=== PATIENT | female | born 1935 | race Caucasian/White ===

== ENCOUNTER 2016-07-16 12:45 | Emergency (ER) | payer MEDICARE ==
[2016-07-16 13:00] VITALS: BP 151/124; PULSE 75; RESP 18; TEMP 98.5
--- NOTE | 2016-07-16 13:06 | ED ---
Fall HPI - General Stated Complaint: FALL AT HOME Time Seen by Provider: 07/16/16 12:48 Source: patient, EMS, RN notes reviewed Mode of arrival: EMS Limitations: no limitations - History of Present Illness Initial Comments: 80-year-old female presents emergency department via EMS chief complaint fall. Patient states that she wears leg braces any caught together causing her to fall backwards. Patient fell on carpeted floor. Patient complains of pain in her buttocks region and upper back. Patient states she has no low back pain. She states the pain is more in her buttocks, pelvic region. Patient states she has no hip pain. Denies any head injury, LOC. Patient states she primary called EMS because she cannot get up off the floor by herself. Patient states the pain is very mild. Denies any nausea, vomiting, syncopal episode, chest pain or shortness breath. - Related Data Home Medications Medication Instructions Recorded Confirmed Allopurinol [Allopurinol] 100 mg PO QAM 01/16/16 01/20/16 Aspirin EC [Ecotrin Low Dose] 81 mg PO HS 01/16/16 01/20/16 Atenolol [Tenormin] 50 mg PO HS 01/16/16 01/20/16 Calcium Carb-Vit D 500Mg-200Un 1 tab PO W/SUPPER 01/16/16 01/20/16 [Oscal 500+D] Furosemide [Lasix] 40 mg PO DAILY 01/16/16 01/20/16 Gabapentin [Gabapentin] 300 mg PO W/SUPPER 01/16/16 01/20/16 Gabapentin [Gabapentin] 600 mg PO BID 01/16/16 01/20/16 Letrozole [Femara] 2.5 mg PO DAILY 01/16/16 01/20/16 Losartan Potassium [Losartan 50 mg PO DAILY 01/16/16 01/20/16 Potassium] Meloxicam 15 mg PO HS 01/16/16 01/20/16 Montelukast [Singulair] 10 mg PO HS 01/16/16 01/20/16 Multivitamins, Thera [Multivitamin] 1 tab PO W/SUPPER 01/16/16 01/20/16 Pravastatin Sodium [Pravastatin 20 mg PO HS 01/16/16 01/20/16 Sodium] glipiZIDE [Glipizide] 5 mg PO BID 01/16/16 01/20/16 metFORMIN HCL [metFORMIN HCL] 500 mg PO BID 01/16/16 01/20/16 traZODone HCL [Desyrel] 100 mg PO HS 01/16/16 01/20/16 Previous Rx's Medication Instructions Recorded HYDROcodone/APAP 5-325MG [[place] 1 tab PO Q6HR PRN #20 tab 01/20/16 5-325] Allergies Allergy/AdvReac Type Severity Reaction Status Date / Time naproxen Allergy Itching Verified 07/16/16 13:00 Penicillins Allergy Unknown Verified 07/16/16 13:00 Review of Systems ROS Statement: Those systems with pertinent positive or pertinent negative responses have been documented in the HPI. ROS Other: All systems not noted in ROS Statement are negative. Past Medical History Past Medical History: Diabetes Mellitus, Hyperlipidemia, Hypertension Additional Past Medical History / Comment(s): GOUT History of Any Multi-Drug Resistant Organisms: None Reported Past Surgical History: Cholecystectomy, Hysterectomy Additional Past Surgical History / Comment(s): MASTECTOMY RIGHT BREAST Past Psychological History: No Psychological Hx Reported Smoking Status: Former smoker Past Alcohol Use History: None Reported Past Drug Use History: None Reported General Exam Limitations: no limitations General appearance: alert, in no apparent distress Head exam: Present: atraumatic, normocephalic, normal inspection Neck exam: Present: normal inspection, full ROM. Absent: tenderness, meningismus, lymphadenopathy Respiratory exam: Present: normal lung sounds bilaterally. Absent: respiratory distress, wheezes, rales, rhonchi, stridor Cardiovascular Exam: Present: regular rate, normal rhythm, normal heart sounds. Absent: systolic murmur, diastolic murmur, rubs, gallop, clicks GI/Abdominal exam: Present: soft, normal bowel sounds. Absent: distended, tenderness, guarding, rebound, rigid Extremities exam: Present: other (Lower extremity braces noted patient has no pain with log rolling of either leg neurovascular intact no hip tenderness) Back exam: Present: full ROM, tenderness (Tenderness of the thoracic region to left thoracic, rib region, no lumbar tenderness), paraspinal tenderness ( Thoracic). Absent: vertebral tenderness Neurological exam: Present: alert, oriented X3, CN II-XII intact, reflexes normal. Absent: motor sensory deficit Skin exam: Present: warm, dry, intact, normal color. Absent: rash Course Vital Signs 07/16/16 12:56 Temperature 98.5 F Pulse Rate 75 Respiratory 18 Rate Blood Pressure 151/124 O2 Sat by Pulse 99 Oximetry Medical Decision Making - Medical Decision Making 80-year-old female presented emergency from for fall. Patient primary complaint of thoracic pain, buttocks pain. There is a compression fracture noted of L1 the patient is minimally tender. Patient will be referred to orthopedics Dr. Grace for further workup. Patient is requesting no pain medication at this time. Disposition Clinical Impression: Fall, Compression fracture Disposition: HOME SELF-CARE Condition: Stable Instructions: Vertebral Compression Fracture (ED) Additional Instructions: Please return to the Emergency Department if symptoms worsen or any other concerns. Referrals: Darrius Kamara MD [Primary Care Provider] - 1-2 days Michelle Grace DO [Doctor of Osteopathic Medicine] - 1-2 days Time of Disposition: 13:36
--- NOTE | 2016-07-16 13:27 | XR ---
EXAMINATION TYPE: XR pelvis AP view DATE OF EXAM: 07/16/2016 1:22 PM CLINICAL HISTORY: Left-sided pelvic pain since fall injury today. TECHNIQUE: A single AP view of the pelvis is obtained. COMPARISON: Left hip x-ray November 20, 2014. FINDINGS: Osseous structures are demineralized which is noted to lower radiographic sensitivity. Ther e is no acute fracture/dislocation evident in the pelvis. The sacroiliac joints appear symmetric and unremarkable. There is moderate axial joint space loss in both hips. Vascular calcification and phl eboliths overlie the pelvis. IMPRESSION: There is no acute fracture or dislocation in the pelvis.
--- NOTE | 2016-07-16 13:28 | XR ---
EXAMINATION TYPE: XR chest 1V DATE OF EXAM: 07/16/2016 1:22 PM HISTORY: Pain. REFERENCE: Previous study dated 09/30/2015. FINDINGS: The heart is enlarged. The lungs are clear. Pleural spaces are clear.. IMPRESSION: CARDIOMEGALY.
--- NOTE | 2016-07-16 13:30 | XR ---
EXAMINATION TYPE: XR thoracic spine 2V DATE OF EXAM ORDERED: 07/16/2016 1:22 PM HISTORY: Pain. COMPARISON: None. FINDINGS: There is a gentle levoscoliosis. There is a 50% wedge compression fracture of L1. Vertebral body height and alignment otherwise normal . There is diffuse disc space loss and mild hypertrophic spondylosis. Paraspinal soft tissues are nor mal. The pedicles are intact. IMPRESSION: 1. 50% WEDGE COMPRESSION FRACTURE OF L1. 2. MILD, DIFFUSE DEGENERATIVE CHANGE.
== END 2016-07-16 13:49 | disposition home or self-care (01) ==
LOC: EC 12:45
DX: S32.010A Wedge compression fracture of first lumbar vertebra, initial encounter for closed fracture (principal); W18.30XA Fall on same level, unspecified, initial encounter; E11.9 Type 2 diabetes mellitus without complications; I10 Essential (primary) hypertension; M10.9 Gout, unspecified; Y92.009 Unspecified place in unspecified non-institutional (private) residence as the place of occurrence of the external cause; Z87.891 Personal history of nicotine dependence; Z88.0 Allergy status to penicillin; Z88.6 Allergy status to analgesic agent; Z79.84 Long term (current) use of oral hypoglycemic drugs; Z79.899 Other long term (current) drug therapy; Z79.82 Long term (current) use of aspirin; Z79.1 Long term (current) use of non-steroidal anti-inflammatories (NSAID)
CPT/HCPCS: 71010; 72070; 72170; 99284

== ENCOUNTER 2016-07-24 14:38 | Emergency (ER) | payer MEDICARE ==
[2016-07-24 15:20] VITALS: BP 139/76; PULSE 62; RESP 18; TEMP 97.9
[2016-07-24] MEDS ORDERED: MORPHINE SULFATE 4 MG/ML SYRINGE IV STA (15:59)
[2016-07-24] MEDS ORDERED: SODIUM CHLORIDE 0.9% 1,000 ML IV STA (15:59)
--- NOTE | 2016-07-24 16:16 | ED ---
General Adult HPI - General Chief complaint: Fall Stated complaint: BACK PAIN FROM FALL ON WEEK AGO WEDNESDAY Time Seen by Provider: 07/24/16 15:43 Source: patient, RN notes reviewed, old records reviewed Mode of arrival: ambulatory - History of Present Illness Initial comments: This is an 80-year-old female to the ER for evaluation. This patient presents for evaluation of pain. Not acting appropriately and falls. Patient has history of recent fall recent follow back contusion and pain. Patient also putting of left rib sided rib pain and right-sided hip pain, contusion going down right leg. Patient is able to ambulate at home, family notes decreased activity level of recent - Related Data Home Medications Medication Instructions Recorded Confirmed Allopurinol [Allopurinol] 100 mg PO QAM 01/16/16 07/24/16 Aspirin EC [Ecotrin Low Dose] 81 mg PO HS 01/16/16 07/24/16 Atenolol [Tenormin] 50 mg PO HS 01/16/16 07/24/16 Calcium Carb-Vit D 500Mg-200Un 1 tab PO W/SUPPER 01/16/16 07/24/16 [Oscal 500+D] Furosemide [Lasix] 40 mg PO DAILY 01/16/16 07/24/16 Gabapentin [Gabapentin] 300 mg PO W/SUPPER 01/16/16 07/24/16 Gabapentin [Gabapentin] 600 mg PO BID 01/16/16 07/24/16 Letrozole [Femara] 2.5 mg PO DAILY 01/16/16 07/24/16 Losartan Potassium [Losartan 50 mg PO DAILY 01/16/16 07/24/16 Potassium] Meloxicam 15 mg PO HS 01/16/16 07/24/16 Montelukast [Singulair] 10 mg PO 01/16/16 07/24/16 Multivitamins, Thera [Multivitamin] 1 tab PO W/SUPPER 01/16/16 07/24/16 Pravastatin Sodium [Pravastatin 20 mg PO 01/16/16 07/24/16 Sodium] glipiZIDE [Glipizide] 5 mg PO BID 01/16/16 07/24/16 metFORMIN HCL [metFORMIN HCL] 500 mg PO BID 01/16/16 07/24/16 traZODone HCL [Desyrel] 100 mg PO HS 01/16/16 07/24/16 Ibuprofen [Motrin] 800 mg PO Q6H PRN 07/24/16 07/24/16 Previous Rx's Medication Instructions Recorded Acetaminophen-Codeine 300-30mg 1 tab PO Q4H PRN #20 tablet 07/16/16 [Tylenol #3] Allergies Allergy/AdvReac Type Severity Reaction Status Date / Time naproxen Allergy Mild Itching Verified 07/24/16 16:43 Penicillins Allergy Rash/Hives Verified 07/24/16 16:43 Review of Systems ROS Statement: Those systems with pertinent positive or pertinent negative responses have been documented in the HPI. ROS Other: All systems not noted in ROS Statement are negative. Past Medical History Past Medical History: Diabetes Mellitus, Hyperlipidemia, Hypertension Additional Past Medical History / Comment(s): GOUT History of Any Multi-Drug Resistant Organisms: None Reported Past Surgical History: Cholecystectomy, Hysterectomy Additional Past Surgical History / Comment(s): MASTECTOMY RIGHT BREAST Past Psychological History: No Psychological Hx Reported Smoking Status: Former smoker Past Alcohol Use History: None Reported Past Drug Use History: None Reported General Exam General appearance: alert, in no apparent distress Head exam: Present: atraumatic, normocephalic, normal inspection Eye exam: Present: normal appearance, PERRL, EOMI. Absent: scleral icterus, conjunctival injection, periorbital swelling ENT exam: Present: normal exam, mucous membranes moist Neck exam: Present: normal inspection. Absent: tenderness, meningismus, lymphadenopathy Respiratory exam: Present: normal lung sounds bilaterally. Absent: respiratory distress, wheezes, rales, rhonchi, stridor Cardiovascular Exam: Present: regular rate, normal rhythm, normal heart sounds. Absent: systolic murmur, diastolic murmur, rubs, gallop, clicks GI/Abdominal exam: Present: soft, normal bowel sounds. Absent: distended, tenderness, guarding, rebound, rigid Extremities exam: Present: normal inspection, full ROM, normal capillary refill. Absent: tenderness, pedal edema, joint swelling, calf tenderness Back exam: Present: normal inspection Neurological exam: Present: alert, oriented X3, CN II-XII intact Psychiatric exam: Present: normal affect, normal mood Skin exam: Present: warm, dry, intact, normal color. Absent: rash Course Vital Signs 07/24/16 15:14 Temperature 97.9 F Pulse Rate 62 Respiratory 18 Rate Blood Pressure 139/76 O2 Sat by Pulse 97 Oximetry Medical Decision Making - Medical Decision Making 80 female here status post fall. No traumatic injury, patient's prior authorization is reviewed and negative, patient currently hasn't no acute distress, general aches and pains. Patient will be discharged home - Lab Data Result diagrams: 07/24/16 16:25 07/24/16 16:25 Lab Results 07/24/16 07/24/16 07/24/16 Range/Units 16:18 16:25 16:25 WBC 8.6 (3.8-10.6) k/uL RBC 3.65 L (3.80-5.40) m/uL Hgb 11.5 (11.4-16.0) gm/dL Hct 32.7 L (34.0-46.0) % MCV 89.6 (80.0-100.0) fL MCH 31.6 (25.0-35.0) pg MCHC 35.2 (31.0-37.0) g/dL RDW 15.5 (11.5-15.5) % Plt Count 200 (150-450) k/uL Neutrophils % 58 % Lymphocytes % 32 % Monocytes % 6 % Eosinophils % 0 % Basophils % 0 % Neutrophils # 5.0 (1.3-7.7) k/uL Lymphocytes # 2.7 (1.0-4.8) k/uL Monocytes # 0.5 (0-1.0) k/uL Eosinophils # 0.0 (0-0.7) k/uL Basophils # 0.0 (0-0.2) k/uL Hyperchromasia Slight Poikilocytosis Slight PT (9.0-12.0) sec INR (<1.1) APTT (22.0-30.0) sec Sodium (137-145) mmol/L Potassium (3.5-5.1) mmol/L Chloride (98-107) mmol/L Carbon Dioxide (22-30) mmol/L Anion Gap mmol/L BUN (7-17) mg/dL Creatinine (0.52-1.04) mg/dL Est GFR (MDRD) Af Amer (>60 ml/min/1.73 sqM) Est GFR (MDRD) Non-Af (>60 ml/min/1.73 sqM) Glucose (74-99) mg/dL Calcium (8.4-10.2) mg/dL Phosphorus (2.5-4.5) mg/dL Magnesium (1.6-2.3) mg/dL Total Bilirubin (0.2-1.3) mg/dL AST (14-36) U/L ALT (9-52) U/L Alkaline Phosphatase (38-126) U/L Total Creatine Kinase 31 (30-135) U/L CK-MB (CK-2) 0.7 (0.0-2.4) ng/mL CK-MB (CK-2) Rel Index 2.3 Troponin I <0.012 (0.000-0.034) ng/mL Total Protein (6.3-8.2) g/dL Albumin (3.5-5.0) g/dL Urine Color Yellow Urine Appearance Clear (Clear) Urine pH 6.0 (5.0-8.0) Ur Specific [place] 1.005 (1.001-1.035) Urine Protein Negative (Negative) Urine Glucose (UA) Negative (Negative) Urine Ketones Negative (Negative) Urine Blood Negative (Negative) Urine Nitrite Negative (Negative) Urine Bilirubin Negative (Negative) Urine Urobilinogen <2.0 (<2.0) mg/dL Ur Leukocyte Esterase Negative (Negative) 07/24/16 07/24/16 Range/Units 16:25 16:25 WBC (3.8-10.6) k/uL RBC (3.80-5.40) m/uL Hgb (11.4-16.0) gm/dL Hct (34.0-46.0) % MCV (80.0-100.0) fL MCH (25.0-35.0) pg MCHC (31.0-37.0) g/dL RDW (11.5-15.5) % Plt Count (150-450) k/uL Neutrophils % % Lymphocytes % % Monocytes % % Eosinophils % % Basophils % % Neutrophils # (1.3-7.7) k/uL Lymphocytes # (1.0-4.8) k/uL Monocytes # (0-1.0) k/uL Eosinophils # (0-0.7) k/uL Basophils # (0-0.2) k/uL Hyperchromasia Poikilocytosis PT 10.5 (9.0-12.0) sec INR 1.0 (<1.1) APTT 21.9 L (22.0-30.0) sec Sodium 133 L (137-145) mmol/L Potassium 4.0 (3.5-5.1) mmol/L Chloride 89 L (98-107) mmol/L Carbon Dioxide 32 H (22-30) mmol/L Anion Gap 12 mmol/L BUN 36 H (7-17) mg/dL Creatinine 1.40 H (0.52-1.04) mg/dL Est GFR (MDRD) Af Amer 44 (>60 ml/min/1.73 sqM) Est GFR (MDRD) Non-Af 36 (>60 ml/min/1.73 sqM) Glucose 84 (74-99) mg/dL Calcium 10.0 (8.4-10.2) mg/dL Phosphorus 3.2 (2.5-4.5) mg/dL Magnesium 1.5 L (1.6-2.3) mg/dL Total Bilirubin 2.9 H (0.2-1.3) mg/dL AST 37 H (14-36) U/L ALT 32 (9-52) U/L Alkaline Phosphatase 99 (38-126) U/L Total Creatine Kinase (30-135) U/L CK-MB (CK-2) (0.0-2.4) ng/mL CK-MB (CK-2) Rel Index Troponin I (0.000-0.034) ng/mL Total Protein 6.5 (6.3-8.2) g/dL Albumin 3.6 (3.5-5.0) g/dL Urine Color Urine Appearance (Clear) Urine pH (5.0-8.0) Ur Specific [place] (1.001-1.035) Urine Protein (Negative) Urine Glucose (UA) (Negative) Urine Ketones (Negative) Urine Blood (Negative) Urine Nitrite (Negative) Urine Bilirubin (Negative) Urine Urobilinogen (<2.0) mg/dL Ur Leukocyte Esterase (Negative) - Radiology Data Radiology results: report reviewed (CT brain negative for acute disease, chest x -ray negative for acute disease, [place] negative for acute disease, hip negative for acute disease), image reviewed Disposition Clinical Impression: Weakness Disposition: HOME SELF-CARE Condition: Good Instructions: Weakness (ED) Referrals: Darrius Kamara MD [Primary Care Provider] - 1-2 days
[2016-07-24 16:40] LABS: Appearance,Urine Clear (Clear); Bilirubin,Urine Negative (Negative); Glucose,Urine (UA) Negative (Negative); Ketones,Urine Negative (Negative); Leukocyte Esterase,Urine Negative (Negative); Nitrite,Urine Negative (Negative); Protein,Urine Negative (Negative); Specific Gravity,Urine 1.005 (1.001-1.035); UA Billing (MACRO vs. MICRO) CHEM; Urobilinogen,Urine <2.0 mg/dL (<2.0)
[2016-07-24 16:45] LABS: Basophils % (A) 0 %; CH 32.9; Eosinophils % (A) 0 %; HCT 32.7 % (34.0-46.0); HDW 3.56; HGB 11.5 gm/dL (11.4-16.0); Hyperchromasia Slight; Luc % (Auto) 4; Lymphocytes # (A) 2.7 k/uL (1.0-4.8); Lymphocytes % (A) 32 %; MCH 31.6 pg (25.0-35.0); MCHC 35.2 g/dL (31.0-37.0); MCV 89.6 fL (80.0-100.0); Mean Platelet Volume 8.1; Monocytes # (A) 0.5 k/uL (0-1.0); Monocytes % (A) 6 %; Neutrophils % (A) 58 %; Poikilocytosis Slight; RBC 3.65 m/uL (3.80-5.40); RDW 15.5 % (11.5-15.5); WBC 8.6 k/uL (3.8-10.6); WBC (Perox) 9.02
[2016-07-24 16:58] LABS: Magnesium 1.5 mg/dL (1.6-2.3); Phosphorous 3.2 mg/dL (2.5-4.5); Total Bilirubin 2.9 mg/dL (0.2-1.3); Total Protein 6.5 g/dL (6.3-8.2)
[2016-07-24 17:03] LABS: Partial Thromboplastin Time 21.9 sec (22.0-30.0); Prothrombin Time 10.5 sec (9.0-12.0)
[2016-07-24 17:05] LABS: Creatine Kinase 31 U/L (30-135)
[2016-07-24 17:17] LABS: Creatine Kinase MB 0.7 ng/mL (0.0-2.4); Troponin I <0.012 ng/mL (0.000-0.034)
[2016-07-24] MEDS ORDERED: MAGNESIUM OXIDE 400 MG TAB PO STA (19:09)
--- NOTE | 2016-07-24 19:16 | CT ---
EXAMINATION TYPE: CT brain wo con DATE OF EXAM: 07/24/2016 6:25 PM COMPARISON: NONE HISTORY: Lower back pain after fall injury x1 week ago. CT DLP: 1144 mGycm Automated exposure control for dose reduction was used. FINDINGS: There is no acute intracranial hemorrhage, mass effect, or midline shift identified. The v entricles and sulci are within normal limits in size. The right maxillary sinus is completely opacified, as are the right anterior and middle ethmoid sinus air cells. There is partial opacification of the right frontal sinus and the visualized left maxilla ry sinus. Mastoid sinus air cells and middle ear cavities are clear. IMPRESSION: 1. No acute intracranial hemorrhage, mass effect, or midline shift is seen. 2. Paranasal sinus inflammatory changes, changes can correlate with a clinical diagnosis of sinusitis .
--- NOTE | 2016-07-24 19:22 | CT ---
EXAMINATION TYPE: CT lumbar spine wo con DATE OF EXAM: 07/24/2016 6:25 PM COMPARISON: NONE HISTORY: Lower back pain after fall injury x1 week ago. CT DLP: 994 mGycm Automated exposure control for dose reduction was used. TECHNIQUE: Unenhanced CT of the lumbar spine was performed. Bone and soft tissue window settings are submitted as well as coronal and sagittal reconstructions. FINDINGS: There is prominent generalized osteopenia. At the thoracolumbar junction there is moderate anterior wedging, with age indeterminate. The appearance appears similar to the July 16, 2016 radiog raphs. If MRI without contrast is pursued, this can't distinguish acute compression versus chronic ra diographic finding. There are no other candidates for acute processes. Multilevel lumbar spondylosis changes are apprecia ras, with greater involvement of the facet joints than the intervertebral discs, but no nerve root im pingement. IMPRESSION: NO DEFINITE ACUTE PROCESS, DISCUSSED.
--- NOTE | 2016-07-24 19:26 | XR ---
EXAMINATION TYPE: XR ribs LT w pa chest xray - 5V DATE OF EXAM: 07/24/2016 6:49 PM COMPARISON: July 16, 2016 HISTORY: Pain after injury TECHNIQUE: 5 views FINDINGS: There is no pneumothorax and no pleural effusion. No displaced rib fractures. No incidental findings. Mild-moderately enlarged cardiac silhouette is noted. IMPRESSION: NO ACUTE PROCESS.
--- NOTE | 2016-07-24 19:28 | XR ---
EXAMINATION TYPE: XR Hip Complete RT DATE OF EXAM: 07/24/2016 6:49 PM COMPARISON: July 16, 2016 HISTORY: Pain after injury TECHNIQUE: AP and frog leg lateral views were obtained. FINDINGS: Negative for fracture or malalignment. Atherosclerotic calcifications are appreciated. IMPRESSION: No acute process.
== END 2016-07-24 20:06 | disposition home or self-care (01) ==
LOC: EC 14:38
DX: R53.1 Weakness (principal); M25.551 Pain in right hip; R07.81 Pleurodynia; M54.9 Dorsalgia, unspecified; E11.9 Type 2 diabetes mellitus without complications; I10 Essential (primary) hypertension; M10.9 Gout, unspecified; Z53.20 Procedure and treatment not carried out because of patient's decision for unspecified reasons; Z87.891 Personal history of nicotine dependence; Z90.11 Acquired absence of right breast and nipple; Z79.899 Other long term (current) drug therapy; Z88.0 Allergy status to penicillin; Z88.6 Allergy status to analgesic agent; W18.30XA Fall on same level, unspecified, initial encounter
CPT/HCPCS: 36415; 70450; 72131; 73502; 80053; 81003; 82550; 82553; 83735; 84100; 84484; 85025; 85610; 85730; 87086; 99284

== ENCOUNTER → 2016-08-25 | Outpatient (CLI) | payer MEDICARE ==
[2016-08-25 13:13] LABS: Basophils % (A) 0 %; CH 31.4; CHCM 34.7; Calcium 9.3 mg/dL (8.4-10.2); Eosinophils % (A) 0 %; HCT 39.1 % (34.0-46.0); HGB 13.3 gm/dL (11.4-16.0); Luc # (Auto) 0.25; Luc % (Auto) 3; Lymphocytes # (A) 2.7 k/uL (1.0-4.8); Lymphocytes % (A) 34 %; MCH 30.9 pg (25.0-35.0); Mean Platelet Volume 6.4; Monocytes # (A) 0.4 k/uL (0-1.0); Monocytes % (A) 5 %; Neutrophils # (A) 4.6 k/uL (1.3-7.7); Neutrophils % (A) 57 %; Poikilocytosis Slight; Potassium 4.3 mmol/L (3.5-5.1); RDW 14.1 % (11.5-15.5); WBC (Perox) 8.28
== END ==
LOC: LABPAT 12:31
PROVIDERS: ATTEND Internal Medicine Interventional Cardiology
DX: Z01.812 Encounter for preprocedural laboratory examination (principal); E78.00 Pure hypercholesterolemia, unspecified; I10 Essential (primary) hypertension; I25.10 Atherosclerotic heart disease of native coronary artery without angina pectoris; I34.0 Nonrheumatic mitral (valve) insufficiency
CPT/HCPCS: 80048; 85025

== ENCOUNTER 2016-08-28 06:31 | Day surgery (SDC) | payer MEDICARE ==
[2016-08-27 09:42] VITALS: BMI 30.9
[~2016-08-28 06:31] MED LIST: BENZOCAINE SPRAY 100 APPLIC/CAN TOPICAL PRN
[2016-08-28] MEDS ORDERED: SODIUM CHLORIDE 0.9% 500 ML IV ONE ×2 (06:43→07:26)
[2016-08-28] MEDS ORDERED: fentaNYL (PF) 50 MCG/ML 2 ML AMP ONE (07:02)
[2016-08-28] MEDS ORDERED: MIDAZOLAM 2 MG/2 ML VIAL ONE ×2 (07:02→07:58)
[2016-08-28 07:07] LABS: Glucose,Whole Blood 83 mg/dL (75-99)
[2016-08-28 07:13] VITALS: RESP 16; TEMP 98.2
[2016-08-28] MEDS ORDERED: BENZOCAINE SPRAY 100 APPLIC/CAN MUCOUS MEM ONE (07:26)
[2016-08-28] MEDS ORDERED: MIDAZOLAM 2 MG/2 ML VIAL IV ONE (07:26)
[2016-08-28] MEDS ORDERED: fentaNYL (PF) 50 MCG/ML 2 ML AMP IV ONE (07:26)
[2016-08-28] MEDS ORDERED: SODIUM CHLORIDE 0.9% 1,000 ML IV SCH (08:00)
--- NOTE | 2016-08-28 08:02 | P.PCN ---
Date of Procedure: 08/28/16 Preoperative Diagnosis: Nonrheumatic mitral regurgitation Postoperative Diagnosis: 3+ mitral regurgitation Procedure(s) Performed: Transesophageal echocardiogram Description of Procedure: INDICATION : This 80-year-old female has been experiencing increasing shortness of breath and fatigue. Transthoracic echo [place] showed increasing mitral regurgitation. A NATASHA examination is requested for further evaluation of mitral regurg. CONSENT: Informed consent was obtained from patient PROCEDURE: Patient was brought to the lab in a fasting state. She was prepped and draped in the usual fashion. The throat was sprayed with Cetacaine. He lubricated Omni probe was introduced into the oropharynx and was advanced into the esophagus. Multiple views were obtained both from stomach and esophagus. Patient tolerated the procedure well. No immediate complications FINDINGS: The aortic valve is tricuspid with mild thickening. No evidence of any stenosis or regurgitation. The mitral valve showed calcification of the annulus and also basal portion of the leaflets. This seemed to be mild mol co- optation of the mitral leaflets. The posterior mitral leaflet appears to be stiff. There is central mitral regurgitation which appears to be about 3+ with Pisa value of 0.6 to 0.8. No reversal of flow in the left pulmonary vein. The atrial appendage appears to be free of any clot. The interatrial septum appeared to be intact without any spontaneous shunt. Injection of the contrast saline bubble injections did not reveal any crossover of bubbles across interatrial septum. Left ventricle function appeared to be preserved IMPRESSION: #1. 3+ mitral regurgitation which is central. #2. Calcified mitral annulus with calcification of the basal portion of the leaflets. The tips of the leaflets appear to be friable #3. No PFO #4. No clot in the left atrial appendage. #5. Left ankle function appear to be preserved. #6. Mild to moderate plaque in the aorta PLAN: Continue maximal medical therapy. May need to do cardiac catheterization to rule out underlying ischemic heart disease.
[2016-08-28 08:38] VITALS: BP 172/72; PULSE 68
== END 2016-08-28 09:22 | disposition home or self-care (01) ==
LOC: CATHCVL 06:31
PROVIDERS: ATTEND Internal Medicine Cardiovascular Disease
DX: I34.0 Nonrheumatic mitral (valve) insufficiency (principal); I25.10 Atherosclerotic heart disease of native coronary artery without angina pectoris; I10 Essential (primary) hypertension; Z87.891 Personal history of nicotine dependence; E78.00 Pure hypercholesterolemia, unspecified; I27.2 Other secondary pulmonary hypertension; E11.9 Type 2 diabetes mellitus without complications; Z79.84 Long term (current) use of oral hypoglycemic drugs; Z82.49 Family history of ischemic heart disease and other diseases of the circulatory system; Z79.82 Long term (current) use of aspirin; Z79.899 Other long term (current) drug therapy; Z79.811 Long term (current) use of aromatase inhibitors; Z88.0 Allergy status to penicillin
CPT/HCPCS: 93312; 93320; 93325; J2250; J3010

== ENCOUNTER → 2016-09-08 | Outpatient (CLI) | payer MEDICARE ==
[2016-09-08 10:46] LABS: CH 31.1; CHCM 34.6; HCT 40.1 % (34.0-46.0); HDW 3.26; HGB 13.3 gm/dL (11.4-16.0); MCH 29.9 pg (25.0-35.0); MCHC 33.2 g/dL (31.0-37.0); MCV 90.1 fL (80.0-100.0); Mean Platelet Volume 6.7; RBC 4.45 m/uL (3.80-5.40); RDW 14.1 % (11.5-15.5); WBC 6.1 k/uL (3.8-10.6)
[2016-09-08 11:04] LABS: Calcium 9.5 mg/dL (8.4-10.2); Potassium 3.8 mmol/L (3.5-5.1); Total Bilirubin 1.9 mg/dL (0.2-1.3); Total Protein 6.3 g/dL (6.3-8.2)
[2016-09-08 12:06] LABS: Hemoglobin A1C 4.1 % (4.2-6.1)
== END | disposition home or self-care (01) ==
LOC: LABWHC1 09:42
PROVIDERS: ATTEND Internal Medicine Interventional Cardiology
DX: I25.10 Atherosclerotic heart disease of native coronary artery without angina pectoris (principal); I50.9 Heart failure, unspecified; E11.9 Type 2 diabetes mellitus without complications; E78.2 Mixed hyperlipidemia
CPT/HCPCS: 36415; 80053; 80061; 82043; 83036; 84439; 84443; 85027

== ENCOUNTER 2016-09-09 15:00 | Emergency (ER) | payer MEDICARE ==
[2016-09-09] MEDS ORDERED: ACETAMINOPHEN TAB 325 MG TAB PO STA (16:50)
--- NOTE | 2016-09-09 16:52 | ED ---
General Adult HPI - General Chief complaint: Fall Stated complaint: Fall Time Seen by Provider: 09/09/16 16:22 Source: patient, family, RN notes reviewed Mode of arrival: wheelchair Limitations: no limitations - History of Present Illness Initial comments: 80-year-old female presenting after mechanical fall at home. Patient states that she has chronic LE neuropathy and tripped falling forward hitting her face on a glass sliding door. She did not break the glass. She states she did not fall all the way to the ground. She did sustain injury to her face. She denies any significant nose bleed but did notice some mild blood while she blew her nose. States she has a little swelling at the bridge of her nose. She also states that she has some pain towards the back of her head. She denies any visual changes. She denies loss of consciousness. She denies blood thinner use. She did sustain some skin tears to her left forearm and fingers. She denies any other complaints at this time. - Related Data Home Medications Medication Instructions Recorded Confirmed Allopurinol 100 mg PO QAM 01/16/16 09/09/16 Aspirin EC [Ecotrin Low Dose] 81 mg PO HS 01/16/16 09/09/16 Atenolol [Tenormin] 50 mg PO HS 01/16/16 09/09/16 Calcium Carb-Vit D 500Mg-200Un 1 tab PO DAILY@1200 01/16/16 09/09/16 [Oscal 500+D] Furosemide [Lasix] 40 mg PO DAILY 01/16/16 09/09/16 Gabapentin 300 mg PO DAILY@1200 01/16/16 09/09/16 Gabapentin 600 mg PO BID 01/16/16 09/09/16 Letrozole [Femara] 2.5 mg PO DAILY 01/16/16 09/09/16 Losartan Potassium 50 mg PO DAILY 01/16/16 09/09/16 Meloxicam 15 mg PO HS 01/16/16 09/09/16 Montelukast [Singulair] 10 mg PO HS 01/16/16 09/09/16 Multivitamins, Thera [Multivitamin 1 tab PO W/SUPPER 01/16/16 09/09/16 (formulary)] Pravastatin Sodium 20 mg PO HS 01/16/16 09/09/16 glipiZIDE [Glipizide] 5 mg PO BID 01/16/16 09/09/16 metFORMIN HCL 500 mg PO BID 01/16/16 09/09/16 traZODone HCL [Desyrel] 100 mg PO HS 01/16/16 09/09/16 Allergies Allergy/AdvReac Type Severity Reaction Status Date / Time naproxen Allergy Mild Itching Verified 09/09/16 16:39 Penicillins Allergy Rash/Hives Verified 09/09/16 16:39 Review of Systems ROS Statement: Those systems with pertinent positive or pertinent negative responses have been documented in the HPI. ROS Other: All systems not noted in ROS Statement are negative. Past Medical History Past Medical History: Cancer, Diabetes Mellitus, Hyperlipidemia, Hypertension, Mitral Valve Prolapse (MVP), Osteoarthritis (OA) Additional Past Medical History / Comment(s): GOUT. SHORT OF BREATH W/ ACTIVITY. SINUS PROB. HX RT BREAST CA 2006; DO NOT USE RT ARM. NEUROPATHY LEGS, FEET. USES WALKER, UNSTEADY ON FEET. History of Any Multi-Drug Resistant Organisms: None Reported Past Surgical History: Breast Surgery, Cholecystectomy, Hysterectomy Additional Past Surgical History / Comment(s): MASTECTOMY RT BREAST W/ AXILLA LYMPH NODE EXC. Past Anesthesia/Blood Transfusion Reactions: Motion Sickness Additional Past Anesthesia/Blood Transfusion Reaction / Comment(s): HX IN PAST. Past Psychological History: No Psychological Hx Reported Smoking Status: Former smoker Past Alcohol Use History: None Reported Additional Past Alcohol Use History / Comment(s): SMOKED 10 YEARS, 1/2 PPD EST, QUIT 1967 Past Drug Use History: None Reported - Past Family History Mother Family Medical History: Cancer Brother(s) Family Medical History: Cancer General Exam - General Exam Comments Initial Comments: General: Awake and Alert. No acute distress. Does not appear acutely ill. Obese. Eyes: LOTTIE, EOM intact without evidence of entrapment. No nystagmus. No scleral icterus. HENT: Normocephalic. Bruising at the bridge of the nose, mild deformity palpated on the left side. There is mild tenderness to the posterior scalp. Mucous membranes moist. Trachea midline. No hemotympanum. No epistaxis. Neck: The neck is supple, there is no tenderness or JVD. Cardiovascular: Regular rate and rhythm. No murmur, rub, or gallop is appreciated. Distal pulses intact. Respiratory: Lungs are clear to auscultation bilaterally. No wheezes, rales, rhonchi. No respiratory distress. Gastrointestinal: Soft, Nontender. No rebound or guarding. Non-distended. No masses or organomegaly noted. No CVA tenderness. Musculoskeletal: No posterior spinal tenderness. Normal ROM. No gross deformity. No strength deficits. Neurological: A&Ox3. CN II-XII grossly intact, There are no obvious motor or sensory deficits. Coordination appears grossly intact. Speech is normal. Skin: Skin is warm and dry and no rashes. Small skin tear noted to the volar forearm approximately 3cm x .25cm. There are several small abrasions to the top of the fingers of the left hand. Psychiatric: Cooperative, appropriate mood & affect, normal judgment. Limitations: no limitations Course Vital Signs 09/09/16 09/09/16 15:08 17:40 Temperature 98.1 F 98.7 F Pulse Rate 69 70 Respiratory 20 16 Rate Blood Pressure 173/84 186/88 O2 Sat by Pulse 97 98 Oximetry Medical Decision Making - Medical Decision Making 80-year-old female presenting after mechanical fall. No loss consciousness. No blood thinner use. Patient does have bruising to the bridge of the nose with mild palpated deformity. CT of head and orbits was ordered. Patient also with mild skin tear to left forearm and abrasions to left fingers. These do not require repair at this time. Discussed local wound care for these injuries. Tetanus will be updated today. CT head with no acute bleed CT orbits with evidence of nasal bone fracture with mild displacement. Evidence of sinusitis - discussed with patient states this is chronic. Patient reevaluated remained stable. She was able to ambulate without issue. Updated on imaging. Discussed follow-up with ENT for nasal bone fracture. Discussed no nose blowing. Discussed ice and NSAIDs as needed. Discussed concerning signs symptoms for immediate return to the ER. Patient and daugher are agreeable with plan and discharge home. - Radiology Data Radiology results: report reviewed, image reviewed Disposition Clinical Impression: Fall, Nasal fracture, Skin tear Disposition: HOME SELF-CARE Condition: Stable Instructions: Nasal Fracture (ED), Fall Prevention for Older Adults (ED), Skin Tear (ED) Referrals: Darrius Kamara MD [Primary Care Provider] - 1-2 days Tejas Elias MD [STAFF PHYSICIAN] - 1-2 days Time of Disposition: 17:13
--- NOTE | 2016-09-09 17:07 | CT ---
EXAMINATION TYPE: CT brain wo con DATE OF EXAM: 09/09/2016 4:58 PM COMPARISON: NONE INDICATION: Fall today. Trip and fall. Injury to bridge of nose. DLP: 1355.50 mGycm, Automated exposure control for dose reduction was used. CONTRAST: None CT of the brain is performed utilizing 3 mm thick sections through the posterior fossa and 3 mm thick sections through the remaining calvarium. Study is performed within 24 hours of arrival to the hosp [facility]. No abnormal hyperdensity is present to suggest an acute intracranial hemorrhage. No mass lesion is evident. No acute infarcts are evident. Periventricular white matter hypodensity is present, likely on the bas is of chronic white matter ischemic changes. Ventricles and sulci are prominent for the patient age. Patent cavum septum lucid and cavum vergae a re present, normal variants. IMPRESSIONS: 1. Atrophy within the brain. No acute posttraumatic changes within the brain.
--- NOTE | 2016-09-09 17:11 | CT ---
EXAMINATION TYPE: CT orbits wo con DATE OF EXAM: 09/09/2016 4:58 PM COMPARISON: NONE HISTORY: Fall today. Trip and fall. Injury to bridge of nose. CT DLP: 1355.50 mGycm Automated exposure control for dose reduction was used. FINDINGS: There is an air-fluid level within the left maxillary sinus. There is complete opacification of the r ight maxillary sinus. There is a fracture of the nasal bones with internal deviation of the left portion of the nasal bones . There is a fracture of the anterior septum towards the right. The septum is also fractured right ED V. Zygomatic arches are intact. Temporomandibular joints appear intact without fracture. Degenerative ch anges likely present. Mastoid air cells are clear. Frontal sinuses are clear. Ethmoid air cells. Post surgical with some fluid present. Fluid is within the right sphenoid sinus. Obvious trapdoor blowout fractures of the orbits is not evident. IMPRESSION: FRACTURE OF THE NASAL BONES. THERE IS SOME DEPRESSION OF THE RIGHT NASAL BRIDGE FRACTURE. 2. OPACIFICATION OF THE BILATERAL MAXILLARY SINUSES MIXED LIMITATION ON THE EVALUATION FOR ADDITIONAL FRACTURES. 3. SEPTAL FRACTURE WITH DISPLACEMENT TO THE RIGHT.
[2016-09-09] MEDS ORDERED: DIPH,PERTUS(ACELL)TETVAC-LF 0.5 ML VIAL IM ONE (17:12)
[2016-09-09 17:45] VITALS: BP 186/88; PULSE 70; RESP 16; TEMP 98.7
== END 2016-09-09 17:46 | disposition home or self-care (01) ==
LOC: EC 15:00
DX: S02.2XXA Fracture of nasal bones, initial encounter for closed fracture (principal); S51.812A Laceration without foreign body of left forearm, initial encounter; S60.419A Abrasion of unspecified finger, initial encounter; E78.5 Hyperlipidemia, unspecified; I10 Essential (primary) hypertension; M19.90 Unspecified osteoarthritis, unspecified site; E11.40 Type 2 diabetes mellitus with diabetic neuropathy, unspecified; M10.9 Gout, unspecified; Z23 Encounter for immunization; Z85.3 Personal history of malignant neoplasm of breast; Z87.891 Personal history of nicotine dependence; Z79.82 Long term (current) use of aspirin; Z79.1 Long term (current) use of non-steroidal anti-inflammatories (NSAID); Z79.84 Long term (current) use of oral hypoglycemic drugs; Z79.899 Other long term (current) drug therapy; Z88.0 Allergy status to penicillin; Z88.6 Allergy status to analgesic agent; W01.198A Fall on same level from slipping, tripping and stumbling with subsequent striking against other object, initial encounter; Y92.009 Unspecified place in unspecified non-institutional (private) residence as the place of occurrence of the external cause
CPT/HCPCS: 70450; 70480; 90471; 90715; 99284

== ENCOUNTER → 2016-09-30 | Outpatient (CLI) | payer MEDICARE ==
--- NOTE | 2016-09-30 11:47 | MM ---
Reason for exam: history of breast cancer, mastectomy. Last mammogram was performed 1 year ago. History: Patient is postmenopausal and has history of breast cancer at age 70. Mastectomy of the right breast, September 10, 2006. Malignant US right core biopsy of the right breast, September 02, 2006. Stereotactic core biopsy, May 11, 2003. Benign excisional biopsy of the right breast. Chemotherapy. Took estrogen for 1 year. Taking antineoplastic for 9 years beginning at age 70. Physical Findings: Nurse did not find any significant physical abnormalities on exam. MG 3D Diag Mammo W/Cad LT CC and MLO view(s) were taken of the left breast. Prior study comparison: September 30, 2015, left breast MG 3d diag mammo w/cad LT. September 26, 2014, left breast MG diagnostic mammo LT w CAD. The breast tissue is heterogeneously dense. This may lower the sensitivity of mammography. Benign calcifications. There is no discrete abnormality. No significant new findings when compared with previous films. These results were verbally communicated with the patient and result sheet given to the patient on 09/30/16. ASSESSMENT: Benign, BI-RAD 2 RECOMMENDATION: Follow-up diagnostic mammogram of the left breast in 1 year.
== END | disposition home or self-care (01) ==
LOC: RADMAMWWP 10:57
PROVIDERS: ATTEND Internal Medicine Hematology & Oncology
DX: Z08 Encounter for follow-up examination after completed treatment for malignant neoplasm (principal); Z85.3 Personal history of malignant neoplasm of breast
CPT/HCPCS: G0206; G0279

== ENCOUNTER 2016-10-01 08:31 | Day surgery (SDC) | payer MEDICARE ==
[2016-09-28 15:23] VITALS: BMI 31.3
[~2016-10-01 08:31] MED LIST changes: +ACETAMINOPHEN TAB 500 MG TAB PO ONE; -BENZOCAINE SPRAY 100 APPLIC/CAN TOPICAL PRN; +DEXAMETHASONE SOD PHOSPHATE 10 MG/ML 1 ML VIAL IV ONE; +ONDANSETRON 4 MG/2 ML VIAL IVP ONE; +Pre Op ABX Message 1 EACH MISC MISCELLANE ONE
[2016-10-01] MEDS ORDERED: OXYMETAZOLINE 0.05% NASL SPRAY 15 ML ONE (08:42)
[2016-10-01] MEDS: LACTATED RINGERS 1,000 ML IV SCH ×2 (09:14→12:40)
[2016-10-01] MEDS: OXYMETAZOLINE 0.05% NASL SPRAY 15 ML NASAL ONE ×3 (09:27→09:41)
[2016-10-01 09:29] LABS: Glucose,Whole Blood 93 mg/dL (75-99)
[2016-10-01] MEDS ORDERED: OXYMETAZOLINE 0.05% NASL SPRAY 15 ML NASAL STA (09:30)
[2016-10-01] MEDS ORDERED: DEXAMETHASONE SOD PHOS (MDV) 100 MG/10 ML VIAL ONE (10:03)
[2016-10-01] MEDS ORDERED: MIDAZOLAM 2 MG/2 ML VIAL ONE (10:03)
[2016-10-01] MEDS ORDERED: LIDOCAINE 1% INJ 10MG/ML (20 ML MDV) ONE (10:03)
[2016-10-01] MEDS ORDERED: SUCCINYLCHOLINE CHLORIDE 100 MG/5 ML SYR IV ONE (10:03)
[2016-10-01] MEDS ORDERED: fentaNYL (PF) 50 MCG/ML 2 ML AMP ONE (10:03)
[2016-10-01] MEDS ORDERED: ePHEDrine 50 MG/ML 1 ML AMP ONE (10:03)
[2016-10-01] MEDS ORDERED: PROPOFOL 10 MG/ML 20 ML VIAL IV ONE (10:03)
[2016-10-01] MEDS ORDERED: BUPIVACAIN-EPI 0.5%-1:200,000 30 ML VIAL SQ ONE (10:34)
[2016-10-01] MEDS ORDERED: LIDOCAINE 1%-EPI 1:100,000 20 ML VIAL SQ ONE (10:34)
[2016-10-01] MEDS ORDERED: FLUORESCEIN STRIPS 1 MG STRIP MISCELLANE ONE (10:35)
[2016-10-01] MEDS ORDERED: EPINEPHrine 1 MG/ML (MDV) 30 ML VIAL TOPICAL ONE (10:35)
[2016-10-01 11:36] VITALS: TEMP 98
[2016-10-01 11:53] LABS: Glucose,Whole Blood 151 mg/dL (75-99)
--- NOTE | 2016-10-01 11:55 | P.OP ---
Date of Procedure: 10/01/16 Preoperative Diagnosis: Nasal bone fracture, closed Deviated nasal septum Chronic pansinusitis with sinonasal mycetoma Postoperative Diagnosis: Same Procedure(s) Performed: Septoplasty Closed reduction of a nasal bone fracture with stabilization Bilateral functional endoscopic sinus surgery with removal of mycetoma's bilaterally Implants: Anesthesia: GETA Surgeon: Anmol Graff Estimated Blood Loss (ml): 10 Pathology: other (sinonasal) Condition: stable Disposition: PACU Indications for Procedure: This patient fell and hit her face against the door. She had epistaxis nasal obstruction anosmia. She broke her nose and had a comminuted nasal bone fracture with a deviated nasal septum she also was found have chronic sinusitis with a mycetoma bilaterally. After long discussions elected to proceed forward with both functional endoscopic sinus surgery, mycetoma removal and correction of her deviated septum and nasal fracture. She's had constant sinus problems with drainage congestion anosmia etc. for many months. She has been on antibiotics with no improvement. She been on cortisone nasal sprays with no improvement. Operative Findings: Patient has bilateral mycetomas with thick and viscous contact [place] type material removed from both maxillary sinuses with extension of the infection to the ethmoid sphenoid and frontal sinuses. Patient had a severe left septal deviation was corrected patient also had a comminuted nasal bone fracture deviated to the right. Description of Procedure: This patient was taken to the operative room and placed in the supine position. A general inhalation anesthetic was administered to the patient by mask and subsequently elevated with a cuffed endotracheal tube by the department of anesthesia with a functioning IV line in place. The patient was monitored throughout the entire case by the department of anesthesia. The septum lateral nasal wall middle inferior turbinates were injected with lidocaine 1% with epinephrine 1 100,000. Approximately 10 minutes were allowed wait for full vasoconstrictive effects to take place. At this time a caudal incision was made over the caudal portion of the left septum which was severely deviated to the left with near 100% occlusion. A mucoperichondrial flap was developed to the extent of visualization on the left with use of several crosshatching incisions we on the contralateral side. The same type of mucoperichondrial development. With use of several crosshatching incisions and removal of redundant strips of septal cartilage the septum was straightened and placed back in the midline. We suture fixated the septum to the vomerian groove closed the incision with a 4 rapid Vicryl in a quilting stitch was used to reapproximate the septal flaps. After the septum was straightened we then continued our R surgery with endoscopes utilizing 0 and 30 Mitchell bulmaro endoscopes and extended into the maxillary sinuses. We open the maxillary sinuses and we removed a copious amount of fungal debris and mycetoma bilaterally. After the x-ray sinuses were opened and cleaned out and all the diseased tissue and mycetoma removed from the bilateral maxillary sinuses we continued our dissection into the ethmoid air cells removing all ethmoid air cell septations and diseased tissue. We did this with a microdebrider and up- biting boss. We continued our dissection into the sphenoid sinuses and we removed diseased tissue and purulence while opening the bilateral sphenoid sinuses with endoscopic visualization. We then went up to the nasal frontal duct and opened up the frontal sinuses bilaterally. We entered the frontal sinuses explore the frontal sinuses and we remove diseased tissue from the frontal sinuses. After we remove diseased tissue from the frontal sinuses and purulence and did a frontal sinus exploration bilaterally with use of 70 scopes we then removed the instrumentation from the nose. We then straightening nasal bones are with a [employer] nasal elevator. We nose that the nose was severely deviated to the right we straighten the nose bilaterally and placed back in the midline. At the end of the case the nose was stabilized utilizing a thermal splint and Mastisol. We then inserted bilateral Robbins splints. After the dural splints were inserted and was sutured fixated in the usual fashion. To summarize all sinuses were open all sinuses were explored and we remove diseased tissue from all sinuses and large mycetoma is from the bilateral maxillary sinuses. We straighten the septum and we straighten the the nose and did a formal septoplasty with suture fixation of the septum to the vomerian groove area we utilized stabilization the nose with a thermal splint and we stabilize the septum with Robbins splints. We will see the patient back in the office on October 05 at 145 for splint removal. We will remove the cast on Wednesday. The patient is to contact me in the interim if any problems should arise.
[2016-10-01] MEDS: HYDROmorphone 1 MG/ML 1 ML SYRINGE IVP PRN ×4 (11:58→12:40)
[2016-10-01 13:34] VITALS: PULSE 67; RESP 18
[2016-10-01 13:44] LABS: Glucose,Whole Blood 191 mg/dL (75-99)
[2016-10-01 13:46] VITALS: BP 143/65
[2016-10-01] MEDS ORDERED: HYDROcodone/APAP 5-325MG 1 EACH TAB PO ONE (13:54)
== END 2016-10-01 14:31 | disposition home or self-care (01) ==
LOC: OR 08:31
PROVIDERS: ATTEND Otolaryngology
DX: S02.2XXA Fracture of nasal bones, initial encounter for closed fracture (principal); J34.2 Deviated nasal septum; E11.9 Type 2 diabetes mellitus without complications; I10 Essential (primary) hypertension; M10.9 Gout, unspecified; E66.9 Obesity, unspecified; I34.1 Nonrheumatic mitral (valve) prolapse; B47.9 Mycetoma, unspecified; J01.40 Acute pansinusitis, unspecified; J32.4 Chronic pansinusitis; I34.0 Nonrheumatic mitral (valve) insufficiency; Z68.31 Body mass index [BMI] 31.0-31.9, adult; Z85.3 Personal history of malignant neoplasm of breast; W22.09XA Striking against other stationary object, initial encounter; Z88.0 Allergy status to penicillin; Z88.8 Allergy status to other drugs, medicaments and biological substances; Z79.84 Long term (current) use of oral hypoglycemic drugs; Z79.899 Other long term (current) drug therapy; Z79.2 Long term (current) use of antibiotics; Z79.1 Long term (current) use of non-steroidal anti-inflammatories (NSAID); Z79.891 Long term (current) use of opiate analgesic; Z79.51 Long term (current) use of inhaled steroids
CPT/HCPCS: 30520; 31267; 31276; 31288; 88305; 88312; 88300; 87070; 87205; 87075; J0171; J2250; J1100 ×2; J2405; J2001; J3010; J1170; J0330; J2704

== ENCOUNTER → 2016-10-26 | Outpatient (CLI) | payer MEDICARE ==
[2016-10-26 15:12] LABS: CH 30.6; CHCM 35.5; HCT 35.8 % (34.0-46.0); HDW 3.34; HGB 12.2 gm/dL (11.4-16.0); MCH 29.7 pg (25.0-35.0); MCHC 34.2 g/dL (31.0-37.0); MCV 86.8 fL (80.0-100.0); Mean Platelet Volume 6.7; RBC 4.12 m/uL (3.80-5.40); RDW 15.4 % (11.5-15.5); WBC 5.8 k/uL (3.8-10.6)
[2016-10-26 15:21] LABS: Potassium 4.9 mmol/L (3.5-5.1)
== END | disposition home or self-care (01) ==
LOC: LABPAT 14:20
PROVIDERS: ATTEND Internal Medicine Interventional Cardiology
DX: Z01.812 Encounter for preprocedural laboratory examination (principal); I25.10 Atherosclerotic heart disease of native coronary artery without angina pectoris
CPT/HCPCS: 80051; 82565; 84520; 85027

== ENCOUNTER 2016-10-30 14:16 | Inpatient (IN) | payer MEDICARE ==
--- NOTE | 2016-10-30 15:02 | ED ---
General Adult HPI - General Chief complaint: Neuro Symptoms/Deficit Stated complaint: Facial Numbness Time Seen by Provider: 10/30/16 14:20 Source: patient, RN notes reviewed Mode of arrival: wheelchair Limitations: no limitations - History of Present Illness Initial comments: This is an 80-year-old female presents emergency Department complaining of having some tingling in her mouth on the roof of her mouth tongue and then up both sides of her jaw. Patient states that tingling then went down into her chest. Patient states this lasted for about an hour. She also is very lightheaded and sweaty. Patient states she was also very lightheaded last evening and sweaty but did not have any tingling sensation. Patient states she is scheduled for a cardiac cath this Wednesday. Patient denies any palpitations. Patient denies being short of breath or any difficulty breathing. Patient denies any abdominal pain patient denies any nausea vomiting diarrhea. Patient denies any recent fever chills or cough. Patient denies any back pain. Patient denies any injury or trauma. - Related Data Home Medications Medication Instructions Recorded Confirmed Allopurinol 100 mg PO [facility] 01/16/16 10/30/16 Aspirin EC [Ecotrin Low Dose] 81 mg PO DAILY 01/16/16 10/30/16 Atenolol [Tenormin] 50 mg PO HS 01/16/16 10/30/16 Calcium Carb-Vit D 500Mg-200Un 1 tab PO DAILY 01/16/16 10/30/16 [Oscal 500+D] Furosemide [Lasix] 40 mg PO DAILY 01/16/16 10/30/16 Gabapentin 300 mg PO DAILY@1200 01/16/16 10/30/16 Gabapentin 600 mg PO BID 01/16/16 10/30/16 Letrozole [Femara] 2.5 mg PO DAILY 01/16/16 10/30/16 Losartan Potassium 50 mg PO DAILY 01/16/16 10/30/16 Meloxicam 15 mg PO DAILY 01/16/16 10/30/16 Montelukast [Singulair] 10 mg PO HS 01/16/16 10/30/16 Multivitamins, Thera [Multivitamin 1 tab PO DAILY 01/16/16 10/30/16 (formulary)] Pravastatin Sodium 20 mg PO DAILY 01/16/16 10/30/16 glipiZIDE [Glipizide] 5 mg PO BID 01/16/16 10/30/16 metFORMIN HCL 500 mg PO BID 01/16/16 10/30/16 traZODone HCL [Desyrel] 100 mg PO HS 01/16/16 10/30/16 Fluticasone Nasal [place] [Flonase 1 spray EA NOSTRIL DAILY 10/29/16 10/30/16 Nasal [place]] Sulfamethox-Tmp 800-160Mg [Bactrim 1 tab PO Q12HR 10/29/16 10/30/16 DS 800-160 mg] Allergies Allergy/AdvReac Type Severity Reaction Status Date / Time naproxen Allergy Mild Itching Verified 10/30/16 15:09 Penicillins Allergy Rash/Hives Verified 10/30/16 15:09 Review of Systems ROS Statement: Those systems with pertinent positive or pertinent negative responses have been documented in the HPI. ROS Other: All systems not noted in ROS Statement are negative. Past Medical History Past Medical History: Cancer, Diabetes Mellitus, Hyperlipidemia, Hypertension, Mitral Valve Prolapse (MVP), Osteoarthritis (OA) Additional Past Medical History / Comment(s): GOUT, HX RT BREAST CA , NEUROPATHY LEGS and FEET. USES WALKER or cance, UNSTEADY ON FEET. leaky heart valve, umbilical hernia, on rx post op from sinus surgery. History of Any Multi-Drug Resistant Organisms: None Reported Past Surgical History: Breast Surgery, Cholecystectomy, Hysterectomy Additional Past Surgical History / Comment(s): MASTECTOMY RT BREAST W/ AXILLA LYMPH NODE, don cataracts, sinus surgery 10/01/16 Past Anesthesia/Blood Transfusion Reactions: Motion Sickness Additional Past Anesthesia/Blood Transfusion Reaction / Comment(s): . Past Psychological History: Anxiety Smoking Status: Former smoker - Past Family History Mother Family Medical History: Cancer Brother(s) Family Medical History: Cancer General Exam - General Exam Comments Initial Comments: GENERAL: Patient is well-developed and well-nourished. Patient is nontoxic and well- hydrated and is in no acute distress. ENT: Neck is soft and supple. No significant lymphadenopathy is noted. Oropharynx is clear. Moist mucous membranes. Neck has full range of motion without eliciting any pain. EYES: The sclera were anicteric and conjunctiva were pink and moist. Extraocular movements were intact and pupils were equal round and reactive to light. Eyelids were unremarkable. PULMONARY: Unlabored respirations. Good breath sounds bilaterally. No audible rales rhonchi or wheezing was noted. CARDIOVASCULAR: patient is a regular rate and rhythm. ABDOMEN: Soft and nontender with normal bowel sounds. No palpable organomegaly was noted. There is no palpable pulsatile mass. SKIN: Skin is clear with no lesions or rashes and otherwise unremarkable. NEUROLOGIC: Patient is alert and oriented x3. Cranial nerves II through XII are grossly intact. Motor and sensory are also intact. Normal speech, volume and content. Symmetrical smile. MUSCULOSKELETAL: Normal extremities with adequate strength and full range of motion. No lower extremity swelling or edema. No calf tenderness. LYMPHATICS: No significant lymphadenopathy is noted PSYCHIATRIC: Normal psychiatric evaluation. Limitations: no limitations Course Vital Signs 10/30/16 10/30/16 14:19 16:14 Temperature 97.7 F 97.4 F L Pulse Rate 80 64 Respiratory 20 20 Rate Blood Pressure 138/62 118/86 O2 Sat by Pulse 94 L 95 Oximetry Medical Decision Making - Medical Decision Making EKG shows atrial fibrillation at 74 bpm QRS is 70 QT interval is 408 QTC is 452 per patient's EKG shows no ST segment elevation or depression or T wave abnormalities are noted. Patient states she's had no history of atrial fibrillation - Lab Data Result diagrams: 10/30/16 15:00 10/30/16 15:00 Lab Results 10/30/16 10/30/16 10/30/16 Range/Units 15:00 15:00 15:00 WBC 5.3 (3.8-10.6) k/uL RBC 4.24 (3.80-5.40) m/uL Hgb 13.3 (11.4-16.0) gm/dL Hct 36.9 (34.0-46.0) % MCV 86.9 (80.0-100.0) fL MCH 31.3 (25.0-35.0) pg MCHC 36.0 (31.0-37.0) g/dL RDW 15.4 (11.5-15.5) % Plt Count 172 (150-450) k/uL Neutrophils % 54 % Lymphocytes % 35 % Monocytes % 6 % Eosinophils % 0 % Basophils % 0 % Neutrophils # 2.9 (1.3-7.7) k/uL Lymphocytes # 1.8 (1.0-4.8) k/uL Monocytes # 0.3 (0-1.0) k/uL Eosinophils # 0.0 (0-0.7) k/uL Basophils # 0.0 (0-0.2) k/uL PT (9.0-12.0) sec INR (<1.1) APTT (22.0-30.0) sec Sodium 128 L (137-145) mmol/L Potassium 4.6 (3.5-5.1) mmol/L Chloride 91 L (98-107) mmol/L Carbon Dioxide 26 (22-30) mmol/L Anion Gap 11 mmol/L BUN 23 H (7-17) mg/dL Creatinine 1.50 H (0.52-1.04) mg/dL Est GFR (MDRD) Af Amer 40 (>60 ml/min/1.73 sqM) Est GFR (MDRD) Non-Af 33 (>60 ml/min/1.73 sqM) Glucose 63 L (74-99) mg/dL Calcium 9.7 (8.4-10.2) mg/dL Magnesium 1.8 (1.6-2.3) mg/dL Total Bilirubin 1.2 (0.2-1.3) mg/dL AST 38 H (14-36) U/L ALT 36 (9-52) U/L Alkaline Phosphatase 87 (38-126) U/L Total Creatine Kinase 33 (30-135) U/L CK-MB (CK-2) 1.9 (0.0-2.4) ng/mL CK-MB (CK-2) Rel Index 5.8 Troponin I <0.012 (0.000-0.034) ng/mL Total Protein 6.2 L (6.3-8.2) g/dL Albumin 3.8 (3.5-5.0) g/dL 10/30/16 Range/Units 15:00 WBC (3.8-10.6) k/uL RBC (3.80-5.40) m/uL Hgb (11.4-16.0) gm/dL Hct (34.0-46.0) % MCV (80.0-100.0) fL MCH (25.0-35.0) pg MCHC (31.0-37.0) g/dL RDW (11.5-15.5) % Plt Count (150-450) k/uL Neutrophils % % Lymphocytes % % Monocytes % % Eosinophils % % Basophils % % Neutrophils # (1.3-7.7) k/uL Lymphocytes # (1.0-4.8) k/uL Monocytes # (0-1.0) k/uL Eosinophils # (0-0.7) k/uL Basophils # (0-0.2) k/uL PT 10.8 (9.0-12.0) sec INR 1.1 (<1.1) APTT 23.6 (22.0-30.0) sec Sodium (137-145) mmol/L Potassium (3.5-5.1) mmol/L Chloride (98-107) mmol/L Carbon Dioxide (22-30) mmol/L Anion Gap mmol/L BUN (7-17) mg/dL Creatinine (0.52-1.04) mg/dL Est GFR (MDRD) Af Amer (>60 ml/min/1.73 sqM) Est GFR (MDRD) Non-Af (>60 ml/min/1.73 sqM) Glucose (74-99) mg/dL Calcium (8.4-10.2) mg/dL Magnesium (1.6-2.3) mg/dL Total Bilirubin (0.2-1.3) mg/dL AST (14-36) U/L ALT (9-52) U/L Alkaline Phosphatase (38-126) U/L Total Creatine Kinase (30-135) U/L CK-MB (CK-2) (0.0-2.4) ng/mL CK-MB (CK-2) Rel Index Troponin I (0.000-0.034) ng/mL Total Protein (6.3-8.2) g/dL Albumin (3.5-5.0) g/dL Disposition Clinical Impression: New onset a-fib Disposition: ADMITTED IP TO THIS HOSP Referrals: Darrius Kamara MD [Primary Care Provider] - 1-2 days Time of Disposition: 16:58
[2016-10-30 15:10] LABS: Basophils % (A) 0 %; CH 30.4; CHCM 35.2; Eosinophils % (A) 0 %; HCT 36.9 % (34.0-46.0); HDW 3.25; HGB 13.3 gm/dL (11.4-16.0); Luc # (Auto) 0.23; Luc % (Auto) 4; Lymphocytes # (A) 1.8 k/uL (1.0-4.8); Lymphocytes % (A) 35 %; MCH 31.3 pg (25.0-35.0); MCV 86.9 fL (80.0-100.0); Monocytes # (A) 0.3 k/uL (0-1.0); Monocytes % (A) 6 %; Neutrophils # (A) 2.9 k/uL (1.3-7.7); Neutrophils % (A) 54 %; RBC 4.24 m/uL (3.80-5.40); RDW 15.4 % (11.5-15.5); WBC 5.3 k/uL (3.8-10.6)
[2016-10-30 15:20] LABS: Calcium 9.7 mg/dL (8.4-10.2); Magnesium 1.8 mg/dL (1.6-2.3); Potassium 4.6 mmol/L (3.5-5.1); Total Bilirubin 1.2 mg/dL (0.2-1.3); Total Protein 6.2 g/dL (6.3-8.2)
[2016-10-30 15:21] LABS: INR 1.1 (<1.1); Partial Thromboplastin Time 23.6 sec (22.0-30.0); Prothrombin Time 10.8 sec (9.0-12.0)
[2016-10-30 15:23] LABS: Creatine Kinase 33 U/L (30-135)
--- NOTE | 2016-10-30 15:31 | XR ---
EXAMINATION TYPE: XR chest 2V DATE OF EXAM: 10/30/2016 COMPARISON: 07/24/2016 TECHNIQUE: PA and lateral views submitted. HISTORY: Chest pain FINDINGS: Heart is enlarged and there is prominence the pulmonary arteries. Arthropathy of the shoulders and in terstitial pattern seen with no pneumothorax or pleural effusion. Hypertrophic and degenerative zaragoza e of the spine. Anterior wedge deformity thoracolumbar junction appears chronic. IMPRESSION: 1. Cardiomegaly with diffuse interstitial pattern. Correlate for chronic interstitial lung disease or venous congestion.
[2016-10-30 15:36] LABS: Creatine Kinase MB 1.9 ng/mL (0.0-2.4); Troponin I <0.012 ng/mL (0.000-0.034)
[2016-10-30] MEDS ORDERED: HEPARIN SODIUM,PORCINE 5,000 UNIT/ML 1 ML VIAL IV ONE (16:58)
[2016-10-30] MEDS ORDERED: HEPARIN SODIUM,PORCINE/D5W PMX 25,000 UNIT in DEXTROSE/WATER 1 500ML.BAG IV SCH (17:00)
[2016-10-30] MEDS ORDERED: NITROGLYCERIN SL TABS 0.4 MG TAB SUBLINGUAL PRN (17:08)
--- NOTE | 2016-10-30 19:38 | P.HPIM ---
History of Present Illness H&P Date: 10/30/16 Chief Complaint: Numbness oropharyngeal, J AW, chest discomfort This is a dictation of admission history and physical by Dr. Richard Lizarraga FACP in the temporary absence of Dr. Kamara date of service 10/30/2016. Chief complaint: Oropharyngeal numbness and jaw lateral pain and numbness, went to the chest with the bizarre feeling. History of present illness 80 years old white female pleasant. She presented to the emergency room with the pain and discomfort and numbness in the jaw bilaterally started in the oropharynx after she ate Danii bar continued to be present until she came to the emergency room at [facility] and seen by Dr. Ley. Subsequently Dr. Ley requested admission with the underlying probability of unstable angina, associated with she has a problem that she will have cardiac cath was prearranged by Dr. MICHAELLE Shi on Wednesday these event happened prior to Wednesday. In the temporary absence of Dr. Kamara I did see the patient evaluated and dictation of the history and physical. Patient stated that she has been dizzy the day before the event and she has also feeling of chest pain. No radiation to either right or left arm no pressure or heavy feeling in the pericardial area. Past medical history: Hypertension with hypertensive heart disease #2 underlying coronary artery disease with a planning for cardiac cath on next Wednesday #3 right breast mastectomy for cancer 10 years ago and she is on femera by Dr. De León #4 laparoscopic cholecystectomy #5 umbilical hernia with history of operation in the past however was not successful. 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 #8 history of ex-smoker less than a pack per day for 10 years. ALLERGY naproxen and penicillin. Family history 3 para 32 sons and 1 daughter. , 4 brothers 2 of them alive and 2 of them diseased 1 di-of throat cancer and a heart attack and another one of drowning. Review of system: #1 neuropsychiatry was negative #2 cardiovascular history of previous heart to disease was planned to have cardiac cath on Wednesday next Wednesday. #3 metabolic disease, diabetes mellitus complicated with neuropathy. #4 pulmonary and symmetrical chest was kyphoscoliosis #5 genitourinary negative #6 musculoskeletal using walker. With neuropathy and difficulty of walking 7 GI no bleeding no hematemesis no melena no hematochezia. The review of the left of the review of system was negative. Laboratory reviewed which indicating that her white count is normal 5.3 with hemoglobin 13.3 and the platelet count 172. PT and INR was normal prior to the heparinization in the ER. Her sodium 128 chloride 91 and BUN 23 and creatinine 1.5 with the glucose 63 and AST 38 with total protein 6.2 abnormal lab which indicating hyponatremia secondary to diuretics Lasix we has been stopped the Lasix at this time, mild dehydration consistent with that elevated BUN and creatinine and estimated glomerular filtration rate is 40, consideration of chronic kidney disease stage III. Versus prerenal Troponin inhalation 1 less than 0.012 patient is monitored with the serial troponin and cardiology consultation. Physical exam: Patient is conscious alert oriented 3 able to give history. Her HEENT was negative with natural teeth and able to swallow no numbness or tingling at the time seeing the patient no jaw pain no chest pain and no arm pain Neck was supple no JVD no thyromegaly no lymphadenopathy trachea midline. The chest was clear to auscultation percussion with the underlying mild increased anteroposterior diameter with kyphoscoliosis and l lumbar deformity with probable old compression fracture. Heart: PMI in the fifth intercostal space outside midclavicular line irregular irregularity was at [place] fibrillation however is controlled ventricular response is unknown if these active fibrillation is new or old at this time according to Dr. Ley its new however we don't that noted Aton tell Dr. Kamara see her tomorrow. Oral Dr. MICHAELLE Shi see her tomorrow and obtain previous EKG echocardiogram was ordered through the emergency room. Abdomen was soft positive bowel sound with umbilical hernia and history of laparoscopic cholecystectomy no tenderness on the 4 quadrants of the flank. The Extremities she had neuropathy from diabetes and positive pulses with good perfusion however her feet is cold could be abdomen spasm and she had the stocking. Patient on heparin at this time for the chest pain and angina unstable. Neurologically: No history of stroke she had history of dizziness and no history of cranial nerve deficit. She had neuropathy of the lower extremities. Assessment: Unstable angina with the chest pain, #2 atrial fibrillation with controlled ventricular response unknown is old or new patient could not tell #3 history of hypertension with hypertensive heart disease #4 hyperlipidemia #5 diabetes mellitus2 with the hypoglycemia probably secondary to the oral hypoglycemic agent and we will held start only on insulin to scale. #6 hyponatremia with sodium 128 and the chloride was also decreased to 91 associated with diuretic Lasix. Hypoglycemia on admission with a blood sugar 63 #7 chronic kidney disease stage III versus prerenal and dehydration with the creatinine 1.5 and the BUN 23. Vital sign blood pressure 122/59 mean 80 temperature 90.7 saturation 98 respiratory rate 18/m regular and heart rate was in the 59-63 with a [place] fibrillation. Plan: #1 continue with the heparin protocol #2 consultation with the cardiology for new onset atrial fibrillation with the possible coronary artery syndrome with the plan for cardiac cath on Wednesday by Dr. MICHAELLE Shi. #3 patient had started on normal saline gradually 20 mL slowly for recovering from hyponatremia probable dehydration and running kidney disease stage III. Number for monitoring troponin and EKG with the chest pain so far no chest pain since admission. Dr. Darrius Kamara will be seeing the patient tomorrow for follow-up and continue care. Medication review reordered. Past Medical History Past Medical History: Cancer, Diabetes Mellitus, Hyperlipidemia, Hypertension, Mitral Valve Prolapse (MVP), Osteoarthritis (OA) Additional Past Medical History / Comment(s): GOUT, HX RT BREAST CA , NEUROPATHY LEGS and FEET. USES WALKER or cance, UNSTEADY ON FEET. leaky heart valve, umbilical hernia, on rx post op from sinus surgery. History of Any Multi-Drug Resistant Organisms: None Reported Past Surgical History: Breast Surgery, Cholecystectomy, Hysterectomy Additional Past Surgical History / Comment(s): MASTECTOMY RT BREAST W/ AXILLA LYMPH NODE, don cataracts, sinus surgery 10/01/16 Past Anesthesia/Blood Transfusion Reactions: Motion Sickness Additional Past Anesthesia/Blood Transfusion Reaction / Comment(s): . Past Psychological History: Anxiety Smoking Status: Former smoker - Past Family History Mother Family Medical History: Cancer Brother(s) Family Medical History: Cancer Medications and Allergies Home Medications Medication Instructions Recorded Confirmed Type Allopurinol 100 mg PO QAM 01/16/16 10/30/16 History Aspirin EC [Ecotrin Low Dose] 81 mg PO DAILY 01/16/16 10/30/16 History Atenolol [Tenormin] 50 mg PO HS 01/16/16 10/30/16 History Calcium Carb-Vit D 500Mg-200Un 1 tab PO DAILY 01/16/16 10/30/16 History [Oscal 500+D] Furosemide [Lasix] 40 mg PO DAILY 01/16/16 10/30/16 History Gabapentin 300 mg PO DAILY@1200 01/16/16 10/30/16 History Gabapentin 600 mg PO BID 01/16/16 10/30/16 History Letrozole [Femara] 2.5 mg PO DAILY 01/16/16 10/30/16 History Losartan Potassium 50 mg PO DAILY 01/16/16 10/30/16 History Meloxicam 15 mg PO DAILY 01/16/16 10/30/16 History Montelukast [Singulair] 10 mg PO HS 01/16/16 10/30/16 History Multivitamins, Thera [Multivitamin 1 tab PO DAILY 01/16/16 10/30/16 History (formulary)] Pravastatin Sodium 20 mg PO DAILY 01/16/16 10/30/16 History glipiZIDE [Glipizide] 5 mg PO BID 01/16/16 10/30/16 History metFORMIN HCL 500 mg PO BID 01/16/16 10/30/16 History traZODone HCL [Desyrel] 100 mg PO HS 01/16/16 10/30/16 History Fluticasone Nasal [place] [Flonase 1 spray EA NOSTRIL DAILY 10/29/16 10/30/16 History Nasal [place]] Sulfamethox-Tmp 800-160Mg [Bactrim 1 tab PO Q12HR 10/29/16 10/30/16 History DS 800-160 mg] Allergies Allergy/AdvReac Type Severity Reaction Status Date / Time naproxen Allergy Mild Itching Verified 10/30/16 15:09 Penicillins Allergy Rash/Hives Verified 10/30/16 15:09 Physical Exam Vitals: Vital Signs Temp Pulse Resp BP Pulse Ox 10/30/16 17:18 97.0 F L 59 L 19 122/59 98 10/30/16 16:14 97.4 F L 64 20 118/86 95 10/30/16 14:19 97.7 F 80 20 138/62 94 L Intake and Output 10/30/16 10/30/16 10/30/16 06:59 14:59 22:59 Other: Weight 86.183 kg Patient Weight 10/31/16 06:59 Weight 86.183 kg Results CBC & Chem 7: 07/07/17 15:00 10/30/16 15:00 Labs: Abnormal Lab Results - Last 24 Hours (Table) 10/30/16 Range/Units 15:00 Sodium 128 L (137-145) mmol/L Chloride 91 L (98-107) mmol/L BUN 23 H (7-17) mg/dL Creatinine 1.50 H (0.52-1.04) mg/dL Glucose 63 L (74-99) mg/dL AST 38 H (14-36) U/L Total Protein 6.2 L (6.3-8.2) g/dL
[2016-10-30 20:43] LABS: Glucose,Whole Blood 88 mg/dL (75-99)
[2016-10-30] MEDS ORDERED: glipiZIDE 5 MG TAB PO SCH (21:00)
[2016-10-30] MEDS ORDERED: traZODone HCL 100 MG TAB PO SCH (21:00)
[2016-10-30] MEDS ORDERED: PRAVASTATIN SODIUM 20 MG TAB PO SCH (21:00)
[2016-10-30] MEDS ORDERED: ATENOLOL 50 MG TAB PO SCH (21:00)
[2016-10-30] MEDS ORDERED: MONTELUKAST 10 MG TAB PO SCH (21:00)
[2016-10-30] MEDS: INSULIN LISPRO (humaLOG) 300 UNIT/3 ML VIAL SQ SCH (21:19)
[2016-10-30 21:34] LABS: Creatine Kinase 27 U/L (30-135)
[2016-10-30 21:41] VITALS: RESP 18; BMI 28.5
[2016-10-30 21:46] LABS: Creatine Kinase MB 1.6 ng/mL (0.0-2.4); Troponin I <0.012 ng/mL (0.000-0.034)
[2016-10-30] MEDS: GABAPENTIN 300 MG CAP PO SCH (23:30)
[2016-10-31 03:15] LABS: Basophils % (A) 0 %; CH 30.7; CHCM 35.1; Eosinophils % (A) 0 %; HCT 32.9 % (34.0-46.0); HDW 3.14; HGB 11.8 gm/dL (11.4-16.0); Luc # (Auto) 0.18; Luc % (Auto) 4; Lymphocytes # (A) 2.2 k/uL (1.0-4.8); Lymphocytes % (A) 45 %; MCH 31.6 pg (25.0-35.0); MCHC 35.8 g/dL (31.0-37.0); MCV 88.1 fL (80.0-100.0); Mean Platelet Volume 6.4; Monocytes # (A) 0.4 k/uL (0-1.0); Monocytes % (A) 7 %; Neutrophils # (A) 2.1 k/uL (1.3-7.7); Neutrophils % (A) 43 %; RBC 3.74 m/uL (3.80-5.40); RDW 15.7 % (11.5-15.5); WBC 4.9 k/uL (3.8-10.6)
[2016-10-31 03:38] LABS: Creatine Kinase 25 U/L (30-135)
[2016-10-31 03:51] LABS: Creatine Kinase MB 1.4 ng/mL (0.0-2.4); Troponin I <0.012 ng/mL (0.000-0.034)
[2016-10-31 04:14] LABS: Calcium 9.2 mg/dL (8.4-10.2); Magnesium 1.8 mg/dL (1.6-2.3); Phosphorous 4.2 mg/dL (2.5-4.5); Potassium 4.6 mmol/L (3.5-5.1)
[2016-10-31 06:05] LABS: Glucose,Whole Blood 106 mg/dL (75-99)
[2016-10-31] MEDS: INSULIN LISPRO (humaLOG) 300 UNIT/3 ML VIAL SQ SCH ×2 (06:55→12:14)
[2016-10-31] MEDS ORDERED: FLUTICASONE 50MCG/SPRAY NASAL 16GM EA NOSTRIL SCH (09:00)
[2016-10-31] MEDS ORDERED: ALLOPURINOL 100 MG TAB PO SCH (09:00)
[2016-10-31] MEDS ORDERED: FUROSEMIDE 40 MG TAB PO SCH (09:00)
[2016-10-31] MEDS ORDERED: ASPIRIN 81 MG CHEW PO SCH (09:00)
[2016-10-31] MEDS ORDERED: ASPIRIN 325 MG TAB PO SCH (09:00)
[2016-10-31] MEDS ORDERED: CALCIUM CARB-VIT D 500MG-200UN 1 EACH TAB PO SCH (09:00)
[2016-10-31] MEDS ORDERED: LETROZOLE 2.5 MG TAB PO SCH (09:00)
[2016-10-31] MEDS ORDERED: LOSARTAN 50 MG TAB PO SCH (09:00)
--- NOTE | 2016-10-31 09:02 | P.CRDCN ---
History of Present Illness Consult date: 10/31/16 Requesting physician: Darrius Kamara Consult reason: atrial fibrillation Chief complaint: Tingling in the mouth History of present illness: This is a pleasant 80-year-old female with known history of hypertension, diabetes, hyperlipidemia, mitral regurgitation, who follows with Dr. Maci Sih in the office. She states that she was eating a chocolate bar yesterday, began to experience some tingling and numbness in her mouth radiating to her jaw and neck area. She denies any chest discomfort, no palpitations, no lightheadedness or dizziness. She does state that she is short of breath, slightly more than her usual. She came to the emergency room for further evaluation. Patient underwent a NATASHA in August of this year which revealed 3+ mitral regurgitation. Calcified mitral annulus with calcification of the basal portion of the leaflets. The tips of the leaflets appear to be friable. No PFO. No clot. KG on presentation here showed atrial fibrillation with a controlled ventricular response. According to the patient, she has never been told in the past to have atrial fibrillation. Chest x-ray shows cardiomegaly with diffuse interstitial pattern. Blood Pressure 138/60 with a heart rate in the 60s. Temperature 90.7, she is 98% on room air. Blood cell count normal, platelet count 132, hemoglobin 11.8. Sodium 128, BUN 23, creatinine 1.5. Opponents negative 3. Magnesium 1.8. Time of my examination this morning, patient has no complaints, denies dizziness or lightheadedness. No shortness of breath, no palpitations or chest discomfort. She states that she is scheduled to undergo cardiac catheterization on Wednesday of this upcoming week with Dr. Maci Shi in preparation for repair of the mitral valve. Past Medical History Past Medical History: Cancer, Diabetes Mellitus, Hyperlipidemia, Hypertension, Mitral Valve Prolapse (MVP), Osteoarthritis (OA) Additional Past Medical History / Comment(s): GOUT, HX RT BREAST CA , NEUROPATHY LEGS and FEET. USES WALKER or cance, UNSTEADY ON FEET. leaky heart valve, umbilical hernia, on rx post op from sinus surgery. History of Any Multi-Drug Resistant Organisms: None Reported Past Surgical History: Breast Surgery, Cholecystectomy, Hysterectomy Additional Past Surgical History / Comment(s): MASTECTOMY RT BREAST W/ AXILLA LYMPH NODE, don cataracts, sinus surgery 10/01/16 Past Anesthesia/Blood Transfusion Reactions: Motion Sickness Additional Past Anesthesia/Blood Transfusion Reaction / Comment(s): . Past Psychological History: Anxiety Smoking Status: Former smoker Past Alcohol Use History: None Reported Past Drug Use History: None Reported - Past Family History Mother Family Medical History: Cancer Brother(s) Family Medical History: Cancer Medications and Allergies Home Medications Medication Instructions Recorded Confirmed Type Allopurinol 100 mg PO QAM 01/16/16 10/30/16 History Aspirin EC [Ecotrin Low Dose] 81 mg PO DAILY 01/16/16 10/30/16 History Atenolol [Tenormin] 50 mg PO HS 01/16/16 10/30/16 History Calcium Carb-Vit D 500Mg-200Un 1 tab PO DAILY 01/16/16 10/30/16 History [Oscal 500+D] Furosemide [Lasix] 40 mg PO DAILY 01/16/16 10/30/16 History Gabapentin 300 mg PO DAILY@1200 01/16/16 10/30/16 History Gabapentin 600 mg PO BID 01/16/16 10/30/16 History Letrozole [Femara] 2.5 mg PO DAILY 01/16/16 10/30/16 History Losartan Potassium 50 mg PO DAILY 01/16/16 10/30/16 History Meloxicam 15 mg PO DAILY 01/16/16 10/30/16 History Montelukast [Singulair] 10 mg PO HS 01/16/16 10/30/16 History Multivitamins, Thera [Multivitamin 1 tab PO DAILY 01/16/16 10/30/16 History (formulary)] Pravastatin Sodium 20 mg PO DAILY 01/16/16 10/30/16 History glipiZIDE [Glipizide] 5 mg PO BID 01/16/16 10/30/16 History metFORMIN HCL 500 mg PO BID 01/16/16 10/30/16 History traZODone HCL [Desyrel] 100 mg PO HS 01/16/16 10/30/16 History Fluticasone Nasal [place] [Flonase 1 spray EA NOSTRIL DAILY 10/29/16 10/30/16 History Nasal [place]] Sulfamethox-Tmp 800-160Mg [Bactrim 1 tab PO Q12HR 07/06/17 07/07/17 History DS 800-160 mg] Allergies Allergy/AdvReac Type Severity Reaction Status Date / Time naproxen Allergy Mild Itching Verified 10/30/16 15:09 Penicillins Allergy Rash/Hives Verified 10/30/16 15:09 Physical Exam Vitals: Vital Signs Temp Pulse Pulse Resp BP BP Pulse Ox 10/31/16 04:00 97.4 F L 79 18 109/54 97 10/31/16 00:00 97.2 F L 65 18 115/72 98 10/30/16 20:24 96.7 F L 76 18 158/61 100 10/30/16 19:30 76 18 10/30/16 17:18 97.0 F L 59 L 19 122/59 98 10/30/16 16:14 97.4 F L 64 20 118/86 95 10/30/16 14:19 97.7 F 80 20 138/62 94 L Intake and Output 10/30/16 10/31/16 10/31/16 22:59 06:59 14:59 Intake Total 202 Balance 202 Intake: Intake, IV Titration 202 Amount Heparin Sodium,Porcine/ 202 D5w Pmx 25,000 unit In Dextrose/Water 1 500ml. bag @ 11.604 UNITS/KG/HR 20 mls/hr IV .Q24H [facility] Rx #:[id number] Other: Voiding Method Bedside Commode Bedside Commode # Voids 0 3 Weight 75.5 kg PHYSICAL EXAMINATION: HEENT: Head is atraumatic, normocephalic. Pupils equal, round. Neck is supple. There is no elevated jugular venous pressure. HEART EXAMINATION: S1 and S2 irregularly irregular a holosystolic murmur is heard. CHEST EXAMINATION: Lungs are clear with mild diminished air entry to the bases . No chest wall tenderness is noted on palpation or with deep breathing. ABDOMEN: Soft, nontender. Bowel sounds are heard. No organomegaly noted. EXTREMITIES: 2+ peripheral pulses with 1plus evidence of peripheral edema and no calf tenderness noted. NEUROLOGIC patient is awake, alert and oriented -3. . Results 10/31/16 02:58 10/31/16 02:58 Cardiac Enzymes 10/30/16 10/30/16 10/30/16 Range/Units 15:00 15:00 20:45 AST 38 H (14-36) U/L CK-MB (CK-2) 1.9 1.6 (0.0-2.4) ng/mL Troponin I <0.012 <0.012 (0.000-0.034) ng/mL 10/31/16 Range/Units 02:58 AST (14-36) U/L CK-MB (CK-2) 1.4 (0.0-2.4) ng/mL Troponin I <0.012 (0.000-0.034) ng/mL Coagulation 10/30/16 10/30/16 10/31/16 Range/Units 15:00 23:47 02:58 PT 10.8 (9.0-12.0) sec APTT 23.6 45.9 H 41.9 H (22.0-30.0) sec Lipids 10/31/16 Range/Units 02:58 Triglycerides 73 (<150) mg/dL Cholesterol 78 (<200) mg/dL HDL Cholesterol 47 (40-60) mg/dL CBC 10/30/16 10/31/16 Range/Units 15:00 02:58 WBC 5.3 4.9 (3.8-10.6) k/uL RBC 4.24 3.74 L (3.80-5.40) m/uL Hgb 13.3 11.8 (11.4-16.0) gm/dL Hct 36.9 32.9 L (34.0-46.0) % Plt Count 172 132 L (150-450) k/uL Comprehensive Metabolic Panel 10/30/16 10/31/16 Range/Units 15:00 02:58 Sodium 128 L 128 L (137-145) mmol/L Potassium 4.6 4.6 (3.5-5.1) mmol/L Chloride 91 L 91 L (98-107) mmol/L Carbon Dioxide 26 28 (22-30) mmol/L BUN 23 H 22 H (7-17) mg/dL Creatinine 1.50 H 1.50 H (0.52-1.04) mg/dL Glucose 63 L 95 (74-99) mg/dL Calcium 9.7 9.2 (8.4-10.2) mg/dL AST 38 H (14-36) U/L ALT 36 (9-52) U/L Alkaline Phosphatase 87 (38-126) U/L Total Protein 6.2 L (6.3-8.2) g/dL Albumin 3.8 (3.5-5.0) g/dL Current Medications Generic Name Dose Route Start Last Admin Trade Name Shereen PRN Reason Stop Dose Admin Allopurinol 100 mg 10/31/16 09:00 Zyloprim PO QAM [facility] Aspirin 81 mg 10/31/16 09:00 Aspirin PO DAILY [facility] Atenolol 50 mg 10/30/16 21:00 10/30/16 21:18 Tenormin PO 50 mg HS [facility] Administration Calcium Carbonate 1 each 10/31/16 09:00 Oscal 500+D PO DAILY [facility] Fluticasone Propionate 1 spray 10/31/16 09:00 Flonase Nasal [place] EA NOSTRIL DAILY [facility] Gabapentin 300 mg 10/31/16 12:00 Neurontin PO DAILY@1200 [facility] Gabapentin 600 mg 10/30/16 22:45 10/30/16 23:30 Neurontin PO 600 mg BID [facility] Administration Heparin Sodium/Dextrose 25,000 500 mls @ 20 mls/hr 10/30/16 17:00 10/31/16 03 :40 unit/ IV Solution IV 13.6 units/kg/hr .Q24H [facility] 23.44 mls/hr Protocol Titration 11.604 UNITS/KG/HR Insulin Human Lispro 2 - 10 unit 10/30/16 21:00 10/31/16 06:55 Humalog SQ Not Given ACHS [facility] Protocol Letrozole 2.5 mg 10/31/16 09:00 Femara PO DAILY [facility] Losartan Potassium 50 mg 10/31/16 09:00 Cozaar PO DAILY [facility] Montelukast Sodium 10 mg 10/30/16 21:00 10/30/16 21:18 Singulair PO 10 mg HS [facility] Administration Multivitamins 1 each 10/31/16 12:00 Theragran PO DAILY@1200 [facility] Nitroglycerin 0.4 mg 10/30/16 17:08 Nitrostat SUBLINGUAL Q5M PRN Chest Pain Pravastatin Sodium 20 mg 10/30/16 21:00 10/30/16 21:18 Pravachol PO 20 mg HS [facility] Administration Trazodone HCl 100 mg 10/30/16 21:00 10/30/16 21:18 Desyrel PO 100 mg HS [facility] Administration Intake and Output 10/30/16 10/31/16 10/31/16 22:59 06:59 14:59 Intake Total 202 Balance 202 Intake: Intake, IV Titration 202 Amount Heparin Sodium,Porcine/ 202 D5w Pmx 25,000 unit In Dextrose/Water 1 500ml. bag @ 11.604 UNITS/KG/HR 20 mls/hr IV .Q24H [facility] Rx #:[id number] Other: Voiding Method Bedside Commode Bedside Commode # Voids 0 3 Weight 75.5 kg 10/31/16 02:58 10/31/16 02:58 EKG Interpretations (text) KG shows atrial fibrillation with a controlled ventricular response. Assessment and Plan Plan: Assessment and plan #1 atrial fibrillation with a controlled ventricular response, appears to be of new onset. #2 hypertension #3 diabetes #4 hyperlipidemia #5 mitral regurgitation #6 acute on chronic kidney disease #7 mild hyponatremia Plan Patient is scheduled to undergo cardiac catheterization on Wednesday of next week , she did have a heart catheterization performed in 2011 which at that time revealed a 35-40% mid LAD lesion. Obtain an echocardiogram with Doppler study. Check free T4 and TSH. A NATASHA was performed in August of this year which revealed 3+ mitral regurgitation. She is currently on IV heparin, though require anticoagulation for stroke prevention. We will look into one of the newer anticoagulants, but continue IV heparin at this time. Further recommendations to follow. DNP note has been reviewed, I agree with a documented findings and plan of care. Patient was seen and examined.
[2016-10-31] MEDS: GABAPENTIN 300 MG CAP PO SCH (09:55)
--- NOTE | 2016-10-31 10:10 | P.PN ---
Progress Note - Text This is an addendum to the dictated cardiology consultation area the patient has a history of moderate to severe mitral regurgitation, history of mild CAD who presented with tingling in her tongue and jaw and was noted to be in atrial fibrillation. She is unaware of the arrhythmia and when she had a NATASHA in August of this year she was in sinus mechanism. She is scheduled to undergo cardiac catheterization next Wednesday for evaluation prior to mitral valve intervention. She denies any chest pain, she has mild to moderate chronic dyspnea, no dizziness or syncope. The patient would require anticoagulation but since she is scheduled to undergo cardiac catheterization on Wednesday, I believe she should be able to be discharged home today, proceed with a cardiac catheterization as scheduled and then initiate anticoagulation. I have discussed with her dose findings and recommendations. Thank you for this consult we will follow with you.
[2016-10-31] MEDS ORDERED: GABAPENTIN 300 MG CAP PO SCH (12:00)
[2016-10-31] MEDS ORDERED: MULTIVITAMINS, THERA 1 EACH TAB PO SCH (12:00)
[2016-10-31 12:04] LABS: Glucose,Whole Blood 149 mg/dL (75-99)
[2016-10-31 12:28] VITALS: BP 126/66; PULSE 84; TEMP 97.8
--- NOTE | 2016-10-31 14:07 | ECHOF ---
Referral Reason:afib MEASUREMENTS -------- HEIGHT: 162.6 cm WEIGHT: 75.3 kg BP: 109/54 RVIDd: 3.5 cm (< 3.3) IVSd: 1.0 cm (0.6 - 1.1) LVIDd: 4.8 cm (3.9 - 5.3) LVPWd: 1.1 cm (0.6 - 1.1) IVSs: 1.5 cm LVIDs: 3.4 cm LVPWs: 1.8 cm LA Diam: 4.4 cm (2.7 - 3.8) LAESV Index (A-L): 41.18 ml/m Ao Diam: 3.3 cm (2.0 - 3.7) AV Cusp: 1.8 cm (1.5 - 2.6) MV EXCURSION: 17.701 mm (> 18.000) MV EF SLOPE: 128 mm/s (70 - 150) EPSS: 1.0 cm RAP: 15.00 mmHg RVSP: 73.10 mmHg FINDINGS -------- Atrial fibrillation. This was a technically good study. The left ventricular size is normal. There is borderline concentric left ventricular hypertrophy. Overall left ventricular systolic function is mildly impaired with, an EF between 45 - 50 %. The right ventricle is mildly enlarged. LA is severely dilated >40 ml/m2 The right atrium is normal in size. Aortic valve is trileaflet and is mildly thickened. Mild mitral annular calcification present. Severe mitral regurgitation is present. Severe tricuspid regurgitation present. There is severe pulmonary hypertension. The right ventricular systolic pressure, as measured by Doppler, is 73.10mmHg. Moderate pulmonic regurgitation. The aortic root size is normal. The inferior vena cava is dilated with no significant inspiratory collapse which is consistent estimated right atrial pressure of >15 mmHg. There is no pericardial effusion. CONCLUSIONS -------- 1. Atrial fibrillation. 2. There is severe pulmonary hypertension. 3. The right ventricular systolic pressure, as measured by Doppler, is 73.10mmHg. 4. Moderate pulmonic regurgitation. 5. The aortic root size is normal. 6. The inferior vena cava is dilated with no significant inspiratory collapse which is consistent estimated right atrial pressure of >15 mmHg. 7. There is no pericardial effusion. 8. This was a technically good study. 9. There is borderline concentric left ventricular hypertrophy. 10. Overall left ventricular systolic function is mildly impaired with, an EF between 45 - 50 %. 11. The right ventricle is mildly enlarged. 12. LA is severely dilated >40 ml/m2 13. Aortic valve is trileaflet and is mildly thickened. 14. Mild mitral annular calcification present. 15. Severe mitral regurgitation is present. STOCKKEEPER: Annalise Romero RDCS
== END 2016-10-31 16:30 | disposition home or self-care (01) | DRG 309 ==
LOC: EC 14:16 → 6SEL 17:09
PROVIDERS: ADMIT Internal Medicine; ATTEND Internal Medicine
DX: I48.91 Unspecified atrial fibrillation (principal); E87.1 Hypo-osmolality and hyponatremia; N17.9 Acute kidney failure, unspecified; I25.110 Atherosclerotic heart disease of native coronary artery with unstable angina pectoris; E11.22 Type 2 diabetes mellitus with diabetic chronic kidney disease; I13.10 Hypertensive heart and chronic kidney disease without heart failure, with stage 1 through stage 4 chronic kidney disease, or unspecified chronic kidney disease; E11.42 Type 2 diabetes mellitus with diabetic polyneuropathy; E11.649 Type 2 diabetes mellitus with hypoglycemia without coma; E86.0 Dehydration; N18.3 Chronic kidney disease, stage 3 (moderate); E78.5 Hyperlipidemia, unspecified; M10.9 Gout, unspecified; F41.9 Anxiety disorder, unspecified; I34.1 Nonrheumatic mitral (valve) prolapse; K42.9 Umbilical hernia without obstruction or gangrene; M19.90 Unspecified osteoarthritis, unspecified site; Z79.899 Other long term (current) drug therapy; Z79.82 Long term (current) use of aspirin; Z88.6 Allergy status to analgesic agent; Z88.0 Allergy status to penicillin; Z87.891 Personal history of nicotine dependence; Z85.3 Personal history of malignant neoplasm of breast; Z82.49 Family history of ischemic heart disease and other diseases of the circulatory system
CPT/HCPCS: 36415; 71020; 80048; 80053; 80061; 82550; 82553; 83735; 83970; 84100; 84439; 84443; 84484; 85025; 85610; 85730; 93005; 93306; 96365; 96376; 99285

== ENCOUNTER 2016-11-03 07:36 | Day surgery (SDC) | payer MEDICARE ==
[2016-10-29 15:15] VITALS: BMI 32.1
[~2016-11-03 07:36] MED LIST changes: -ACETAMINOPHEN TAB 500 MG TAB PO ONE; +ALPRAZolam 0.25 MG TAB PO PRN; +ALPRAZolam 0.5 MG TAB PO PRN; +ATORVASTATIN 80 MG TAB PO STA; -DEXAMETHASONE SOD PHOSPHATE 10 MG/ML 1 ML VIAL IV ONE; +NITROGLYCERIN SL TABS 0.4 MG TAB SUBLINGUAL PRN; -ONDANSETRON 4 MG/2 ML VIAL IVP ONE; -Pre Op ABX Message 1 EACH MISC MISCELLANE ONE; +SODIUM CHLORIDE 0.9% 1,000 ML in EMPTY BAG 1 BAG IV ONE
[2016-11-03] MEDS ORDERED: SODIUM CHLORIDE 0.9% 1,000 ML IV ONE (08:10)
[2016-11-03 08:22] LABS: Glucose,Whole Blood 106 mg/dL (75-99)
[2016-11-03] MEDS ORDERED: LIDOCAINE 2% INJ 20 MG/ML (20 ML MDV) ONE (11:39)
[2016-11-03] MEDS ORDERED: MIDAZOLAM 2 MG/2 ML VIAL ONE (11:40)
[2016-11-03] MEDS ORDERED: diphenhydrAMINE 50 MG/ML 1 ML VIAL ONE (11:40)
[2016-11-03] MEDS ORDERED: MIDAZOLAM 2 MG/2 ML VIAL IVP ONE (12:40)
[2016-11-03] MEDS ORDERED: diphenhydrAMINE 50 MG/ML 1 ML VIAL IVP ONE (12:40)
[2016-11-03] MEDS ORDERED: LIDOCAINE 2% INJ 20 MG/ML SQ ONE (12:45)
[2016-11-03 13:08] LABS: Site RA
[2016-11-03 13:16] LABS: Site PA
[2016-11-03 13:17] LABS: Site FA
[2016-11-03] MEDS ORDERED: IODIXANOL 320 MG/ML 100 ML INTRAARTER ONE (13:32)
[2016-11-03] MEDS ORDERED: RX INFO: IV CONTRAST WAS GIVEN 1 EACH MISC MISCELLANE PRN (13:43)
[2016-11-03] MEDS: SODIUM CHLORIDE 0.9% 1,000 ML IV SCH (15:52)
[2016-11-03] MEDS: SULFAMETHOX-TMP 800-160MG 1 EACH TAB PO SCH ×2 (15:54→21:53)
[2016-11-03 17:05] LABS: Glucose,Whole Blood 136 mg/dL (75-99)
[2016-11-03 19:37] VITALS: RESP 18
[2016-11-03 20:33] LABS: Glucose,Whole Blood 170 mg/dL (75-99)
[2016-11-03] MEDS ORDERED: PRAVASTATIN SODIUM 20 MG TAB PO SCH (21:00)
[2016-11-03] MEDS ORDERED: ATENOLOL 50 MG TAB PO SCH (21:00)
[2016-11-03] MEDS ORDERED: traZODone HCL 100 MG TAB PO SCH (21:00)
[2016-11-03] MEDS ORDERED: MONTELUKAST 10 MG TAB PO SCH (21:00)
[2016-11-03] MEDS: GABAPENTIN 300 MG CAP PO SCH (21:53)
[2016-11-04 04:42] VITALS: TEMP 97.9
[2016-11-04] MEDS: SODIUM CHLORIDE 0.9% 1,000 ML IV SCH (04:58)
[2016-11-04 07:02] LABS: Glucose,Whole Blood 125 mg/dL (75-99)
[2016-11-04 07:44] LABS: Calcium 9.2 mg/dL (8.4-10.2); Potassium 4.9 mmol/L (3.5-5.1)
[2016-11-04 07:51] VITALS: BP 147/82; PULSE 74
[2016-11-04] MEDS: GABAPENTIN 300 MG CAP PO SCH (08:13)
[2016-11-04] MEDS ORDERED: CALCIUM CARB-VIT D 500MG-200UN 1 EACH TAB PO SCH (09:00)
[2016-11-04] MEDS ORDERED: FUROSEMIDE 40 MG TAB PO SCH (09:00)
[2016-11-04] MEDS ORDERED: LETROZOLE 2.5 MG TAB PO SCH (09:00)
[2016-11-04] MEDS ORDERED: FLUTICASONE 50MCG/SPRAY NASAL 16GM EA NOSTRIL SCH (09:00)
[2016-11-04] MEDS ORDERED: LOSARTAN 50 MG TAB PO SCH (09:00)
[2016-11-04] MEDS ORDERED: ALLOPURINOL 100 MG TAB PO SCH (09:00)
[2016-11-04] MEDS ORDERED: ASPIRIN 81 MG CHEW PO SCH (09:00)
[2016-11-04] MEDS ORDERED: GABAPENTIN 300 MG CAP PO SCH (12:00)
[2016-11-04] MEDS ORDERED: MULTIVITAMINS, THERA 1 EACH TAB PO SCH (12:00)
--- NOTE | 2016-11-04 12:36 | PCN ---
DATE OF SERVICE: 11/03/2016 PROCEDURE: Right and left heart catheterization and coronary angiography. PERFORMED BY: Dr. Kirit Shi. CLINICAL INFORMATION: Mrs. Erika Pollock is an 80 year old lady with a history of Type 2 diabetes, hypertension. 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 She has a nonrheumatic central mitral regurgitation and recently developed atrial fibrillation which was actually discovered on presentation to the hospital today. She had a transesophageal echo which revealed moderate to severe mitral regurgitation. She was advised right and left heart catheterization prior to any intervention of the mitral regurgitation and consideration was given for possible mitral valve click. Risks, benefits, options, rationale were discussed and the patient was brought in for the procedure electively. PROCEDURE NOTE: Under local anesthesia and strict aseptic precautions, a 6 Iraqi introducer was placed in the right femoral artery and an 8 Iraqi introducer in the right femoral vein. Right heart catheterization was performed and then I performed a thermal dilution cardiac output. I then performed coronary angiography using a standard right Kaity catheter and a 3.5 curved left Kaity catheter. Pigtail catheter was used to check pressures but LV gram was not performed. The sheath was taken out and manual compression applied to secure hemostasis. This patient had a creatinine of 1.58 and therefore, a very limited amount of contrast of less than 50 mL was used. CARDIAC CATHETERIZATION FINDINGS: The right atrial pressure was 7 mmHg. Right ventricular pressure was 60/20. Pulmonary arterial pressure was 60/20 with a mean of 35. Pulmonary capillary wedge pressure was 17 mmHg with a V wave of 36 mmHg. The left ventricular end diastolic pressure was 17 mmHg. Thermal dilution cardiac output was 4.6 L and Vaibhav cardiac output was 3.7 L. The pulmonary arterial saturation was 66% and femoral artery saturation was 96%. There was no oxygen step off noted. CORONARY ANGIOGRAPHY FINDINGS: RIGHT CORONARY ARTERY: Technically a dominant vessel has about 20-30% lesion throughout distally, bifurcates into PDA and PLV both of which supply a fair amount of myocardium. Large dominant relatively disease free vessel. LEFT MAIN CORONARY ARTERY: Short patent disease free vessel that bifurcates into LAD and circumflex. There is mild calcification noted. LEFT ANTERIOR DESCENDING CORONARY ARTERY: Good caliber vessel extends along the anterior wall. In the mid portion, there is about 40% smooth narrowing noted , then the caliber improves, the vessel curves over the apex to supply the inferoapical portion and gives off several septal and diagonal branches that are free of significant disease. LAD Therefore does not have any critical disease. There is a moderate 40% mid lesion noted. LEFT POSTERIOR CIRCUMFLEX CORONARY ARTERY: Nondominant vessel gives off a small first obtuse marginal and a good sized second obtuse marginal and then there is a groove branch. all of these have minor irregularities. No significant disease is noted. LEFT VENTRICULOGRAM: This was not performed. FINAL IMPRESSION: This patient has a right dominant system, mild to moderate noncritical coronary artery disease is noted in all three vessels. Filling pressures are elevated. The patient has moderate to severe pulmonary hypertension. The cardiac output is also decreased. She does not have any significant obstructive coronary artery disease. RECOMMENDATIONS: I am recommending continued medical therapy with consideration of mitral valve ( ) which I will discuss as an outpatient. I discussed my thoughts in detail with the patient and also talked to the family. Given the fact that she has renal dysfunction, diabetes, she will be hydrated for the next several hours and I will keep her overnight and send her home tomorrow morning. She will be an outpatient but we will keep her overnight for hydration. Moderate conscious sedation was provided for a total duration of 50 minutes. Combination of Versed and Benadryl was used. MTDD
--- NOTE | 2016-11-04 12:39 | MISC ---
Dear Dr. Kamara: Thank you for the opportunity to participate in the care of Mrs. Erika Pollock. I am pleased to report to you that she does not have any significant obstructive CAD. I will consider a mitral valve clip procedure to be performed after I reevaluate her in the office. I expect that she will be discharged tomorrow if she remains stable. She will be hydrated through the night and I will check a kidney functions tomorrow. Thank you for your referral and please call for questions, With kindest regards, Sincerely yours, MTDScott
--- NOTE | 2016-11-04 16:52 | PN ---
DISCHARGE SUMMARY: Mrs. Pollock underwent right and left heart cath yesterday. I kept her overnight because of her renal status. Her creatinine is actually better. She is doing well. Her right groin is clean and dry with a good pulse. Vital signs are stable. S1, S2 heard normally. Lungs are clear. Abdomen and lower extremity exam are unchanged. She will be discharged today. Discharge instruction regarding activity, diet and medications were given. She has developed new onset atrial fibrillation. I am starting her on Xarelto 20 mg daily. I provided her with some samples. I will see her in the office on Wednesday. At the time of discharge, the patient is ambulating without symptoms. She is doing well. A reviewed with her atrial fibrillation issue. Rate control is very good. We will initiate her on Xarelto and she will be discharged today. She will require mitral valve clip which I will discuss about in the office upon her visit. HEVER
== END 2016-11-04 10:35 | disposition home or self-care (01) ==
LOC: CATHCVL 07:36 → 3OBS 13:36 → CATHCVL 11-04 10:35
PROVIDERS: ATTEND Internal Medicine Interventional Cardiology
DX: I25.10 Atherosclerotic heart disease of native coronary artery without angina pectoris (principal); I25.84 Coronary atherosclerosis due to calcified coronary lesion; I12.9 Hypertensive chronic kidney disease with stage 1 through stage 4 chronic kidney disease, or unspecified chronic kidney disease; N18.9 Chronic kidney disease, unspecified; Z87.891 Personal history of nicotine dependence; E11.21 Type 2 diabetes mellitus with diabetic nephropathy; I27.2 Other secondary pulmonary hypertension; Z79.84 Long term (current) use of oral hypoglycemic drugs; E78.00 Pure hypercholesterolemia, unspecified; I34.0 Nonrheumatic mitral (valve) insufficiency; I48.91 Unspecified atrial fibrillation; Z79.01 Long term (current) use of anticoagulants; Z79.82 Long term (current) use of aspirin; Z79.899 Other long term (current) drug therapy; Z79.2 Long term (current) use of antibiotics; Z79.1 Long term (current) use of non-steroidal anti-inflammatories (NSAID); Z88.0 Allergy status to penicillin
CPT/HCPCS: 93460; 80048; 85018; 82810; C1894 ×2; C1769 ×2; J2001; J2250; J1200; Q9967

== ENCOUNTER → 2017-10-04 | Outpatient (CLI) | payer MEDICARE ==
--- NOTE | 2017-10-04 12:12 | MM ---
Reason for exam: additional evaluation requested from prior study. Last mammogram was performed 1 year ago. History: Patient is postmenopausal and has history of breast cancer at age 70. Mastectomy of the right breast, September 10, 2006. Malignant US right core biopsy of the right breast, September 02, 2006. Stereotactic core biopsy, May 11, 2003. Benign excisional biopsy of the right breast. Chemotherapy. Took estrogen for 1 year. Taking antineoplastic for 9 years beginning at age 70. Physical Findings: Nurse did not find any significant physical abnormalities on exam. MG 3D Diag Mammo W/Cad LT CC and MLO view(s) were taken of the left breast. Prior study comparison: September 30, 2016, left breast MG 3d diag mammo w/cad LT. September 30, 2015, left breast MG 3d diag mammo w/cad LT. There are scattered fibroglandular densities. Finding: There are typically benign vascular, diffuse/scattered calcifications in the left breast. No significant changes in finding since September 30, 2016 and September 30, 2015. These results were verbally communicated with the patient and result sheet given to the patient on 10/04/17. ASSESSMENT: Benign, BI-RAD 2 RECOMMENDATION: Follow-up diagnostic mammogram of the left breast in 1 year.
== END | disposition home or self-care (01) ==
LOC: RADMAMWWP 10:48
PROVIDERS: ATTEND Internal Medicine Hematology & Oncology
DX: Z08 Encounter for follow-up examination after completed treatment for malignant neoplasm (principal); Z85.3 Personal history of malignant neoplasm of breast
CPT/HCPCS: 77065; G0279; 77061

== ENCOUNTER → 2018-01-05 | Outpatient (CLI) | payer MEDICARE ==
--- NOTE | 2018-01-06 13:41 | BD ---
EXAMINATION TYPE: Axial Bone Density DATE OF EXAM: 01/05/2018 COMPARISON: DEXA bone scan July 10, 2015 CLINICAL HISTORY: Postmenopausal female with osteopenia per order. Height: 5 FT 4 IN Weight: 183 FRAX RISK QUESTIONS: History of Fracture in Adulthood: YES Secondary Osteoporosis: 3. Menopause before 45: YES RISK FACTORS HISTORY OF: Family History of Osteoporosis: YES Postmenopausal woman: TOTAL HYST AGE 42 Take estrogen and/or progesterone medications: TOOK HRT FOR MORE THAN 20 YEARS NO LONGER Lost more than 2 inches in height since high school: YES Frequent falls: YES Poor Health: FAIR MEDICATIONS: Additional Medications: ALLOPURINOL,FEMARA, FUROSEMIDE, GLIPIZIDE, LOSARTAN, MONTELUKAST, NEURONTIN, MULTI, OSCAL, PRAVASTATIN,TNORMIN, TRAZODONE, XARELTO,BABY ASPIRIN, FLUTICASONE, SPIROLACTONE Additional History: EXAM MEASUREMENTS: Bone mineral densitometry was performed using the [employer] System. Bone mineral density as measured about the Lumbar spine is: ----- L1-L4(G/cm2): 1.035 T Score Values are as follows: ----- L2: -1.9 ----- L3: -0.6 ----- L4: -1.5 ----- L1-L4: -1.2 Bone mineral density has: DECREASED -1.7 % since study of: 2015 Bone mineral density about the R hip (g/cm2): 0.775 Bone mineral density about the L hip (g/cm2): 0.765 T Score values are as follows: -----R Neck: -1.9 -----L Neck: -2.0 -----R Total: -1.7 -----L Total: -1.6 Bone mineral density has: DECREASED -15.1 % since study of: 2015( THEY ONLY DID RT HIP LAST TIME ) IMPRESSION: Osteopenia (T Score between -2.5 and -1) process. Bone density is decreased or diminished from prior. There remains slightly increased risk of fracture and the patient may be considered for treatment. Re-Screen 2-5 years. NOTE: T-SCORE=SD OF THE YOUNG ADULT MEAN.
== END | disposition home or self-care (01) ==
LOC: RADBDWWP 15:00
PROVIDERS: ATTEND Internal Medicine Hematology & Oncology
DX: M85.89 Other specified disorders of bone density and structure, multiple sites (principal); C50.411 Malignant neoplasm of upper-outer quadrant of right female breast; Z79.890 Hormone replacement therapy
CPT/HCPCS: 77080

== ENCOUNTER 2018-04-02 09:57 | Emergency (ER) | payer MEDICARE ==
[2018-04-02 10:21] VITALS: RESP 18; TEMP 97.7
--- NOTE | 2018-04-02 12:29 | ED ---
Fall HPI - General Chief Complaint: Fall Stated Complaint: Fell/rib injury Time Seen by Provider: 04/02/18 10:16 Source: patient Mode of arrival: wheelchair - History of Present Illness Initial Comments: This is an 8-year-old female ER status post fall. Mechanical standing days ago she noticed that she had some right-sided rib pain at this time as well as pain she did have an injury to her left foot where she had some initial bleeding, she 's been taking care of that with antibiotic cream, patient has increased pain with a deep breath and her right side ribs, no abdominal pain. 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 Witnessed: no Place Fall Occurred: home Loss of Consciousness: none Prolonged Down Time?: no Symptoms Prior to Fall: none Location: chest Location - Extremities: Left: Leg Severity: moderate Severity scale (1-10): 4 Quality: crushing Context: tripped/slipped Associated Symptoms: chest paint - Related Data Home Medications Medication Instructions Recorded Confirmed Allopurinol 100 mg PO QAM 01/16/16 11/03/16 Atenolol [Tenormin] 50 mg PO HS 01/16/16 11/03/16 Calcium Carb-Vit D 500Mg-200Un 1 tab PO DAILY 01/16/16 11/03/16 [Oscal 500+D] Furosemide [Lasix] 40 mg PO DAILY 01/16/16 11/03/16 Gabapentin 300 mg PO DAILY@1200 01/16/16 11/03/16 Gabapentin 600 mg PO BID 01/16/16 11/03/16 Letrozole [Femara] 2.5 mg PO DAILY 01/16/16 11/03/16 Losartan Potassium 50 mg PO DAILY 01/16/16 11/03/16 Meloxicam 15 mg PO DAILY 01/16/16 11/03/16 Montelukast [Singulair] 10 mg PO HS 01/16/16 11/03/16 Multivitamins, Thera [Multivitamin 1 tab PO DAILY 01/16/16 11/03/16 (formulary)] Pravastatin Sodium 20 mg PO DAILY 01/16/16 11/03/16 glipiZIDE [Glipizide] 5 mg PO BID 01/16/16 11/03/16 metFORMIN HCL 500 mg PO BID 01/16/16 11/03/16 traZODone HCL [Desyrel] 100 mg PO HS 01/16/16 11/03/16 Fluticasone Nasal [place] [Flonase 1 spray EA NOSTRIL DAILY 10/29/16 11/03/16 Nasal [place]] Sulfamethox-Tmp 800-160Mg [Bactrim 1 tab PO Q12HR 10/29/16 11/03/16 DS 800-160 mg] Rivaroxaban [Xarelto] 20 mg PO DAILY 11/04/16 11/04/16 Allergies Allergy/AdvReac Type Severity Reaction Status Date / Time naproxen Allergy Mild Itching Verified 04/02/18 10:16 Penicillins Allergy Rash/Hives Verified 04/02/18 10:16 Review of Systems ROS Statement: Those systems with pertinent positive or pertinent negative responses have been documented in the HPI. ROS Other: All systems not noted in ROS Statement are negative. Past Medical History Past Medical History: Cancer, Diabetes Mellitus, Hyperlipidemia, Hypertension, Mitral Valve Prolapse (MVP), Osteoarthritis (OA) Additional Past Medical History / Comment(s): GOUT, HX RT BREAST CA , NEUROPATHY LEGS and FEET. USES WALKER or cance, UNSTEADY ON FEET. leaky heart valve, umbilical hernia, on rx post op from sinus surgery. History of Any Multi-Drug Resistant Organisms: None Reported Past Surgical History: Breast Surgery, Cholecystectomy, Hysterectomy Additional Past Surgical History / Comment(s): MASTECTOMY RT BREAST W/ AXILLA LYMPH NODE, don cataracts, sinus surgery 10/01/16 Past Anesthesia/Blood Transfusion Reactions: Motion Sickness Additional Past Anesthesia/Blood Transfusion Reaction / Comment(s): . Past Psychological History: Anxiety Smoking Status: Former smoker Past Alcohol Use History: None Reported Past Drug Use History: None Reported - Past Family History Mother Family Medical History: Cancer Brother(s) Family Medical History: Cancer General Exam Limitations: no limitations General appearance: alert, in no apparent distress Head exam: Present: atraumatic, normocephalic, normal inspection Eye exam: Present: normal appearance, PERRL, EOMI. Absent: scleral icterus, conjunctival injection, periorbital swelling ENT exam: Present: normal exam, mucous membranes moist Neck exam: Present: normal inspection. Absent: tenderness, meningismus, lymphadenopathy Respiratory exam: Present: normal lung sounds bilaterally. Absent: respiratory distress, wheezes, rales, rhonchi, stridor Cardiovascular Exam: Present: regular rate, normal rhythm, normal heart sounds, other (Right Sided Chest Pain). Absent: systolic murmur, diastolic murmur, rubs , gallop, clicks GI/Abdominal exam: Present: soft, normal bowel sounds. Absent: distended, tenderness, guarding, rebound, rigid Extremities exam: Present: normal inspection, full ROM, normal capillary refill. Absent: tenderness, pedal edema, joint swelling, calf tenderness Back exam: Present: normal inspection Neurological exam: Present: alert, oriented X3, CN II-XII intact Psychiatric exam: Present: normal affect, normal mood Skin exam: Present: warm, dry, intact, normal color. Absent: rash Course Vital Signs 04/02/18 10:16 Temperature 97.7 F Pulse Rate 75 Respiratory 18 Rate Blood Pressure 152/80 O2 Sat by Pulse 100 Oximetry - Reevaluation(s) Reevaluation #1: 04/02/18 12:29 Medical record is reviewed Reevaluation #2: 04/02/18 12:29 Patient is in no distress Medical Decision Making - Medical Decision Making 80 female the ER 3 days status post fall with right rib contusion skin tear left foot that is healing appropriately. Patient can be discharged - Radiology Data Radiology results: report reviewed (Chest x-ray with rib studies negative for traumatic injury, x-ray left foot negative for traumatic disease), image reviewed Disposition Clinical Impression: Fall, Contusion of rib on right side, Tear of skin of plantar aspect of left foot Disposition: HOME SELF-CARE Condition: Good Instructions: Fall Prevention for Older Adults (ED), Rib Contusion (ED), Skin Tear (ED) Is patient prescribed a controlled substance at d/c from ED?: No Referrals: Darrius Kamara MD [Primary Care Provider] - 1-2 days
--- NOTE | 2018-04-02 12:56 | XR ---
EXAMINATION TYPE: XR foot complete LT , 3 VIEWS DATE OF EXAM ORDERED: 04/02/2018 HISTORY: Pain. COMPARISON: None. FINDINGS: The bones are osteopenic. There is been previous left-sided bunionectomy. There is a hammertoe deformity of the second through fifth digit. There is a plantar calcaneal spur. There are vascular calcifications present. No definit e fracture or dislocation is seen. IMPRESSION: 1. NO ACUTE OSSEOUS LESION. 3. DEGENERATIVE CHANGE. 4. POSTSURGICAL CHANGE.
--- NOTE | 2018-04-02 13:20 | XR ---
EXAMINATION TYPE: XR ribs RT w pa chest x-ray , 5 VIEWS DATE OF EXAM ORDERED: 04/02/2018 HISTORY: Pain. COMPARISON: Previous chest x-ray dated 10/30/2016. FINDINGS: A metallic density projects over the left heart. The etiology of this is uncertain. The heart is mildly enlarged. The lungs are clear. Pleural spaces are clear. No pneumothorax is evide nt. No displaced rib fracture is seen. IMPRESSION: 1. MILD CARDIOMEGALY. 2. I DO NOT SEE EVIDENCE OF A DISPLACED RIB FRACTURE AT THIS TIME.
[2018-04-02 14:18] VITALS: BP 138/66; PULSE 72
== END 2018-04-02 14:15 | disposition home or self-care (01) ==
LOC: EC 09:57
DX: S20.211A Contusion of right front wall of thorax, initial encounter (principal); S91.312A Laceration without foreign body, left foot, initial encounter; E11.40 Type 2 diabetes mellitus with diabetic neuropathy, unspecified; E78.5 Hyperlipidemia, unspecified; I10 Essential (primary) hypertension; M19.90 Unspecified osteoarthritis, unspecified site; Z79.01 Long term (current) use of anticoagulants; Z79.1 Long term (current) use of non-steroidal anti-inflammatories (NSAID); Z79.84 Long term (current) use of oral hypoglycemic drugs; Z79.899 Other long term (current) drug therapy; Z88.0 Allergy status to penicillin; Z88.6 Allergy status to analgesic agent; Z87.891 Personal history of nicotine dependence; Z85.3 Personal history of malignant neoplasm of breast; W01.0XXA Fall on same level from slipping, tripping and stumbling without subsequent striking against object, initial encounter; Y92.009 Unspecified place in unspecified non-institutional (private) residence as the place of occurrence of the external cause
CPT/HCPCS: 99283

== ENCOUNTER 2018-07-27 23:44 | Emergency (ER) | payer MEDICARE ==
--- NOTE | 2018-07-27 23:48 | ED ---
General Adult HPI - General Stated complaint: Weakness Time Seen by Provider: 07/27/18 23:47 - History of Present Illness Initial comments: Erika is a pleasant 82-year-old female who presents to the emergency department stay via EMS for evaluation after a fall at home. Patient reports that she's been having somewhat of a cough and some generalized malaise for couple of days. She also notes some of her family members have similar symptoms. She states that this evening she walked into her bathroom and then turned off the light, she states that she couldn't see where she was walking and tripped and fell however she felt too weak to get up so she used her life alert to call for assistance. EMS arrived on scene and considering that she was elderly and feeling weak advised her to come to the ER for evaluation. Upon evaluation patient has no acute complaints. She denies any pain or discomfort she has been ambulatory since the fall. She did not hit her head she did not lose consciousness. She does report minimally productive cough for 3 days duration, no subjective fevers, chills, nausea or vomiting though she does report decreased activity level and generalized malaise. - Related Data Home Medications Medication Instructions Recorded Confirmed Allopurinol 100 mg PO QA 01/16/16 11/03/16 Atenolol [Tenormin] 50 mg PO HS 01/16/16 11/03/16 Calcium Carb-Vit D 500Mg-200Un 1 tab PO DAILY 01/16/16 11/03/16 [Oscal 500+D] Furosemide [Lasix] 40 mg PO DAILY 01/16/16 11/03/16 Gabapentin 300 mg PO DAILY@1200 01/16/16 11/03/16 Gabapentin 600 mg PO BID 01/16/16 11/03/16 Letrozole [Femara] 2.5 mg PO DAILY 01/16/16 11/03/16 Losartan Potassium 50 mg PO DAILY 01/16/16 11/03/16 Meloxicam 15 mg PO DAILY 01/16/16 11/03/16 Montelukast [Singulair] 10 mg PO HS 01/16/16 11/03/16 Multivitamins, Thera [Multivitamin 1 tab PO DAILY 01/16/16 11/03/16 (formulary)] Pravastatin Sodium 20 mg PO DAILY 01/16/16 11/03/16 glipiZIDE [Glipizide] 5 mg PO BID 01/16/16 11/03/16 metFORMIN HCL 500 mg PO BID 01/16/16 11/03/16 traZODone HCL [Desyrel] 100 mg PO HS 01/16/16 11/03/16 Fluticasone Nasal [place] [Flonase 1 spray EA NOSTRIL DAILY 10/29/16 11/03/16 Nasal [place]] Sulfamethox-Tmp 800-160Mg [Bactrim 1 tab PO Q12HR 10/29/16 11/03/16 DS 800-160 mg] Rivaroxaban [Xarelto] 20 mg PO DAILY 11/04/16 11/04/16 Allergies Allergy/AdvReac Type Severity Reaction Status Date / Time naproxen Allergy Mild Itching Verified 04/02/18 10:16 Penicillins Allergy Rash/Hives Verified 04/02/18 10:16 Review of Systems ROS Statement: Those systems with pertinent positive or pertinent negative responses have been documented in the HPI. ROS Other: All systems not noted in ROS Statement are negative. Past Medical History Past Medical History: Cancer, Diabetes Mellitus, Hyperlipidemia, Hypertension, Mitral Valve Prolapse (MVP), Osteoarthritis (OA) Additional Past Medical History / Comment(s): GOUT, HX RT BREAST CA , NEUROPATHY LEGS and FEET. USES WALKER or cance, UNSTEADY ON FEET. leaky heart valve, umbilical hernia, on rx post op from sinus surgery. History of Any Multi-Drug Resistant Organisms: None Reported Past Surgical History: Breast Surgery, Cholecystectomy, Hysterectomy Additional Past Surgical History / Comment(s): MASTECTOMY RT BREAST W/ AXILLA LYMPH NODE, don cataracts, sinus surgery 10/01/16 Past Anesthesia/Blood Transfusion Reactions: Motion Sickness Additional Past Anesthesia/Blood Transfusion Reaction / Comment(s): . Past Psychological History: Anxiety Smoking Status: Former smoker Past Alcohol Use History: None Reported Past Drug Use History: None Reported - Past Family History Mother Family Medical History: Cancer Brother(s) Family Medical History: Cancer General Exam - General Exam Comments Initial Comments: GENERAL: Patient is well-developed and well-nourished. Patient is nontoxic and well-hydrated and is in no distress. HENT: Normocephalic, Atraumatic. TM normal bilaterally, no hemotympanum, no agarwal signs, no racoon eyes Neck is soft and supple. No significant lymphadenopathy is noted. Oropharynx is clear. Neck has full range of motion without eliciting any pain. EYES: The sclera were anicteric and conjunctiva were pink and moist. Extraocular movements were intact and pupils were equal round and reactive to light. Eyelids were unremarkable. PULMONARY: Unlabored respirations. Good breath sounds bilaterally. No audible rales rhonchi or wheezing was noted. CARDIOVASCULAR: There is a regular rate and rhythm without any murmurs gallops or rubs. ABDOMEN: Soft and nontender with normal bowel sounds. SKIN: Purple discoloration of the bilateral feet consistent with history of significant neuropathy and peripheral vascular disease. DP and PT pulses were strong and equal bilaterally. NEUROLOGIC: Patient is alert and oriented x3. Cranial nerves II through XII are grossly intact. Motor and sensory are also intact. Normal speech, volume and content. Symmetrical smile. MUSCULOSKELETAL: Normal extremities with adequate strength and full range of motion. No lower extremity swelling or edema. No calf tenderness. LYMPHATICS: No significant lymphadenopathy is noted PSYCHIATRIC: Normal psychiatric evaluation. Limitations: no limitations Course Vital Signs 07/27/18 07/28/18 23:48 02:58 Temperature 98.2 F 101.4 F H Pulse Rate 108 H 78 Respiratory 16 19 Rate Blood Pressure 110/79 112/78 O2 Sat by Pulse 94 L 97 Oximetry EKG Findings - EKG Comments: EKG Findings:: EKG was obtained upon arrival at 2359. Rate is 100 rhythm is atrial fibrillation, narrow complex tachycardia, QRS 72 QTc [address] elevations or depressions or signs of ischemia or infarction Medical Decision Making - Medical Decision Making She was seen and evaluated history was obtained from patient and family at bedside 2-year-old female with a mechanical trip and fall at home was unable to get herself up called EMS for lift assist in the encouraged she can move hospital for evaluation Upon evaluation patient is hemodynamically stable with no acute complaints though she does report a minimally to non-productive cough over the past 4 days Chest x-ray was ordered which revealed no signs of pneumonia Patient was reevaluated chest x-ray results were discussed patient expressed relief she had not developed pneumonia and was eager for discharge home neck sign upon discharge vitals it was noted that the patient had developed a fever, patient's family member at bedside also with a similar cough and subjective fever and a very high suspicion for both suffering from influenza. I did offer further testing including lab testing, influenza swab and possible admission to the hospital given the patient's advanced age however this time she is comfortable with plan for discharge home and supportive care. Tylenol was given prior to discharge. - Lab Data Lab Results 07/28/18 Range/Units 00:09 POC Glucose (mg/dL) 107 H (75-99) mg/dL POC Glu Busser ID Jay Garcia Disposition Clinical Impression: Fall Disposition: HOME SELF-CARE Condition: Stable Instructions (If sedation given, give patient instructions): Fall Prevention for Older Adults (ED) Is patient prescribed a controlled substance at d/c from ED?: No Referrals: Darrius Kamara MD [Primary Care Provider] - 1-2 days
[2018-07-28 00:29] LABS: Glucose,Whole Blood 107 mg/dL (75-99)
--- NOTE | 2018-07-28 01:05 | XR ---
EXAM: XR Chest, 2 Views CLINICAL HISTORY: Reason: cough TECHNIQUE: Frontal and lateral views of the chest. COMPARISON: Chest x-ray 10/30/2016 FINDINGS: Lungs: . Lungs are clear of focal infiltrates or consolidations. Pleural space: No evidence of pneumothorax or pleural effusion. Heart: Moderate cardiomegaly, unchanged. Central prominence of pulmonary vasculature. Mediastinum: Mediastinal prominence not significantly changed since 10/30/2016. Thoracic aorta is tortuous and elongated. Bones/joints: Hypertrophic degenerative changes involving thoracic spine. Moderate to severe lower thoracic vertebral compression fracture which is chronic although demonstrates interval progression of compression deformity since 10/30/2016. Degenerative changes about the left glenohumeral joint. IMPRESSION: Cardiomegaly and central pulmonary vascular congestion. No focal pulmonary infiltrates or consolidations. Stable mediastinal prominence. Bony findings as described in body of report.
[2018-07-28] MEDS ORDERED: ACETAMINOPHEN TAB 325 MG TAB PO STA (02:29)
[2018-07-28 02:59] VITALS: BP 112/78; PULSE 78; RESP 19; TEMP 101.4
== END 2018-07-28 02:36 | disposition home or self-care (01) ==
LOC: EC 23:44
DX: Z04.3 Encounter for examination and observation following other accident (principal); R53.83 Other fatigue; R05 Cough; E11.40 Type 2 diabetes mellitus with diabetic neuropathy, unspecified; E78.5 Hyperlipidemia, unspecified; I10 Essential (primary) hypertension; M19.90 Unspecified osteoarthritis, unspecified site; M10.9 Gout, unspecified; Z85.3 Personal history of malignant neoplasm of breast; F41.9 Anxiety disorder, unspecified; Z87.891 Personal history of nicotine dependence; Z79.84 Long term (current) use of oral hypoglycemic drugs; Z79.1 Long term (current) use of non-steroidal anti-inflammatories (NSAID); Z79.01 Long term (current) use of anticoagulants; Z79.899 Other long term (current) drug therapy; Z88.0 Allergy status to penicillin; Z88.6 Allergy status to analgesic agent; W01.0XXA Fall on same level from slipping, tripping and stumbling without subsequent striking against object, initial encounter; Y93.01 Activity, walking, marching and hiking; Y92.009 Unspecified place in unspecified non-institutional (private) residence as the place of occurrence of the external cause
CPT/HCPCS: 36415; 71046; 99285

== ENCOUNTER 2018-08-08 15:01 | Emergency (ER) | payer MEDICARE ==
[2018-08-08 15:05] VITALS: RESP 18
[2018-08-08] MEDS ORDERED: IPRATROPIUM-ALBUTEROL 3 ML NEB INHALATION STA (15:27)
--- NOTE | 2018-08-08 15:47 | ED ---
General Adult HPI - General Chief complaint: Nausea/Vomiting/Diarrhea Stated complaint: Cough, Diarrhea Time Seen by Provider: 08/08/18 15:01 Source: patient, RN notes reviewed Mode of arrival: wheelchair Limitations: no limitations - History of Present Illness Initial comments: This is a 82-year-old female who presents emergency Department complaining that she has had diarrhea for about 2 weeks she doesn't have it every day but most days. Patient states she's becoming weaker and weaker and at this time she thought she should come to the emergency department. Patient states she's also had a bit of a cough but not causing any sputum production. Patient denies any chest pain or palpitations per patient denies any abdominal pain. Patient denies any nausea or vomiting. Patient denies lightheadedness or dizziness. Patient denies any headache patient denies numbness or weakness. Patient denies any dysuria hematuria urinary frequency. - Related Data Home Medications Medication Instructions Recorded Confirmed Allopurinol 100 mg PO QA 01/16/16 08/08/18 Atenolol [Tenormin] 50 mg PO 01/16/16 08/08/18 Calcium Carb-Vit D 500Mg-200Un 1 tab PO DAILY 01/16/16 08/08/18 [Oscal 500+D] Furosemide [Lasix] 40 mg PO DAILY 01/16/16 08/08/18 Gabapentin 300 mg PO DAILY@1200 01/16/16 08/08/18 Gabapentin 600 mg PO BID 01/16/16 08/08/18 Letrozole [Femara] 2.5 mg PO DAILY 01/16/16 08/08/18 Montelukast [Singulair] 10 mg PO 01/16/16 08/08/18 Multivitamins, Thera [Multivitamin 1 tab PO DAILY 01/16/16 08/08/18 (formulary)] Pravastatin Sodium 20 mg PO DAILY 01/16/16 08/08/18 glipiZIDE [Glipizide] 5 mg PO BID 01/16/16 08/08/18 metFORMIN HCL 500 mg PO BID 01/16/16 08/08/18 traZODone HCL [Desyrel] 100 mg PO HS 01/16/16 08/08/18 Rivaroxaban [Xarelto] 20 mg PO DAILY 07/12/17 04/15/19 Aspirin [Renick Aspirin EC] 81 mg PO DAILY 08/08/18 08/08/18 Diphenoxylate HCl/Atropine 1 tab PO Q8H PRN 08/08/18 08/08/18 [Lomotil 2.5-0.025 mg Tablet] Allergies Allergy/AdvReac Type Severity Reaction Status Date / Time naproxen Allergy Mild Itching Verified 08/08/18 16:39 Penicillins Allergy Rash/Hives Verified 08/08/18 16:39 Review of Systems ROS Statement: Those systems with pertinent positive or pertinent negative responses have been documented in the HPI. ROS Other: All systems not noted in ROS Statement are negative. Past Medical History Past Medical History: Cancer, Diabetes Mellitus, Hyperlipidemia, Hypertension, Mitral Valve Prolapse (MVP), Osteoarthritis (OA) Additional Past Medical History / Comment(s): GOUT, HX RT BREAST CA , NEUROPATHY LEGS and FEET. USES WALKER or cance, UNSTEADY ON FEET. leaky heart valve, umbilical hernia, on rx post op from sinus surgery. History of Any Multi-Drug Resistant Organisms: None Reported Past Surgical History: Breast Surgery, Cholecystectomy, Hysterectomy Additional Past Surgical History / Comment(s): MASTECTOMY RT BREAST W/ AXILLA LYMPH NODE, don cataracts, sinus surgery 10/01/16 Past Anesthesia/Blood Transfusion Reactions: Motion Sickness Additional Past Anesthesia/Blood Transfusion Reaction / Comment(s): . Past Psychological History: Anxiety Smoking Status: Former smoker Past Alcohol Use History: None Reported Past Drug Use History: None Reported - Past Family History Mother Family Medical History: Cancer Brother(s) Family Medical History: Cancer General Exam - General Exam Comments Initial Comments: GENERAL: Patient is well-developed and well-nourished. Patient is nontoxic and well- hydrated and is in mild distress. ENT: Neck is soft and supple. No significant lymphadenopathy is noted. Oropharynx is clear. Moist mucous membranes. Neck has full range of motion without eliciting any pain. EYES: The sclera were anicteric and conjunctiva were pink and moist. Extraocular movements were intact and pupils were equal round and reactive to light. Eyelids were unremarkable. PULMONARY: Patient is a very wheezing and some crackles bilateral bases CARDIOVASCULAR: There is a regular rate and rhythm without any murmurs gallops or rubs. ABDOMEN: Soft and nontender with normal bowel sounds. No palpable organomegaly was noted. There is no palpable pulsatile mass. SKIN: Skin is clear with no lesions or rashes and otherwise unremarkable. NEUROLOGIC: Patient is alert and oriented x3. Cranial nerves II through XII are grossly intact. Motor and sensory are also intact. Normal speech, volume and content. Symmetrical smile. MUSCULOSKELETAL: Normal extremities with adequate strength and full range of motion. LYMPHATICS: No significant lymphadenopathy is noted PSYCHIATRIC: Normal psychiatric evaluation. Limitations: no limitations Course Vital Signs 08/08/18 08/08/18 08/08/18 15:03 16:21 16:31 Temperature 97.7 F Pulse Rate 73 82 78 Respiratory 18 Rate Blood Pressure 121/73 O2 Sat by Pulse 96 Oximetry Medical Decision Making - Medical Decision Making EKG shows atrial fibrillation with rapid ventricular response at 107 beats a minute QRS is 70 QT interval 346 QTC is 461. Patient's EKG shows no ST segment elevation or depression. Chest x-ray shows no acute abnormality. We'll begin to reevaluate the patient she has had no diarrhea while in the emergency department she was feeling considerably better. Patient states her follow-up with her primary medical care doctor. - Lab Data Result diagrams: 08/08/18 16:18 08/08/18 16:18 Lab Results 08/08/18 08/08/18 08/08/18 Range/Units 16:18 16:18 16:18 WBC 7.5 (3.8-10.6) k/uL RBC 4.75 (3.80-5.40) m/uL Hgb 14.6 (11.4-16.0) gm/dL Hct 41.6 (34.0-46.0) % MCV 87.5 (80.0-100.0) fL MCH 30.7 (25.0-35.0) pg MCHC 35.0 (31.0-37.0) g/dL RDW 14.5 (11.5-15.5) % Plt Count 262 (150-450) k/uL Neutrophils % 65 % Lymphocytes % 26 % Monocytes % 6 % Eosinophils % 0 % Basophils % 0 % Neutrophils # 4.9 (1.3-7.7) k/uL Lymphocytes # 1.9 (1.0-4.8) k/uL Monocytes # 0.5 (0-1.0) k/uL Eosinophils # 0.0 (0-0.7) k/uL Basophils # 0.0 (0-0.2) k/uL PT (9.0-12.0) sec INR (<1.2) APTT (22.0-30.0) sec Sodium 137 (137-145) mmol/L Potassium 3.5 (3.5-5.1) mmol/L Chloride 94 L (98-107) mmol/L Carbon Dioxide 31 H (22-30) mmol/L Anion Gap 12 mmol/L BUN 21 H (7-17) mg/dL Creatinine 1.20 H (0.52-1.04) mg/dL Est GFR (CKD-EPI)AfAm 49 (>60 ml/min/1.73 sqM) Est GFR (CKD-EPI)NonAf 42 (>60 ml/min/1.73 sqM) Glucose 122 H (74-99) mg/dL Plasma Lactic Acid Ben 3.4 H* (0.7-2.0) mmol/L Calcium 10.1 (8.4-10.2) mg/dL Total Bilirubin 3.2 H (0.2-1.3) mg/dL AST 30 (14-36) U/L ALT 26 (9-52) U/L Alkaline Phosphatase 70 (38-126) U/L Troponin I (0.000-0.034) ng/mL NT-Pro-B Natriuret Pep pg/mL Total Protein 6.7 (6.3-8.2) g/dL Albumin 3.9 (3.5-5.0) g/dL Urine Color Urine Appearance (Clear) Urine pH (5.0-8.0) Ur Specific [place] (1.001-1.035) Urine Protein (Negative) Urine Glucose (UA) (Negative) Urine Ketones (Negative) Urine Blood (Negative) Urine Nitrite (Negative) Urine Bilirubin (Negative) Urine Urobilinogen (<2.0) mg/dL Ur Leukocyte Esterase (Negative) 08/08/18 08/08/18 08/08/18 Range/Units 16:18 16:18 16:18 WBC (3.8-10.6) k/uL RBC (3.80-5.40) m/uL Hgb (11.4-16.0) gm/dL Hct (34.0-46.0) % MCV (80.0-100.0) fL MCH (25.0-35.0) pg MCHC (31.0-37.0) g/dL RDW (11.5-15.5) % Plt Count (150-450) k/uL Neutrophils % % Lymphocytes % % Monocytes % % Eosinophils % % Basophils % % Neutrophils # (1.3-7.7) k/uL Lymphocytes # (1.0-4.8) k/uL Monocytes # (0-1.0) k/uL Eosinophils # (0-0.7) k/uL Basophils # (0-0.2) k/uL PT 13.3 H (9.0-12.0) sec INR 1.3 H (<1.2) APTT 28.3 (22.0-30.0) sec Sodium (137-145) mmol/L Potassium (3.5-5.1) mmol/L Chloride (98-107) mmol/L Carbon Dioxide (22-30) mmol/L Anion Gap mmol/L BUN (7-17) mg/dL Creatinine (0.52-1.04) mg/dL Est GFR (CKD-EPI)AfAm (>60 ml/min/1.73 sqM) Est GFR (CKD-EPI)NonAf (>60 ml/min/1.73 sqM) Glucose (74-99) mg/dL Plasma Lactic Acid Ben (0.7-2.0) mmol/L Calcium (8.4-10.2) mg/dL Total Bilirubin (0.2-1.3) mg/dL AST (14-36) U/L ALT (9-52) U/L Alkaline Phosphatase (38-126) U/L Troponin I <0.012 (0.000-0.034) ng/mL NT-Pro-B Natriuret Pep 2500 pg/mL Total Protein (6.3-8.2) g/dL Albumin (3.5-5.0) g/dL Urine Color Urine Appearance (Clear) Urine pH (5.0-8.0) Ur Specific [place] (1.001-1.035) Urine Protein (Negative) Urine Glucose (UA) (Negative) Urine Ketones (Negative) Urine Blood (Negative) Urine Nitrite (Negative) Urine Bilirubin (Negative) Urine Urobilinogen (<2.0) mg/dL Ur Leukocyte Esterase (Negative) 08/08/18 Range/Units 17:46 WBC (3.8-10.6) k/uL RBC (3.80-5.40) m/uL Hgb (11.4-16.0) gm/dL Hct (34.0-46.0) % MCV (80.0-100.0) fL MCH (25.0-35.0) pg MCHC (31.0-37.0) g/dL RDW (11.5-15.5) % Plt Count (150-450) k/uL Neutrophils % % Lymphocytes % % Monocytes % % Eosinophils % % Basophils % % Neutrophils # (1.3-7.7) k/uL Lymphocytes # (1.0-4.8) k/uL Monocytes # (0-1.0) k/uL Eosinophils # (0-0.7) k/uL Basophils # (0-0.2) k/uL PT (9.0-12.0) sec INR (<1.2) APTT (22.0-30.0) sec Sodium (137-145) mmol/L Potassium (3.5-5.1) mmol/L Chloride (98-107) mmol/L Carbon Dioxide (22-30) mmol/L Anion Gap mmol/L BUN (7-17) mg/dL Creatinine (0.52-1.04) mg/dL Est GFR (CKD-EPI)AfAm (>60 ml/min/1.73 sqM) Est GFR (CKD-EPI)NonAf (>60 ml/min/1.73 sqM) Glucose (74-99) mg/dL Plasma Lactic Acid Ben (0.7-2.0) mmol/L Calcium (8.4-10.2) mg/dL Total Bilirubin (0.2-1.3) mg/dL AST (14-36) U/L ALT (9-52) U/L Alkaline Phosphatase (38-126) U/L Troponin I (0.000-0.034) ng/mL NT-Pro-B Natriuret Pep pg/mL Total Protein (6.3-8.2) g/dL Albumin (3.5-5.0) g/dL Urine Color Light Yellow Urine Appearance Clear (Clear) Urine pH 7.0 (5.0-8.0) Ur Specific [place] 1.005 (1.001-1.035) Urine Protein Negative (Negative) Urine Glucose (UA) Negative (Negative) Urine Ketones Negative (Negative) Urine Blood Negative (Negative) Urine Nitrite Negative (Negative) Urine Bilirubin Negative (Negative) Urine Urobilinogen <2.0 (<2.0) mg/dL Ur Leukocyte Esterase Negative (Negative) Disposition Clinical Impression: Dehydration, Diarrhea Disposition: HOME SELF-CARE Instructions (If sedation given, give patient instructions): Acute Diarrhea (ED) Additional Instructions: Continue taking Lomotil as previously directed. Is patient prescribed a controlled substance at d/c from ED?: No Referrals: Darrius Kamara MD [Primary Care Provider] - 1-2 days Time of Disposition: 18:37
[2018-08-08 16:36] LABS: Basophils % (A) 0 %; Eosinophils % (A) 0 %; HCT 41.6 % (34.0-46.0); HGB 14.6 gm/dL (11.4-16.0); Lymphocytes # (A) 1.9 k/uL (1.0-4.8); Lymphocytes % (A) 26 %; MCH 30.7 pg (25.0-35.0); MCV 87.5 fL (80.0-100.0); Mean Platelet Volume 6.6; Monocytes # (A) 0.5 k/uL (0-1.0); Monocytes % (A) 6 %; Neutrophils # (A) 4.9 k/uL (1.3-7.7); Neutrophils % (A) 65 %; Platelet Count 262 k/uL (150-450); RBC 4.75 m/uL (3.80-5.40); RDW 14.5 % (11.5-15.5); WBC 7.5 k/uL (3.8-10.6)
[2018-08-08 16:44] LABS: Albumin 3.9 g/dL (3.5-5.0); Calcium 10.1 mg/dL (8.4-10.2); Potassium 3.5 mmol/L (3.5-5.1); Total Bilirubin 3.2 mg/dL (0.2-1.3); Total Protein 6.7 g/dL (6.3-8.2)
[2018-08-08 16:48] LABS: INR 1.3 (<1.2); Partial Thromboplastin Time 28.3 sec (22.0-30.0); Prothrombin Time 13.3 sec (9.0-12.0)
--- NOTE | 2018-08-08 17:56 | XR ---
EXAMINATION TYPE: XR chest 2V DATE OF EXAM: 08/08/2018 COMPARISON: Chest x-ray July 28, 2018 HISTORY: Weakness and cough for 2 weeks. TECHNIQUE: Frontal and lateral views of the chest are obtained. FINDINGS: Overlying EKG leads are seen. There is chronic parenchymal change without suspicious focal air space opacity, pleural effusion, or pneumothorax seen. The cardiac silhouette size is enlarged w ith atherosclerotic and ectatic thoracic aorta redemonstrated. The osseous structures remain demine ralized. Moderate compression fracture T12 level is redemonstrated. Surgical pericardiac clips are re demonstrated. Degenerative changes bilateral shoulders the glenohumeral joint are again seen. IMPRESSION: Chronic parenchymal changes and cardiomegaly without acute pulmonary process.
[2018-08-08 18:08] LABS: Appearance,Urine Clear (Clear); Bilirubin,Urine Negative (Negative); Blood,Urine Negative (Negative); Color,Urine Light Yellow; Glucose,Urine (UA) Negative (Negative); Ketones,Urine Negative (Negative); Leukocyte Esterase,Urine Negative (Negative); Nitrite,Urine Negative (Negative); Protein,Urine Negative (Negative); Specific Gravity,Urine 1.005 (1.001-1.035); Urobilinogen,Urine <2.0 mg/dL (<2.0)
[2018-08-08 18:52] VITALS: BP 129/85; PULSE 89; TEMP 97.5
== END 2018-08-08 18:59 | disposition home or self-care (01) ==
LOC: EC 15:01
DX: E86.0 Dehydration (principal); R19.7 Diarrhea, unspecified; R05 Cough; I48.91 Unspecified atrial fibrillation; E11.40 Type 2 diabetes mellitus with diabetic neuropathy, unspecified; I10 Essential (primary) hypertension; E78.5 Hyperlipidemia, unspecified; F41.9 Anxiety disorder, unspecified; Z79.01 Long term (current) use of anticoagulants; Z79.82 Long term (current) use of aspirin; Z79.899 Other long term (current) drug therapy; Z79.84 Long term (current) use of oral hypoglycemic drugs; Z88.0 Allergy status to penicillin; Z88.6 Allergy status to analgesic agent; Z85.3 Personal history of malignant neoplasm of breast; Z90.11 Acquired absence of right breast and nipple; Z87.891 Personal history of nicotine dependence
CPT/HCPCS: 36415; 71046; 80053; 81003; 83605; 83880; 84484; 85025; 85610; 85730; 93005; 94640; 99284

== ENCOUNTER → 2018-10-28 | Outpatient (CLI) | payer MEDICARE ==
--- NOTE | 2018-10-31 06:54 | MM ---
Reason for exam: additional evaluation requested from prior study. Last mammogram was performed 1 year and 1 month ago. History: Patient is postmenopausal and has history of breast cancer at age 70. Mastectomy of the right breast, September 10, 2006. Malignant US right core biopsy of the right breast, September 02, 2006. Stereotactic core biopsy, May 11, 2003. Benign excisional biopsy of the right breast. Chemotherapy. Took estrogen for 1 year. Taking antineoplastic for 9 years beginning at age 70. Physical Findings: Nurse did not find any significant physical abnormalities on exam. MG 3D Diag Mammo W/Cad LT CC and MLO view(s) were taken of the left breast. Prior study comparison: October 04, 2017, left breast MG 3d diag mammo w/cad LT. September 30, 2016, left breast MG 3d diag mammo w/cad LT. There are scattered fibroglandular densities. Limitations due to positioning in the wheelchair. Stable benign vascular, dystrophic and secretory calcifications. No significant new findings when compared with previous films. These results were verbally communicated with the patient and result sheet given to the patient on 10/28/18. ASSESSMENT: Benign, BI-RAD 2 RECOMMENDATION: Routine screening mammogram of the left breast in 1 year.
== END | disposition home or self-care (01) ==
LOC: RADMAMWWP 13:56
PROVIDERS: ATTEND Internal Medicine Hematology & Oncology
DX: Z08 Encounter for follow-up examination after completed treatment for malignant neoplasm (principal); Z85.3 Personal history of malignant neoplasm of breast
CPT/HCPCS: 77065; G0279; 77061

== ENCOUNTER → 2019-03-02 | Outpatient (CLI) | payer MEDICARE ==
--- NOTE | 2019-03-08 11:18 | P.ARTDOP ---
Arterial Doppler LOWER EXTREMITY ARTERIAL DOPPLER: DATE OF SERVICE: 03/02/2019 Reason for study: Leg numbness. Doppler waveforms: Multiphasic bilaterally throughout. Pulse volume recording: []. Pressure gradients: None. Ankle-brachial indices: Cannot be occluded. Toe pressures: [] on the right, [] on the left Impression: Waveforms are normal but ankles cannot be occluded suggesting calcific wall disease. Does not appear to be hemodynamically significant..
== END | disposition home or self-care (01) ==
LOC: RADUSWWP 13:42
PROVIDERS: ATTEND Nurse Practitioner Women's Health
DX: I73.9 Peripheral vascular disease, unspecified (principal)
CPT/HCPCS: 93922

== ENCOUNTER → 2019-10-30 | Outpatient (CLI) | payer MEDICARE ==
--- NOTE | 2019-11-01 13:30 | MM ---
Reason for exam: screening (asymptomatic). Last mammogram was performed 1 year ago. History: Patient is postmenopausal and has history of breast cancer at age 70. Mastectomy of the right breast, September 10, 2006. Malignant US right core biopsy of the right breast, September 02, 2006. Stereotactic core biopsy, May 11, 2003. Benign excisional biopsy of the right breast. Chemotherapy. Took estrogen for 1 year. Taking antineoplastic for 9 years beginning at age 70. Physical Findings: A clinical breast exam by your physician is recommended on an annual basis and results should be correlated with mammographic findings. MG 3D Scr Caleb Unilateral W/Cad CC and MLO view(s) were taken of the left breast. Prior study comparison: October 28, 2018, left breast MG 3d diag mammo w/cad LT. October 04, 2017, left breast MG 3d diag mammo w/cad LT. There are scattered fibroglandular densities. Benign vascular and secretory calcifications. No significant changes when compared with prior studies. ASSESSMENT: Benign, BI-RAD 2 RECOMMENDATION: Routine screening mammogram of the left breast in 1 year.
== END | disposition home or self-care (01) ==
LOC: RADMAMWWP 12:55
PROVIDERS: ATTEND Internal Medicine Hematology & Oncology
DX: Z12.31 Encounter for screening mammogram for malignant neoplasm of breast (principal)
CPT/HCPCS: 77067

== ENCOUNTER 2019-11-30 19:26 | Emergency (ER) | payer MEDICARE ==
[2019-11-30] MEDS ORDERED: HYDROcodone/APAP 5-325MG 1 EACH TAB PO STA (19:35)
--- NOTE | 2019-11-30 19:44 | ED ---
General Adult HPI - General Stated complaint: Fall, left wrist injury Time Seen by Provider: 11/30/19 19:28 Source: RN notes reviewed, old records reviewed - History of Present Illness Initial comments: 83-year-old female patient past history significant for anticoagulation with xaralto presents to ED chief complaint of mechanical fall. Patient reports that she was in her kitchen and she turned around too quickly she stumbled she fell forward had a FOOSH with her left outstretched arm. He also reports that she hit her head on the tile floor. Denies a loss of consciousness. Patient chief complaint is left wrist pain. Denies any headache changes in vision or any other areas of pain. Systemic: Pt denies fatigue, fever/chills, rash. Pt denies weakness, night sweats, weight loss. Neuro: Pt denies headache, visual disturbances, syncope or pre-syncope. HEENT: Pt denies ocular discharge or irritation, otalgia, rhinorrhea, pharyngitis or notable lymphadenopathy. Cardiopulmonary: Pt denies chest pain, SOB, heart palpitations, dyspnea on exertion. Abdominal/GI: Pt denies abdominal pain, n/v/d. : Pt denies dysuria, burning w/ urination, frequency/urgency. Denies new onset urinary or bowel incontinence. Neuro: Pt denies new onset weakness, paresthesias. - Related Data Home Medications Medication Instructions Recorded Confirmed Allopurinol 100 mg PO QAM 01/16/16 11/30/19 Atenolol [Tenormin] 50 mg PO HS 01/16/16 11/30/19 Furosemide [Lasix] 40 mg PO DAILY 01/16/16 11/30/19 Gabapentin 300 mg PO DAILY@1200 01/16/16 11/30/19 Gabapentin 600 mg PO BID 01/16/16 11/30/19 Letrozole [Femara] 2.5 mg PO DAILY 01/16/16 11/30/19 Montelukast [Singulair] 10 mg PO HS 01/16/16 11/30/19 Multivitamins, Thera [Multivitamin 1 tab PO DAILY 01/16/16 11/30/19 (formulary)] Pravastatin Sodium 20 mg PO HS 01/16/16 11/30/19 glipiZIDE [Glipizide] 5 mg PO BID 01/16/16 11/30/19 traZODone HCL [Desyrel] 100 mg PO HS PRN 01/16/16 11/30/19 Rivaroxaban [Xarelto] 20 mg PO W/SUPPER 11/04/16 11/30/19 Aspirin [[place]wn Aspirin EC] 81 mg PO DAILY 08/08/18 11/30/19 Cyanocobalamin (Vitamin B-12) 1,000 mcg PO DAILY 11/30/19 11/30/19 [Vitamin B-12] Losartan Potassium 50 mg PO DAILY 11/30/19 11/30/19 Os-Sharif Ultra 600mg-500un 1 tab PO DAILY 11/30/19 11/30/19 Spironolactone [Aldactone] 25 mg PO DAILY 11/30/19 11/30/19 Allergies Allergy/AdvReac Type Severity Reaction Status Date / Time naproxen Allergy Mild Itching Verified 11/30/19 21:05 Penicillins Allergy Rash/Hives Verified 11/30/19 21:05 Review of Systems ROS Statement: Those systems with pertinent positive or pertinent negative responses have been documented in the HPI. ROS Other: All systems not noted in ROS Statement are negative. Past Medical History Past Medical History: Cancer, Diabetes Mellitus, Hyperlipidemia, Hypertension, Mitral Valve Prolapse (MVP), Osteoarthritis (OA) Additional Past Medical History / Comment(s): GOUT, HX RT BREAST CA , NEUROPATHY LEGS and FEET. USES WALKER or cance, UNSTEADY ON FEET. leaky heart valve, umbilical hernia, on rx post op from sinus surgery. History of Any Multi-Drug Resistant Organisms: None Reported Past Surgical History: Breast Surgery, Cholecystectomy, Hysterectomy Additional Past Surgical History / Comment(s): MASTECTOMY RT BREAST W/ AXILLA LYMPH NODE, don cataracts, sinus surgery 10/01/16 Past Anesthesia/Blood Transfusion Reactions: Motion Sickness Additional Past Anesthesia/Blood Transfusion Reaction / Comment(s): . Past Psychological History: Anxiety Past Alcohol Use History: None Reported Past Drug Use History: None Reported - Past Family History Mother Family Medical History: Cancer Brother(s) Family Medical History: Cancer General Exam - General Exam Comments Initial Comments: Constitutional: NAD, AOX3, Pt has pleasant affect. HEENT: NC/AT, trachea midline, neck supple, no lymphadenopathy. Posterior pharynx non erythematous, without exudates. External ears appear normal, without discharge. Mucous membranes moist. Eyes PERRLA, EOM intact. There is no scleral icterus. No pallor noted. Cardiopulmonary: RRR, no murmurs, rubs or gallops, no JVD noted. Lungs CTAB in anterior and posterior ryan. No peripheral edema. Abdominal exam: Abdomen soft and non-distended. Abdomen non-tender to palpation in all 4 quadrants. Bowel sounds active in LLQ. No hepatosplenomegaly. No ecchymosis Neuro: CN II-XII intact. No nuchal rigidity. No raccon eyes, no agarwal sign, no hemotympanum. No cervical spinal tenderness. MSK: mild tenderness to distal radius. Mild amount of soft tissue swelling there. Radial pulses +2. Full active range of motion of fingers. Sensation intact. With exception of left wrist Full active ROM in upper and lower extremities, 5/5 stregnth. and no areas of tenderness. Course Vital Signs 11/30/19 11/30/19 19:35 20:38 Temperature 98.2 F Pulse Rate 74 76 Respiratory 18 18 Rate Blood Pressure 156/89 111/85 O2 Sat by Pulse 96 96 Oximetry Procedures - Orthopedic Splinting/Casting Injury #1 Side: left Upper Extremity Immobilizer: volar splint Medical Decision Making - Medical Decision Making 83-year-old female patient past history significant for anticoagulation with xaralto presents to ED chief complaint of mechanical fall. Patient reports that she was in her kitchen and she turned around too quickly she stumbled she fell forward had a FOOSH with her left outstretched arm. He also reports that she hit her head on the tile floor. Denies a loss of consciousness. Patient chief complaint is left wrist pain. Denies any headache changes in vision or any other areas of pain. Patient vital signs are stable, afebrile. Physical exam displayed tenderness to distal radial left-sided. No other areas of tenderness. Neurologic exam is intact. Full active range of motion in upper and lower extremities. CT brain C-spine did not display any acute process. Plain film of left wrist displayed intra-articularly aggravated distal radius comminuted fracture.Ulnar fracture of styloid. Patient was placed in a volar s plint. Neurovascularly intact before and after splint placement. Patient will be discharged with orthopedic and pcp follow-up and will return to ER if condition worsens in any way. Case discussed with Dr. Shanks. Disposition Clinical Impression: Fall, Wrist fracture Disposition: HOME SELF-CARE Condition: Stable Instructions (If sedation given, give patient instructions): Fall Prevention (ED), Wrist Fracture in Adults (ED) Additional Instructions: Follow up with orthopedic consult tomorrow. Follow up with PCP in 1-2 days. Continue to wear wrist splint. Return to ER if condition worsens in any way. Is patient prescribed a controlled substance at d/c from ED?: No Referrals: Vini White MD [Primary Care Provider] - 1-2 days Augustin Mittal DO [Medical Doctor] - 1-2 days
[2019-11-30 20:05] VITALS: RESP 18
--- NOTE | 2019-11-30 20:16 | XR ---
PROCEDURE: XR wrist complete LT - 4V DATE AND TIME: 11/30/2019 7:46 PM CLINICAL INDICATION: wrist pain after fall TECHNIQUE: 4 views COMPARISON: None FINDINGS: There is marked left wrist soft tissue swelling. There is a comminuted intra-articular distal radius fracture with apex-volar angulation. There is also a nondisplaced ulnar styloid fracture. Marked osteoporosis and multifocal osteoarthritis baseline changes are noted, along with marked ather osclerotic vascular calcifications. IMPRESSION: 1. Intra-articular angulated distal radius comminuted fracture. 2. Nondisplaced ulnar styloid fracture.
[2019-11-30] MEDS ORDERED: LIDOCAINE 1% INJ 10MG/ML (20 ML MDV) SQ STA (20:28)
--- NOTE | 2019-11-30 20:41 | CT ---
EXAMINATION TYPE: CT brain heron tamayo con DATE OF EXAM: 11/30/2019 COMPARISON: 09/09/2016 HISTORY: Fall Injury, Pain CT DLP: 1361.9 mGycm Automated exposure control for dose reduction was used. TECHNIQUE: CT scan of the head and cervical spine are performed without contrast. FINDINGS: There is no acute intracranial hemorrhage, mass effect, or midline shift identified. No d efinite new attenuation defect. The ventricles and sulci are within normal limits in size. The globe s are intact and the visualized sinuses are clear. Cervical spine is visualized in its entirety from C1 through upper thoracic levels and demonstrates s atisfactory alignment without evidence of acute fracture or dislocation. Prevertebral soft tissue ap pears within normal limits. Marked multilevel spondylosis changes are noted, particularly at the C5-6 level. The C1-C2 articulation is unremarkable. IMPRESSION: 1. There is no acute fracture or dislocation evident in the cervical spine. 2. No acute intracranial hemorrhage, mass effect, or midline shift is seen.
[2019-11-30] MEDS ORDERED: ACET/COD 300 MG/30 MG STARTER PACK 6 TAB BTL PO STA (22:26)
[2019-11-30 22:46] VITALS: BP 137/66; PULSE 71; TEMP 98
== END 2019-11-30 22:46 | disposition home or self-care (01) ==
LOC: EC 19:26
DX: S52.572A Other intraarticular fracture of lower end of left radius, initial encounter for closed fracture (principal); S52.615A Nondisplaced fracture of left ulna styloid process, initial encounter for closed fracture; E11.42 Type 2 diabetes mellitus with diabetic polyneuropathy; E78.5 Hyperlipidemia, unspecified; I10 Essential (primary) hypertension; I34.1 Nonrheumatic mitral (valve) prolapse; M19.90 Unspecified osteoarthritis, unspecified site; M10.9 Gout, unspecified; Z79.84 Long term (current) use of oral hypoglycemic drugs; Z79.82 Long term (current) use of aspirin; Z79.899 Other long term (current) drug therapy; Z79.01 Long term (current) use of anticoagulants; Z99.89 Dependence on other enabling machines and devices; Z88.6 Allergy status to analgesic agent; Z88.0 Allergy status to penicillin; Z85.3 Personal history of malignant neoplasm of breast; Z90.11 Acquired absence of right breast and nipple; W01.198A Fall on same level from slipping, tripping and stumbling with subsequent striking against other object, initial encounter; Y93.01 Activity, walking, marching and hiking; Y92.009 Unspecified place in unspecified non-institutional (private) residence as the place of occurrence of the external cause
CPT/HCPCS: 73110; 72125; 70450; 99284; 29125; J2001

== ENCOUNTER 2020-05-16 12:59 | Emergency (ER) | payer MEDICARE ==
[2020-05-16 13:12] VITALS: TEMP 98.7
[2020-05-16] MEDS ORDERED: DIAZEPAM 5 MG/ML 2 ML INJ IVP STA (13:18)
[2020-05-16] MEDS ORDERED: MECLIZINE 25 MG TAB PO STA (13:18)
--- NOTE | 2020-05-16 13:22 | ED ---
General Adult HPI - General Chief complaint: Dizziness Stated complaint: Dizziness Time Seen by Provider: 05/16/20 13:00 Source: patient, EMS, RN notes reviewed, old records reviewed Mode of arrival: EMS Limitations: no limitations - History of Present Illness Initial comments: This is an 84-year-old female who presents emergency Department complaining of dizziness. Patient states it started yesterday when she was shopping anytime she moved she felt as though she was given a fall over to the right. Patient states movement also made her feel like the room was moving. Patient states if she lies still in bed she is perfectly fine. Patient denies any headache patient denies numbness weakness. Patient denies chest pain or palpitations per patient denies shortness of breath or difficulty breathing. Patient denies any fever chills or cough. Patient abdominal pain patient denies any vomiting or diarrhea. Patient states she's had episodes long ago in the past where she has some dizziness with movement but they will usually short-lived this is still ongoing since yesterday. - Related Data Home Medications Medication Instructions Recorded Confirmed Allopurinol 100 mg PO QAM 01/16/16 11/30/19 Atenolol [Tenormin] 50 mg PO HS 01/16/16 11/30/19 Furosemide [Lasix] 40 mg PO DAILY 01/16/16 11/30/19 Gabapentin 300 mg PO DAILY@1200 01/16/16 11/30/19 Gabapentin 600 mg PO BID 01/16/16 11/30/19 Letrozole [Femara] 2.5 mg PO DAILY 01/16/16 11/30/19 Montelukast [Singulair] 10 mg PO HS 01/16/16 11/30/19 Multivitamins, Thera [Multivitamin 1 tab PO DAILY 01/16/16 11/30/19 (formulary)] Pravastatin Sodium 20 mg PO HS 01/16/16 11/30/19 glipiZIDE [Glipizide] 5 mg PO BID 01/16/16 11/30/19 traZODone HCL [Desyrel] 100 mg PO HS PRN 01/16/16 11/30/19 Rivaroxaban [Xarelto] 20 mg PO W/SUPPER 11/04/16 11/30/19 Aspirin [[place] Aspirin EC] 81 mg PO DAILY 08/08/18 11/30/19 Cyanocobalamin (Vitamin B-12) 1,000 mcg PO DAILY 11/30/19 11/30/19 [Vitamin B-12] Losartan Potassium 50 mg PO DAILY 11/30/19 11/30/19 Os-Sharif Ultra 600mg-500un 1 tab PO DAILY 11/30/19 11/30/19 Spironolactone [Aldactone] 25 mg PO DAILY 11/30/19 11/30/19 Previous Rx's Medication Instructions Recorded Meclizine [Antivert] 25 mg PO TID #20 tab 05/16/20 Allergies Allergy/AdvReac Type Severity Reaction Status Date / Time naproxen Allergy Mild Itching Verified 11/30/19 21:05 Penicillins Allergy Rash/Hives Verified 11/30/19 21:05 Review of Systems ROS Statement: Those systems with pertinent positive or pertinent negative responses have been documented in the HPI. ROS Other: All systems not noted in ROS Statement are negative. Past Medical History Past Medical History: Cancer, Diabetes Mellitus, Hyperlipidemia, Hypertension, Mitral Valve Prolapse (MVP), Osteoarthritis (OA) Additional Past Medical History / Comment(s): GOUT, HX RT BREAST CA , NEUROPATHY LEGS and FEET. USES WALKER or cance, UNSTEADY ON FEET. leaky heart valve, umbilical hernia, on rx post op from sinus surgery. History of Any Multi-Drug Resistant Organisms: None Reported Past Surgical History: Breast Surgery, Cholecystectomy, Hysterectomy Additional Past Surgical History / Comment(s): MASTECTOMY RT BREAST W/ AXILLA LYMPH NODE, don cataracts, sinus surgery 10/01/16 Past Anesthesia/Blood Transfusion Reactions: Motion Sickness Additional Past Anesthesia/Blood Transfusion Reaction / Comment(s): . Past Psychological History: Anxiety Smoking Status: Never smoker Past Alcohol Use History: None Reported Past Drug Use History: None Reported - Past Family History Mother Family Medical History: Cancer Brother(s) Family Medical History: Cancer General Exam - General Exam Comments Initial Comments: GENERAL: Patient is well-developed and well-nourished. Patient is nontoxic and well- hydrated and is in mild distress. When I got the patient up and had her look left to right this exacerbated her dizziness. ENT: Neck is soft and supple. No significant lymphadenopathy is noted. Oropharynx is clear. Moist mucous membranes. Neck has full range of motion without eliciting any pain. EYES: The sclera were anicteric and conjunctiva were pink and moist. Extraocular movements were intact and pupils were equal round and reactive to light. Eyelids were unremarkable. PULMONARY: Unlabored respirations. Good breath sounds bilaterally. No audible rales rhonchi or wheezing was noted. CARDIOVASCULAR: There is a regular rate and rhythm without any murmurs gallops or rubs. ABDOMEN: Soft and nontender with normal bowel sounds. SKIN: Skin is clear with no lesions or rashes and otherwise unremarkable. NEUROLOGIC: Patient is alert and oriented x3. Cranial nerves II through XII are grossly intact. Motor and sensory are also intact. Normal speech, volume and content. Symmetrical smile. Cerebellar testing finger to nose was normal. MUSCULOSKELETAL: Normal extremities with adequate strength and full range of motion. No lower extremity swelling or edema. No calf tenderness. LYMPHATICS: No significant lymphadenopathy is noted PSYCHIATRIC: Normal psychiatric evaluation. Limitations: no limitations Course Vital Signs 05/16/20 05/16/20 13:06 15:28 Temperature 98.7 F Pulse Rate 77 87 Respiratory 16 20 Rate Blood Pressure 152/92 152/90 O2 Sat by Pulse 99 97 Oximetry Medical Decision Making - Medical Decision Making EKG shows atrial fibrillation 70 bpm QRS is 68 QT interval 48 QTC is 440. Patient's EKG shows no ST segment elevation or depression. Patient has history of atrial fibrillation. Chest x-ray shows no acute abnormality. CT of the brain shows no acute abnormality. Patient was able to ambulate and still had a little dizziness but much improved. He did receive Antivert and a little Valium in the emergency department. - Lab Data Result diagrams: 05/16/20 13:23 05/16/20 13:23 Lab Results 05/16/20 05/16/20 05/16/20 Range/Units 13:23 13:23 13:23 WBC 5.7 (3.8-10.6) k/uL RBC 4.56 (3.80-5.40) m/uL Hgb 14.5 (11.4-16.0) gm/dL Hct 42.5 (34.0-46.0) % MCV 93.2 (80.0-100.0) fL MCH 31.9 (25.0-35.0) pg MCHC 34.2 (31.0-37.0) g/dL RDW 14.9 (11.5-15.5) % Plt Count 125 L (150-450) k/uL MPV 7.3 Neutrophils % 53 % Lymphocytes % 36 % Monocytes % 6 % Eosinophils % 0 % Basophils % 0 % Neutrophils # 3.0 (1.3-7.7) k/uL Lymphocytes # 2.1 (1.0-4.8) k/uL Monocytes # 0.4 (0-1.0) k/uL Eosinophils # 0.0 (0-0.7) k/uL Basophils # 0.0 (0-0.2) k/uL Manual Slide Review Performed PT (9.0-12.0) sec INR (<1.2) APTT (22.0-30.0) sec Sodium 135 L (137-145) mmol/L Potassium 4.3 (3.5-5.1) mmol/L Chloride 95 L (98-107) mmol/L Carbon Dioxide 34 H (22-30) mmol/L Anion Gap 6 mmol/L BUN 29 H (7-17) mg/dL Creatinine 1.23 H (0.52-1.04) mg/dL Est GFR (CKD-EPI)AfAm 47 (>60 ml/min/1.73 sqM) Est GFR (CKD-EPI)NonAf 41 (>60 ml/min/1.73 sqM) Glucose 120 H (74-99) mg/dL Calcium 10.3 H (8.4-10.2) mg/dL Magnesium 1.7 (1.6-2.3) mg/dL Total Bilirubin 3.3 H (0.2-1.3) mg/dL AST 43 H (14-36) U/L ALT 20 (4-34) U/L Alkaline Phosphatase 74 (38-126) U/L Troponin I <0.012 (0.000-0.034) ng/mL Total Protein 6.8 (6.3-8.2) g/dL Albumin 4.1 (3.5-5.0) g/dL 05/16/20 Range/Units 13:29 WBC (3.8-10.6) k/uL RBC (3.80-5.40) m/uL Hgb (11.4-16.0) gm/dL Hct (34.0-46.0) % MCV (80.0-100.0) fL MCH (25.0-35.0) pg MCHC (31.0-37.0) g/dL RDW (11.5-15.5) % Plt Count (150-450) k/uL MPV Neutrophils % % Lymphocytes % % Monocytes % % Eosinophils % % Basophils % % Neutrophils # (1.3-7.7) k/uL Lymphocytes # (1.0-4.8) k/uL Monocytes # (0-1.0) k/uL Eosinophils # (0-0.7) k/uL Basophils # (0-0.2) k/uL Manual Slide Review PT 10.9 (9.0-12.0) sec INR 1.0 (<1.2) APTT 19.4 L (22.0-30.0) sec Sodium (137-145) mmol/L Potassium (3.5-5.1) mmol/L Chloride (98-107) mmol/L Carbon Dioxide (22-30) mmol/L Anion Gap mmol/L BUN (7-17) mg/dL Creatinine (0.52-1.04) mg/dL Est GFR (CKD-EPI)AfAm (>60 ml/min/1.73 sqM) Est GFR (CKD-EPI)NonAf (>60 ml/min/1.73 sqM) Glucose (74-99) mg/dL Calcium (8.4-10.2) mg/dL Magnesium (1.6-2.3) mg/dL Total Bilirubin (0.2-1.3) mg/dL AST (14-36) U/L ALT (4-34) U/L Alkaline Phosphatase (38-126) U/L Troponin I (0.000-0.034) ng/mL Total Protein (6.3-8.2) g/dL Albumin (3.5-5.0) g/dL Disposition Clinical Impression: Vertigo Disposition: HOME SELF-CARE Condition: Good Instructions (If sedation given, give patient instructions): Vertigo (ED) Prescriptions: Meclizine [Antivert] 25 mg PO TID #20 tab Is patient prescribed a controlled substance at d/c from ED?: No Referrals: Vini White MD [Primary Care Provider] - 1-2 days Time of Disposition: 15:33
--- NOTE | 2020-05-16 13:52 | XR ---
EXAMINATION TYPE: XR chest 2V DATE OF EXAM: 05/16/2020 COMPARISON: 08/08/2018 TECHNIQUE: PA and lateral views submitted. HISTORY: S/P FINDINGS: Heart is enlarged and there is a coarsened interstitium. There is enlargement of both lore. Hypertrop hic and degenerative change of the spine. Stable appearing compression fracture involving the thoraco lumbar junction. Degenerative change is seen. Metallic density overlying the heart border is stable d ating back to multiple exams could be postsurgical should be correlated clinically. IMPRESSION: 1. Correlate for mild venous congestion superimposed on a background of COPD. There is bilateral lore r enlargement with stable dating back to multiple prior exams. Skull be related to pulmonary arterial hypertension. Adenopathy not excluded correlate with CT of the chest as clinically warranted.
[2020-05-16 13:53] LABS: Albumin 4.1 g/dL (3.5-5.0); Calcium 10.3 mg/dL (8.4-10.2); Total Bilirubin 3.3 mg/dL (0.2-1.3); Total Protein 6.8 g/dL (6.3-8.2)
[2020-05-16 13:57] LABS: Magnesium 1.7 mg/dL (1.6-2.3); Potassium 4.3 mmol/L (3.5-5.1)
[2020-05-16 14:01] LABS: Prothrombin Time 10.9 sec (9.0-12.0)
[2020-05-16 14:09] LABS: Partial Thromboplastin Time 19.4 sec (22.0-30.0)
[2020-05-16 14:30] LABS: Basophils % (A) 0 %; Eosinophils % (A) 0 %; HCT 42.5 % (34.0-46.0); HGB 14.5 gm/dL (11.4-16.0); Lymphocytes # (A) 2.1 k/uL (1.0-4.8); Lymphocytes % (A) 36 %; MCH 31.9 pg (25.0-35.0); MCHC 34.2 g/dL (31.0-37.0); MCV 93.2 fL (80.0-100.0); Mean Platelet Volume 7.3; Monocytes # (A) 0.4 k/uL (0-1.0); Monocytes % (A) 6 %; Neutrophils % (A) 53 %; Platelet Count 125 k/uL (150-450); RBC 4.56 m/uL (3.80-5.40); RDW 14.9 % (11.5-15.5); WBC 5.7 k/uL (3.8-10.6)
--- NOTE | 2020-05-16 15:10 | CT ---
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 TECHNIQUE: Examination was done in axial plane without intravenous contrast. Coronal and sagittal r econstructions performed. CT DLP: 1103.4 mGycm Automated exposure control for dose reduction was used. FINDINGS: There is no evidence of acute intracranial hemorrhage, acute ischemic changes, mass, mass-effect, or extra-axial fluid collection. There is no effacement of cerebral sulci or basal subarachnoid cister ns. There is no hydrocephalus. There is no midline shift. Friend-white matter distinction is preserv ed. Normal variation persistent CSP. Mild generalized cerebral cortical and central cerebral atrophy. Atherosclerotic calcifications withi n the carotid siphons and proximal V4 segment right vertebral artery. Previous bilateral medial maxillary antrectomies. There is chronic thickening of the mendes of the max illary sinus, particularly on the left. Trace air-fluid level in the left maxillary sinus. Leftward n fritz septal deviation. Mastoid air cells are well pneumatized. Orbits and globes are intact. IMPRESSION: Mild cortical and central cerebral atrophy. No acute intracranial abnormality seen. Previous sinonasal surgery. Trace air-fluid level left maxillary sinus; correlate to exclude any symp toms of acute sinusitis.
[2020-05-16 15:33] VITALS: BP 152/90; PULSE 87; RESP 20
== END 2020-05-16 16:06 | disposition home or self-care (01) ==
LOC: EC 12:59
DX: I48.91 Unspecified atrial fibrillation (principal); R42 Dizziness and giddiness; E78.5 Hyperlipidemia, unspecified; E11.42 Type 2 diabetes mellitus with diabetic polyneuropathy; I10 Essential (primary) hypertension; M19.90 Unspecified osteoarthritis, unspecified site; M10.9 Gout, unspecified; F41.9 Anxiety disorder, unspecified; Z79.82 Long term (current) use of aspirin; Z79.84 Long term (current) use of oral hypoglycemic drugs; Z79.01 Long term (current) use of anticoagulants; Z88.0 Allergy status to penicillin; Z88.6 Allergy status to analgesic agent; Z85.3 Personal history of malignant neoplasm of breast; Z99.89 Dependence on other enabling machines and devices; Z79.899 Other long term (current) drug therapy
CPT/HCPCS: 36415; 93005; 80053; 83735; 84484; 85025; 85610; 85730; 71046; 70450; 99285; 96374; J3360

== ENCOUNTER → 2020-12-31 | Outpatient (CLI) | payer MEDICARE ==
--- NOTE | 2020-12-31 15:54 | BD ---
EXAMINATION TYPE: Axial Bone Density DATE OF EXAM: 12/31/2020 COMPARISON: NONE CLINICAL HISTORY: Height: 64 Weight: 173.6 FRAX RISK QUESTIONS: Alcohol (3 or more units per day): no Family History (Parent hip fracture): no Glucocorticoids (More than 3mos): no (Ex: prednisone, prednisolone, methylprednisolone, dexamethasone, and hydrocortisone). History of Fracture in Adulthood: yes Secondary Osteoporosis: 1. Type 1 Diabetes: no 2. Hyperthyroidism: no 3. Menopause before 45: yes 4. Malnutrition: no 5. Chronic liver disease: no Rheumatoid Arthritis: no Current Tobacco Use: no RISK FACTORS HISTORY OF: History of Wrist Fracture: left wrist When: 2020 Surgery to Spine/Hip(right/left)/Wrist (right/left): no Family History of Osteoporosis: no Diet low in dairy products/other sources of calcium: yes Postmenopausal woman: hysterectomy age 42 Lost more than 2 inches in height since high school: no Frequent falls: yes MEDICATIONS: pravastatin, furosemide, losartan, montelukast, Neurontin, vitamins, femara Additional History: EXAM MEASUREMENTS: Bone mineral densitometry was performed using the Trada System. Bone mineral density as measured about the Lumbar spine is: ----- L1-L4(G/cm2): 0.988 T Score Values are as follows: ----- L2: -1.5 ----- L3: -0.2 ----- L4: -3.2 ----- L1-L4: -1.6 Bone mineral density has: decreased -5.9 % since study of: 01.05.2018 Bone mineral density about the R hip (g/cm2): 0.666 Bone mineral density about the L hip (g/cm2): 0.676 T Score values are as follows: -----R Neck: -2.7 -----L Neck: -2.6 -----R Total: -2.0 -----L Total: -2.0 Bone mineral density has: decreased -5.4 % since study of: 01.05.2018 IMPRESSION: Osteoporosis (T Score less than -2.5). There is increased fracture risk and therapy is usually indicated based on age. Re-Screen 1-2 years. NOTE: T-SCORE=SD OF THE YOUNG ADULT MEAN.
--- NOTE | 2021-01-02 12:07 | MM ---
Reason for exam: screening (asymptomatic). Last mammogram was performed 1 year and 2 months ago. History: Patient is postmenopausal and has history of breast cancer at age 70. Mastectomy of the right breast, September 10, 2006. Malignant US right core biopsy of the right breast, September 02, 2006. Stereotactic core biopsy, May 11, 2003. Benign excisional biopsy of the right breast. Chemotherapy. Took estrogen for 1 year. Taking antineoplastic for 9 years beginning at age 70. Physical Findings: A clinical breast exam by your physician is recommended on an annual basis and results should be correlated with mammographic findings. MG 3D Screening Mammo W/Cad Bilateral CC and MLO view(s) were taken. Prior study comparison: October 30, 2019, bilateral MG 3d scr julien unilateral w/cad. October 28, 2018, left breast MG 3d diag mammo w/cad LT. Finding: There are diffuse/scattered course calcifications in the left breast. No significant changes in finding since October 30, 2019 and October 28, 2018. ASSESSMENT: Benign, BI-RAD 2 RECOMMENDATION: Routine screening mammogram of both breasts in 1 year.
== END | disposition home or self-care (01) ==
LOC: RADMAMWWP 13:49
PROVIDERS: ATTEND Internal Medicine Hematology & Oncology
DX: Z12.31 Encounter for screening mammogram for malignant neoplasm of breast (principal); M81.0 Age-related osteoporosis without current pathological fracture; M89.9 Disorder of bone, unspecified; Z79.890 Hormone replacement therapy
CPT/HCPCS: 77063; 77067; 77080

== ENCOUNTER 2021-10-31 17:41 | Emergency (ER) | payer MEDICARE ==
[2021-10-31 18:46] VITALS: BP 147/73; PULSE 74; RESP 16; TEMP 98.4
[2021-10-31] MEDS ORDERED: CEPHALEXIN 500MG STARTER PACK 4 CAP BTL PO STA (19:59)
--- NOTE | 2021-10-31 19:59 | ED ---
General Adult HPI - General Chief complaint: Extremity Injury, Lower Stated complaint: Foot issues Time Seen by Provider: 10/31/21 19:42 Source: patient, RN notes reviewed, old records reviewed Mode of arrival: ambulatory Limitations: no limitations - History of Present Illness Initial comments: 85-year-old female presenting with erythema and swelling to the right great toe after she had her toenails clipped by her scientific illustrator. No fever, no drainage, no pain complaints, patient has significant peripheral neuropathy. - Related Data Home Medications Medication Instructions Recorded Confirmed Furosemide [Lasix] 40 mg PO DAILY 01/16/16 05/16/20 Gabapentin 300 mg PO DAILY@1200 01/16/16 05/16/20 Gabapentin 600 mg PO BID 01/16/16 05/16/20 Letrozole [Femara] 2.5 mg PO DAILY 01/16/16 05/16/20 Montelukast [Singulair] 10 mg PO HS 01/16/16 05/16/20 Multivitamins, Thera [Multivitamin 1 tab PO DAILY 01/16/16 05/16/20 (formulary)] Pravastatin Sodium 20 mg PO HS 01/16/16 05/16/20 allopurinoL [Allopurinol] 100 mg PO QAM 01/16/16 05/16/20 atenoloL [Tenormin] 50 mg PO DAILY 01/16/16 05/16/20 glipiZIDE [Glipizide] 5 mg PO DAILY 01/16/16 05/16/20 traZODone HCL [Desyrel] 100 mg PO HS PRN 01/16/16 05/16/20 Rivaroxaban [Xarelto] 20 mg PO W/SUPPER 11/04/16 05/16/20 Aspirin [[place] Aspirin EC] 81 mg PO DAILY 08/08/18 05/16/20 Cyanocobalamin (Vitamin B-12) 1,000 mcg PO DAILY 11/30/19 05/16/20 [Vitamin B-12] Os-Sharif Ultra 600mg-500un 1 tab PO DAILY 11/30/19 05/16/20 Spironolactone [Aldactone] 25 mg PO DAILY 11/30/19 05/16/20 Nystatin 100,000 Unit/gm Powd 1 applic TOPICAL BID PRN 05/16/20 05/16/20 [Mycostatin Powder] Previous Rx's Medication Instructions Recorded Cephalexin [Keflex] 500 mg PO QID 7 Days #28 cap 10/31/21 Sulfamethox-Tmp 800-160Mg [Bactrim 1 tab PO Q12HR 7 Days #14 tab 10/31/21 DS 800-160 mg] Allergies Allergy/AdvReac Type Severity Reaction Status Date / Time naproxen Allergy Mild Itching Verified 10/31/21 18:42 Penicillins Allergy Rash/Hives Verified 10/31/21 18:42 Review of Systems ROS Statement: Those systems with pertinent positive or pertinent negative responses have been documented in the HPI. ROS Other: All systems not noted in ROS Statement are negative. Past Medical History Past Medical History: Cancer, Diabetes Mellitus, Hyperlipidemia, Hypertension, Mitral Valve Prolapse (MVP), Osteoarthritis (OA) Additional Past Medical History / Comment(s): GOUT, HX RT BREAST CA , NEUROPATHY LEGS and FEET. USES WALKER or cance, UNSTEADY ON FEET. leaky heart valve, umbilical hernia, on rx post op from sinus surgery. History of Any Multi-Drug Resistant Organisms: None Reported Past Surgical History: Breast Surgery, Cholecystectomy, Hysterectomy Additional Past Surgical History / Comment(s): MASTECTOMY RT BREAST W/ AXILLA LYMPH NODE, don cataracts, sinus surgery 10/01/16 Past Anesthesia/Blood Transfusion Reactions: Motion Sickness Additional Past Anesthesia/Blood Transfusion Reaction / Comment(s): . Past Psychological History: Anxiety Smoking Status: Never smoker Past Alcohol Use History: None Reported Past Drug Use History: None Reported - Past Family History Mother Family Medical History: Cancer Brother(s) Family Medical History: Cancer General Exam Limitations: no limitations General appearance: alert, in no apparent distress Head exam: Present: atraumatic, normocephalic Eye exam: Present: normal appearance, PERRL Respiratory exam: Present: normal lung sounds bilaterally. Absent: respiratory distress Cardiovascular Exam: Present: regular rate, normal rhythm GI/Abdominal exam: Absent: distended Extremities exam: Present: other (Swelling and erythema of the lateral nailbed right great toe suggestive of paronychia) Course Vital Signs 10/31/21 18:42 Temperature 98.4 F Pulse Rate 74 Respiratory 16 Rate Blood Pressure 147/73 O2 Sat by Pulse 92 L Oximetry Procedures - Incision & Drainage Consent Obtained: verbal consent Indication: Paronychia Site: foot I&D Cleaning Method: Alcohol Wipe Sterile Field Used?: No Scalpel Used: #11 Needle Aspiration Performed?: No Irrigation Performed?: No I&D Drainage Obtained: Pus, Blood Culture Obtained?: No Patient Tolerated Procedure: well Medical Decision Making - Medical Decision Making 85-year-old female with paronychia of the right great toe. Patient started on antibiotics in the emergency department. Incision and drainage was performed, there is a very small amount of purulent drainage obtained. She should have this monitored by her scientific illustrator. Disposition Clinical Impression: Paronychia Disposition: HOME SELF-CARE Condition: Fair Instructions (If sedation given, give patient instructions): Paronychia (ED) Additional Instructions: Please follow up with your scientific illustrator. Prescriptions: Sulfamethox-Tmp 800-160Mg [Bactrim DS 800-160 mg] 1 tab PO Q12HR 7 Days #14 tab Cephalexin [Keflex] 500 mg PO QID 7 Days #28 cap Is patient prescribed a controlled substance at d/c from ED?: No Referrals: Vini White MD [Primary Care Provider] - 1-2 days Time of Disposition: 19:54
== END 2021-10-31 20:17 | disposition home or self-care (01) ==
LOC: EC 17:41
DX: L03.031 Cellulitis of right toe (principal); E11.9 Type 2 diabetes mellitus without complications; E78.5 Hyperlipidemia, unspecified; I10 Essential (primary) hypertension; M19.90 Unspecified osteoarthritis, unspecified site; Z88.6 Allergy status to analgesic agent; Z88.0 Allergy status to penicillin; Z79.899 Other long term (current) drug therapy; Z79.84 Long term (current) use of oral hypoglycemic drugs
CPT/HCPCS: 10060; 99282

== ENCOUNTER → 2022-01-13 | Outpatient (CLI) | payer MEDICARE ==
--- NOTE | 2022-01-14 08:26 | MM ---
Reason for Exam: Screening (asymptomatic). Last screening mammogram was performed 12 month(s) ago. Patient History: Menarche at age 13. First Full-Term at age 27. Left ovary removed at age 42. Right ovary removed at age 42. Hysterectomy at age 42. Postmenopausal. Breast cancer, right, age 70. Patient used Estrogen for 1 year. Benign Excisional Biopsy on the right side. 09/02/2006, Malignant Core Biopsy on the right side. 05/11/2003, Stereotactic Core Biopsy. Chemotherapy. Prior Study Comparison: 09/30/2016 Left Diagnostic Mammogram, [facility]. 10/04/2017 Left Diagnostic Mammogram, [facility]. 10/28/2018 Left Diagnostic Mammogram, [facility]. 10/30/2019 Bilateral Screening Mammogram, [facility]. 12/31/2020 Bilateral Screening Mammogram, [facility]. Tissue Density: Left: The breast tissue is heterogeneously dense. This may lower the sensitivity of mammography. Findings: Analyzed By CAD. There is no suspicious group of microcalcifications or new suspicious mass in either breast. Overall Assessment: Benign, BI-RAD 2 Management: Screening Mammogram of the left breast in 1 year. A clinical breast exam by your physician is recommended on an annual basis and results should be correlated with mammographic findings. Electronically signed and approved by: Merritt Kemp M.D. Radiologis
== END | disposition home or self-care (01) ==
LOC: RADMAMWWP 11:25
PROVIDERS: ATTEND Internal Medicine Hematology & Oncology
DX: Z12.31 Encounter for screening mammogram for malignant neoplasm of breast (principal)
CPT/HCPCS: 77067

== ENCOUNTER 2023-10-08 15:37 | Emergency (ER) | payer MEDICARE ==
--- NOTE | 2023-10-08 16:00 | ED ---
General Adult HPI - General Stated complaint: fall on blood thinners/goose egg on back of head Time Seen by Provider: 10/08/23 15:40 Source: patient, EMS, RN notes reviewed Mode of arrival: EMS Limitations: no limitations - History of Present Illness Initial comments: Patient is an 87-year-old female present to the emergency department for fall. Patient states she was getting close out and lost her balance. Patient fell back and did strike the back of her head. Patient only has mild discomfort. Patient is on blood thinners, she believes she is on Xarelto. Patient has mild discomfort left buttocks region as well. No other area of injury or concern. No loss of consciousness. No syncope. No chest pain or dyspnea. No abdominal pain. - Related Data Home Medications Medication Instructions Recorded Confirmed Furosemide [Lasix] 40 mg PO DAILY 01/16/16 05/16/20 Gabapentin 300 mg PO DAILY@1200 01/16/16 05/16/20 Gabapentin 600 mg PO BID 01/16/16 05/16/20 Letrozole [Femara] 2.5 mg PO DAILY 01/16/16 05/16/20 Montelukast [Singulair] 10 mg PO HS 01/16/16 05/16/20 Multivitamins, Thera [Multivitamin 1 tab PO DAILY 01/16/16 05/16/20 (formulary)] Pravastatin Sodium 20 mg PO HS 01/16/16 05/16/20 allopurinoL [Allopurinol] 100 mg PO QAM 01/16/16 05/16/20 atenoloL [Tenormin] 50 mg PO DAILY 01/16/16 05/16/20 glipiZIDE [Glipizide] 5 mg PO DAILY 01/16/16 05/16/20 traZODone HCL [Desyrel] 100 mg PO HS PRN 01/16/16 05/16/20 Rivaroxaban [Xarelto] 20 mg PO W/SUPPER 11/04/16 05/16/20 Aspirin [Waller Aspirin EC] 81 mg PO DAILY 08/08/18 05/16/20 Cyanocobalamin (Vitamin B-12) 1,000 mcg PO DAILY 11/30/19 05/16/20 [Vitamin B-12] Os-Sharif Ultra 600mg-500un 1 tab PO DAILY 11/30/19 05/16/20 Spironolactone [Aldactone] 25 mg PO DAILY 11/30/19 05/16/20 Nystatin 100,000 Unit/gm Powd 1 applic TOPICAL BID PRN 05/16/20 05/16/20 [Mycostatin Powder] Previous Rx's Medication Instructions Recorded Cephalexin [Keflex] 500 mg PO QID 7 Days #28 cap 10/31/21 Sulfamethox-Tmp 800-160Mg [Bactrim 1 tab PO Q12HR 7 Days #14 tab 10/31/21 DS 800-160 mg] Allergies Allergy/AdvReac Type Severity Reaction Status Date / Time naproxen Allergy Mild Itching Verified 10/31/21 18:42 Penicillins Allergy Rash/Hives Verified 10/31/21 18:42 Review of Systems ROS Statement: Those systems with pertinent positive or pertinent negative responses have been documented in the HPI. ROS Other: All systems not noted in ROS Statement are negative. Constitutional: Denies: fever Eyes: Denies: eye pain ENT: Denies: ear pain Respiratory: Denies: dyspnea Cardiovascular: Denies: chest pain Gastrointestinal: Denies: abdominal pain Past Medical History Past Medical History: Cancer, Diabetes Mellitus, Hyperlipidemia, Hypertension, Mitral Valve Prolapse (MVP), Osteoarthritis (OA) Additional Past Medical History / Comment(s): GOUT, HX RT BREAST CA , NEUROPATHY LEGS and FEET. USES WALKER or cance, UNSTEADY ON FEET. leaky heart valve, umbilical hernia, on rx post op from sinus surgery. History of Any Multi-Drug Resistant Organisms: None Reported Past Surgical History: Breast Surgery, Cholecystectomy, Hysterectomy Additional Past Surgical History / Comment(s): MASTECTOMY RT BREAST W/ AXILLA LYMPH NODE, don cataracts, sinus surgery 10/01/16 Past Anesthesia/Blood Transfusion Reactions: Motion Sickness Additional Past Anesthesia/Blood Transfusion Reaction / Comment(s): . Past Psychological History: Anxiety Smoking Status: Never smoker Past Alcohol Use History: None Reported Past Drug Use History: None Reported - Past Family History Mother Family Medical History: Cancer Brother(s) Family Medical History: Cancer General Exam Limitations: no limitations General appearance: alert, in no apparent distress Head exam: Present: other (Soft tissue swelling left posterior parietal) Eye exam: Present: normal appearance, PERRL, EOMI Neck exam: Present: normal inspection. Absent: tenderness Respiratory exam: Present: normal lung sounds bilaterally Cardiovascular Exam: Present: regular rate, normal rhythm GI/Abdominal exam: Present: soft. Absent: tenderness Extremities exam: Present: normal inspection Back exam: Present: other (Mild tenderness left posterior superior iliac spine) Neurological exam: Present: alert, oriented X3, CN II-XII intact. Absent: motor sensory deficit Psychiatric exam: Present: normal affect, normal mood Skin exam: Present: normal color Course Vital Signs 10/08/23 16:11 Temperature 98.7 F Pulse Rate 87 Respiratory 16 Rate Blood Pressure 122/68 O2 Sat by Pulse 98 Oximetry Medical Decision Making - Medical Decision Making MDM back was pt. sent in by a medical professional or institution (, PA, METAL SPRAYER, urgent care, hospital, or group home...) When possible be specific @ -No Did you speak to anyone other than the patient for history (EMS, parent, family, police, friend...)? What history was obtained from this source @ -No Did you review nursing and triage notes (agree or disagree)? Why? @ -I reviewed and agree with nursing and triage notes Were old charts reviewed (outside hosp., previous admission, EMS record, old EKG, old radiological studies, urgent care reports/EKG's, group home records)? Report findings @ -No old charts were reviewed Differential Diagnosis (chest pain, altered mental status, abdominal pain women, abdominal pain men, vaginal bleeding, weakness, fever, dyspnea, syncope, headache, dizziness, GI bleed, back pain, seizure, CVA, palpatations, mental health, musculoskeletal)? @ -5 differential Musculoskeletal Muscular strain, contusion, ligament sprain, fracture, arthritis, septic arthritis, bursitis, cellulitis, muscle spasm, nerve compression, DVT, arterial occlusion, herpes zoster, electrolyte abnormality, tumor.... This is not meant to be in all inclusive list EKG interpreted by me (3pts min.). @ -As above X-rays interpreted by me (1pt min.). @ -Pelvis x-ray does not reveal acute abnormality, radiologist report pending CT interpreted by me (1pt min.). @ -CT brain and cervical spine without acute traumatic U/S interpreted by me (1pt. min.). @ -None done What testing was considered but not performed or refused? (CT, X-rays, U/S, labs)? Why? @ -None What meds were considered but not given or refused? Why? @ -None Did you discuss the management of the patient with other professionals (professionals i.e. , PA, METAL SPRAYER, lab, RT, psych nurse, social welfare clerk, docking pilot, teacher, civil preparedness officer, case hardener)? Give summary @ -No Was smoking cessation discussed for >3mins.? @ -No Was critical care preformed (if so, how long)? @ -No Were there social determinants of health that impacted care today? How? (Homelessness, low income, unemployed, alcoholism, drug addiction, transportation, low edu. Level, literacy, decrease access to med. care, fpc, rehab)? @ -No Was there de-escalation of care discussed even if they declined (Discuss DNR or withdrawal of care, Hospice)? DNR status @ -No What co-morbidities impacted this encounter? (DM, HTN, Smoking, COPD, CAD, Cancer, CVA, ARF, Chemo, Hep., AIDS, mental health diagnosis, sleep apnea, morbid obesity)? @ -None Was patient admitted / discharged? Hospital course, mention meds given and route, prescriptions, significant lab abnormalities, going to OR and other pertinent info. @ -Patient reevaluated. Patient and family updated. Patient refusing to wait for radiologist interpretation and wants to leave. Patient is neurologically intact. Patient is ambulatory. Patient advised to hold her Xarelto for 2 days. Undiagnosed new problem with uncertain prognosis? @ -No Drug Therapy requiring intensive monitoring for toxicity (Heparin, Nitro, Insulin, Cardizem)? @ -No Were any procedures done? @ -No Diagnosis/symptom? @ -Fall, head injury Acute, or Chronic, or Acute on Chronic? @ -Acute, acute Uncomplicated (without systemic symptoms) or Complicated (systemic symptoms)? @ -Complicated with being on blood thinner Side effects of treatment? @ -No Exacerbation, Progression, or Severe Exacerbation? @ -No Poses a threat to life or bodily function? How? (Chest pain, [place], [place], pneumonia, PE, COPD, DKA, ARF, appy, cholecystitis, CVA, Diverticulitis, Homicidal, Suicidal, threat to staff... and all critical care pts) @ -Potential for neurological injury Disposition Clinical Impression: Fall, Head injury Disposition: HOME SELF-CARE Condition: Stable Instructions (If sedation given, give patient instructions): Fall Prevention for Older Adults (ED), Head Injury (ED) Additional Instructions: [id number] Tylenol if needed. Please do not take your Xarelto for the next 2 days. Return for confusion, weakness, vomiting, worsening symptoms or any other concerns. Is patient prescribed a controlled substance at d/c from ED?: No Referrals: Seng Henao Jr, [Primary Care Provider] - 1-2 days Time of Disposition: 20:11
--- NOTE | 2023-10-08 17:59 | CT ---
EXAMINATION TYPE: CT brain cspine wo con CT DLP: 1429.1 mGycm, Automated exposure control for dose reduction was used. DATE OF EXAM: 10/08/2023 4:14 PM COMPARISON: None. CLINICAL INDICATION:Female, 87 years old with history of fall; fell hitting back of head TECHNIQUE: Brain: Multiple axial CT images of the brain were obtained without IV contrast. Cspine: Axial CT images from the skull base to the inferior aspect of T2 we obtained without intraven ous contrast. Coronal and sagittal reformatted images were also reviewed. FINDINGS: Brain: Extra-axial spaces: No abnormal extra-axial fluid collections. Ventricular system: Appear dilated in proportion to the degree of cerebral atrophy. Cavum septum [place] ucidum is noted. Cerebral parenchyma: No increased attenuation to suggest acute intraparenchymal hemorrhage. The gra y-white matter interface appears maintained. Moderate to severe generalized brain atrophy. Scattere d hypoattenuating areas are seen within the cerebral white matter, nonspecific but most often seen wi th chronic microvascular ischemic changes; mild/moderate in degree. Cerebellum: No acute abnormality. Mass effect: No evidence of mass effect or midline shift. Intracranial vasculature: Atherosclerotic calcifications of the larger arteries near the skull base. Soft tissues: Unremarkable Visualized orbits: Orbital contents appear grossly intact. There has likely been previous lens surg [place]. Calvarium/osseous structures: No evidence of calvarial fracture. Paranasal sinuses and mastoid air cells: Clear. MRI is more sensitive for detecting acute processes such as infarct, and may be considered if clinica lly warranted. Cervical spine: Fracture: None seen. Osseous structures, spinal canal/neural foramina: Craniocervical junction is intact. Degenerative emerita nges of the anterior C1-2 articulation with mild retrodental soft tissue with stippled calcifications : this can be related to CPPD. There is otherwise overall moderate degenerative disk disease and face t arthropathy. Moderate canal stenosis suggested at C5-6, C6-7, C7-T1. Various degrees of mild/modera te neuroforaminal stenosis bilaterally. Vertebral alignment: No traumatic malalignment. Preserved normal cervical lordosis. Mild degenerative anterolisthesis C5 on C6. Neck soft tissues: No acute findings. Heavy calcifications of the carotid arteries in the bifurcation regions primarily, and at the skull base. Tortuous vessels. Other: Lung apices show mild chronic senescent changes with no acute infiltrate or pneumothorax. IMPRESSION: CT head: 1. No acute intracranial CT abnormality. 2. Atrophy. CT cervical spine: 1. No evidence of acute cervical spine fracture or traumatic malalignment. 2. Moderate cervical spondylosis.
[2023-10-08] MEDS: ACET/COD 300 MG/30 MG STARTER PACK 6 TAB BTL PO STA (20:34)
[2023-10-08 20:47] VITALS: BP 120/65; PULSE 79; RESP 18; TEMP 98.6
== END 2023-10-08 20:46 | disposition home or self-care (01) ==
LOC: EC 15:37
DX: S09.90XA Unspecified injury of head, initial encounter (principal); Z88.0 Allergy status to penicillin; Z88.8 Allergy status to other drugs, medicaments and biological substances; Z90.49 Acquired absence of other specified parts of digestive tract; W18.39XA Other fall on same level, initial encounter
CPT/HCPCS: 70450; 72125; 72170; 99284

== ENCOUNTER 2023-10-13 13:33 | Observation (INO) | payer MEDICARE ==
[2023-10-13 16:13] LABS: Basophils % (A) 0 %; Eosinophils % (A) 0 %; HCT 40.2 % (34.0-46.0); HGB 13.8 gm/dL (11.4-16.0); Lymphocytes # (A) 1.5 k/uL (1.0-4.8); Lymphocytes % (A) 26 %; MCH 31.1 pg (25.0-35.0); MCHC 34.4 g/dL (31.0-37.0); MCV 90.3 fL (80.0-100.0); Mean Platelet Volume 7.8; Monocytes # (A) 0.4 k/uL (0-1.0); Monocytes % (A) 7 %; Neutrophils # (A) 3.8 k/uL (1.3-7.7); Neutrophils % (A) 64 %; Platelet Count 119 k/uL (150-450); Poikilocytosis Slight; RBC 4.45 m/uL (3.80-5.40); RDW 14.4 % (11.5-15.5); WBC 5.9 k/uL (3.8-10.6)
[2023-10-13 16:22] LABS: INR 1.2 (<1.2); Partial Thromboplastin Time 26.3 sec (22.0-30.0); Prothrombin Time 12.6 sec (10.0-12.5)
--- NOTE | 2023-10-13 16:23 | US ---
EXAMINATION TYPE: US venous doppler duplex LE LT DATE OF EXAM: 10/13/2023 4:15 PM COMPARISON: NONE CLINICAL INDICATION: Female, 87 years old with history of leg swelling; Left leg swelling SIDE PERFORMED: Left TECHNIQUE: The lower extremity deep venous system is examined utilizing real time linear array sonog toan with graded compression, doppler sonography and color-flow sonography. VESSELS IMAGED: Common Femoral Vein Deep Femoral Vein Greater Saphenous Vein * Femoral Vein Popliteal Vein Small Saphenous Vein * Proximal Calf Veins (* superficial vessels) Left Leg: Negative for DVT IMPRESSION: 1. Left lower extremity ultrasound negative for deep venous thrombosis.
[2023-10-13 16:38] LABS: ALT 11 U/L (4-34); AST 25 U/L (14-36); African American GFR (CKD) 40 (>60 ml/min/1.73 sqM); Albumin 3.6 g/dL (3.5-5.0); Alkaline Phosphatase 86 U/L (38-126); Anion Gap 5 mmol/L; Blood Urea Nitrogen 23 mg/dL (7-17); Calcium 9.4 mg/dL (8.4-10.2); Carbon Dioxide 32 mmol/L (22-30); Chloride 99 mmol/L (98-107); Glucose 115 mg/dL (74-99); Magnesium 1.5 mg/dL (1.6-2.3); Non-African American GFR(CKD) 35 (>60 ml/min/1.73 sqM); Sodium 136 mmol/L (137-145); Total Bilirubin 4.4 mg/dL (0.2-1.3); Total Protein 5.9 g/dL (6.3-8.2)
--- NOTE | 2023-10-13 16:40 | ED ---
Weakness HPI - General Chief complaint: Weakness Stated complaint: fall, dehydration issues Time Seen by Provider: 10/13/23 14:34 Source: patient, EMS Mode of arrival: EMS Limitations: no limitations - History of Present Illness Initial comments: 87-year-old female with past medical history of diabetes, hypertension, hyperlipidemia who presents emergency department with weakness. Patient had a fall a few days ago where she hit her head. She is on anticoagulation therefore was brought to the hospital and had CT imaging performed. CT was negative. Patient was discharged home today. She has had continued weakness which worsened this morning. Patient states she was in the kitchen when she felt like she was in a fall. She had weakness in her lower extremities. She states that she leaned herself up against the cabinets and slid down. She denies hitting her head today. She denies any pain from the fall. Son is at bedside and is concerned for dehydration. States that she had forgotten to turn on the AC in her house and therefore it was 80 degrees. She has not been eating or drinking much. They are concerned about the patient's living situation and thinks that maybe she needs some surveillance - Related Data Home Medications Medication Instructions Recorded Confirmed Furosemide [Lasix] 40 mg PO DAILY 01/16/16 10/13/23 Gabapentin 300 mg PO DAILY@1500 01/16/16 10/13/23 Gabapentin 600 mg PO BID 01/16/16 10/13/23 Letrozole [Femara] 2.5 mg PO DAILY 01/16/16 10/13/23 Montelukast [Singulair] 10 mg PO HS 01/16/16 10/13/23 Pravastatin Sodium 20 mg PO HS 01/16/16 10/13/23 allopurinoL [Allopurinol] 100 mg PO DAILY 01/16/16 10/13/23 atenoloL [Tenormin] 50 mg PO HS 01/16/16 10/13/23 traZODone HCL [Desyrel] 100 mg PO HS 01/16/16 10/13/23 Rivaroxaban [Xarelto] 20 mg PO DAILY 11/04/16 10/13/23 Spironolactone [Aldactone] 25 mg PO DAILY 11/30/19 10/13/23 Risedronate Sodium [Risedronate 35 mg PO SA 10/13/23 10/13/[address]] Allergies Allergy/AdvReac Type Severity Reaction Status Date / Time naproxen Allergy Mild Itching Verified 10/13/23 14:24 Penicillins Allergy Rash/Hives Verified 10/13/23 14:24 Review of Systems ROS Statement: Those systems with pertinent positive or pertinent negative responses have been documented in the HPI. ROS Other: All systems not noted in ROS Statement are negative. Past Medical History Past Medical History: Cancer, Diabetes Mellitus, Hyperlipidemia, Hypertension, Mitral Valve Prolapse (MVP), Osteoarthritis (OA) Additional Past Medical History / Comment(s): GOUT, HX RT BREAST CA , NEUROPATHY LEGS and FEET. USES WALKER or cance, UNSTEADY ON FEET. leaky heart valve, umbilical hernia, on rx post op from sinus surgery. History of Any Multi-Drug Resistant Organisms: None Reported Past Surgical History: Breast Surgery, Cholecystectomy, Hysterectomy Additional Past Surgical History / Comment(s): MASTECTOMY RT BREAST W/ AXILLA LYMPH NODE, don cataracts, sinus surgery 10/01/16 Past Anesthesia/Blood Transfusion Reactions: Motion Sickness Additional Past Anesthesia/Blood Transfusion Reaction / Comment(s): . Past Psychological History: Anxiety Smoking Status: Never smoker Past Alcohol Use History: None Reported Past Drug Use History: None Reported - Past Family History Mother Family Medical History: Cancer Brother(s) Family Medical History: Cancer General Exam Limitations: no limitations Course Vital Signs 10/13/23 10/13/23 10/13/23 13:37 15:00 16:00 Temperature 98.1 F Pulse Rate 68 60 66 Respiratory 18 18 18 Rate Blood Pressure 164/94 146/74 153/77 O2 Sat by Pulse 98 98 97 Oximetry 10/13/23 10/13/23 10/13/23 17:00 18:23 20:00 Temperature Pulse Rate 100 70 59 L Respiratory 20 18 18 Rate Blood Pressure 148/98 150/58 125/95 O2 Sat by Pulse 96 96 Oximetry Medical Decision Making - Medical Decision Making Was pt. sent in by a medical professional or institution (, PA, LEAD DATABASE DEVELOPER, urgent care, hospital, or penitentiary...) When possible be specific @ -[No] Did you speak to anyone other than the patient for history (EMS, parent, family, police, friend...)? What history was obtained from this source @ -[No] Did you review nursing and triage notes (agree or disagree)? Why? @ -[I reviewed and agree with nursing and triage notes] Were old charts reviewed (outside hosp., previous admission, EMS record, old EKG, old radiological studies, urgent care reports/EKG's, penitentiary records)? Report findings @ -[No old charts were reviewed] Differential Diagnosis (chest pain, altered mental status, abdominal pain women, abdominal pain men, vaginal bleeding, weakness, fever, dyspnea, syncope, headache, dizziness, GI bleed, back pain, seizure, CVA, palpatations, mental health, musculoskeletal)? @ -[not applicable] EKG interpreted by me (3pts min.). @ -yes and demonstrates A-fib with a slow ventricular response rate of 48. QRS 77. QTc of 410. No acute ST segment elevations or depressions X-rays interpreted by me (1pt min.). @ -[None done] CT interpreted by me (1pt min.). @ -[None done] U/S interpreted by me (1pt. min.). @ -[None done] What testing was considered but not performed or refused? (CT, X-rays, U/S, labs)? Why? @ -[None] What meds were considered but not given or refused? Why? @ -[None] Did you discuss the management of the patient with other professionals (professionals i.e. , PA, LEAD DATABASE DEVELOPER, lab, RT, psych nurse, clinical social work aide, newsstand vendor, teacher, [employer]ad[employer] plans staff officer, case folder)? Give summary @ -[No] Was smoking cessation discussed for >3mins.? @ -[No] Was critical care preformed (if so, how long)? @ -[No] Were there social determinants of health that impacted care today? How? ( Homelessness, low income, unemployed, alcoholism, drug addiction, transportation, low edu. Level, literacy, decrease access to med. care, [facility], rehab)? @ -[No] Was there de-escalation of care discussed even if they declined (Discuss DNR or withdrawal of care, Hospice)? DNR status @ -[No] What co-morbidities impacted this encounter? (DM, HTN, Smoking, COPD, CAD, Cancer, CVA, ARF, Chemo, Hep., AIDS, mental health diagnosis, sleep apnea, morbid obesity)? @ -[None] Was patient admitted / discharged? Hospital course, mention meds given and route, prescriptions, significant lab abnormalities, going to OR and other pertinent info. @ -[hospital course] Undiagnosed new problem with uncertain prognosis? @ -[No] Drug Therapy requiring intensive monitoring for toxicity (Heparin, Nitro, Insulin, Cardizem)? @ -[No] Were any procedures done? @ -[No] Diagnosis/symptom? @ -[default] Acute, or Chronic, or Acute on Chronic? @ -[default] Uncomplicated (without systemic symptoms) or Complicated (systemic symptoms)? @ -[default] Side effects of treatment? @ -[No] Exacerbation, Progression, or Severe Exacerbation? @ -[No] Poses a threat to life or bodily function? How? (Chest pain, [place], [place], pneumonia, PE, COPD, DKA, ARF, appy, cholecystitis, CVA, Diverticulitis, Homicidal, Suicidal, threat to staff... and all critical care pts) @ -[No] - Lab Data Result diagrams: 10/13/23 15:41 10/13/23 15:41 Lab Results 10/13/23 10/13/23 10/13/23 Range/Units 15:41 15:41 15:41 WBC 5.9 (3.8-10.6) k/uL RBC 4.45 (3.80-5.40) m/uL Hgb 13.8 (11.4-16.0) gm/dL Hct 40.2 (34.0-46.0) % MCV 90.3 (80.0-100.0) fL MCH 31.1 (25.0-35.0) pg MCHC 34.4 (31.0-37.0) g/dL RDW 14.4 (11.5-15.5) % Plt Count 119 L (150-450) k/uL MPV 7.8 Neutrophils % 64 % Lymphocytes % 26 % Monocytes % 7 % Eosinophils % 0 % Basophils % 0 % Neutrophils # 3.8 (1.3-7.7) k/uL Lymphocytes # 1.5 (1.0-4.8) k/uL Monocytes # 0.4 (0-1.0) k/uL Eosinophils # 0.0 (0-0.7) k/uL Basophils # 0.0 (0-0.2) k/uL Poikilocytosis Slight PT 12.6 H (10.0-12.5) sec INR 1.2 H (<1.2) APTT 26.3 (22.0-30.0) sec Sodium 136 L (137-145) mmol/L Potassium 4.0 (3.5-5.1) mmol/L Chloride 99 (98-107) mmol/L Carbon Dioxide 32 H (22-30) mmol/L Anion Gap 5 mmol/L BUN 23 H (7-17) mg/dL Creatinine 1.36 H (0.52-1.04) mg/dL Est GFR (CKD-EPI)AfAm 40 (>60 ml/min/1.73 sqM) Est GFR (CKD-EPI)NonAf 35 (>60 ml/min/1.73 sqM) Glucose 115 H (74-99) mg/dL Plasma Lactic Acid Ben (0.7-2.0) mmol/L Calcium 9.4 (8.4-10.2) mg/dL Magnesium 1.5 L (1.6-2.3) mg/dL Total Bilirubin 4.4 H (0.2-1.3) mg/dL AST 25 (14-36) U/L ALT 11 (4-34) U/L Alkaline Phosphatase 86 (38-126) U/L Troponin I (0.000-0.034) ng/mL Total Protein 5.9 L (6.3-8.2) g/dL Albumin 3.6 (3.5-5.0) g/dL Urine Color Urine Appearance (Clear) Urine pH (5.0-8.0) Ur Specific [place] (1.001-1.035) Urine Protein (Negative) Urine Glucose (UA) (Negative) Urine Ketones (Negative) Urine Blood (Negative) Urine Nitrite (Negative) Urine Bilirubin (Negative) Urine Urobilinogen (<2.0) mg/dL Ur Leukocyte Esterase (Negative) Urine RBC (0-5) /hpf Urine WBC (0-5) /hpf Ur Squamous Epith Cells (0-4) /hpf Ur Transition Epith Cell (0-1) /hpf Urine Bacteria (None) /hpf 10/13/23 10/13/23 10/13/23 Range/Units 15:41 15:41 15:41 WBC (3.8-10.6) k/uL RBC (3.80-5.40) m/uL Hgb (11.4-16.0) gm/dL Hct (34.0-46.0) % MCV (80.0-100.0) fL MCH (25.0-35.0) pg MCHC (31.0-37.0) g/dL RDW (11.5-15.5) % Plt Count (150-450) k/uL MPV Neutrophils % % Lymphocytes % % Monocytes % % Eosinophils % % Basophils % % Neutrophils # (1.3-7.7) k/uL Lymphocytes # (1.0-4.8) k/uL Monocytes # (0-1.0) k/uL Eosinophils # (0-0.7) k/uL Basophils # (0-0.2) k/uL Poikilocytosis PT (10.0-12.5) sec INR (<1.2) APTT (22.0-30.0) sec Sodium (137-145) mmol/L Potassium (3.5-5.1) mmol/L Chloride (98-107) mmol/L Carbon Dioxide (22-30) mmol/L Anion Gap mmol/L BUN (7-17) mg/dL Creatinine (0.52-1.04) mg/dL Est GFR (CKD-EPI)AfAm (>60 ml/min/1.73 sqM) Est GFR (CKD-EPI)NonAf (>60 ml/min/1.73 sqM) Glucose (74-99) mg/dL Plasma Lactic Acid Ben 1.6 (0.7-2.0) mmol/L Calcium (8.4-10.2) mg/dL Magnesium (1.6-2.3) mg/dL Total Bilirubin (0.2-1.3) mg/dL AST (14-36) U/L ALT (4-34) U/L Alkaline Phosphatase (38-126) U/L Troponin I 0.013 (0.000-0.034) ng/mL Total Protein (6.3-8.2) g/dL Albumin (3.5-5.0) g/dL Urine Color Light Yellow Urine Appearance Clear (Clear) Urine pH 6.5 (5.0-8.0) Ur Specific [place] 1.009 (1.001-1.035) Urine Protein Negative (Negative) Urine Glucose (UA) Negative (Negative) Urine Ketones Negative (Negative) Urine Blood Negative (Negative) Urine Nitrite Negative (Negative) Urine Bilirubin Negative (Negative) Urine Urobilinogen <2.0 (<2.0) mg/dL Ur Leukocyte Esterase Small H (Negative) Urine RBC 1 (0-5) /hpf Urine WBC 2 (0-5) /hpf Ur Squamous Epith Cells <1 (0-4) /hpf Ur Transition Epith Cell <1 (0-1) /hpf Urine Bacteria Rare H (None) /hpf Disposition Clinical Impression: Fall, Atrial fibrillation with slow ventricular response, Left leg swelling, Knee pain, bilateral, Hypomagnesemia Disposition: ADMITTED IP TO THIS [facility] Condition: Stable Is patient prescribed a controlled substance at d/c from ED?: No Time of Disposition: 20:48 Decision to Admit Reason: Admit from EC Decision Date: 10/13/23 Decision Time: 20:48
--- NOTE | 2023-10-13 17:25 | XR ---
EXAMINATION TYPE: XR knee complete bilateral DATE OF EXAM: 10/13/2023 4:46 PM CLINICAL INDICATION:Female, 87 years old with history of weakness, knee pain; [facility] COMPARISON: None. TECHNIQUE: XR knee complete bilateral; examined in Frontal, lateral and oblique projections. FINDINGS: No evidence of any acute osseous pathology, soft tissue swelling, or joint effusion is no ras. Tricompartmental osteophyte formation involving the femoral condyles, tibial plateau and patella . Severe joint space narrowing. IMPRESSION: Severe degeneration changes of the knees no obvious fracture. There remains concern consider CT.
[2023-10-13 19:59] LABS: Appearance,Urine Clear (Clear); Bacteria,Urine Rare /hpf; Bilirubin,Urine Negative (Negative); Blood,Urine Negative (Negative); Color,Urine Light Yellow; Glucose,Urine (UA) Negative (Negative); Ketones,Urine Negative (Negative); Leukocyte Esterase,Urine Small (Negative); Nitrite,Urine Negative (Negative); PH, Urine 6.5 (5.0-8.0); Protein,Urine Negative (Negative); RBC,Urine 1 /hpf (0-5); Specific Gravity,Urine 1.009 (1.001-1.035); Squamous Epithelial Cell,Urine <1 /hpf (0-4); Transitional Epi Cells,Urine <1 /hpf (0-1); Urobilinogen,Urine <2.0 mg/dL (<2.0); WBC,Urine 2 /hpf (0-5)
[2023-10-13] MEDS ORDERED: NALOXONE 0.4 MG/ML 1 ML VIAL IV PRN (20:48)
[2023-10-13] MEDS: SODIUM CHLORIDE 0.9% 1,000 ML IV SCH (21:23)
[2023-10-13] MEDS: MAGNESIUM SULFATE-D5W PMX 1 GM in DEXTROSE/WATER 1 100ML.BAG IVPB SCH (21:23)
--- NOTE | 2023-10-13 22:06 | CT ---
EXAMINATION TYPE: CT brain cspine wo con CT DLP: 1355.3 mGycm, Automated exposure control for dose reduction was used. DATE OF EXAM: 10/13/2023 9:42 PM COMPARISON: None. CLINICAL INDICATION:Female, 87 years old with history of fall, on thinners; Fall on thinners. TECHNIQUE: Brain: Multiple axial CT images of the brain were obtained without IV contrast. Cspine: Axial CT images from the skull base to the inferior aspect of T2 we obtained without intraven ous contrast. Coronal and sagittal reformatted images were also reviewed. . FINDINGS: Brain: Extra-axial spaces: No abnormal extra-axial fluid collections. Ventricular system: Dilatation in proportion to cerebral atrophy. Cavum septum pellucidum. Cerebral parenchyma: Cerebral atrophy. No acute intraparenchymal hemorrhage or mass effect. The bella -white junction is well differentiated. Cerebellum: Unremarkable. Mass effect: No evidence of midline shift. Intracranial vasculature: Atherosclerotic calcifications of the intracranial vessels. Soft tissues: Normal. Calvarium/osseous structures: No depressed skull fracture. Paranasal sinuses and mastoid air cells: Clear. Visualized orbits: Bilateral aphakia Cervical spine: Fracture: None. Osseous structures: Multilevel degenerative disc disease changes with endplate spurring and disc oste ophyte complex's. Vertebral alignment: Grade 1 anterolisthesis of C5 on C6. Spinal canal/Neural Foramina: Disc osteophyte complexes at C5-C6 and C6-C7 with at least mild spinal canal stenosis. Facet joint uncovertebral joint arthropathy scattered throughout the cervical spine w ith varying degrees of neural foraminal stenosis. Neck soft tissues: Prevertebral soft tissues are within normal limits. Other: The airway is patent. The lung apices are clear. Moderate severe atherosclerosis of the arteri al vasculature. Including the carotid bifurcations. IMPRESSION: 1. No acute intracranial process. 2. Nonspecific white matter changes, likely secondary to chronic small vessel ischemic disease. 3. No evidence of cervical spine fracture. 4. Moderate to severe multilevel degenerative disc disease.\ 5. Grade 1 anterolisthesis of C5 and C6.
[2023-10-13] MEDS: PRAVASTATIN SODIUM 20 MG TAB PO SCH (22:55)
[2023-10-13] MEDS: MONTELUKAST 10 MG TAB PO SCH (22:56)
[2023-10-13] MEDS: traZODone HCL 100 MG TAB PO SCH (22:57)
[2023-10-13] MEDS: atenoloL 50 MG TAB PO SCH (22:58)
[2023-10-13] MEDS: GABAPENTIN 300 MG CAP PO SCH (23:22)
[2023-10-14] MEDS: ACETAMINOPHEN TAB 325 MG TAB PO PRN (03:56)
[2023-10-14 09:34] LABS: Basophils # (A) 0.01 X 10*3/uL (0.00-0.10); Basophils % (A) 0.2 %; Eosinophils # (A) 0 X 10*3/uL (0.04-0.35); Eosinophils % (A) 0 %; HCT 34.4 % (37.2-46.3); Immature Platelet Fraction 2.7 % (1.1-6.1); Lymphocytes # (A) 1.67 X 10*3/uL (0.90-5.00); Lymphocytes % (A) 28.4 %; MCH 31.2 pg (27.0-32.0); MCHC 34.9 g/dL (32.0-37.0); MCV 89.4 FL (80.0-97.0); Mean Platelet Volume 10.4 FL (9.5-12.2); Monocytes # (A) 0.62 X 10*3/uL (0.20-1.00); Monocytes % (A) 10.6 %; NRBC Per 100 WBC 0 X 10*3/uL (0.00-0.01); Neutrophils # (A) 3.54 X 10*3/uL (1.80-7.70); Neutrophils % (A) 60.3 %; Platelet Count 110 X 10*3/uL (140-440); RBC 3.85 X 10*6/uL (4.10-5.20); RDW 13.7 % (11.5-14.5); WBC 5.87 X 10*3/uL (4.50-10.00)
[2023-10-14 09:35] LABS: RBC Morphology Normal (Normal)
[2023-10-14 09:57] LABS: BUN/Creat Ratio 13.57 Ratio (12.00-20.00); Calcium 8.9 mg/dL (8.7-10.3); Carbon Dioxide 25.5 mmol/L (21.6-31.8); Chloride 103 mmol/L (96-109); Glucose 125 mg/dL (70-110); Potassium 3.7 mmol/L (3.5-5.5); Sodium 142 mmol/L (135-145)
--- NOTE | 2023-10-14 10:16 | P.CRDCN ---
History of Present Illness History of present illness: HISTORY OF PRESENT ILLNESS: This is a 87-year-old female with a past medical history significant for persistent atrial fibrillation, mitral insufficiency status post clip, hypertension, hyperlipidemia, and diabetes. Patient follows in the office with Dr. Shi. We have been asked to see the patient in consultation for atrial fibrillation. Patient examined at the bedside. Patient states yesterday she was standing in her kitchen when her legs began to twitch and feel wobbly. She sta snehal that she had mild dizziness. The patient states that she knew she was going to fall so she ended up lowering herself to the ground and broke her fall. She denies losing consciousness. She denies any chest pain or pressure. Denies any shortness of breath. Vital signs this morning are stable. Patient remains in atrial fibrillation with a heart rate in the 60s. DIAGNOSTICS: - EKG reveals atrial fibrillation with slow ventricular rate. Heart rate 48. No signs of acute ischemia.. - Laboratory data: WBC 5.9. Hemoglobin 13.8. Platelet count 119. Sodium 136. Potassium 4.0. BUN 23. Creatinine 1.36. Troponin 0.013. - Current home cardiac medications include atenolol 50 mg at night, spironolactone 25 mg daily, pravastatin 20 mg at night, Xarelto 20 mg daily, Lasix 40 mg daily. - Most recent echocardiogram obtained in December 2022 revealed ejection fraction 55%, mitral valve clip calcified with moderate MR and moderate TR - Patient underwent mitral valve clipping at [facility] in February 2017 - Cardiac catheterization history: October 2016 revealing right dominant system, mild noncritical disease in all 3 vessels, moderate to severe pulmonary hypertension REVIEW OF SYSTEMS: At the time of my exam: CONSTITUTIONAL: Denies fever or chills. HEENT: Denies blurred vision, vision changes, or eye pain. Denies hemoptysis CARDIOVASCULAR: Denies chest pain. Denies orthopnea. Denies PND. Denies palpitations RESPIRATORY: Denies shortness of breath. GASTROINTESTINAL: Denies abdominal pain. Denies nausea or vomiting. HEMATOLOGIC: Denies bleeding disorders. GENITOURINARY: Denies any blood in urine. SKIN: Denies pruitis. Denies rash. PHYSICAL EXAM: VITAL SIGNS: Reviewed. GENERAL: Well-developed in no acute distress. HEENT: Head is normocephalic. Pupils are equal, round. Sclerae anicteric. Mucous membranes of the mouth are moist. Neck supple. No JVD or thyromegaly LUNGS: Respirations even and unlabored. Lungs essentially clear to auscultation bilaterally. HEART: Irregular rate and rhythm. S1 and S2 heard. ABDOMEN: Soft. Nondistended. Nontender. EXTREMITIES: Normal range of motion. No clubbing or cyanosis. Peripheral pulses intact. No lower extremity edema NEUROLOGIC: Awake and alert. Oriented x 3. ASSESSMENT: Status post mechanical fall Hypomagnesemia Chronic kidney disease Persistent atrial fibrillation with slow ventricular rate History of mitral insufficiency status post clipping at [facility], 2017 Hypertension Hyperlipidemia Diabetes PLAN: Decrease atenolol to 25 mg at night Continue additional cardiac medications No need to obtain echocardiogram at this time Patient may be discharged home today from a cardiac standpoint We will sign off. Please reconsult if needed. Nurse practitioner note has been reviewed by physician. Signing provider agrees with the documented findings, assessment, and plan of care documented by FO[employer] SERV[employer] KITCHEN SUPERVISOR as a scribe. Past Medical History Past Medical History: Cancer, Diabetes Mellitus, Hyperlipidemia, Hypertension, Mitral Valve Prolapse (MVP), Osteoarthritis (OA) Additional Past Medical History / Comment(s): GOUT, HX RT BREAST CA , NEUR OPATHY LEGS and FEET. USES WALKER or cance, UNSTEADY ON FEET. leaky heart valve, umbilical hernia, on rx post op from sinus surgery. History of Any Multi-Drug Resistant Organisms: None Reported Past Surgical History: Breast Surgery, Cholecystectomy, Hysterectomy Additional Past Surgical History / Comment(s): MASTECTOMY RT BREAST W/ AXILLA LYMPH NODE, don cataracts, sinus surgery 10/01/16 Past Anesthesia/Blood Transfusion Reactions: Motion Sickness Additional Past Anesthesia/Blood Transfusion Reaction / Comment(s): . Past Psychological History: Anxiety Smoking Status: Never smoker Past Alcohol Use History: None Reported Past Drug Use History: None Reported - Past Family History Mother Family Medical History: Cancer Brother(s) Family Medical History: Cancer Medications and Allergies Home Medications Medication Instructions Recorded Confirmed Type Furosemide [Lasix] 40 mg PO DAILY 01/16/16 10/13/23 History Gabapentin 300 mg PO DAILY@1500 01/16/16 10/13/23 History Gabapentin 600 mg PO BID 01/16/16 10/13/23 History Letrozole [Femara] 2.5 mg PO DAILY 01/16/16 10/13/23 History Montelukast [Singulair] 10 mg PO HS 01/16/16 10/13/23 History Pravastatin Sodium 20 mg PO HS 01/16/16 10/13/23 History allopurinoL [Allopurinol] 100 mg PO DAILY 01/16/16 10/13/23 History atenoloL [Tenormin] 50 mg PO HS 01/16/16 10/13/23 History traZODone HCL [Desyrel] 100 mg PO HS 01/16/16 10/13/23 History Rivaroxaban [Xarelto] 20 mg PO DAILY 11/04/16 10/13/23 History Spironolactone [Aldactone] 25 mg PO DAILY 11/30/19 10/13/23 History Risedronate Sodium [Risedronate 35 mg PO SA 10/13/23 10/13/[address]] Allergies Allergy/AdvReac Type Severity Reaction Status Date / Time naproxen Allergy Mild Itching Verified 10/13/23 14:24 Penicillins Allergy Rash/Hives Verified 10/13/23 14:24 Physical Exam Vitals: Vital Signs Temp Pulse Resp BP Pulse Ox 10/14/23 03:55 60 18 122/88 95 10/14/23 01:36 61 20 127/66 94 L 10/13/23 23:01 67 18 156/89 96 10/13/23 21:00 66 18 141/75 97 10/13/23 20:00 59 L 18 125/95 96 10/13/23 18:23 70 18 150/58 10/13/23 17:00 100 20 148/98 96 10/13/23 16:00 66 18 153/77 97 10/13/23 15:00 60 18 146/74 98 10/13/23 13:37 98.1 F 68 18 164/94 98 Results 10/14/23 05:24 10/14/23 05:24 Cardiac Enzymes 10/13/23 10/13/23 Range/Units 15:41 15:41 AST 25 (14-36) U/L Troponin I 0.013 (0.000-0.034) ng/mL Coagulation 10/13/23 Range/Units 15:41 PT 12.6 H (10.0-12.5) sec APTT 26.3 (22.0-30.0) sec CBC 10/13/23 Range/Units 15:41 WBC 5.9 (3.8-10.6) k/uL RBC 4.45 (3.80-5.40) m/uL Hgb 13.8 (11.4-16.0) gm/dL Hct 40.2 (34.0-46.0) % Plt Count 119 L (150-450) k/uL Comprehensive Metabolic Panel 10/13/23 Range/Units 15:41 Sodium 136 L (137-145) mmol/L Potassium 4.0 (3.5-5.1) mmol/L Chloride 99 (98-107) mmol/L Carbon Dioxide 32 H (22-30) mmol/L BUN 23 H (7-17) mg/dL Creatinine 1.36 H (0.52-1.04) mg/dL Glucose 115 H (74-99) mg/dL Calcium 9.4 (8.4-10.2) mg/dL AST 25 (14-36) U/L ALT 11 (4-34) U/L Alkaline Phosphatase 86 (38-126) U/L Total Protein 5.9 L (6.3-8.2) g/dL Albumin 3.6 (3.5-5.0) g/dL Current Medications Generic Name Dose Route Start Last Admin Trade Name Freq PRN Reason Stop Dose Admin Acetaminophen 650 mg 10/14/23 02:40 10/14/23 03:56 Acetaminophen Tab 325 Mg Tab PO 650 mg Q6HR PRN Administration Fever and/ or Pain Allopurinol 100 mg 10/14/23 09:00 Allopurinol 100 Mg Tab PO DAILY ALEJANDRO Atenolol 50 mg 10/13/23 21:45 10/13/23 22:58 Atenolol 50 Mg Tab PO 50 mg HS ALEJANDRO Administration Gabapentin 300 mg 10/14/23 15:00 Gabapentin 300 Mg Cap PO DAILY@1500 ALEJANDRO Gabapentin 600 mg 10/13/23 21:45 10/13/23 23:22 Gabapentin 300 Mg Cap PO Not Given BID ALEJANDRO Sodium Chloride 1,000 mls @ 75 mls/hr 10/13/23 21:00 10/13/23 21:23 Saline 0.9% IV 75 mls/hr .[id number] ALEJANDRO Administration Letrozole 2.5 mg 10/14/23 09:00 Letrozole 2.5 Mg Tab PO DAILY ALEJANDRO Montelukast Sodium 10 mg 10/13/23 22:00 10/13/23 22:56 Montelukast 10 Mg Tab PO 10 mg HS ALEJANDRO Administration Naloxone HCl 0.2 mg 10/13/23 20:48 Naloxone 0.4 Mg/Ml 1 Ml Vial IV Q2M PRN Opioid Reversal Pravastatin Sodium 20 mg 10/13/23 21:45 10/13/23 22:55 Pravastatin Sodium 20 Mg Tab PO 20 mg HS ALEJANDRO Administration Rivaroxaban 20 mg 10/14/23 09:00 Rivaroxaban 20 Mg Tab PO DAILY ALEJANDRO Protocol Trazodone HCl 100 mg 10/13/23 21:45 10/13/23 22:57 Trazodone Hcl 100 Mg Tab PO 100 mg HS ALEJANDRO Administration 10/13/23 15:41 10/13/23 15:41
[2023-10-14] MEDS: allopurinoL 100 MG TAB PO SCH (10:32)
[2023-10-14] MEDS: RIVAROXABAN 20 MG TAB PO SCH (10:32)
[2023-10-14] MEDS: LETROZOLE 2.5 MG TAB PO SCH (10:59)
[2023-10-14] MEDS ORDERED: DEXTROSE 50% SYRINGE 50 ML IVP PRN ×2 (12:43)
--- NOTE | 2023-10-14 13:05 | P.HPIM ---
History of Present Illness H&P Date: 10/14/23 Chief Complaint: Recent fall, progressive lower extremity weakness This is an 87-year-old female, lives alone, past medical history significant for diabetes mellitus II, bilateral lower extremity neuropathy , gait dysfunction - uses walker, atrial fibrillation-anticoagulated on Xarelto, hypertension, hyperlipidemia, mitral insufficiency status post clip, moderate to severe pulm pulmonary hypertension, chronic kidney disease stage III ,osteoarthritis, gout, history of right breast cancer with mastectomy, anxiety, prior nicotine dependence and multiple other medical issues presented to the ER status post recent fall on 10/08/2023, hitting her head with complaints of worsening bilateral lower extremity weakness. On ER visit of 10/08/2023, CT of head and C- spine reported no acute intracranial CT abnormality, no evidence of acute cervical spine fracture or traumatic malalignment, moderate cervical spondylosis. Pelvis x-ray reported no evidence of pelvic fracture. Reports she was in the kitchen ,standing at the sink, developed mild dizziness, increased lower extremity weakness, bilateral knee pain and leaned against the cabinets,slid herself down to avoid falling. Denies syncope. Denies head trauma. Denies chest pain, palpitations or shortness of breath. Denies fever, chills or sweats. CT brain/C-spine reported no acute intracranial process, no evidence of cervical spine fracture, moderate to severe multilevel degenerative disc disease, grade 1 anteriolisthesis of C5 and C6. Hypertensive on admission with blood pressure 164/94, EKG reported atrial fibrillation with slow ventricular response, heart rate 48. Troponin negative x 1. left leg edema; x-rays of bilateral knees reported severe degeneration changes with no obvious fracture, left leg venous Doppler reported negative for DVT. Reports decreased appetite, on admission bicarb 32, BUN 23, creatinine 1.36. IV fluid hydration initiated in the ER with renal function improving, bicarb 25.5, BUN 19, creatinine 1.4. Patient's baseline creatinine ranging from 1.2-1.4. Magnesium supplemented in the ER for a level of 1.5. Glucose 115 on admission currently 125. T. bili 4.4, trending reports T. bili of 3-3.3 since 2019. UA negative. Mild delirium, reports there is a wedding occurring across the [place], in the ER, otherwise alert and oriented x 3. Review of Systems ROS Statement: Those systems with pertinent positive or pertinent negative responses have been documented in the HPI. ROS Other: All systems not noted in ROS Statement are negative. Past Medical History Past Medical History: Cancer, Diabetes Mellitus, Hyperlipidemia, Hypertension, Mitral Valve Prolapse (MVP), Osteoarthritis (OA) Additional Past Medical History / Comment(s): GOUT, HX RT BREAST CA , NEUROPATHY LEGS and FEET. USES WALKER or cance, UNSTEADY ON FEET. leaky heart valve, umbilical hernia, on rx post op from sinus surgery. History of Any Multi-Drug Resistant Organisms: None Reported Past Surgical History: Breast Surgery, Cholecystectomy, Hysterectomy Additional Past Surgical History / Comment(s): MASTECTOMY RT BREAST W/ AXILLA LYMPH NODE, don cataracts, sinus surgery 10/01/16 Past Anesthesia/Blood Transfusion Reactions: Motion Sickness Additional Past Anesthesia/Blood Transfusion Reaction / Comment(s): . Past Psychological History: Anxiety Smoking Status: Never smoker Past Alcohol Use History: None Reported Past Drug Use History: None Reported - Past Family History Mother Family Medical History: Cancer Brother(s) Family Medical History: Cancer Medications and Allergies Home Medications Medication Instructions Recorded Confirmed Type Furosemide [Lasix] 40 mg PO DAILY 01/16/16 10/13/23 History Gabapentin 300 mg PO DAILY@1500 01/16/16 10/13/23 History Gabapentin 600 mg PO BID 01/16/16 10/13/23 History Letrozole [Femara] 2.5 mg PO DAILY 01/16/16 10/13/23 History Montelukast [Singulair] 10 mg PO HS 01/16/16 10/13/23 History Pravastatin Sodium 20 mg PO HS 01/16/16 10/13/23 History allopurinoL [Allopurinol] 100 mg PO DAILY 01/16/16 10/13/23 History traZODone HCL [Desyrel] 100 mg PO HS 01/16/16 10/13/23 History Rivaroxaban [Xarelto] 20 mg PO DAILY 11/04/16 10/13/23 History Spironolactone [Aldactone] 25 mg PO DAILY 11/30/19 10/13/23 History Risedronate Sodium [Risedronate 35 mg PO SA 10/13/23 10/13/[address]] atenoloL [Tenormin] 25 mg PO HS #90 tab 10/14/23 Rx Allergies Allergy/AdvReac Type Severity Reaction Status Date / Time naproxen Allergy Mild Itching Verified 10/13/23 14:24 Penicillins Allergy Rash/Hives Verified 10/13/23 14:24 Physical Exam Vitals: Vital Signs Temp Pulse Resp BP Pulse Ox 10/14/23 03:55 60 18 122/88 95 10/14/23 01:36 61 20 127/66 94 L 10/13/23 23:01 67 18 156/89 96 10/13/23 21:00 66 18 141/75 97 10/13/23 20:00 59 L 18 125/95 96 10/13/23 18:23 70 18 150/58 10/13/23 17:00 100 20 148/98 96 10/13/23 16:00 66 18 153/77 97 10/13/23 15:00 60 18 146/74 98 10/13/23 13:37 98.1 F 68 18 164/94 98 PHYSICAL EXAM: VITAL SIGNS: [As above] GENERAL: Alert and oriented x 2-3, minimal confusion, pleasant, cooperative, sitting up on stretcher, no acute distress HEENT: Normocephalic, atraumatic, conjunctivae normal. eyes normal. Sclera anicteric .MMM. NECK: Supple, no JVD. No thyroid enlargement. No LNs CARDIOVASCULAR: S1, S2. Irregular. RESPIRATION: Breath sounds diminished in the bases. No rhonchi or crackles. No bronchial breathing. ABDOMEN: Soft, nontender . No guarding. no masses palpable. No ascites, No hepatosplenomegaly.positive bowel sounds LEGS: Left lower extremity edema, left knee pain. NERVOUS SYSTEM: Cranial N 2-12 grossly normal. No focal deficits. Skin: no lesions, no rash Results CBC & Chem 7: 10/14/23 05:24 10/14/23 05:24 Labs: Abnormal Lab Results - Last 24 Hours (Table) 10/13/23 10/13/23 10/13/23 Range/Units 15:41 15:41 15:41 RBC (4.10-5.20) X 10*6/uL Hct (37.2-46.3) % Plt Count 119 L (150-450) k/uL Eosinophils # (0.04-0.35) X 10*3/uL PT 12.6 H (10.0-12.5) sec INR 1.2 H (<1.2) Sodium 136 L (137-145) mmol/L Carbon Dioxide 32 H (22-30) mmol/L BUN 23 H (7-17) mg/dL Creatinine 1.36 H (0.52-1.04) mg/dL Glucose 115 H (74-99) mg/dL Magnesium 1.5 L (1.6-2.3) mg/dL Total Bilirubin 4.4 H (0.2-1.3) mg/dL Total Protein 5.9 L (6.3-8.2) g/dL Ur Leukocyte Esterase (Negative) Urine Bacteria (None) /hpf 10/13/23 10/14/23 Range/Units 15:41 05:24 RBC 3.85 L (4.10-5.20) X 10*6/uL Hct 34.4 L (37.2-46.3) % Plt Count 110 L (150-450) k/uL Eosinophils # 0 L (0.04-0.35) X 10*3/uL PT (10.0-12.5) sec INR (<1.2) Sodium (137-145) mmol/L Carbon Dioxide (22-30) mmol/L BUN (7-17) mg/dL Creatinine (0.52-1.04) mg/dL Glucose (74-99) mg/dL Magnesium (1.6-2.3) mg/dL Total Bilirubin (0.2-1.3) mg/dL Total Protein (6.3-8.2) g/dL Ur Leukocyte Esterase Small H (Negative) Urine Bacteria Rare H (None) /hpf Assessment and Plan Assessment: Recurrent falls, recent fall last week. Chronic persistent atrial fibrillation with slow ventricular response, anticoagulated on Xarelto Hypomagnesemia DDD ,bilateral knee pain, left leg edema, DVT ruled out, orthopedics consulted Acute metabolic encephalopathy, suspect delirium related to the ER environment and sleep deprivation Elevated T. bili,trending reports T. bili of 3-3.3 since 2019. ultrasound of the liver and gallbladder ordered Diabetes mellitus II, hemoglobin A1c pending Diabetic neuropathy bilateral lower extremities Chronic kidney disease stage III, baseline creatinine 1.2-1.4. Osteoarthritis Gait dysfunction, uses a walker History of mitral insufficiency, status post clipping 2017 Moderate to severe pulmonary hypertension Hypertension Hyperlipidemia History of right breast cancer status postmastectomy Prior nicotine dependence Plan: Continue on current medication regimen ,monitoring and symptomatic treatment. Evaluated by cardiology with recommendations noted. Orthopedics consulted regarding significant leg edema, pain. Ultrasound of the liver and gallbladder ordered. Close monitoring of magnesium, renal function, with repeat labs ordered for a.m. NovoLog sliding scale ordered, close monitoring of blood sugars. PPI in place for GI prophylaxis. Continues on Xarelto for DVT prophylaxis. PT/OT consulted. case management consulted for potential subacute rehab at discharge. The impression and plan of care has been dictated as directed. : I performed a history and examination of this patient, discussed the same with the dictator. I agree with the dictator's note ,documented as a scribe. Any additional findings or plans will be noted.
[2023-10-14] MEDS: PANTOPRAZOLE 40 MG/10 ML VIAL IVP SCH (14:44)
[2023-10-14] MEDS: GABAPENTIN 300 MG CAP PO SCH (16:36)
[2023-10-14 17:15] LABS: Glucose,Whole Blood 122 mg/dL (70-110)
[2023-10-14] MEDS: INSULIN ASPART (NovoLOG) 100 UNIT/ML VIAL SQ SCH (17:17)
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
[2023-10-14] MEDS: atenoloL 25 MG TAB PO SCH (20:19)
[2023-10-14 20:55] LABS: Glucose,Whole Blood 145 mg/dL (70-110)
[2023-10-15] MEDS ORDERED: ONDANSETRON 4 MG TAB PO PRN (03:22)
[2023-10-15 05:27] LABS: Glucose,Whole Blood 117 mg/dL (70-110)
[2023-10-15] MEDS: PANTOPRAZOLE 40 MG TABLET PO SCH (05:49)
--- NOTE | 2023-10-15 09:52 | US ---
EXAMINATION TYPE: US abdomen limited DATE OF EXAM: 10/15/2023 COMPARISON: NONE CLINICAL INDICATION: Female, 87 years old with history of incr T- Bili, S/P fall; Abnormal labs TECHNIQUE: Multiple sonographic images of the right upper quadrant are obtained. FINDINGS: EXAM MEASUREMENTS: Liver Length: 16.3 cm CBD: 0.7 cm Right Kidney: 9.8 x 5.0 x 4.5 cm Pancreas: Cystic lesion near head= 2.1 x 1.8 x 2.1 cm Liver: wnl Gallbladder: Not visualized- pt unsure if GB was surgically removed or not Evidence for sonographic Benitez's sign: No CBD: wnl Right Kidney: Cortical thinning, lower pole gassed out IMPRESSION: Gallbladder is not definitively visualized. The bladder fossa is dilated cystic structure is unclear if these are gallbladder versus dilated ducts. Consider MRCP.
[2023-10-15 10:43] LABS: Magnesium 1.3 mg/dL (1.5-2.4)
[2023-10-15 10:47] LABS: Blood Urea Nitrogen 13.1 mg/dL (9.0-27.0); Calcium 6.8 mg/dL (8.7-10.3); Carbon Dioxide 20.9 mmol/L (21.6-31.8); Chloride 111 mmol/L (96-109); Glucose 103 mg/dL (70-110); Potassium 3.1 mmol/L (3.5-5.5); Sodium 141 mmol/L (135-145)
[2023-10-15 11:17] LABS: Basophils # (A) 0 X 10*3/uL (0.00-0.10); Basophils % (A) 0 %; Eosinophils # (A) 0 X 10*3/uL (0.04-0.35); Eosinophils % (A) 0 %; HCT 31.3 % (37.2-46.3); HGB 10.8 g/dL (12.0-15.0); Immature Platelet Fraction 3.5 % (1.1-6.1); Lymphocytes # (A) 1.24 X 10*3/uL (0.90-5.00); Lymphocytes % (A) 20.4 %; MCH 31.8 pg (27.0-32.0); MCHC 34.5 g/dL (32.0-37.0); MCV 92.1 FL (80.0-97.0); Mean Platelet Volume 10.2 FL (9.5-12.2); Monocytes % (A) 8.2 %; NRBC Per 100 WBC 0 X 10*3/uL (0.00-0.01); Neutrophils # (A) 4.31 X 10*3/uL (1.80-7.70); Neutrophils % (A) 71.1 %; Platelet Count 93 X 10*3/uL (140-440); RDW 13.8 % (11.5-14.5); WBC 6.07 X 10*3/uL (4.50-10.00)
--- NOTE | 2023-10-15 11:50 | P.PN ---
Subjective Progress Note Date: 10/15/23 Principal diagnosis: Bilateral tricompartmental knee osteoarthritis; degenerative disc disease; anterolisthesis of C5 on C6; spondylosis of the cervical spine; history of falls Patient was seen at bedside this morning sitting up in chair with legs elevated eating breakfast. Patient says she did work a little bit with the scope therapy this morning getting up out of bed in the chair. Patient says therapy is coming back later today as well. Patient says she still has some generalized knee pain, however overall she is progressing. Patient denies any other issues at this time. Patient denies any neck pain. Patient denies any loss of bowel/bladder control. Objective - Vital Signs Vital signs: Vital Signs Temp 98.1 F 10/15/23 07:00 Pulse 63 10/15/23 07:00 Resp 16 10/15/23 07:00 BP 146/71 10/15/23 07:00 Pulse Ox 95 10/15/23 07:00 FiO2 Intake & Output 10/14/23 10/15/23 10/15/23 18:59 06:59 18:59 Weight 65.771 kg Other: # Voids 1 2 - Exam Inspection: Multiple areas of ecchymosis throughout the bilateral upper ext remities. Right knee appears to be enlarged with osteophytes present along the patella. Patella seems to be riding high the femur. Negative for any open fracture, significant wounds. Left lower extremity does appear to be somewhat edematous on exam distally from the left knee Sensation: Diminished sensation throughout the bilateral ankles/feet. Patient does have a history of neuropathy. Sensation equal, symmetric, bilateral intact throughout the rest of the upper and lower extremities. Palpation: Some generalized tenderness to palpation over the bilateral knees in the medial and lateral compartments as well as during the compression of the patella. Nontender to palpation throughout rest of exam. Range of motion: Limited range of motion in bilateral hips and knees in flexion's extension secondary to weakness and stiffness in the joints. Limited range of motion of the bilateral ankles. Full range of motion throughout bilateral wrist and elbows in flexion/extension. Patient is able to forward elevate bilateral shoulders to about 130 degrees bilaterally. Motor: 4-/5 starch crab strength bilaterally. 4-/5 in all major motor groups in bilateral upper extremities. 4-/5 in all major motor groups of bilateral lower extremities. Neurovascular: Radial pulses intact, 2+ bilaterally. Cap refill under 3 seconds in digits of upper extremities. Special test: Negative Homans bilaterally. Negative clonus bilaterally. Negative Franklin bilaterally. - Labs CBC & Chem 7: 10/15/23 05:49 10/15/23 05:49 Labs: Abnormal Lab Results - Last 24 Hours (Table) 10/14/23 10/14/23 10/15/23 Range/Units 17:14 20:54 05:23 POC Glucose (mg/dL) 122 H 145 H 117 H (70-110) mg/dL Magnesium (1.5-2.4) mg/dL 10/15/23 Range/Units 05:49 POC Glucose (mg/dL) (70-110) mg/dL Magnesium 1.3 L (1.5-2.4) mg/dL Assessment and Plan Assessment: 1. Bilateral tricompartmental knee osteoarthritis; degenerative disc disease; anterolisthesis of C5 on C6; spondylosis of the cervical spine; history of falls 2. Multiple medical comorbidities Plan: 1. Bilateral tricompartmental knee osteoarthritis; degenerative disc disease; anterolisthesis of C5 on C6; spondylosis of the cervical spine; history of falls - CT scan of the cervical spine is negative for any fractures. Positive for degenerative disc disease. Positive for some mild stenosis. Positive for spondylolisthesis of C5 and C6. CT scan of the bilateral knee is positive for tricompartmental osteoarthritis. I did review the findings of the exam and imaging with my attending, Dr. Manzo. At this time we are not recommending any emergent/urgent orthopedic surgical intervention. We are recommending conservative treatment with the use of pain medication and physical therapy/Occupational Therapy. Patient may weight-bear as tolerated with walker and assistance. Encourage incentive spirometer use. Patient is stable from an orthopedic standpoint for discharge. Patient may follow-up in the outpatient setting with Dr. Manzo for further evaluation as needed. At this time we'll defer rest of management to the primary care team. At this time ortho pedics is signing off. Please do not hesitate to contact us for any further questions. 2. Appreciate medical management 3. Pain management -Tylenol; gabapentin 4. DVT prophylaxis -Xarelto 5. GI prophylaxis -Protonix 6. PT/OT -weightbearing as tolerated with walker and assistance 7. Encourage incentive spirometer use 8. Appreciate consult Time with Patient: Less than 30
[2023-10-15 13:13] LABS: Glucose,Whole Blood 144 mg/dL (70-110)
[2023-10-15 13:37] VITALS: BMI 24.9
[2023-10-15] MEDS ORDERED: Magnesium Replacement Protocol 1 EACH MISC MISCELLANE PRN (14:15)
[2023-10-15] MEDS ORDERED: Potassium Replacement Protocol 1 EACH MISC MISCELLANE PRN (14:15)
--- NOTE | 2023-10-15 14:21 | P.PN ---
Subjective October 15, 2023: Patient is reevaluated today. CT 7-year-old white female was admitted for gait dysfunction, falls, and electrolyte abnormalities. She has significant history of A-fib with anticoagulation Xarelto hypertension hyperlipidemia and multiple other medical problems. This morning she is feeling better. Vital signs are stable heart rate in the 60s blood pressure normal she is remains on room air. Laboratory studies today showed a hemoglobin of 10.8. No shift, potassium was 3.1, magnesium was 1.3. Other electrolytes are essentially normal. Her sugars seemed well-controlled. She has been seen by orthopedics for her left knee pain which shows tricompartment syndrome. They are following. Cardiology is also seen her and adjust her medications. They have cleared her for discharge at this point. Physical therapy has seen her and recommended subacute rehab due to her debility and generalized weakness. She has signs of a bilateral foot drop. Objective - Vital Signs Vital signs: Vital Signs Temp 98.1 F 10/15/23 07:00 Pulse 63 10/15/23 07:00 Resp 16 10/15/23 07:00 BP 146/71 10/15/23 07:00 Pulse Ox 95 10/15/23 07:00 FiO2 Intake & Output 10/14/23 10/15/23 10/15/23 18:59 06:59 18:59 Weight 65.771 kg 65.771 kg Other: # Voids 1 2 2 - Exam General: elderly female in no acute distress in bed Neck: The neck is supple, there is no thyromegaly, lymphadenopathy, tenderness or JVD. Cardiovascular: S1S2 is normal, There is a regular rate and rhythm. No, rub or gallop is appreciated., Trace over 6 systolic ejection murmur at the right sternal border Respiratory: Lungs are clear to auscultation bilaterally, respirations are non-labored, breath sounds are equal. Gastrointestinal: Soft, non-distended, non-tender abdomen without masses or organomegaly noted. There is no rebound or guarding present. Bowel sounds are unremarkable. Musculoskeletal: Normal ROM, no tenderness, There is no pedal edema. There is no calf tenderness or swelling. No cords were appreciated. Gait was not tested at this time. Neurological: CN II-XII intact, there are no obvious motor or sensory deficits. Coordination appears grossly intact. Speech is normal. Skin: Skin is warm and dry and no rashes or lesions are noted. - Labs CBC & Chem 7: 10/15/23 05:49 10/15/23 05:49 Labs: Abnormal Lab Results - Last 24 Hours (Table) 10/14/23 10/14/23 10/15/23 Range/Units 17:14 20:54 05:23 RBC (4.10-5.20) X 10*6/uL Hgb (12.0-15.0) g/dL Hct (37.2-46.3) % Plt Count (140-440) X 10*3/uL Eosinophils # (0.04-0.35) X 10*3/uL Potassium (3.5-5.5) mmol/L Chloride (96-109) mmol/L Carbon Dioxide (21.6-31.8) mmol/L Est GFR (CKD-EPI) (>=60) POC Glucose (mg/dL) 122 H 145 H 117 H (70-110) mg/dL Calcium (8.7-10.3) mg/dL Magnesium (1.5-2.4) mg/dL 10/15/23 10/15/23 10/15/23 Range/Units 05:49 05:49 13:10 RBC 3.40 L (4.10-5.20) X 10*6/uL Hgb 10.8 L (12.0-15.0) g/dL Hct 31.3 L (37.2-46.3) % Plt Count 93 L (140-440) X 10*3/uL Eosinophils # 0 L (0.04-0.35) X 10*3/uL Potassium 3.1 L (3.5-5.5) mmol/L Chloride 111 H (96-109) mmol/L Carbon Dioxide 20.9 L (21.6-31.8) mmol/L Est GFR (CKD-EPI) 55 L (>=60) POC Glucose (mg/dL) 144 H (70-110) mg/dL Calcium 6.8 L (8.7-10.3) mg/dL Magnesium 1.3 L (1.5-2.4) mg/dL Assessment and Plan Plan: ecurrent falls, recent fall last week. Chronic persistent atrial fibrillation with slow ventricular response, anticoagulated on Xarelto Hypokalemia Hypomagnesemia DDD ,bilateral knee pain, left leg edema, DVT ruled out, orthopedics consulted Acute metabolic encephalopathy, resolved Elevated T. bili, ultrasound could not see the gallbladder directly, did see dilated ducts as well. Will repeat T. bili consider MRCP, however patient is asymptomatic Diabetes mellitus II, hemoglobin A1c 4.9 Diabetic neuropathy bilateral lower extremities Chronic kidney disease stage III, baseline creatinine 1.2-1.4. Osteoarthritis Gait dysfunction, uses a walker History of mitral insufficiency, status post clipping 2016 Moderate to severe pulmonary hypertension Hypertension Hyperlipidemia History of right breast cancer status postmastectomy Prior nicotine dependence Will repeat labs in a.m., continue physical therapy, I discussed with her ECF placement for rehabilitation versus home with home care etc. She will consider this and we will replace her electrolytes and recheck those in 24 hours. Should be reevaluated the next 24 hours
[2023-10-15] MEDS: POTASSIUM CHLORIDE ER 20 MEQ TAB.ER PO SCH (14:39)
[2023-10-15] MEDS: MAGNESIUM SULFATE-D5W PMX 1 GM in DEXTROSE/WATER 1 100ML.BAG IVPB SCH (14:40)
[2023-10-15 17:39] LABS: Glucose,Whole Blood 154 mg/dL (70-110)
[2023-10-15 21:21] LABS: Glucose,Whole Blood 150 mg/dL (70-110)
[2023-10-16 06:18] LABS: Glucose,Whole Blood 123 mg/dL (70-110)
[2023-10-16 07:38] LABS: Basophils % (A) 0 %; Eosinophils % (A) 0 %; HCT 34.5 % (34.0-46.0); HGB 11.7 gm/dL (11.4-16.0); Lymphocytes # (A) 1.4 k/uL (1.0-4.8); Lymphocytes % (A) 26 %; MCH 31.1 pg (25.0-35.0); MCHC 33.9 g/dL (31.0-37.0); MCV 91.7 fL (80.0-100.0); Mean Platelet Volume 8.1; Monocytes # (A) 0.5 k/uL (0-1.0); Monocytes % (A) 9 %; Neutrophils # (A) 3.3 k/uL (1.3-7.7); Neutrophils % (A) 62 %; Platelet Count 103 k/uL (150-450); Poikilocytosis Slight; RBC 3.76 m/uL (3.80-5.40); RDW 14.6 % (11.5-15.5); WBC 5.4 k/uL (3.8-10.6)
[2023-10-16 08:08] LABS: ALT 10 U/L (4-34); AST 30 U/L (14-36); African American GFR (CKD) 53 (>60 ml/min/1.73 sqM); Albumin 2.9 g/dL (3.5-5.0); Albumin/Globulin Ratio 1.3; Alkaline Phosphatase 91 U/L (38-126); Anion Gap 3 mmol/L; Blood Urea Nitrogen 12 mg/dL (7-17); Calcium 8.4 mg/dL (8.4-10.2); Carbon Dioxide 24 mmol/L (22-30); Chloride 105 mmol/L (98-107); Globulin 2.2 g/dL; Glucose 112 mg/dL (74-99); Magnesium 2.3 mg/dL (1.6-2.3); Non-African American GFR(CKD) 46 (>60 ml/min/1.73 sqM); Potassium 4.5 mmol/L (3.5-5.1); Sodium 132 mmol/L (137-145); Total Bilirubin 3.9 mg/dL (0.2-1.3); Total Protein 5.1 g/dL (6.3-8.2)
--- NOTE | 2023-10-16 10:14 | P.PN ---
Subjective October 15, 2023: Patient is reevaluated today. 87-year-old white female was admitted for gait dysfunction, falls, and electrolyte abnormalities. She has significant history of A-fib with anticoagulation Xarelto hypertension hyperlipidemia and multiple other medical problems. This morning she is feeling better. Vital signs are stable heart rate in the 60s blood pressure normal she is remains on room air. Laboratory studies today showed a hemoglobin of 10.8. No shift, potassium was 3.1, magnesium was 1.3. Other electrolytes are essentially normal. Her sugars seemed well-controlled. She has been seen by orthopedics for her left knee pain which shows tricompartment syndrome. They are following. Cardiology is also seen her and adjust her medications. They have cleared her for discharge at this point. Physical therapy has seen her and recommended subacute rehab due to her debility and generalized weakness. She has signs of a bilateral foot drop. October 16, 2023: Patient remained stable on the floor. She denies any significant complaints. Vital signs remained stable with a slightly elevated blood pressure. Laboratory studies this morning show a normal white count normal hemoglobin, slight hyponatremia at 132, slightly elevated creatinine at 1.09 and a GFR that is now 46. Total bilirubin is now down to 3.9 from 4.4. Protein remains low at 5.1. Ortho, physical therapy following. Objective - Vital Signs Vital signs: Vital Signs Temp 97.6 F 10/16/23 07:00 Pulse 72 10/16/23 07:00 Resp 16 10/16/23 07:00 BP 156/77 10/16/23 07:00 Pulse Ox 95 10/16/23 07:00 FiO2 Intake & Output 10/15/23 10/16/23 10/16/23 18:59 06:59 18:59 Intake Total 60 Balance 60 Weight 65.771 kg Intake: Oral 60 Other: Voiding Method Toilet # Voids 2 1 - Exam General: elderly female in no acute distress in bed Neck: The neck is supple, there is no thyromegaly, lymphadenopathy, tenderness or JVD. Cardiovascular: S1S2 is normal, There is a regular rate and rhythm. No, rub or gallop is appreciated., Trace over 6 systolic ejection murmur at the right sternal border Respiratory: Lungs are clear to auscultation bilaterally, respirations are non-labored, breath sounds are equal. Gastrointestinal: Soft, non-distended, non-tender abdomen without masses or organomegaly noted. There is no rebound or guarding present. Bowel sounds are unremarkable. Musculoskeletal: Normal ROM, no tenderness, There is no pedal edema. There is no calf tenderness or swelling. No cords were appreciated. Gait was not tested at this time. Neurological: CN II-XII intact, there are no obvious motor or sensory deficits. Coordination appears grossly intact. Speech is normal. Skin: Skin is warm and dry and no rashes or lesions are noted. - Labs CBC & Chem 7: 10/16/23 06:46 10/16/23 06:46 Labs: Abnormal Lab Results - Last 24 Hours (Table) 10/15/23 10/15/23 10/15/23 Range/Units 05:49 05:49 13:10 RBC 3.40 L (4.10-5.20) X 10*6/uL Hgb 10.8 L (12.0-15.0) g/dL Hct 31.3 L (37.2-46.3) % Plt Count 93 L (140-440) X 10*3/uL Eosinophils # 0 L (0.04-0.35) X 10*3/uL Sodium (137-145) mmol/L Potassium 3.1 L (3.5-5.5) mmol/L Chloride 111 H (96-109) mmol/L Carbon Dioxide 20.9 L (21.6-31.8) mmol/L Creatinine (0.52-1.04) mg/dL Est GFR (CKD-EPI) 55 L (>=60) Glucose (74-99) mg/dL POC Glucose (mg/dL) 144 H (70-110) mg/dL Calcium 6.8 L (8.7-10.3) mg/dL Magnesium 1.3 L (1.5-2.4) mg/dL Total Bilirubin (0.2-1.3) mg/dL Total Protein (6.3-8.2) g/dL Albumin (3.5-5.0) g/dL 10/15/23 10/15/23 10/16/23 Range/Units 17:31 21:19 06:17 RBC (4.10-5.20) X 10*6/uL Hgb (12.0-15.0) g/dL Hct (37.2-46.3) % Plt Count (140-440) X 10*3/uL Eosinophils # (0.04-0.35) X 10*3/uL Sodium (137-145) mmol/L Potassium (3.5-5.5) mmol/L Chloride (96-109) mmol/L Carbon Dioxide (21.6-31.8) mmol/L Creatinine (0.52-1.04) mg/dL Est GFR (CKD-EPI) (>=60) Glucose (74-99) mg/dL POC Glucose (mg/dL) 154 H 150 H 123 H (70-110) mg/dL Calcium (8.7-10.3) mg/dL Magnesium (1.5-2.4) mg/dL Total Bilirubin (0.2-1.3) mg/dL Total Protein (6.3-8.2) g/dL Albumin (3.5-5.0) g/dL 10/16/23 10/16/23 Range/Units 06:46 06:46 RBC 3.76 L (4.10-5.20) X 10*6/uL Hgb (12.0-15.0) g/dL Hct (37.2-46.3) % Plt Count 103 L (140-440) X 10*3/uL Eosinophils # (0.04-0.35) X 10*3/uL Sodium 132 L (137-145) mmol/L Potassium (3.5-5.5) mmol/L Chloride (96-109) mmol/L Carbon Dioxide (21.6-31.8) mmol/L Creatinine 1.09 H (0.52-1.04) mg/dL Est GFR (CKD-EPI) (>=60) Glucose 112 H (74-99) mg/dL POC Glucose (mg/dL) (70-110) mg/dL Calcium (8.7-10.3) mg/dL Magnesium (1.5-2.4) mg/dL Total Bilirubin 3.9 H (0.2-1.3) mg/dL Total Protein 5.1 L (6.3-8.2) g/dL Albumin 2.9 L (3.5-5.0) g/dL Assessment and Plan Plan: recurrent falls, recent fall last week. Chronic persistent atrial fibrillation with slow ventricular response, anticoagulated on Xarelto Hypokalemia Hypomagnesemia DDD ,bilateral knee pain, left leg edema, DVT ruled out, orthopedics consulted Acute metabolic encephalopathy, resolved Elevated T. bili, ultrasound could not see the gallbladder directly, did see dilated ducts as well. Will repeat T. bili consider MRCP, however patient is asymptomatic Diabetes mellitus II, hemoglobin A1c 4.9 Diabetic neuropathy bilateral lower extremities Chronic kidney disease stage III, baseline creatinine 1.2-1.4. Osteoarthritis Gait dysfunction, uses a walker History of mitral insufficiency, status post clipping 2016 Moderate to severe pulmonary hypertension Hypertension Hyperlipidemia History of right breast cancer status postmastectomy Prior nicotine dependence Will repeat labs in a.m., continue physical therapy ECF is the plan at I discussed with her.. Will be reevaluated the next 24 hours
[2023-10-16 12:29] LABS: Glucose,Whole Blood 174 mg/dL (70-110)
[2023-10-16 17:23] LABS: Glucose,Whole Blood 125 mg/dL (70-110)
[2023-10-16 20:35] LABS: Glucose,Whole Blood 162 mg/dL (70-110)
[2023-10-17 06:10] LABS: Glucose,Whole Blood 117 mg/dL (70-110)
--- NOTE | 2023-10-17 09:55 | P.PN ---
Subjective October 15, 2023: Patient is reevaluated today. 87-year-old white female was admitted for gait dysfunction, falls, and electrolyte abnormalities. She has significant history of A-fib with anticoagulation Xarelto hypertension hyperlipidemia and multiple other medical problems. This morning she is feeling better. Vital signs are stable heart rate in the 60s blood pressure normal she is remains on room air. Laboratory studies today showed a hemoglobin of 10.8. No shift, potassium was 3.1, magnesium was 1.3. Other electrolytes are essentially normal. Her sugars seemed well-controlled. She has been seen by orthopedics for her left knee pain which shows tricompartment syndrome. They are following. Cardiology is also seen her and adjust her medications. They have cleared her for discharge at this point. Physical therapy has seen her and recommended subacute rehab due to her debility and generalized weakness. She has signs of a bilateral foot drop. October 16, 2023: Patient remained stable on the floor. She denies any significant complaints. Vital signs remained stable with a slightly elevated blood pressure. Laboratory studies this morning show a normal white count normal hemoglobin, slight hyponatremia at 132, slightly elevated creatinine at 1.09 and a GFR that is now 46. Total bilirubin is now down to 3.9 from 4.4. Protein remains low at 5.1. Ortho, physical therapy following. October 17, 2023: Patient remained stable on the 6 floor. She has no complaints, she remains afebrile, vital signs are essentially normal except for slightly elevated blood pressure. She will probably go for ECF tomorrow once approved by insurance Objective - Vital Signs Vital signs: Vital Signs Temp 98.1 F 10/17/23 07:00 Pulse 70 10/17/23 07:00 Resp 16 10/17/23 07:00 BP 149/80 10/17/23 07:00 Pulse Ox 95 10/17/23 07:00 FiO2 Intake & Output 10/16/23 10/17/23 10/17/23 18:59 06:59 18:59 Intake Total 0 143 Balance 0 143 Intake: Oral 0 143 Other: Voiding Method Toilet # Voids 3 1 - Exam General: elderly female in no acute distress in bed Neck: The neck is supple, there is no thyromegaly, lymphadenopathy, tenderness or JVD. Cardiovascular: S1S2 is normal, There is a regular rate and rhythm. No, rub or gallop is appreciated., Trace over 6 systolic ejection murmur at the right sternal border Respiratory: Lungs are clear to auscultation bilaterally, respirations are non-labored, breath sounds are equal. Gastrointestinal: Soft, non-distended, non-tender abdomen without masses or organomegaly noted. There is no rebound or guarding present. Bowel sounds are unremarkable. Musculoskeletal: Normal ROM, no tenderness, There is no pedal edema. There is no calf tenderness or swelling. No cords were appreciated. Gait was not tested at this time. Neurological: CN II-XII intact, there are no obvious motor or sensory deficits. Coordination appears grossly intact. Speech is normal. Skin: Skin is warm and dry and no rashes or lesions are noted. - Labs CBC & Chem 7: 10/16/23 06:46 10/17/23 04:43 Labs: Abnormal Lab Results - Last 24 Hours (Table) 10/16/23 10/16/23 10/16/23 Range/Units 12:27 17:21 20:33 POC Glucose (mg/dL) 174 H 125 H 162 H (70-110) mg/dL 10/17/23 Range/Units 06:08 POC Glucose (mg/dL) 117 H (70-110) mg/dL Assessment and Plan Plan: recurrent falls, recent fall last week. Chronic persistent atrial fibrillation with slow ventricular response, anticoagulated on Xarelto Hypokalemia Hypomagnesemia DDD ,bilateral knee pain, left leg edema, DVT ruled out, orthopedics consulted Acute metabolic encephalopathy, resolved Elevated T. bili, ultrasound could not see the gallbladder directly, did see dilated ducts as well. Will repeat T. bili consider MRCP, however patient is asymptomatic Diabetes mellitus II, hemoglobin A1c 4.9 Diabetic neuropathy bilateral lower extremities Chronic kidney disease stage III, baseline creatinine 1.2-1.4. Osteoarthritis Gait dysfunction, uses a walker History of mitral insufficiency, status post clipping 2017 Moderate to severe pulmonary hypertension Hypertension Hyperlipidemia History of right breast cancer status postmastectomy Prior nicotine dependence Will repeat labs in a.m., continue physical therapy ECF is the plan at I d iscussed with her.. Will be reevaluated the next 24 hours
[2023-10-17 10:01] LABS: ALT 9 U/L (8-44); AST 24 U/L (13-35); Albumin 3.4 g/dL (3.8-4.9); Albumin/Globulin Ratio 2.27 Ratio (1.60-3.17); Alkaline Phosphatase 77 U/L (41-126); Blood Urea Nitrogen 10.3 mg/dL (9.0-27.0); Calcium 8.8 mg/dL (8.7-10.3); Chloride 105 mmol/L (96-109); Globulin 1.5 g/dL (1.6-3.3); Glucose 115 mg/dL (70-110); Potassium 4.3 mmol/L (3.5-5.5); Sodium 136 mmol/L (135-145); Total Bilirubin 3.1 mg/dL (0.3-1.2); Total Protein 4.9 g/dL (6.2-8.2)
[2023-10-17 12:06] LABS: Glucose,Whole Blood 157 mg/dL (70-110)
[2023-10-17 17:37] LABS: Glucose,Whole Blood 122 mg/dL (70-110)
[2023-10-17 20:12] LABS: Glucose,Whole Blood 131 mg/dL (70-110)
[2023-10-18 05:17] LABS: Glucose,Whole Blood 125 mg/dL (70-110)
[2023-10-18 11:02] LABS: BUN/Creat Ratio 9.36 Ratio (12.00-20.00); Blood Urea Nitrogen 10.3 mg/dL (9.0-27.0); Carbon Dioxide 23.7 mmol/L (21.6-31.8); Chloride 105 mmol/L (96-109); Glucose 145 mg/dL (70-110); Potassium 4.3 mmol/L (3.5-5.5); Sodium 138 mmol/L (135-145)
--- NOTE | 2023-10-18 11:10 | P.DS ---
Providers Date of admission: 10/13/23 20:48 Expected date of discharge: 10/18/23 Attending physician: Vini White Consults: 10/14/23 09:57 Consult Physician Routine Consulting Provider: Maynor Manzo Consult Reason/Comments: Left knee DDD Do you want consulting provider notified?: Yes Primary care physician: [facility] Course: Final Diagnoses: recurrent falls, recent fall last week, bilateral foot drop. Chronic persistent atrial fibrillation with slow ventricular response, anticoagulated on Xarelto Hypokalemia resolved Hypomagnesemia, supplemented, 2.3 on 10/15 DDD ,bilateral knee pain, left leg edema, DVT ruled out, tricompartment syndrome, evaluated by orthopedic surgery, recommending conservative management; patient may bear weight as tolerated with walker and assistance Acute metabolic encephalopathy, resolved Elevated T. bili, ultrasound could not see the gallbladder directly, did see dilated ducts as well, asymptomatic. Recent T. bili 3.1 Diabetes mellitus II, hemoglobin A1c 4.3 Diabetic neuropathy bilateral lower extremities Chronic kidney disease stage III, baseline creatinine 1.2-1.4. Osteoarthritis Gait dysfunction, uses a walker History of mitral insufficiency, status post clipping 2017 Moderate to severe pulmonary hypertension Hypertension Hyperlipidemia History of right breast cancer status postmastectomy Prior nicotine dependence Hospital course: 10/14/2023 this is an 87-year-old female, lives alone, past medical history significant for diabetes mellitus II, bilateral lower extremity neuropathy , gait dysfunction - uses walker, atrial fibrillation-anticoagulated on Xarelto, hypertension, hyperlipidemia, mitral insufficiency status post clip, moderate to severe pulm pulmonary hypertension, chronic kidney disease stage III ,osteoarthritis, gout, history of right breast cancer with mastectomy, anxiety, prior nicotine dependence and multiple other medical issues presented to the ER status post recent fall on 10/08/2023, hitting her head with complaints of worsening bilateral lower extremity weakness. On ER visit of 10/08/2023, CT of head and C- spine reported no acute intracranial CT abnormality, no evidence of acute cervical spine fracture or traumatic malalignment, moderate cervical spondylosis. Pelvis x-ray reported no evidence of pelvic fracture. Reports she was in the kitchen ,standing at the sink, developed mild dizziness, increased lower extremity weakness, bilateral knee pain and leaned against the cabinets,slid herself down to avoid falling. Denies syncope. Denies head trauma. Denies chest pain, palpitations or shortness of breath. Denies fever, chills or sweats. CT brain/C-spine reported no acute intracranial process, no evidence of cervical spine fracture, moderate to severe multilevel degenerative disc disease, grade 1 anteriolisthesis of C5 and C6. Hypertensive on admission with blood pressure 164/94, EKG reported atrial fibrillation with slow ventricular response, heart rate 48. Troponin negative x 1. left leg edema; x-rays of bilateral knees reported severe degeneration changes with no obvious fracture, left leg venous Doppler reported negative for DVT. Reports decreased appetite, on admission bicarb 32, BUN 23, creatinine 1.36. IV fluid hydration initiated in the ER with renal function improving, bicarb 25.5, BUN 19, creatinine 1.4. Patient's baseline creatinine ranging from 1.2-1.4. Magnesium supplemented in the ER for a level of 1.5. Glucose 115 on admission currently 125. T. bili 4.4, trending reports T. bili of 3-3.3 since 2019. UA negative. Mild delirium, reports there is a wedding occurring across the garcia, in the ER, otherwise alert and oriented x 3. October 15, 2023: Patient is reevaluated today. 87-year-old white female was admitted for gait dysfunction, falls, and electrolyte abnormalities. She has significant history of A-fib with anticoagulation Xarelto hypertension hyperlipidemia and multiple other medical problems. This morning she is feeling better. Vital signs are stable heart rate in the 60s blood pressure normal she is remains on room air. Laboratory studies today showed a hemoglobin of 10.8. No shift, potassium was 3.1, magnesium was 1.3. Other electrolytes are essentially normal. Her sugars seemed well-controlled. She has been seen by orthopedics for her left knee pain which shows tricompartment syndrome. They are following. Cardiology is also seen her and adjust her medications. They have cleared her for discharge at this point. Physical therapy has seen her and recommended subacute rehab due to her debility and generalized weakness. She has signs of a bilateral foot drop. October 16, 2023: Patient remained stable on the floor. She denies any significant complaints. Vital signs remained stable with a slightly elevated blood pressure. Laboratory studies this morning show a normal white count normal hemoglobin, slight hyponatremia at 132, slightly elevated creatinine at 1.09 and a GFR that is now 46. Total bilirubin is now down to 3.9 from 4.4. Protein remains low at 5.1. Ortho, physical therapy following. October 17, 2023: Patient remained stable on the 6 floor. She has no complaints, she remains afebrile, vital signs are essentially normal except for slightly elevated blood pressure. She will probably go for ECF tomorrow once approved by insurance Significant clinical improvement. Denies chest pain, palpitations or shortness of breath. Patient will be discharged to subacute rehab today pending labs, in a stable condition with guarded prognosis. The impression and plan of care has been dictated as directed. : I performed a history and examination of this patient, discussed the same with the dictator. I agree with the dictator's note ,documented as a scribe. Any additional findings or plans will be noted. Patient Condition at Discharge: Stable Plan - Discharge Summary Discharge Rx Participant: Yes New Discharge Prescriptions: New atenoloL [Tenormin] 25 mg PO HS #90 tab Gabapentin [Neurontin] 300 mg PO DAILY@1500 3 Days #3 cap Gabapentin [Neurontin] 600 mg PO BID 3 Days #6 cap Pantoprazole [Protonix] 40 mg PO AC-BRKFST tab Acetaminophen Tab [Tylenol] 650 mg PO Q6HR PRN tab PRN Reason: Fever And/ Or Pain INSULIN LISPRO (HumaLOG) [humaLOG] 0 unit SQ AC-BID #10 ml Continue Montelukast [Singulair] 10 mg PO HS Furosemide [Lasix] 40 mg PO DAILY allopurinoL [Allopurinol] 100 mg PO DAILY Pravastatin Sodium 20 mg PO HS Letrozole [Femara] 2.5 mg PO DAILY traZODone HCL [Desyrel] 100 mg PO HS Rivaroxaban [Xarelto] 20 mg PO DAILY Risedronate Sodium [Risedronate Sodium Dr] 35 mg PO SA Discontinued Gabapentin 300 mg PO DAILY@1500 Gabapentin 600 mg PO BID atenoloL [Tenormin] 50 mg PO HS Spironolactone [Aldactone] 25 mg PO DAILY Discharge Medication List Furosemide [Lasix] 40 mg PO DAILY 01/16/16 [History] Letrozole [Femara] 2.5 mg PO DAILY 01/16/16 [History] Montelukast [Singulair] 10 mg PO HS 01/16/16 [History] Pravastatin Sodium 20 mg PO HS 01/16/16 [History] allopurinoL [Allopurinol] 100 mg PO DAILY 01/16/16 [History] traZODone HCL [Desyrel] 100 mg PO HS 01/16/16 [History] Rivaroxaban [Xarelto] 20 mg PO DAILY 11/04/16 [History] Risedronate Sodium [Risedronate Sodium Dr] 35 mg PO SA 10/13/23 [History] atenoloL [Tenormin] 25 mg PO HS #90 tab 10/14/23 [Rx] Acetaminophen Tab [Tylenol] 650 mg PO Q6HR PRN tab 10/18/23 [Rx] Gabapentin [Neurontin] 300 mg PO DAILY@1500 3 Days #3 cap 10/18/23 [Rx] Gabapentin [Neurontin] 600 mg PO BID 3 Days #6 cap 10/18/23 [Rx] INSULIN LISPRO (HumaLOG) [humaLOG] 0 unit SQ AC-BID #10 ml 10/18/23 [Rx] Pantoprazole [Protonix] 40 mg PO AC-BRKFST tab 10/18/23 [Rx] Follow up Appointment(s)/Referral(s): Betty Shi MD [STAFF PHYSICIAN] - 1 Week Vini White MD [STAFF PHYSICIAN] - 1-2 Days Maynor Manzo DO [Doctor of Osteopathic Medicine] - As Needed Activity/Diet/Wound Care/Special Instructions: CH[place]: CBC, BMP in 3 days Discharge Disposition: TRANSFER TO SNF/ECF
[2023-10-18 12:08] LABS: Glucose,Whole Blood 139 mg/dL (70-110)
[2023-10-18 17:05] LABS: Glucose,Whole Blood 134 mg/dL (70-110)
[2023-10-18 20:30] LABS: Glucose,Whole Blood 147 mg/dL (70-110)
[2023-10-19 02:09] VITALS: RESP 16
[2023-10-19] MEDS: NYSTATIN 100,000 UNIT/GM POWD 15 GM TOPICAL SCH (03:30)
[2023-10-19 05:32] LABS: Glucose,Whole Blood 117 mg/dL (70-110)
[2023-10-19 07:18] VITALS: BP 151/80; TEMP 98.1
[2023-10-19 12:08] LABS: Glucose,Whole Blood 170 mg/dL (70-110)
[2023-10-19 14:35] VITALS: PULSE 67
== END 2023-10-19 15:27 ==
LOC: EC 13:33 → 6NMEDSUR 20:48
PROVIDERS: ADMIT Family Medicine; ATTEND Family Medicine
DX: M21.371 Foot drop, right foot (principal); M21.372 Foot drop, left foot; R29.6 Repeated falls; G93.41 Metabolic encephalopathy; E11.40 Type 2 diabetes mellitus with diabetic neuropathy, unspecified; I48.19 Other persistent atrial fibrillation; E78.5 Hyperlipidemia, unspecified; E83.42 Hypomagnesemia; E87.6 Hypokalemia; F41.9 Anxiety disorder, unspecified; E11.22 Type 2 diabetes mellitus with diabetic chronic kidney disease; I12.9 Hypertensive chronic kidney disease with stage 1 through stage 4 chronic kidney disease, or unspecified chronic kidney disease; N18.30 Chronic kidney disease, stage 3 unspecified; M17.0 Bilateral primary osteoarthritis of knee; M47.812 Spondylosis without myelopathy or radiculopathy, cervical region; M43.12 Spondylolisthesis, cervical region; I27.20 Pulmonary hypertension, unspecified; R26.9 Unspecified abnormalities of gait and mobility; R60.0 Localized edema; Z85.3 Personal history of malignant neoplasm of breast; Z87.891 Personal history of nicotine dependence; Z79.01 Long term (current) use of anticoagulants; Z79.811 Long term (current) use of aromatase inhibitors; Z79.899 Other long term (current) drug therapy; Z88.6 Allergy status to analgesic agent; Z88.0 Allergy status to penicillin
CPT/HCPCS: 96361 ×4; 96366 ×2; 96375; 96365; 99285; 36415; 93005; 97530; 97162; 97166; 80053 ×3; 80048 ×3; 84443 ×2; 83605; 83735 ×3; 84484; 85025 ×4; 85610; 85730; 81001; 83036; 73562; 76705; 93971; 72125; 70450; G0378 ×7; J3475 ×2; C9113

== ENCOUNTER 2024-09-15 22:09 | Emergency (ER) | payer MEDICARE ==
--- NOTE | 2024-09-15 22:37 | CT ---
EXAMINATION TYPE: CT brain cspine wo con DATE OF EXAM: 09/15/2024 COMPARISON: Prior trauma CT October 13, 2023 CLINICAL INDICATION: Female, 88 years old with history of head injury on anticoag, CODE COAG. FALL FR OM STANDING, NO LOS, PT TAKES XARLATO, neck pain TECHNIQUE: CT scan of the head and cervical spine are performed without contrast. CT DLP: 1396.7 mGycm. Automated Exposure Control for Dose Reduction was Utilized. FINDINGS: There is no acute intracranial hemorrhage or midline shift identified. Moderate to severe periventricular and sulcal prominence is redemonstrated. 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 Friend-white matter differentiation fairly well preserved. The calvarium is intact. Bilateral aphakia redemonstrated. Pa tchy opacification right sphenoid sinuses is more prominent versus prior. Cervical spine is visualized in its entirety from C1 through upper thoracic levels and redemonstrates levoconvex scoliosis without evidence of acute fracture or dislocation. There is grade 1 anterolisth esis at C3 on C4 and C5 on C6. Prevertebral soft tissue appears within normal limits. The C1-C2 rob culation is unremarkable. Vertebral body heights are maintained. Severe disc space narrowing and spu rring C5-C6 through C7-T1 levels is redemonstrated. Upper lungs do not show pneumothorax. IMPRESSION: 1. There is no acute fracture or dislocation evident in the cervical spine. 2. No acute intracranial hemorrhage or midline shift is seen. [facility], , 09/15/2024 10:34 PM
--- NOTE | 2024-09-15 22:53 | XR ---
EXAMINATION TYPE: XR forearm LT DATE OF EXAM: 09/15/2024 CLINICAL INDICATION: Female, 88 years old with history of fall, pain TECHNIQUE: Two views of the left forearm are obtained. COMPARISON: None. FINDINGS: Osseous structures are demineralized. Suspect old healed fracture distal radial metaphysis. There is old avulsion fracture from the ulnar styloid. No acute displaced fracture in the radius or ulna. Peripheral IV level of the cubital fossa is noted. IMPRESSION: There is no acute fracture or dislocation seen in the left radius or ulna. [facility], , 09/15/2024 10:50 PM
--- NOTE | 2024-09-15 23:24 | ED ---
Fall HPI - General Chief Complaint: Fall Stated Complaint: Fall Time Seen by Provider: 09/15/24 22:20 Source: patient, EMS Mode of arrival: EMS - History of Present Illness Initial Comments: 88-year-old female presents emergency department after a fall. Patient fell from a standing position. Did hit her head. No loss of consciousness. Fell onto her left arm which was splinted by EMS. Has an abrasion over the top. EMS placed the patient in a c-collar and placed an IV. She was not administered any medications by EMS. Patient does take Xarelto. States it was mechanical fall as she was trying to put something into the fridge. Denies any neck or back pain. No chest pain or shortness of breath. No other alleviating, precipitating or modifying factors - Related Data Home Medications Medication Instructions Recorded Confirmed Furosemide [Lasix] 40 mg PO DAILY 01/16/16 10/13/23 Letrozole [Femara] 2.5 mg PO DAILY 01/16/16 10/13/23 Montelukast [Singulair] 10 mg PO HS 01/16/16 10/13/23 Pravastatin Sodium 20 mg PO HS 01/16/16 10/13/23 allopurinoL [Allopurinol] 100 mg PO DAILY 01/16/16 10/13/23 traZODone HCL [Desyrel] 100 mg PO HS 01/16/16 10/13/23 Rivaroxaban [Xarelto] 20 mg PO DAILY 11/04/16 10/13/23 Risedronate Sodium [Risedronate 35 mg PO SA 10/13/23 10/13/[address]] Previous Rx's Medication Instructions Recorded atenoloL [Tenormin] 25 mg PO HS #90 tab 10/14/23 Acetaminophen Tab [Tylenol] 650 mg PO Q6HR PRN tab 10/18/23 Gabapentin [Neurontin] 300 mg PO DAILY@1500 3 Days #3 cap 10/18/23 Gabapentin [Neurontin] 600 mg PO BID 3 Days #6 cap 10/18/23 INSULIN LISPRO (HumaLOG) [humaLOG] 0 unit SQ AC-BID #10 ml 10/18/23 Pantoprazole [Protonix] 40 mg PO AC-BRKFST tab 10/18/23 Allergies Allergy/AdvReac Type Severity Reaction Status Date / Time naproxen Allergy Mild Itching Verified 09/15/24 22:29 Penicillins Allergy Rash/Hives Verified 09/15/24 22:29 Review of Systems ROS Statement: Those systems with pertinent positive or pertinent negative responses have been documented in the HPI. ROS Other: All systems not noted in ROS Statement are negative. Past Medical History Past Medical History: Cancer, Diabetes Mellitus, Hyperlipidemia, Hypertension, Mitral Valve Prolapse (MVP), Osteoarthritis (OA) Additional Past Medical History / Comment(s): GOUT, HX RT BREAST CA , NEUROPATHY LEGS and FEET. USES WALKER or cance, UNSTEADY ON FEET. leaky heart valve, umbilical hernia, on rx post op from sinus surgery. History of Any Multi-Drug Resistant Organisms: MRSA Date of last positivie culture/infection: 05/04/24 MDRO Source:: rt foot Past Surgical History: Breast Surgery, Cholecystectomy, Hysterectomy Additional Past Surgical History / Comment(s): MASTECTOMY RT BREAST W/ AXILLA LYMPH NODE, don cataracts, sinus surgery 10/01/16 Past Anesthesia/Blood Transfusion Reactions: Motion Sickness Additional Past Anesthesia/Blood Transfusion Reaction / Comment(s): . Past Psychological History: Anxiety Smoking Status: Never smoker Past Alcohol Use History: None Reported Past Drug Use History: None Reported - Past Family History Mother Family Medical History: Cancer Brother(s) Family Medical History: Cancer General Exam General appearance: alert, in no apparent distress Head exam: Present: atraumatic, normocephalic, normal inspection Eye exam: Present: normal appearance, PERRL, EOMI. Absent: scleral icterus, conjunctival injection, periorbital swelling ENT exam: Present: normal exam, mucous membranes moist Neck exam: Present: normal inspection. Absent: tenderness, meningismus, lymphadenopathy Respiratory exam: Present: normal lung sounds bilaterally. Absent: respiratory distress, wheezes, rales, rhonchi, stridor Cardiovascular Exam: Present: regular rate, normal rhythm, normal heart sounds. Absent: systolic murmur, diastolic murmur, rubs, gallop, clicks GI/Abdominal exam: Present: soft, normal bowel sounds. Absent: distended, tenderness, guarding, rebound, rigid Extremities exam: Present: full ROM, tenderness (And swelling to the left distal wrist), normal capillary refill. Absent: pedal edema, joint swelling, calf tenderness Back exam: Present: normal inspection Neurological exam: Present: alert, oriented X3, CN II-XII intact Psychiatric exam: Present: normal affect, normal mood Skin exam: Present: warm, dry, intact, normal color. Absent: rash Course Vital Signs 09/15/24 09/15/24 09/15/24 22:16 23:03 23:52 Temperature 98 F 98.7 F Pulse Rate 72 74 71 Respiratory 16 18 16 Rate Blood Pressure 144/91 156/59 148/76 O2 Sat by Pulse 97 97 98 Oximetry Procedures - Orthopedic Splinting/Casting Injury #1 Side: left Upper Extremity Injury Location: wrist Upper Extremity Immobilizer: sugar tong splint, Karthikeyan wrap, synthetic pre-padded splint Medical Decision Making - Medical Decision Making Was pt. sent in by a medical professional or institution ([facility] [place], PUBLIC HEALTH ENGINEER, urgent care, hospital, or longterm...) When possible be specific @ -No Did you speak to anyone other than the patient for history (EMS, parent, family, police, friend...)? What history was obtained from this source @ -Spoke with EMS for history Did you review nursing and triage notes (agree or disagree)? Why? @ -I reviewed and agree with nursing and triage notes Were old charts reviewed (outside hosp., previous admission, EMS record, old EKG, old radiological studies, urgent care reports/EKG's, longterm records)? Report findings @ -No old charts were reviewed Differential Diagnosis (chest pain, altered mental status, abdominal pain women, abdominal pain men, vaginal bleeding, weakness, fever, dyspnea, syncope, headache, dizziness, GI bleed, back pain, seizure, CVA, palpatations, mental health, musculoskeletal)? @ -Differential Musculoskeletal Muscular strain, contusion, ligament sprain, fracture, arthritis, septic arthritis, bursitis, cellulitis, muscle spasm, nerve compression, DVT, arterial occlusion, herpes zoster, electrolyte abnormality, tumor.... This is not meant to be in all inclusive list EKG interpreted by me (3pts min.). @ -Not done X-rays interpreted by me (1pt min.). @ -Yes which demonstrates old fracture of the wrist CT interpreted by me (1pt min.). @ -Yes which demonstrates no acute intracranial process U/S interpreted by me (1pt. min.). @ -None done What testing was considered but not performed or refused? (CT, X-rays, U/S, labs)? Why? @ -None What meds were considered but not given or refused? Why? @ -None Did you discuss the management of the patient with other professionals (professionals i.e. , PA, PUBLIC HEALTH ENGINEER, lab, RT, psych nurse, director social, pull over, teacher, medical officer psychiatry, pillowcase turner)? Give summary @ -No Was smoking cessation discussed for >3mins.? @ -No Was critical care preformed (if so, how long)? @ -No Were there social determinants of health that impacted care today? How? (Homelessness, low income, unemployed, alcoholism, drug addiction, transportation, low edu. Level, literacy, decrease access to med. care, alf, rehab)? @ -No Was there de-escalation of care discussed even if they declined (Discuss DNR or withdrawal of care, Hospice)? DNR status @ -No What co-morbidities impacted this encounter? (DM, HTN, Smoking, COPD, CAD, Cancer, CVA, ARF, Chemo, Hep., AIDS, mental health diagnosis, sleep apnea, morbid obesity)? @ -None Was patient admitted / discharged? Hospital course, mention meds given and route, prescriptions, significant lab abnormalities, going to OR and other pertinent info. @ -Upon arrival patient seen and evaluated in room 3. Thorough history and physical exam was performed. Patient is sent for CT which demonstrates no acute intracranial process. X-ray was performed of the left wrist which demonstrates an old fracture. She does have fairly significant tenderness and swelling and therefore I did place her in a sugar-tong splint. She will follow-up with the orthopedic office for further evaluation of her wrist pain. Return for any new or worsening symptoms. Patient agreeable and discharged in stable condition Undiagnosed new problem with uncertain prognosis? @ -No Drug Therapy requiring intensive monitoring for toxicity (Heparin, Nitro, Insulin, Cardizem)? @ -No Were any procedures done? @ -No Diagnosis/symptom? @ -Acute fall, acute left wrist pain, blunt head trauma, Xarelto coagulopathy Acute, or Chronic, or Acute on Chronic? @ -Acute Uncomplicated (without systemic symptoms) or Complicated (systemic symptoms)? @ -Complicated Side effects of treatment? @ -No Exacerbation, Progression, or Severe Exacerbation? @ -No Poses a threat to life or bodily function? How? (Chest pain, [place], [place], pneumonia, PE, COPD, DKA, ARF, appy, cholecystitis, CVA, Diverticulitis, Homicidal, Suicidal, threat to staff... and all critical care pts) @ -No Disposition Clinical Impression: Fall, Left wrist pain, Blunt head trauma Disposition: HOME SELF-CARE Condition: Stable Instructions (If sedation given, give patient instructions): Head Injury (ED), Wrist Sprain (ED) Additional Instructions: Please take Tylenol 650 mg every 6 hours for pain control. Wear the splint. Do not get it wet. Follow-up with orthopedic doctor in 2 to 4 days. Call to make an appointment with Dr. Dennison. Return for any new or worsening symptoms Is patient prescribed a controlled substance at d/c from ED?: No Referrals: Seng Henao Jr, DO [Primary Care Provider] - 1-2 days Brayan Dennison MD [STAFF PHYSICIAN] - 1-2 days Time of Disposition: 23:24
[2024-09-15] MEDS: ACETAMINOPHEN TAB 325 MG TAB PO STA (23:27)
[2024-09-15 23:57] VITALS: BP 148/76; PULSE 71; RESP 16; TEMP 98.7
== END 2024-09-15 23:53 | disposition home or self-care (01) ==
LOC: EC 22:09
DX: S09.90XA Unspecified injury of head, initial encounter (principal); M25.532 Pain in left wrist; Z79.01 Long term (current) use of anticoagulants; Z88.6 Allergy status to analgesic agent; Z88.0 Allergy status to penicillin; W19.XXXA Unspecified fall, initial encounter
CPT/HCPCS: 29125; 70450; 72125; 99284

== ENCOUNTER 2024-10-24 12:28 | Inpatient (IN) | payer MEDICARE ==
--- NOTE | 2024-10-24 12:53 | ED ---
General Adult HPI - General Chief complaint: Fall Stated complaint: Fall Time Seen by Provider: 10/24/24 12:30 Source: patient, EMS, RN notes reviewed Mode of arrival: EMS Limitations: physical limitation - History of Present Illness Initial comments: Patient is an 88-year-old female present to the emergency department with a fall. Patient fall occurred around a day or 2 ago. Patient states she is unclear why she fell. Patient does not believe she passed out. Patient has been lying on the ground secondary to weakness since that time. Patient feels her left side may be a little bit more weak than normal. Patient does have some chronic left-sided weakness. Patient has some left arm pain however unclear wear. Patient does have several areas of skin breakdown. - Related Data Home Medications Medication Instructions Recorded Confirmed Furosemide [Lasix] 40 mg PO DAILY 01/16/16 10/13/23 Letrozole [Femara] 2.5 mg PO DAILY 01/16/16 10/13/23 Montelukast [Singulair] 10 mg PO HS 01/16/16 10/13/23 Pravastatin Sodium 20 mg PO HS 01/16/16 10/13/23 allopurinoL [Allopurinol] 100 mg PO DAILY 01/16/16 10/13/23 traZODone HCL [Desyrel] 100 mg PO HS 01/16/16 10/13/23 Rivaroxaban [Xarelto] 20 mg PO DAILY 11/04/16 10/13/23 Risedronate Sodium [Risedronate 35 mg PO SA 10/13/23 10/13/[address]] Previous Rx's Medication Instructions Recorded atenoloL [Tenormin] 25 mg PO HS #90 tab 10/14/23 Acetaminophen Tab [Tylenol] 650 mg PO Q6HR PRN tab 10/18/23 Gabapentin [Neurontin] 300 mg PO DAILY@1500 3 Days #3 cap 10/18/23 Gabapentin [Neurontin] 600 mg PO BID 3 Days #6 cap 10/18/23 INSULIN LISPRO (HumaLOG) [humaLOG] 0 unit SQ AC-BID #10 ml 10/18/23 Pantoprazole [Protonix] 40 mg PO AC-BRKFST tab 10/18/23 Allergies Allergy/AdvReac Type Severity Reaction Status Date / Time naproxen Allergy Mild Itching Verified 10/24/24 12:45 Penicillins Allergy Rash/Hives Verified 10/24/24 12:45 Review of Systems ROS Statement: Those systems with pertinent positive or pertinent negative responses have been documented in the HPI. ROS Other: All systems not noted in ROS Statement are negative. Constitutional: Denies: fever Eyes: Denies: eye pain ENT: Denies: ear pain Respiratory: Denies: dyspnea Cardiovascular: Denies: chest pain Gastrointestinal: Denies: abdominal pain Neurological: Reports: as per HPI, weakness. Denies: headache, confusion Past Medical History Past Medical History: Atrial Fibrillation, Cancer, Diabetes Mellitus, Hyperlipidemia, Hypertension, Mitral Valve Prolapse (MVP), Osteoarthritis (OA) Additional Past Medical History / Comment(s): GOUT, HX RT BREAST CA , NEUROPATHY LEGS and FEET. USES WALKER or cance, UNSTEADY ON FEET. leaky heart valve, umbilical hernia, on rx post op from sinus surgery. History of Any Multi-Drug Resistant Organisms: MRSA Date of last positivie culture/infection: 05/04/24 MDRO Source:: rt foot Past Surgical History: Breast Surgery, Cholecystectomy, Hysterectomy Additional Past Surgical History / Comment(s): MASTECTOMY RT BREAST W/ AXILLA LYMPH NODE, don cataracts, sinus surgery 10/01/16 Past Anesthesia/Blood Transfusion Reactions: Motion Sickness Additional Past Anesthesia/Blood Transfusion Reaction / Comment(s): . Past Psychological History: Anxiety Smoking Status: Never smoker Past Alcohol Use History: None Reported Past Drug Use History: None Reported - Past Family History Mother Family Medical History: Cancer Brother(s) Family Medical History: Cancer General Exam Limitations: physical limitation General appearance: alert Head exam: Present: normocephalic Eye exam: Present: normal appearance, PERRL, EOMI ENT exam: Present: mucous membranes dry Neck exam: Present: other (Mild diffuse tenderness. C-collar is on.) Respiratory exam: Present: normal lung sounds bilaterally Cardiovascular Exam: Present: regular rate, normal rhythm GI/Abdominal exam: Present: soft. Absent: tenderness Extremities exam: Present: full ROM. Absent: tenderness Neurological exam: Present: alert, oriented X3, CN II-XII intact. Absent: motor sensory deficit Psychiatric exam: Present: normal affect, normal mood Skin exam: Present: other (Multiple areas of skin breakdown diffusely.) Course Vital Signs 10/24/24 10/24/24 12:37 15:48 Pulse Rate 59 L 67 Respiratory 18 20 Rate Blood Pressure 132/81 119/98 O2 Sat by Pulse 97 97 Oximetry EKG Findings - EKG Results: EKG: interpreted by ERMD (Left axis.), normal QRS, normal ST/T EKG shows: atrial fibrillation Procedures - Orthopedic Splinting/Casting Injury #1 Side: left Upper Extremity Injury Location: short arm Upper Extremity Immobilizer: volar splint Medical Decision Making - Medical Decision Making Patient has been admitted to medicine, not surgery secondary to unknown time of wrist fracture. In addition this is something that normally would be managed as an outpatient and does not need to be admitted to the hospital for this. Was pt. sent in by a medical professional or institution (, PA, CLAM SHOVEL OPERATOR, urgent care, hospital, or retirement...) When possible be specific @ -No Did you speak to anyone other than the patient for history (EMS, parent, family, police, friend...)? What history was obtained from this source @ -No Did you review nursing and triage notes (agree or disagree)? Why? @ -I reviewed and agree with nursing and triage notes Were old charts reviewed (outside hosp., previous admission, EMS record, old EKG, old radiological studies, urgent care reports/EKG's, retirement records)? Report findings @ -No old charts were reviewed Differential Diagnosis (chest pain, altered mental status, abdominal pain women, abdominal pain men, vaginal bleeding, weakness, fever, dyspnea, syncope, headache, dizziness, GI bleed, back pain, seizure, CVA, palpatations, mental health, musculoskeletal)? @ -Differential Weakness: Hypoglycemia, shock, sepsis, hyponatremia, anemia, infection, VA, ETOH, adverse medicine reaction, overdose, stroke, this is not meant to be an all-inclusive list. EKG interpreted by me (3pts min.). @ -As above X-rays interpreted by me (1pt min.). @ -Left forearm x-ray shows distal radius fracture. Pelvis x-ray without bony abnormality. Left humerus without acute fracture. Checks x-ray with mild interstitial nonspecific change CT interpreted by me (1pt min.). @ -CT scan brain and cervical spine without acute abnormality U/S interpreted by me (1pt. min.). @ -None done What testing was considered but not performed or refused? (CT, X-rays, U/S, labs)? Why? @ -None What meds were considered but not given or refused? Why? @ -None Did you discuss the management of the patient with other professionals (professionals i.e. , PA, CLAM SHOVEL OPERATOR, lab, RT, psych nurse, school social worker, stave log cut off saw operator, teacher, district fire management officer, case loader operator)? Give summary @ -Dr. White to admit as patient Was smoking cessation discussed for >3mins.? @ -No Was critical care preformed (if so, how long)? @ -No Were there social determinants of health that impacted care today? How? (Homelessness, low income, unemployed, alcoholism, drug addiction, transportation, low edu. Level, literacy, decrease access to med. care, mcc, rehab)? @ -No Was there de-escalation of care discussed even if they declined (Discuss DNR or withdrawal of care, Hospice)? DNR status @ -No What co-morbidities impacted this encounter? (DM, HTN, Smoking, COPD, CAD, Cancer, CVA, ARF, Chemo, Hep., AIDS, mental health diagnosis, sleep apnea, morb id obesity)? @ -None Was patient admitted / discharged? Hospital course, mention meds given and rou te, prescriptions, significant lab abnormalities, going to OR and other pertinent info. @ -Patient presents with fall and general weakness. Patient does have rhabdomyolysis. Patient will be admitted with hydration. Also concern for left wrist fracture out however patient adds that she does have history of previous left wrist fracture. Patient will be admitted with orthopedic consult. Patient reevaluated and updated. Admission orders written. Undiagnosed new problem with uncertain prognosis? @ -No Drug Therapy requiring intensive monitoring for toxicity (Heparin, Nitro, Insulin, Cardizem)? @ -No Were any procedures done? @ -No Diagnosis/symptom? @ -Rhabdomyolysis, left wrist fracture Acute, or Chronic, or Acute on Chronic? @ -Acute, acute Uncomplicated (without systemic symptoms) or Complicated (systemic symptoms)? @ -Default Side effects of treatment? @ -No Exacerbation, Progression, or Severe Exacerbation? @ -No Poses a threat to life or bodily function? How? (Chest pain, USA, VA, pneumonia, PE, COPD, DKA, ARF, appy, cholecystitis, CVA, Diverticulitis, Homicidal, Suic idal, threat to staff... and all critical care pts) @ -Threat to renal function - Lab Data Result diagrams: 10/24/24 12:52 10/24/24 12:52 Lab Results 10/24/24 10/24/24 10/24/24 Range/Units 12:52 12:52 12:52 WBC 28.97 H (4.50-10.00) 10*3/uL RBC 4.95 (4.10-5.20) 10*6/uL Hgb 14.9 (12.0-15.0) g/dL Hct 41.7 (37.2-46.3) % MCV 84.2 (80.0-97.0) fL MCH 30.1 (27.0-32.0) pg MCHC 35.7 (32.0-37.0) g/dL Plt Count 159 (140-440) 10*3/uL MPV 8.8 L (9.5-12.2) fL Immature Gran % (Auto) 3.9 % Neutrophils % 87.0 % Lymphocytes % 3.6 % Monocytes % 4.9 % Eosinophils % 0.3 % Basophils % 0.3 % Immature Gran # 1.14 H (0.00-0.04) 10*3/uL Neutrophils # 25.18 H (1.80-7.70) 10*3/uL Lymphocytes # 1.05 (0.90-5.00) 10*3/uL Monocytes # 1.43 H (0.20-1.00) 10*3/uL Eosinophils # 0.08 (0.04-0.35) 10*3/uL Basophils # 0.09 (0.00-0.10) 10*3/uL Manual Slide Review Performed Sodium 139 (137-145) mmol/L Potassium 4.0 (3.5-5.1) mmol/L Chloride 100 (98-107) mmol/L Carbon Dioxide 26 (22-30) mmol/L Anion Gap 13 mmol/L BUN 51 H (7-17) mg/dL Creatinine 1.44 H (0.52-1.04) mg/dL Est GFR (CKD-EPI)AfAm 38 (>60 ml/min/1.73 sqM) Est GFR (CKD-EPI)NonAf 33 (>60 ml/min/1.73 sqM) Glucose 137 H (74-99) mg/dL Lactic Ac Sepsis Rflx Plasma Lactic Acid Ben 3.2 H* (0.7-2.0) mmol/L Calcium 9.8 (8.4-10.2) mg/dL Magnesium 1.6 (1.6-2.3) mg/dL Total Bilirubin 4.3 H (0.2-1.3) mg/dL AST 255 H (14-36) U/L ALT 46 H (4-34) U/L Alkaline Phosphatase 92 (38-126) U/L Creatine Kinase 4522 H* (30-135) U/L Troponin I (0.000-0.034) ng/mL Total Protein 6.2 L (6.3-8.2) g/dL Albumin 3.6 (3.5-5.0) g/dL 10/24/24 10/24/24 Range/Units 12:52 14:03 WBC (4.50-10.00) 10*3/uL RBC (4.10-5.20) 10*6/uL Hgb (12.0-15.0) g/dL Hct (37.2-46.3) % MCV (80.0-97.0) fL MCH (27.0-32.0) pg MCHC (32.0-37.0) g/dL Plt Count (140-440) 10*3/uL MPV (9.5-12.2) fL Immature Gran % (Auto) % Neutrophils % % Lymphocytes % % Monocytes % % Eosinophils % % Basophils % % Immature Gran # (0.00-0.04) 10*3/uL Neutrophils # (1.80-7.70) 10*3/uL Lymphocytes # (0.90-5.00) 10*3/uL Monocytes # (0.20-1.00) 10*3/uL Eosinophils # (0.04-0.35) 10*3/uL Basophils # (0.00-0.10) 10*3/uL Manual Slide Review Sodium (137-145) mmol/L Potassium (3.5-5.1) mmol/L Chloride (98-107) mmol/L Carbon Dioxide (22-30) mmol/L Anion Gap mmol/L BUN (7-17) mg/dL Creatinine (0.52-1.04) mg/dL Est GFR (CKD-EPI)AfAm (>60 ml/min/1.73 sqM) Est GFR (CKD-EPI)NonAf (>60 ml/min/1.73 sqM) Glucose (74-99) mg/dL Lactic Ac Sepsis Rflx Y Plasma Lactic Acid Ben (0.7-2.0) mmol/L Calcium (8.4-10.2) mg/dL Magnesium (1.6-2.3) mg/dL Total Bilirubin (0.2-1.3) mg/dL AST (14-36) U/L ALT (4-34) U/L Alkaline Phosphatase (38-126) U/L Creatine Kinase (30-135) U/L Troponin I 0.058 H* (0.000-0.034) ng/mL Total Protein (6.3-8.2) g/dL Albumin (3.5-5.0) g/dL Disposition Clinical Impression: Rhabdomyolysis Disposition: ADMITTED IP TO THIS [facility] Condition: Serious Is patient prescribed a controlled substance at d/c from ED?: No Referrals: Vini White MD [Primary Care Provider] - 1-2 days Time of Disposition: 17:10
[2024-10-24 13:06] LABS: Basophils # (A) 0.09 10*3/uL (0.00-0.10); Basophils % (A) 0.3 %; Eosinophils # (A) 0.08 10*3/uL (0.04-0.35); Eosinophils % (A) 0.3 %; HCT 41.7 % (37.2-46.3); HGB 14.9 g/dL (12.0-15.0); Lymphocytes # (A) 1.05 10*3/uL (0.90-5.00); Lymphocytes % (A) 3.6 %; MCH 30.1 pg (27.0-32.0); MCHC 35.7 g/dL (32.0-37.0); MCV 84.2 fL (80.0-97.0); Monocytes # (A) 1.43 10*3/uL (0.20-1.00); Monocytes % (A) 4.9 %; Neutrophils # (A) 25.18 10*3/uL (1.80-7.70); Neutrophils % (A) 87.0 %; Platelet Count 159 10*3/uL (140-440); RBC 4.95 10*6/uL (4.10-5.20); RDW 14.6 % (11.5-14.5); WBC 28.97 10*3/uL (4.50-10.00)
[2024-10-24 13:19] LABS: ALT 46 U/L (4-34); African American GFR (CKD) 38 (>60 ml/min/1.73 sqM); Albumin 3.6 g/dL (3.5-5.0); Anion Gap 13 mmol/L; Blood Urea Nitrogen 51 mg/dL (7-17); Calcium 9.8 mg/dL (8.4-10.2); Carbon Dioxide 26 mmol/L (22-30); Chloride 100 mmol/L (98-107); Glucose 137 mg/dL (74-99); Magnesium 1.6 mg/dL (1.6-2.3); Non-African American GFR(CKD) 33 (>60 ml/min/1.73 sqM); Sodium 139 mmol/L (137-145); Total Protein 6.2 g/dL (6.3-8.2)
[2024-10-24 13:31] LABS: AST 255 U/L (14-36); Potassium 4.0 mmol/L (3.5-5.1)
[2024-10-24 13:32] LABS: Alkaline Phosphatase 92 U/L (38-126)
[2024-10-24] MEDS: SODIUM CHLORIDE 0.9% 1,000 ML IV SCH (13:55)
[2024-10-24] MEDS: DIPH,PERTUS(ACELL)TETVAC-LF 0.5 ML VIAL IM ONE (13:56)
[2024-10-24 14:02] LABS: Creatine Kinase 4522 U/L (30-135)
--- NOTE | 2024-10-24 15:40 | CT ---
EXAMINATION TYPE: CT brain heron wo con DATE OF EXAM: 10/24/2024 COMPARISON: 09/15/2024 CLINICAL INDICATION: Female, 88 years old with history of fall; PHH, Fall. TECHNIQUE: CT scan of the head and cervical spine are performed without contrast. CT DLP: 1357.[address] CTDI: mGy Automated exposure control for dose reduction was used. Findings: Head CT: Ventricles, basal cisterns and sulci over convexities are markedly enlarged consistent with marked ge neralized atrophy. There is no mass effect or shift of midline structures. No abnormal density is seen throughout the brain parenchyma and there is no acute intra or extra-axia l hemorrhage. Posterior fossa including the brainstem, fourth ventricle and cerebellar pontine angles are grossly n ormal. The intraorbital contents appear normal and symmetric. Visualized paranasal sinuses are well aerated. CT cervical spine: Craniovertebral junction relationships and prevertebral soft tissues are normal. The cervical vertebral segments are normal in height and there is no fracture. There is a 3 to 4 mm anterolisthesis of C5 on C6. There is severe degenerative disc disease with severe disc space narrowing and spondylosis at the C5- 6, C6-7 and C7/T1 levels. There is advanced osteoarthritis of the facet joints throughout the cervical spine and of the uncover tebral joints in the lower cervical spine. The bony cervical canal is widely patent. There is moderate to severe bony neural foraminal encroachm ent at the C5-6 level on the right. The paraspinal soft tissues unremarkable. IMPRESSION: 1. Head CT: No acute bleed or mass effect. Marked generalized atrophy. 2. CT cervical spine: No acute trauma. Marked degenerative disc disease and osteoarthritis of the cer vical spine as described above. [facility], , 10/24/2024 3:38 PM
[2024-10-24] MEDS: SODIUM CHLORIDE 0.9% 1,000 ML IV STA (15:47)
--- NOTE | 2024-10-24 16:28 | XR ---
EXAMINATION TYPE: XR chest 1V portable DATE OF EXAM: 10/24/2024 4:24 PM COMPARISON: Chest radiographs from 05/16/2020. CLINICAL INDICATION: Female, 88 years old with history of fall; [facility] TECHNIQUE: XR chest 1V portable Frontal view of the chest. FINDINGS: Lungs/Pleura: There is no evidence of pleural effusion, focal consolidation, or pneumothorax. Pulmonary vascularity: Pulmonary vascular congestion. Heart/mediastinum: Cardiomediastinal silhouette is enlarged. Musculoskeletal: Degenerative changes of the shoulder joints. Other findings: None IMPRESSION: Cardiomegaly and mild pulmonary vascular congestion. Correlate with BNP for congestive heart failure. [facility], , 10/24/2024 4:26 PM
--- NOTE | 2024-10-24 16:32 | XR ---
EXAMINATION TYPE: XR humerus LT, XR forearm LT DATE OF EXAM: 10/24/2024 4:24 PM COMPARISON: None CLINICAL INDICATION: Female, 88 years old with history of fall; PHH, pain TECHNIQUE: XR humerus LT, XR forearm LT examined in frontal and lateral projections. Frontal and lateral views of the forearm. FINDINGS/IMPRESSION: 1. Acute distal radius fracture with intra-articular extension.. 2. Severe degeneration changes of the left humerus proximally at the shoulder and poor visualization of the distal humerus at the elbow due to overlapping soft tissue structures. There remains concern for fracture consider CT. 3. The elbow appears intact. [facility], , 10/24/2024 4:30 PM
--- NOTE | 2024-10-24 16:34 | XR ---
EXAMINATION TYPE: XR pelvis AP view DATE OF EXAM: 10/24/2024 4:24 PM COMPARISON: 10/08/2023. CLINICAL INDICATION: Female, 88 years old with history of fall; pain H TECHNIQUE: XR pelvis AP view, examined in a single projection. FINDINGS: There is no evidence of fracture or dislocation. There is no soft tissue abnormality. No a bnormal calcifications are present. The spine appears intact. The hips appear intact. Osteophyte form ation of the superior acetabulum bilaterally with mild joint space narrowing. There are atheroscleros is of the arterial vasculature. Large stool burden in the rectum. IMPRESSION: 1. No acute osseous pathology. 2. Large stool burden in the rectum. [facility], , 10/24/2024 4:32 PM
[2024-10-24] MEDS ORDERED: NALOXONE 0.4 MG/ML 1 ML VIAL IV PRN (17:11)
[2024-10-24] MEDS ORDERED: traMADol 50 MG TAB PO PRN (17:11)
[2024-10-24] MEDS ORDERED: ACETAMINOPHEN TAB 325 MG TAB PO PRN (17:11)
[2024-10-24 17:18] LABS: INR 1.4 (<1.2); Partial Thromboplastin Time 26.0 sec (22.0-30.0); Prothrombin Time 14.5 sec (10.0-12.5)
[2024-10-24 18:30] LABS: Amorphous Sediment,Urine Rare /hpf; Bilirubin,Urine Negative (Negative); Blood,Urine Large (Negative); Color,Urine Light Red; Glucose,Urine (UA) Negative (Negative); Ketones,Urine Negative (Negative); Leukocyte Esterase,Urine Negative (Negative); Mucus,Urine Rare /hpf; Nitrite,Urine Negative (Negative); PH, Urine 5.5 (5.0-8.0); Protein,Urine 1+ (Negative); RBC,Urine 1 /hpf (0-5); Specific Gravity,Urine 1.016 (1.001-1.035); Squamous Epithelial Cell,Urine 1 /hpf (0-4); Urobilinogen,Urine <2.0 mg/dL (<2.0); WBC,Urine 9 /hpf (0-5)
--- NOTE | 2024-10-24 19:26 | XR ---
EXAMINATION TYPE: XR wrist complete LT DATE OF EXAM: 10/24/2024 7:04 PM INDICATION: Patient age:Female; 88 years old; Reason for study: Fracture; PHH. pain COMPARISON: Left forearm radiograph the same date, 09/15/2024 TECHNIQUE: 3 views of the left wrist. Frontal, lateral, and oblique. FINDINGS: Diffuse bone demineralization which limits evaluation. Redemonstration of subacute appearin g fracture of the distal radius with impaction and surrounding callus formation/sclerosis. There is i ntra-articular extension into the radiocarpal joint. No significant angulation. Subacute minimally di splaced fracture of the radial styloid process. This is ununited with remaining ulna. Vascular calcif ications noted. Soft tissue swelling in the wrist. Degenerative changes of the first CMC joint. No vi sualized dislocation. IMPRESSION: 1. Subacute appearing impacted distal radius fracture with intra-articular extension. There is some surrounding sclerosis and callus formation. 2. Subacute appearing ulnar sellar process fracture. [facility], , 10/24/2024 7:23 PM
--- NOTE | 2024-10-24 19:41 | CT ---
EXAMINATION TYPE: CT shoulder LT wo con CT DLP: 311.6 mGycm, Automated exposure control for dose reduction was used. DATE OF EXAM: 10/24/2024 7:10 PM COMPARISON: Left humerus radiograph 10/24/2024. CLINICAL INDICATION:Female, 88 years old with history of Possible fracture; PHH, Possible fx, pain TECHNIQUE: Axial images were obtained of the left shoulder without the use of IV contrast. Additiona l coronal and sagittal reformatted images and soft tissue and bone window were obtained for review. 3 -D reconstruction was created on a separate workstation. FINDINGS: Diffuse bone demineralization which limits evaluation. There is no evidence of fracture, kang bluxation, or dislocation. Advanced degenerative changes of the left shoulder with joint space narrow ing and spurring. Advanced AC joint arthropathy with superior and inferior surface spurring and scler osis. Calcific tendinosis involving the supraspinatus and subscapularis tendons. Subcoracoid bursal d istention. No significant soft tissue swelling or joint effusion is identified. No focal muscular atr ophy or edema is identified. No radiopaque foreign body identified. No significant finding within the visualized left lung. Partial visualization of cardiomegaly with mo derate coronary arterial calcifications. Moderately dilated main pulmonary artery measuring up to 3.3 cm which can be seen with pulmonary arterial hypertension. Removal posterior left rib fractures. IMPRESSION: 1. No acute fracture or dislocation. 2. 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 3. Severe arthropathy of the left AC joint. 4. Advanced calcific tendinosis of the left shoulder. [facility], , 10/24/2024 7:39 PM
[2024-10-24] MEDS: GABAPENTIN 300 MG CAP PO SCH (22:04)
[2024-10-24] MEDS: prednisoLONE ACETATE 1% OPHTH DROPS 5 ML BTL BOTH EYES SCH (22:04)
[2024-10-24] MEDS: MONTELUKAST 10 MG TAB PO SCH (22:05)
[2024-10-24] MEDS: PRAVASTATIN SODIUM 20 MG TAB PO SCH (22:05)
[2024-10-25 06:23] LABS: HCT 38.1 % (37.2-46.3); HGB 13.3 g/dL (12.0-15.0); MCH 30.2 pg (27.0-32.0); MCHC 34.9 g/dL (32.0-37.0); MCV 86.6 fL (80.0-97.0); Platelet Count 138 10*3/uL (140-440); RBC 4.40 10*6/uL (4.10-5.20); RDW 14.5 % (11.5-14.5); WBC 23.51 10*3/uL (4.50-10.00)
[2024-10-25 06:32] LABS: ALT 54 U/L (4-34); AST 232 U/L (14-36); African American GFR (CKD) 36 (>60 ml/min/1.73 sqM); Albumin 2.8 g/dL (3.5-5.0); Alkaline Phosphatase 101 U/L (38-126); Anion Gap 12 mmol/L; Blood Urea Nitrogen 57 mg/dL (7-17); Calcium 8.9 mg/dL (8.4-10.2); Carbon Dioxide 24 mmol/L (22-30); Chloride 102 mmol/L (98-107); Glucose 135 mg/dL (74-99); Non-African American GFR(CKD) 31 (>60 ml/min/1.73 sqM); Potassium 3.7 mmol/L (3.5-5.1); Sodium 138 mmol/L (137-145); Total Protein 5.2 g/dL (6.3-8.2)
[2024-10-25 08:31] LABS: Lymphocytes # (M) 0.71 k/uL (1.0-4.8); Monocytes # (M) 0.47 k/uL (0-1.0); Neutrophils # (M) 22.33 k/uL (1.3-7.7); Neutrophils % (M) 89 %; Total Cells Counted 100
[2024-10-25 08:32] LABS: RBC Morphology Normal
[2024-10-25] MEDS: LETROZOLE 2.5 MG TAB PO SCH (08:33)
[2024-10-25] MEDS: SENNOSIDES-DOCUSATE SODIUM 1 EACH TAB PO SCH (09:59)
[2024-10-25] MEDS: PANTOPRAZOLE 40 MG/10 ML VIAL IVP SCH (10:03)
[2024-10-25] MEDS ORDERED: IPRATROPIUM-ALBUTEROL 3 ML NEB INHALATION PRN (11:11)
[2024-10-25] MEDS: IPRATROPIUM-ALBUTEROL 3 ML NEB INHALATION SCH (12:01)
[2024-10-25] MEDS: SYMBICORT 80-4.5 MCG INHALER INHALATION SCH (12:02)
--- NOTE | 2024-10-25 13:04 | P.CON ---
Consult Note - . Consult date: 10/25/24 Assessment/Plan:: wound care consult: Date of consult:10/25/2024 Reason for consult: Bilateral foot ulcers History of chief complaint: This 88-year-old female lives at home. She apparently had a fall at home and had laid around for couple of days prior to her admission. Her care and symptoms have been somewhat vague. She did not respond to my questions at the time. Medical history is positive for hypertension diabetes and atrial fibrillation fo r which she is on Xarelto. Relevant exam. The patient has a 2-1/2 x 1-1/2 cm blackened scab on the plantar aspect of her left foot. On the lateral aspect of her right foot she has a 2- 1/2 byx 6 cm ulceration with a depth of about 0.4 cm. There is a foul odor from the right foot. Recommendation: For the time being I would simplify things by simply using Opticell silver with gauze and gauze wrap dressing. More definitive and chronic dressings can be converted when decisions are made about her discharge. If the wounds are not cleaned up I would consider utilizing Santyl on a daily basis un til they get more clean and granulated. Note: Given her age, diabetes, other comorbidities and what appears to be moderate degree of debilitation I would consider her prognosis for healing guarded.
--- NOTE | 2024-10-25 13:45 | P.CNOR ---
History of Present Illness - [facility] Consult date: 10/25/24 Requesting physician: Luis Armando Woods Consult reason: other (distal radius fracture) History of present illness: Patient is an 88-year-old female who presents to the emergency department earlie r today status post fall at home. Apparently the patient had a fall that occurred around a day or 2 ago. History is difficult to obtain due to the patient's mental state. Patient is unsure of why she fell she does not believe she passed out or hit her head. Patient was lying on the ground secondary to weakness at the time. Patient stated that she is little bit more weak than normal. She does have some chronic left-sided weakness. Orthopedics was consulted due to left distal radius fracture. Patient was seen at bedside this morning with volar splint present to the left upper extremity. Patient says she is having pain to the left wrist and bilateral shoulder at this time. Patient also does have bilateral foot wounds/ulcers. Past Medical History Past Medical History: Atrial Fibrillation, Cancer, Diabetes Mellitus, Hyperlipidemia, Hypertension, Mitral Valve Prolapse (MVP), Osteoarthritis (OA) Additional Past Medical History / Comment(s): GOUT, HX RT BREAST CA , NEUROPATHY LEGS and FEET. USES WALKER or cance, UNSTEADY ON FEET. leaky heart valve, umbilical hernia, on rx post op from sinus surgery. History of Any Multi-Drug Resistant Organisms: MRSA Year Discovered:: 05/04/24 MDRO Source:: rt foot Past Surgical History: Breast Surgery, Cholecystectomy, Hysterectomy Additional Past Surgical History / Comment(s): MASTECTOMY RT BREAST W/ AXILLA LYMPH NODE, don cataracts, sinus surgery 10/01/16 Past Anesthesia/Blood Transfusion Reactions: Motion Sickness Additional Past Anesthesia/Blood Transfusion Reaction / Comm: . Past Psychological History: Anxiety Smoking Status: Never smoker Past Alcohol Use History: None Reported Past Drug Use History: None Reported - Past Family History Mother Family Medical History: Cancer Brother(s) Family Medical History: Cancer Medications and Allergies Home Medications Medication Instructions Recorded Confirmed Type Furosemide [Lasix] 40 mg PO DAILY 01/16/16 10/24/24 History Letrozole [Femara] 2.5 mg PO DAILY 01/16/16 10/24/24 History Montelukast [Singulair] 10 mg PO HS 01/16/16 10/24/24 History Pravastatin Sodium 20 mg PO HS 01/16/16 10/24/24 History allopurinoL [Allopurinol] 100 mg PO DAILY 01/16/16 10/24/24 History traZODone HCL [Desyrel] 100 mg PO HS 01/16/16 10/24/24 History Rivaroxaban [Xarelto] 20 mg PO DAILY 11/04/16 10/24/24 History atenoloL [Tenormin] 25 mg PO HS #90 tab 10/14/23 10/24/24 Rx Gabapentin [Neurontin] 300 mg PO DAILY@1500 3 Days #3 cap 10/18/23 10/24/24 Rx Gabapentin [Neurontin] 600 mg PO BID 3 Days #6 cap 10/18/23 10/24/24 Rx Spironolactone 25 mg PO DAILY 10/24/24 10/24/24 History prednisoLONE ACETATE 1% OPHTH 1 drop BOTH EYES BID 10/24/24 10/24/24 History [Pred Forte 1%] Allergies Allergy/AdvReac Type Severity Reaction Status Date / Time naproxen Allergy Mild Itching Verified 10/24/24 18:07 Penicillins Allergy Rash/Hives Verified 10/24/24 18:07 Physical Examination Inspection: Positive for volar splint to the left upper extremity. Positive for some ecchymosis in the left upper extremity proximal to the elbow. Positive for some ecchymosis diffusely present throughout the right shoulder extending distally just to above the right elbow. Positive for some atrophy throughout the digits in the right upper extremity. Negative for any fractures. Positive for bilateral foot ulcers Sensation: Equal, symmetric, bilaterally intact throughout the lower extremities on exam. Some diminished sensation in digits of left hand. Sensation is equal, symmetric, bilateral intact throughout rest of the upper extremities. Palpation: Moderate tenderness to palpation over the left wrist on exam. Moderate tenderness to palpation diffusely throughout the right and left shoulder on exam. Nontender throughout rest of exam Range of motion: Limited range of motion in the left upper extremity in the wrist secondary to injury and splint in place. Limited range of motion in right and left shoulder exam secondary to for stiffness and pain due to the fall and injury. Good range of motion throughout the right wrist and right elbow in flexion extension. Motor: 4-/5 in all major motor groups in bilateral lower extremities. Left wrist exam not performed due to the injury. 4/5 throughout rest of left upper extremity on exam. 4-/5 in right and left shoulder on exam. Special tests: Negative Homans bilaterally. Negative clonus and Franklin bilaterally. Neurovascular: radial Pulse intact in right upper extremity on exam. Cap refill under 3 seconds in digits of upper extremities. Results - Labs Labs: Abnormal Lab Results - Last 24 Hours (Table) 10/24/24 10/24/24 10/24/24 Range/Units 12:52 12:52 12:52 WBC (4.50-10.00) 10*3/uL Plt Count (140-440) 10*3/uL Immature Gran # (0.00-0.04) 10*3/uL Neutrophils # 25.18 H (1.80-7.70) 10*3/uL Neutrophils # (Manual) (1.3-7.7) k/uL Lymphocytes # (Manual) (1.0-4.8) k/uL Monocytes # 1.43 H (0.20-1.00) 10*3/uL PT 14.5 H (10.0-12.5) sec INR 1.4 H (<1.2) BUN 51 H (7-17) mg/dL Creatinine 1.44 H (0.52-1.04) mg/dL Glucose 137 H (74-99) mg/dL Plasma Lactic Acid Ben (0.7-2.0) mmol/L Total Bilirubin 4.3 H (0.2-1.3) mg/dL AST 255 H (14-36) U/L ALT 46 H (4-34) U/L Creatine Kinase 4522 H* (30-135) U/L Troponin I (0.000-0.034) ng/mL Total Protein 6.2 L (6.3-8.2) g/dL Albumin (3.5-5.0) g/dL Urine Appearance (Clear) Urine Protein (Negative) Urine Blood (Negative) Urine WBC (0-5) /hpf Amorphous Sediment (None) /hpf Urine Mucus (None) /hpf 10/24/24 10/24/24 10/24/24 Range/Units 12:52 12:52 16:37 WBC (4.50-10.00) 10*3/uL Plt Count (140-440) 10*3/uL Immature Gran # (0.00-0.04) 10*3/uL Neutrophils # (1.80-7.70) 10*3/uL Neutrophils # (Manual) (1.3-7.7) k/uL Lymphocytes # (Manual) (1.0-4.8) k/uL Monocytes # (0.20-1.00) 10*3/uL PT (10.0-12.5) sec INR (<1.2) BUN (7-17) mg/dL Creatinine (0.52-1.04) mg/dL Glucose (74-99) mg/dL Plasma Lactic Acid Ben 3.2 H* 2.3 H* (0.7-2.0) mmol/L Total Bilirubin (0.2-1.3) mg/dL AST (14-36) U/L ALT (4-34) U/L Creatine Kinase (30-135) U/L Troponin I 0.058 H* (0.000-0.034) ng/mL Total Protein (6.3-8.2) g/dL Albumin (3.5-5.0) g/dL Urine Appearance (Clear) Urine Protein (Negative) Urine Blood (Negative) Urine WBC (0-5) /hpf Amorphous Sediment (None) /hpf Urine Mucus (None) /hpf 10/24/24 10/24/24 10/24/24 Range/Units 17:26 20:30 20:30 WBC (4.50-10.00) 10*3/uL Plt Count (140-440) 10*3/uL Immature Gran # (0.00-0.04) 10*3/uL Neutrophils # (1.80-7.70) 10*3/uL Neutrophils # (Manual) (1.3-7.7) k/uL Lymphocytes # (Manual) (1.0-4.8) k/uL Monocytes # (0.20-1.00) 10*3/uL PT (10.0-12.5) sec INR (<1.2) BUN (7-17) mg/dL Creatinine (0.52-1.04) mg/dL Glucose (74-99) mg/dL Plasma Lactic Acid Ben 2.8 H* (0.7-2.0) mmol/L Total Bilirubin (0.2-1.3) mg/dL AST (14-36) U/L ALT (4-34) U/L Creatine Kinase (30-135) U/L Troponin I 0.050 H* (0.000-0.034) ng/mL Total Protein (6.3-8.2) g/dL Albumin (3.5-5.0) g/dL Urine Appearance Cloudy H (Clear) Urine Protein 1+ H (Negative) Urine Blood Large H (Negative) Urine WBC 9 H (0-5) /hpf Amorphous Sediment Rare H (None) /hpf Urine Mucus Rare H (None) /hpf 10/24/24 10/24/24 10/25/24 Range/Units 23:28 23:28 02:37 WBC (4.50-10.00) 10*3/uL Plt Count (140-440) 10*3/uL Immature Gran # (0.00-0.04) 10*3/uL Neutrophils # (1.80-7.70) 10*3/uL Neutrophils # (Manual) (1.3-7.7) k/uL Lymphocytes # (Manual) (1.0-4.8) k/uL Monocytes # (0.20-1.00) 10*3/uL PT (10.0-12.5) sec INR (<1.2) BUN (7-17) mg/dL Creatinine (0.52-1.04) mg/dL Glucose (74-99) mg/dL Plasma Lactic Acid Ben 2.5 H* 2.3 H* (0.7-2.0) mmol/L Total Bilirubin (0.2-1.3) mg/dL AST (14-36) U/L ALT (4-34) U/L Creatine Kinase (30-135) U/L Troponin I 0.055 H* (0.000-0.034) ng/mL Total Protein (6.3-8.2) g/dL Albumin (3.5-5.0) g/dL Urine Appearance (Clear) Urine Protein (Negative) Urine Blood (Negative) Urine WBC (0-5) /hpf Amorphous Sediment (None) /hpf Urine Mucus (None) /hpf 10/25/24 10/25/24 10/25/24 Range/Units 05:04 05:39 05:40 WBC 23.51 H (4.50-10.00) 10*3/uL Plt Count 138 L (140-440) 10*3/uL Immature Gran # 1.12 H (0.00-0.04) 10*3/uL Neutrophils # (1.80-7.70) 10*3/uL Neutrophils # (Manual) 22.33 H (1.3-7.7) k/uL Lymphocytes # (Manual) 0.71 L (1.0-4.8) k/uL Monocytes # (0.20-1.00) 10*3/uL PT (10.0-12.5) sec INR (<1.2) BUN 57 H (7-17) mg/dL Creatinine 1.48 H (0.52-1.04) mg/dL Glucose 135 H (74-99) mg/dL Plasma Lactic Acid Ben (0.7-2.0) mmol/L Total Bilirubin 5.1 H (0.2-1.3) mg/dL AST 232 H (14-36) U/L ALT 54 H (4-34) U/L Creatine Kinase 2352 H* (30-135) U/L Troponin I (0.000-0.034) ng/mL Total Protein 5.2 L (6.3-8.2) g/dL Albumin 2.8 L (3.5-5.0) g/dL Urine Appearance (Clear) Urine Protein (Negative) Urine Blood (Negative) Urine WBC (0-5) /hpf Amorphous Sediment (None) /hpf Urine Mucus (None) /hpf 10/25/24 10/25/24 10/25/24 Range/Units 05:40 09:38 12:38 WBC (4.50-10.00) 10*3/uL Plt Count (140-440) 10*3/uL Immature Gran # (0.00-0.04) 10*3/uL Neutrophils # (1.80-7.70) 10*3/uL Neutrophils # (Manual) (1.3-7.7) k/uL Lymphocytes # (Manual) (1.0-4.8) k/uL Monocytes # (0.20-1.00) 10*3/uL PT (10.0-12.5) sec INR (<1.2) BUN (7-17) mg/dL Creatinine (0.52-1.04) mg/dL Glucose (74-99) mg/dL Plasma Lactic Acid Ben 2.4 H* 2.1 H* 2.2 H* (0.7-2.0) mmol/L Total Bilirubin (0.2-1.3) mg/dL AST (14-36) U/L ALT (4-34) U/L Creatine Kinase (30-135) U/L Troponin I (0.000-0.034) ng/mL Total Protein (6.3-8.2) g/dL Albumin (3.5-5.0) g/dL Urine Appearance (Clear) Urine Protein (Negative) Urine Blood (Negative) Urine WBC (0-5) /hpf Amorphous Sediment (None) /hpf Urine Mucus (None) /hpf H & H 10/24/24 10/25/24 Range/Units 12:52 05:39 Hgb 14.9 13.3 (12.0-15.0) g/dL Hct 41.7 38.1 (37.2-46.3) % Coagulation 10/24/24 Range/Units 12:52 INR 1.4 H (<1.2) Result Diagrams: 10/25/24 05:39 10/25/24 05:40 - Diagnostic results Comments: CT scan of the left shoulder does demonstrate acromioclavicular joint arthropathy Wrist/Hand x-ray: report reviewed, image reviewed (X-ray of the left wrist does demonstrate left distal radius fracture.) Assessment and Plan Assessment: 1. Left distal radius fracture status post fall; osteoarthritis left shoulder; left shoulder acromioclavicular joint arthropathy Plan: 1. Left distal radius fracture status post fall; osteoarthritis left shoulder; left shoulder acromioclavicular joint arthropathy -I did review the findings of the imaging and exam with my attending, Dr. Phillips. At this time we are recommending continued conservative measures with the use of a sling as needed to the left upper extremity and volar splint is currently in place over the left wrist. No emergent/urgent orthopedic surgical intervention. Pain medication as needed. Appreciate PT/OT recommendations. We will continue to follow the patient during her stay in hospital. Plan for follow-up in the outpatient setting in the next couple weeks. 2. Appreciate medical management 3. pain management -tramadol; gabapentin; Tylenol 4. GI prophylaxis - protonix; senna 5. DVT prophylaxis - mechanical 6. PT/OT -weight-bear as tolerated with walker and assistance. Nonweightbearing left upper extremity. Use sling as needed 7. Encourage incentive spirometer use 8. Appreciate consult Time with Patient: Less than 30
--- NOTE | 2024-10-25 14:02 | P.CNOR ---
History of Present Illness - [facility] Consult date: 10/25/24 Requesting physician: Luis Armando Woods Consult reason: fracture (Left Distal radius fracture), other History of present illness: History of Presenting Illness Patient is a pleasant 88-year-old female who presented to the ER after a fall. Patient is a poor historian. Patient states she is unsure of how she fell approximately 2 days ago. She states she believes she had gotten tangled up in TV cords and became weak and was unable to get up. Patient lives alone. She states she has family nearby and they came to check on her. Patient denies any trauma or falls prior to this incident. Patient does have several areas of skin breakdown and bruising. Patient does have a medical history of atrial fibrillation, diabetes, hyperlipidemia, hypertension, mitral valve prolapse, and history of right breast cancer. No known orthopedic history. X-ray of the left wrist taken on 10/24/2024 demonstrates a subacute appearing impacted distal radius fracture with intra-articular extension. There is some surrounding sclerosis and callus formation. There is also a subacute appearing ulnar sellar process fracture. CT of the left shoulder taken on 10/24/2024 demonstrates no acute fracture or dislocation. There is severe osteoarthritic changes of the left shoulder with severe arthropathy of the left AC joint and calcific tendinosis of the left shoulder. Review of Systems Pertinent positives and negatives as discussed in HPI, a complete review of systems was performed and all other systems are negative. Physical Examination Left upper extremity Inspection: Negative for any open fractures. Sensation: Sensation is equal, symmetric, bilaterally intact throughout the upper and lower extremities Palpation: Tenderness to palpation over the left shoulder AC joint and left wrist. Range of motion: Patient does have limited range of motion of the left shoulder and left wrist. Motor: Left: shoulder abduction 4-/5, elbow flexors 5/5, wrist dorsiflexors 3/5. finger abductor 5/5, plant anatomist 5/5, hip flexor 5/5, knee flexor 5/5, ankle dorsiflexor 5/5, ankle plantarflexion 5/5 and extensor hallucis 5/5. Neurovascular: Radial pulse intact, 2+ bilaterally. Cap refill under 3 seconds in digits upper extremities. 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 Patient may follow-up with Dr. Phillips' office for in 1 week. Orthopedics is signing off at this time. Please do not hesitate to contact us for any further questions. 2. Appreciate medical management 3. Pain management - Continue with current regimen, Utilize ice therapy 20min every hour as needed. 4. PT/OT - weightbearing as tolerated with a walker as needed. 5. Appreciate consult. I reviewed and discussed this case with my attending Dr. Phillips, whom has reviewed this chart and films and is in agreement with assessment and plan of care as outlined above. I have personally seen and examined the patient, performed the documentation and the assessment and plan as written. Number of minutes spent on the visit: 30m. Past Medical History Past Medical History: Atrial Fibrillation, Cancer, Diabetes Mellitus, Hyperlipidemia, Hypertension, Mitral Valve Prolapse (MVP), Osteoarthritis (OA) Additional Past Medical History / Comment(s): GOUT, HX RT BREAST CA , NEUROPATHY LEGS and FEET. USES WALKER or cance, UNSTEADY ON FEET. leaky heart valve, umbilical hernia, on rx post op from sinus surgery. History of Any Multi-Drug Resistant Organisms: MRSA Year Discovered:: 05/04/24 MDRO Source:: rt foot Past Surgical History: Breast Surgery, Cholecystectomy, Hysterectomy Additional Past Surgical History / Comment(s): MASTECTOMY RT BREAST W/ AXILLA LY MPH NODE, don cataracts, sinus surgery 10/01/16 Past Anesthesia/Blood Transfusion Reactions: Motion Sickness Additional Past Anesthesia/Blood Transfusion Reaction / Comm: . Past Psychological History: Anxiety Smoking Status: Never smoker Past Alcohol Use History: None Reported Past Drug Use History: None Reported - Past Family History Mother Family Medical History: Cancer Brother(s) Family Medical History: Cancer Medications and Allergies Home Medications Medication Instructions Recorded Confirmed Type Furosemide [Lasix] 40 mg PO DAILY 01/16/16 10/24/24 History Letrozole [Femara] 2.5 mg PO DAILY 01/16/16 10/24/24 History Montelukast [Singulair] 10 mg PO HS 01/16/16 10/24/24 History Pravastatin Sodium 20 mg PO HS 01/16/16 10/24/24 History allopurinoL [Allopurinol] 100 mg PO DAILY 01/16/16 10/24/24 History traZODone HCL [Desyrel] 100 mg PO HS 01/16/16 10/24/24 History Rivaroxaban [Xarelto] 20 mg PO DAILY 11/04/16 10/24/24 History atenoloL [Tenormin] 25 mg PO HS #90 tab 10/14/23 10/24/24 Rx Gabapentin [Neurontin] 300 mg PO DAILY@1500 3 Days #3 cap 10/18/23 10/24/24 Rx Gabapentin [Neurontin] 600 mg PO BID 3 Days #6 cap 10/18/23 10/24/24 Rx Spironolactone 25 mg PO DAILY 10/24/24 10/24/24 History prednisoLONE ACETATE 1% OPHTH 1 drop BOTH EYES BID 10/24/24 10/24/24 History [Pred Forte 1%] Allergies Allergy/AdvReac Type Severity Reaction Status Date / Time naproxen Allergy Mild Itching Verified 10/24/24 18:07 Penicillins Allergy Rash/Hives Verified 10/24/24 18:07 Results - Labs Labs: Abnormal Lab Results - Last 24 Hours (Table) 10/24/24 10/24/24 10/24/24 Range/Units 12:52 12:52 12:52 WBC 28.97 H (4.50-10.00) 10*3/uL Plt Count (140-440) 10*3/uL MPV 8.8 L (9.5-12.2) fL Immature Gran # 1.14 H (0.00-0.04) 10*3/uL Neutrophils # 25.18 H (1.80-7.70) 10*3/uL Neutrophils # (Manual) (1.3-7.7) k/uL Lymphocytes # (Manual) (1.0-4.8) k/uL Monocytes # 1.43 H (0.20-1.00) 10*3/uL PT 14.5 H (10.0-12.5) sec INR 1.4 H (<1.2) BUN 51 H (7-17) mg/dL Creatinine 1.44 H (0.52-1.04) mg/dL Glucose 137 H (74-99) mg/dL Plasma Lactic Acid Ben (0.7-2.0) mmol/L Total Bilirubin 4.3 H (0.2-1.3) mg/dL AST 255 H (14-36) U/L ALT 46 H (4-34) U/L Creatine Kinase 4522 H* (30-135) U/L Troponin I (0.000-0.034) ng/mL Total Protein 6.2 L (6.3-8.2) g/dL Albumin (3.5-5.0) g/dL Urine Appearance (Clear) Urine Protein (Negative) Urine Blood (Negative) Urine WBC (0-5) /hpf Amorphous Sediment (None) /hpf Urine Mucus (None) /hpf 10/24/24 10/24/24 10/24/24 Range/Units 12:52 12:52 16:37 WBC (4.50-10.00) 10*3/uL Plt Count (140-440) 10*3/uL MPV (9.5-12.2) fL Immature Gran # (0.00-0.04) 10*3/uL Neutrophils # (1.80-7.70) 10*3/uL Neutrophils # (Manual) (1.3-7.7) k/uL Lymphocytes # (Manual) (1.0-4.8) k/uL Monocytes # (0.20-1.00) 10*3/uL PT (10.0-12.5) sec INR (<1.2) BUN (7-17) mg/dL Creatinine (0.52-1.04) mg/dL Glucose (74-99) mg/dL Plasma Lactic Acid Ben 3.2 H* 2.3 H* (0.7-2.0) mmol/L Total Bilirubin (0.2-1.3) mg/dL AST (14-36) U/L ALT (4-34) U/L Creatine Kinase (30-135) U/L Troponin I 0.058 H* (0.000-0.034) ng/mL Total Protein (6.3-8.2) g/dL Albumin (3.5-5.0) g/dL Urine Appearance (Clear) Urine Protein (Negative) Urine Blood (Negative) Urine WBC (0-5) /hpf Amorphous Sediment (None) /hpf Urine Mucus (None) /hpf 10/24/24 10/24/24 10/24/24 Range/Units 17:26 20:30 20:30 WBC (4.50-10.00) 10*3/uL Plt Count (140-440) 10*3/uL MPV (9.5-12.2) fL Immature Gran # (0.00-0.04) 10*3/uL Neutrophils # (1.80-7.70) 10*3/uL Neutrophils # (Manual) (1.3-7.7) k/uL Lymphocytes # (Manual) (1.0-4.8) k/uL Monocytes # (0.20-1.00) 10*3/uL PT (10.0-12.5) sec INR (<1.2) BUN (7-17) mg/dL Creatinine (0.52-1.04) mg/dL Glucose (74-99) mg/dL Plasma Lactic Acid Ben 2.8 H* (0.7-2.0) mmol/L Total Bilirubin (0.2-1.3) mg/dL AST (14-36) U/L ALT (4-34) U/L Creatine Kinase (30-135) U/L Troponin I 0.050 H* (0.000-0.034) ng/mL Total Protein (6.3-8.2) g/dL Albumin (3.5-5.0) g/dL Urine Appearance Cloudy H (Clear) Urine Protein 1+ H (Negative) Urine Blood Large H (Negative) Urine WBC 9 H (0-5) /hpf Amorphous Sediment Rare H (None) /hpf Urine Mucus Rare H (None) /hpf 10/24/24 10/24/24 10/25/24 Range/Units 23:28 23:28 02:37 WBC (4.50-10.00) 10*3/uL Plt Count (140-440) 10*3/uL MPV (9.5-12.2) fL Immature Gran # (0.00-0.04) 10*3/uL Neutrophils # (1.80-7.70) 10*3/uL Neutrophils # (Manual) (1.3-7.7) k/uL Lymphocytes # (Manual) (1.0-4.8) k/uL Monocytes # (0.20-1.00) 10*3/uL PT (10.0-12.5) sec INR (<1.2) BUN (7-17) mg/dL Creatinine (0.52-1.04) mg/dL Glucose (74-99) mg/dL Plasma Lactic Acid Ben 2.5 H* 2.3 H* (0.7-2.0) mmol/L Total Bilirubin (0.2-1.3) mg/dL AST (14-36) U/L ALT (4-34) U/L Creatine Kinase (30-135) U/L Troponin I 0.055 H* (0.000-0.034) ng/mL Total Protein (6.3-8.2) g/dL Albumin (3.5-5.0) g/dL Urine Appearance (Clear) Urine Protein (Negative) Urine Blood (Negative) Urine WBC (0-5) /hpf Amorphous Sediment (None) /hpf Urine Mucus (None) /hpf 10/25/24 10/25/24 10/25/24 Range/Units 05:39 05:40 05:40 WBC 23.51 H (4.50-10.00) 10*3/uL Plt Count 138 L (140-440) 10*3/uL MPV (9.5-12.2) fL Immature Gran # 1.12 H (0.00-0.04) 10*3/uL Neutrophils # (1.80-7.70) 10*3/uL Neutrophils # (Manual) 22.33 H (1.3-7.7) k/uL Lymphocytes # (Manual) 0.71 L (1.0-4.8) k/uL Monocytes # (0.20-1.00) 10*3/uL PT (10.0-12.5) sec INR (<1.2) BUN 57 H (7-17) mg/dL Creatinine 1.48 H (0.52-1.04) mg/dL Glucose 135 H (74-99) mg/dL Plasma Lactic Acid Ben 2.4 H* (0.7-2.0) mmol/L Total Bilirubin 5.1 H (0.2-1.3) mg/dL AST 232 H (14-36) U/L ALT 54 H (4-34) U/L Creatine Kinase (30-135) U/L Troponin I (0.000-0.034) ng/mL Total Protein 5.2 L (6.3-8.2) g/dL Albumin 2.8 L (3.5-5.0) g/dL Urine Appearance (Clear) Urine Protein (Negative) Urine Blood (Negative) Urine WBC (0-5) /hpf Amorphous Sediment (None) /hpf Urine Mucus (None) /hpf H & H 10/24/24 10/25/24 Range/Units 12:52 05:39 Hgb 14.9 13.3 (12.0-15.0) g/dL Hct 41.7 38.1 (37.2-46.3) % Coagulation 10/24/24 Range/Units 12:52 INR 1.4 H (<1.2) Result Diagrams: 10/25/24 05:39 10/25/24 05:40
--- NOTE | 2024-10-25 16:51 | P.HPIM ---
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 Orthopedic and nephrology consults in place. IV fluids initiated with improvement in lactic acid down to 2.2 as well as CK from 4522 down to 2352. Bicarb 24 BUN 57, creatinine 1.48 (baseline 1.1). Afebrile, WBC 23.51. elevated LFTs. right foot with ulceration, foul odor, right lateral knee skin abrasion, left foot darkened scab. Prealbumin ordered.prior wound culture in April 2024,MRSA. Review of Systems ROS Statement: Those systems with pertinent positive or pertinent negative responses have been documented in the HPI. ROS Other: All systems not noted in ROS Statement are negative. Past Medical History Past Medical History: Atrial Fibrillation, Cancer, Diabetes Mellitus, Hyperlipidemia, Hypertension, Mitral Valve Prolapse (MVP), Osteoarthritis (OA) Additional Past Medical History / Comment(s): GOUT, HX RT BREAST CA , NEUROPATHY LEGS and FEET. USES WALKER or cance, UNSTEADY ON FEET. leaky heart valve, umbilical hernia, on rx post op from sinus surgery. History of Any Multi-Drug Resistant Organisms: MRSA Date of last positivie culture/infection: 05/04/24 MDRO Source:: rt foot Past Surgical History: Breast Surgery, Cholecystectomy, Hysterectomy Additional Past Surgical History / Comment(s): MASTECTOMY RT BREAST W/ AXILLA LYMPH NODE, don cataracts, sinus surgery 10/01/16 Past Anesthesia/Blood Transfusion Reactions: Motion Sickness Additional Past Anesthesia/Blood Transfusion Reaction / Comment(s): . Past Psychological History: Anxiety Smoking Status: Never smoker Past Alcohol Use History: None Reported Past Drug Use History: None Reported - Past Family History Mother Family Medical History: Cancer Brother(s) Family Medical History: Cancer Medications and Allergies Home Medications Medication Instructions Recorded Confirmed Type Furosemide [Lasix] 40 mg PO DAILY 01/16/16 10/24/24 History Letrozole [Femara] 2.5 mg PO DAILY 01/16/16 10/24/24 History Montelukast [Singulair] 10 mg PO HS 01/16/16 10/24/24 History Pravastatin Sodium 20 mg PO HS 01/16/16 10/24/24 History allopurinoL [Allopurinol] 100 mg PO DAILY 01/16/16 10/24/24 History traZODone HCL [Desyrel] 100 mg PO HS 01/16/16 10/24/24 History Rivaroxaban [Xarelto] 20 mg PO DAILY 11/04/16 10/24/24 History atenoloL [Tenormin] 25 mg PO HS #90 tab 10/14/23 10/24/24 Rx Gabapentin [Neurontin] 300 mg PO DAILY@1500 3 Days #3 cap 10/18/23 10/24/24 Rx Gabapentin [Neurontin] 600 mg PO BID 3 Days #6 cap 10/18/23 10/24/24 Rx Spironolactone 25 mg PO DAILY 10/24/24 10/24/24 History prednisoLONE ACETATE 1% OPHTH 1 drop BOTH EYES BID 10/24/24 10/24/24 History [Pred Forte 1%] Allergies Allergy/AdvReac Type Severity Reaction Status Date / Time naproxen Allergy Mild Itching Verified 10/24/24 18:07 Penicillins Allergy Rash/Hives Verified 10/24/24 18:07 Physical Exam Vitals: Vital Signs Temp Pulse Resp BP Pulse Ox 10/25/24 08:38 96 10/25/24 08:36 98.2 F 74 16 117/54 91 L 10/25/24 05:46 75 16 124/65 92 L 10/25/24 02:43 98.7 F 84 16 112/83 93 L 10/25/24 00:34 75 18 116/91 93 L 10/24/24 22:00 75 16 141/97 93 L 10/24/24 19:55 97.8 F 73 16 151/86 94 L 10/24/24 19:05 98 F 10/24/24 15:48 67 20 119/98 97 10/24/24 12:37 59 L 18 132/81 97 PHYSICAL EXAM: VITAL SIGNS: [As above] GENERAL: Fatigued ,pleasant elderly female, alert and oriented x 2-3, cooperative, sitting up on stretcher, no acute distress HEENT: Normocephalic, right facial abrasion ,conjunctivae normal. eyes normal. Sclera anicteric .MMM. NECK: Supple, no JVD. No thyroid enlargement. No LNs CARDIOVASCULAR: S1, S2. Irregular. RESPIRATION: Breath sounds diminished in the bases. ABDOMEN: Soft, distended, nontender . No guarding. no masses palpable. +BS EXTREMITIES: Multiple abrasions, ecchymosis, right lateral foot with chronic nonpressure ulceration with foul odor, left foot plantar aspect with blackened scab-unstageable pressure ulcer,sizing as per wound care documentation.Peripheral pulses intact. Ecchymotic, edematous ,tender left shoulder, left arm and wrist with limited range of motion, positive radial pulses. NERVOUS SYSTEM: Cranial N 2-12 grossly normal. No focal deficits. Skin: Warm and dry, multiple areas of ecchymosis Results CBC & Chem 7: 10/25/24 05:39 10/25/24 05:40 Labs: Abnormal Lab Results - Last 24 Hours (Table) 10/24/24 10/24/24 10/24/24 Range/Units 12:52 12:52 12:52 WBC 28.97 H (4.50-10.00) 10*3/uL Plt Count (140-440) 10*3/uL MPV 8.8 L (9.5-12.2) fL Immature Gran # 1.14 H (0.00-0.04) 10*3/uL Neutrophils # 25.18 H (1.80-7.70) 10*3/uL Neutrophils # (Manual) (1.3-7.7) k/uL Lymphocytes # (Manual) (1.0-4.8) k/uL Monocytes # 1.43 H (0.20-1.00) 10*3/uL PT 14.5 H (10.0-12.5) sec INR 1.4 H (<1.2) BUN 51 H (7-17) mg/dL Creatinine 1.44 H (0.52-1.04) mg/dL Glucose 137 H (74-99) mg/dL Plasma Lactic Acid Ben (0.7-2.0) mmol/L Total Bilirubin 4.3 H (0.2-1.3) mg/dL AST 255 H (14-36) U/L ALT 46 H (4-34) U/L Creatine Kinase 4522 H* (30-135) U/L Troponin I (0.000-0.034) ng/mL Total Protein 6.2 L (6.3-8.2) g/dL Albumin (3.5-5.0) g/dL Urine Appearance (Clear) Urine Protein (Negative) Urine Blood (Negative) Urine WBC (0-5) /hpf Amorphous Sediment (None) /hpf Urine Mucus (None) /hpf 10/24/24 10/24/24 10/24/24 Range/Units 12:52 12:52 16:37 WBC (4.50-10.00) 10*3/uL Plt Count (140-440) 10*3/uL MPV (9.5-12.2) fL Immature Gran # (0.00-0.04) 10*3/uL Neutrophils # (1.80-7.70) 10*3/uL Neutrophils # (Manual) (1.3-7.7) k/uL Lymphocytes # (Manual) (1.0-4.8) k/uL Monocytes # (0.20-1.00) 10*3/uL PT (10.0-12.5) sec INR (<1.2) BUN (7-17) mg/dL Creatinine (0.52-1.04) mg/dL Glucose (74-99) mg/dL Plasma Lactic Acid Ben 3.2 H* 2.3 H* (0.7-2.0) mmol/L Total Bilirubin (0.2-1.3) mg/dL AST (14-36) U/L ALT (4-34) U/L Creatine Kinase (30-135) U/L Troponin I 0.058 H* (0.000-0.034) ng/mL Total Protein (6.3-8.2) g/dL Albumin (3.5-5.0) g/dL Urine Appearance (Clear) Urine Protein (Negative) Urine Blood (Negative) Urine WBC (0-5) /hpf Amorphous Sediment (None) /hpf Urine Mucus (None) /hpf 10/24/24 10/24/24 10/24/24 Range/Units 17:26 20:30 20:30 WBC (4.50-10.00) 10*3/uL Plt Count (140-440) 10*3/uL MPV (9.5-12.2) fL Immature Gran # (0.00-0.04) 10*3/uL Neutrophils # (1.80-7.70) 10*3/uL Neutrophils # (Manual) (1.3-7.7) k/uL Lymphocytes # (Manual) (1.0-4.8) k/uL Monocytes # (0.20-1.00) 10*3/uL PT (10.0-12.5) sec INR (<1.2) BUN (7-17) mg/dL Creatinine (0.52-1.04) mg/dL Glucose (74-99) mg/dL Plasma Lactic Acid Ben 2.8 H* (0.7-2.0) mmol/L Total Bilirubin (0.2-1.3) mg/dL AST (14-36) U/L ALT (4-34) U/L Creatine Kinase (30-135) U/L Troponin I 0.050 H* (0.000-0.034) ng/mL Total Protein (6.3-8.2) g/dL Albumin (3.5-5.0) g/dL Urine Appearance Cloudy H (Clear) Urine Protein 1+ H (Negative) Urine Blood Large H (Negative) Urine WBC 9 H (0-5) /hpf Amorphous Sediment Rare H (None) /hpf Urine Mucus Rare H (None) /hpf 10/24/24 10/24/24 10/25/24 Range/Units 23:28 23:28 02:37 WBC (4.50-10.00) 10*3/uL Plt Count (140-440) 10*3/uL MPV (9.5-12.2) fL Immature Gran # (0.00-0.04) 10*3/uL Neutrophils # (1.80-7.70) 10*3/uL Neutrophils # (Manual) (1.3-7.7) k/uL Lymphocytes # (Manual) (1.0-4.8) k/uL Monocytes # (0.20-1.00) 10*3/uL PT (10.0-12.5) sec INR (<1.2) BUN (7-17) mg/dL Creatinine (0.52-1.04) mg/dL Glucose (74-99) mg/dL Plasma Lactic Acid Ben 2.5 H* 2.3 H* (0.7-2.0) mmol/L Total Bilirubin (0.2-1.3) mg/dL AST (14-36) U/L ALT (4-34) U/L Creatine Kinase (30-135) U/L Troponin I 0.055 H* (0.000-0.034) ng/mL Total Protein (6.3-8.2) g/dL Albumin (3.5-5.0) g/dL Urine Appearance (Clear) Urine Protein (Negative) Urine Blood (Negative) Urine WBC (0-5) /hpf Amorphous Sediment (None) /hpf Urine Mucus (None) /hpf 10/25/24 10/25/24 10/25/24 Range/Units 05:04 05:39 05:40 WBC 23.51 H (4.50-10.00) 10*3/uL Plt Count 138 L (140-440) 10*3/uL MPV (9.5-12.2) fL Immature Gran # 1.12 H (0.00-0.04) 10*3/uL Neutrophils # (1.80-7.70) 10*3/uL Neutrophils # (Manual) 22.33 H (1.3-7.7) k/uL Lymphocytes # (Manual) 0.71 L (1.0-4.8) k/uL Monocytes # (0.20-1.00) 10*3/uL PT (10.0-12.5) sec INR (<1.2) BUN 57 H (7-17) mg/dL Creatinine 1.48 H (0.52-1.04) mg/dL Glucose 135 H (74-99) mg/dL Plasma Lactic Acid Ben (0.7-2.0) mmol/L Total Bilirubin 5.1 H (0.2-1.3) mg/dL AST 232 H (14-36) U/L ALT 54 H (4-34) U/L Creatine Kinase 2352 H* (30-135) U/L Troponin I (0.000-0.034) ng/mL Total Protein 5.2 L (6.3-8.2) g/dL Albumin 2.8 L (3.5-5.0) g/dL Urine Appearance (Clear) Urine Protein (Negative) Urine Blood (Negative) Urine WBC (0-5) /hpf Amorphous Sediment (None) /hpf Urine Mucus (None) /hpf 10/25/24 10/25/24 Range/Units 05:40 09:38 WBC (4.50-10.00) 10*3/uL Plt Count (140-440) 10*3/uL MPV (9.5-12.2) fL Immature Gran # (0.00-0.04) 10*3/uL Neutrophils # (1.80-7.70) 10*3/uL Neutrophils # (Manual) (1.3-7.7) k/uL Lymphocytes # (Manual) (1.0-4.8) k/uL Monocytes # (0.20-1.00) 10*3/uL PT (10.0-12.5) sec INR (<1.2) BUN (7-17) mg/dL Creatinine (0.52-1.04) mg/dL Glucose (74-99) mg/dL Plasma Lactic Acid Ben 2.4 H* 2.1 H* (0.7-2.0) mmol/L Total Bilirubin (0.2-1.3) mg/dL AST (14-36) U/L ALT (4-34) U/L Creatine Kinase (30-135) U/L Troponin I (0.000-0.034) ng/mL Total Protein (6.3-8.2) g/dL Albumin (3.5-5.0) g/dL Urine Appearance (Clear) Urine Protein (Negative) Urine Blood (Negative) Urine WBC (0-5) /hpf Amorphous Sediment (None) /hpf Urine Mucus (None) /hpf Assessment and Plan Assessment: Acute left distal radius fracture reported per imaging, orthopedics following Severe osteoarthritic changes left shoulder and AC joint Advanced calcific tendinosis left shoulder Acute rhabdomyolysis secondary to fall Acute kidney injury secondary to ATN related to the above. Ultrasound reported no hydronephrosis Lactic acidosis Acute hypoxic respiratory failure secondary to all the above and fluid resuscitation Leukocytosis,secondary to all the above and wounds, in a patient with history of MRSA in April 2024, Corynebacterium, Enterobacter, viridians. Possible Sepsis secondary to infection, work-up in progress. 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 IV fluid hydration-rate mildly decreased, to avoid fluid overload, patient currently requiring 3 L nasal cannula in a patient whose baseline is no O2. Wound and blood cultures ordered. Cefazolin initiated.local wound care .orthopedic surgery, nephrology and ID consults in place. Monitoring of renal function, lactic acid and CK , with repeat labs ordered for a.m. PT/OT and case management consulted for subacute rehab at discharge. The impression and plan of care has been dictated as directed. : I performed a history and examination of this patient, discussed the same with the dictator. I agree with the dictator's note ,documented as a scribe. Any additional findings or plans will be noted.
[2024-10-25] MEDS: GABAPENTIN 300 MG CAP PO SCH (18:33)
[2024-10-25 20:22] LABS: Glucose,Whole Blood 136 mg/dL (70-110)
[2024-10-26 05:57] LABS: Glucose,Whole Blood 156 mg/dL (70-110)
--- NOTE | 2024-10-26 08:25 | P.CONS ---
History of Present Illness - Reason for Consult Consult date: 10/25/24 Leukocytosis, wound foul-smelling history of MRSA Requesting physician: Carina Babb - Chief Complaint Weakness and fall x 2 days - History of Present Illness Patient is a 88-year-old female with a past medical history significant for Atrial Fibrillation, Cancer, Diabetes Mellitus, Hyperlipidemia, Hypertension, Mitral Valve Prolapse (MVP), Osteoarthritis (OA) was brought into the hospital after primary patient did have a fall which happened 2 days before presentation to the hospital, patient not clear how she fell and did not believe that she has passed out patient has been on the ground for almost 2 days and has been feeling more weaker than normal and has been complaining of pain to the left side of the body patient also has been dealing with a chronic nonhealing wound to the right foot lateral border area for the patient to follow at the wound care patient did have a cultures obtained from the wound on 05/04/2024 that did grew MRSA and anaerobic gram-positive cocci these cultures were done as an outpatient start with care the patient has received his current treatment for 8 as the patient not able to give us any specific answer patient denies having any headache or URI symptoms no chest pain shortness with or cough or abdominal pain said have some discomfort to the right foot little more trouble especially when it is touched or pressure but no foul-smelling drainage patient is currently afebrile not tachycardic or hypotensive she is hypoxic requiring supplemental oxygen patient did have an elevated white of 28.97 elevated lactic acid uric acid has been mildly elevated as well as elevated liver enzymes UA has been negative patient did have a chest x-ray cardiomegaly mild pulmonary vascular congestion no foot x-ray has been done Review of Systems Positive point and negatives has been mentioned in the HPI, complete review of systems was performed and all other systems are negative Past Medical History Past Medical History: Atrial Fibrillation, Cancer, Diabetes Mellitus, Hyperlipidemia, Hypertension, Mitral Valve Prolapse (MVP), Osteoarthritis (OA) Additional Past Medical History / Comment(s): GOUT, HX RT BREAST CA , NEUROPATHY LEGS and FEET. USES WALKER or cance, UNSTEADY ON FEET. leaky heart valve, umbilical hernia, on rx post op from sinus surgery. History of Any Multi-Drug Resistant Organisms: MRSA Year Discovered:: 05/04/24 MDRO Source:: rt foot Past Surgical History: Breast Surgery, Cholecystectomy, Hysterectomy Additional Past Surgical History / Comment(s): MASTECTOMY RT BREAST W/ AXILLA LY MPH NODE, don cataracts, sinus surgery 10/01/16 Past Anesthesia/Blood Transfusion Reactions: Motion Sickness Additional Past Anesthesia/Blood Transfusion Reaction / Comm: . Past Psychological History: Anxiety Smoking Status: Never smoker Past Alcohol Use History: None Reported Past Drug Use History: None Reported - Past Family History Mother Family Medical History: Cancer Brother(s) Family Medical History: Cancer Medications and Allergies Home Medications Medication Instructions Recorded Confirmed Type Furosemide [Lasix] 40 mg PO DAILY 01/16/16 10/24/24 History Letrozole [Femara] 2.5 mg PO DAILY 01/16/16 10/24/24 History Montelukast [Singulair] 10 mg PO HS 01/16/16 10/24/24 History Pravastatin Sodium 20 mg PO HS 01/16/16 10/24/24 History allopurinoL [Allopurinol] 100 mg PO DAILY 01/16/16 10/24/24 History traZODone HCL [Desyrel] 100 mg PO HS 01/16/16 10/24/24 History Rivaroxaban [Xarelto] 20 mg PO DAILY 11/04/16 10/24/24 History atenoloL [Tenormin] 25 mg PO HS #90 tab 10/14/23 10/24/24 Rx Gabapentin [Neurontin] 300 mg PO DAILY@1500 3 Days #3 cap 10/18/23 10/24/24 Rx Gabapentin [Neurontin] 600 mg PO BID 3 Days #6 cap 10/18/23 10/24/24 Rx Spironolactone 25 mg PO DAILY 10/24/24 10/24/24 History prednisoLONE ACETATE 1% OPHTH 1 drop BOTH EYES BID 10/24/24 10/24/24 History [Pred Forte 1%] Allergies Allergy/AdvReac Type Severity Reaction Status Date / Time naproxen Allergy Mild Itching Verified 10/24/24 18:07 Penicillins Allergy Rash/Hives Verified 10/24/24 18:07 Physical Exam Vitals: Vital Signs Temp Pulse Pulse Resp BP BP Pulse Ox 10/25/24 21:02 71 18 10/25/24 20:56 74 18 10/25/24 19:20 98 F 80 16 145/77 86 L 10/25/24 16:28 68 10/25/24 16:18 68 10/25/24 15:40 98.2 F 65 19 142/77 97 10/25/24 15:14 98.7 F 75 22 122/85 96 10/25/24 12:15 75 20 126/78 96 10/25/24 12:14 70 10/25/24 12:11 95 10/25/24 12:05 68 10/25/24 11:11 79 120/77 96 10/25/24 08:38 96 10/25/24 08:36 98.2 F 74 16 117/54 91 L 10/25/24 05:46 75 16 124/65 92 L 10/25/24 02:43 98.7 F 84 16 112/83 93 L 10/25/24 00:34 75 18 116/91 93 L Intake and Output 10/25/24 10/25/24 10/25/24 06:59 14:59 22:59 Intake Total 675 Balance 675 Intake: Intake, IV Titration 425 Amount Sodium Chloride 0.9% 1, 375 000 ml @ 75 mls/hr IV . [id number] [facility] Rx#:[id number] ceFAZolin 2 gm In Sodium 50 Chloride 0.9% 50 ml @ 100 mls/hr IVPB Q12HR [facility] Rx #:[id number] Oral 250 Other: Weight 68.039 kg GENERAL DESCRIPTION: Elderly female lying in bed, no distress. No tachypnea or accessory muscle of respiration use. HEENT: Shows Pallor , no scleral icterus. Oral mucous membrane is dry. NECK: Trachea central, no thyromegaly. LUNGS: Unlabored breathing. Decreased breath sound at the base HEART: S1, S2, regular rate and rhythm. ABDOMEN: Soft, no tenderness , guarding or rigidity, no organomegaly EXTREMITIES: Right foot lateral border wound with minimal slough tissue surrounding redness SKIN: No rash, no masses palpable. NEUROLOGICAL: The patient is awake, mood and affect normal. Results CBC & Chem 7: 10/25/24 05:39 10/25/24 05:40 Labs: Abnormal Lab Results - Last 24 Hours (Table) 10/24/24 10/24/24 10/25/24 Range/Units 23:28 23:28 02:37 WBC (4.50-10.00) 10*3/uL Plt Count (140-440) 10*3/uL Immature Gran # (0.00-0.04) 10*3/uL Neutrophils # (Manual) (1.3-7.7) k/uL Lymphocytes # (Manual) (1.0-4.8) k/uL BUN (7-17) mg/dL Creatinine (0.52-1.04) mg/dL Glucose (74-99) mg/dL POC Glucose (mg/dL) (70-110) mg/dL Plasma Lactic Acid Ben 2.5 H* 2.3 H* (0.7-2.0) mmol/L Total Bilirubin (0.2-1.3) mg/dL AST (14-36) U/L ALT (4-34) U/L Creatine Kinase (30-135) U/L Troponin I 0.055 H* (0.000-0.034) ng/mL Total Protein (6.3-8.2) g/dL Albumin (3.5-5.0) g/dL 10/25/24 10/25/24 10/25/24 Range/Units 05:04 05:39 05:40 WBC 23.51 H (4.50-10.00) 10*3/uL Plt Count 138 L (140-440) 10*3/uL Immature Gran # 1.12 H (0.00-0.04) 10*3/uL Neutrophils # (Manual) 22.33 H (1.3-7.7) k/uL Lymphocytes # (Manual) 0.71 L (1.0-4.8) k/uL BUN 57 H (7-17) mg/dL Creatinine 1.48 H (0.52-1.04) mg/dL Glucose 135 H (74-99) mg/dL POC Glucose (mg/dL) (70-110) mg/dL Plasma Lactic Acid Ben (0.7-2.0) mmol/L Total Bilirubin 5.1 H (0.2-1.3) mg/dL AST 232 H (14-36) U/L ALT 54 H (4-34) U/L Creatine Kinase 2352 H* (30-135) U/L Troponin I (0.000-0.034) ng/mL Total Protein 5.2 L (6.3-8.2) g/dL Albumin 2.8 L (3.5-5.0) g/dL 10/25/24 10/25/24 10/25/24 Range/Units 05:40 09:38 12:38 WBC (4.50-10.00) 10*3/uL Plt Count (140-440) 10*3/uL Immature Gran # (0.00-0.04) 10*3/uL Neutrophils # (Manual) (1.3-7.7) k/uL Lymphocytes # (Manual) (1.0-4.8) k/uL BUN (7-17) mg/dL Creatinine (0.52-1.04) mg/dL Glucose (74-99) mg/dL POC Glucose (mg/dL) (70-110) mg/dL Plasma Lactic Acid Ben 2.4 H* 2.1 H* 2.2 H* (0.7-2.0) mmol/L Total Bilirubin (0.2-1.3) mg/dL AST (14-36) U/L ALT (4-34) U/L Creatine Kinase (30-135) U/L Troponin I (0.000-0.034) ng/mL Total Protein (6.3-8.2) g/dL Albumin (3.5-5.0) g/dL 10/25/24 10/25/24 10/25/24 Range/Units 15:40 18:00 20:21 WBC (4.50-10.00) 10*3/uL Plt Count (140-440) 10*3/uL Immature Gran # (0.00-0.04) 10*3/uL Neutrophils # (Manual) (1.3-7.7) k/uL Lymphocytes # (Manual) (1.0-4.8) k/uL BUN (7-17) mg/dL Creatinine (0.52-1.04) mg/dL Glucose (74-99) mg/dL POC Glucose (mg/dL) 136 H (70-110) mg/dL Plasma Lactic Acid Ben 2.3 H* 2.4 H* (0.7-2.0) mmol/L Total Bilirubin (0.2-1.3) mg/dL AST (14-36) U/L ALT (4-34) U/L Creatine Kinase (30-135) U/L Troponin I (0.000-0.034) ng/mL Total Protein (6.3-8.2) g/dL Albumin (3.5-5.0) g/dL Assessment and Plan (1) Leukocytosis Current Visit: Yes Status: Acute Code(s): D72.829 - ELEVATED WHITE BLOOD CELL COUNT, UNSPECIFIED SNOMED Code(s): 767454121 (2) Wound of right foot Current Visit: Yes Status: Acute Code(s): S91.301A - UNSPECIFIED OPEN WOUND, RIGHT FOOT, INITIAL ENCOUNTER SNOMED Code(s): 834187880 (3) Elevated liver enzymes Current Visit: Yes Status: Acute Code(s): R74.8 - ABNORMAL LEVELS OF OTHER SERUM ENZYMES SNOMED Code(s): 706294638 Plan: 1patient presenting to the hospital with weakness and did have a fall has been on the ground in this patient noticed to have a elevated white count also have elevated lactic acid that may be the cardiovascular/sepsis source could be the right foot lateral border wound with secondary infection in this patient previous culture positive for MRSA and anaerobic gram-positive cocci patient also have elevated liver enzymes and abdominal source needs to be rule out. 2patient did have penicillin allergy that would limit the number of antibiotic safe to use 3discontinue cefazolin. 4we will start the patient on daptomycin and Flagyl pending workup completion. 5check an ultrasound of the liver and gallbladder because of elevated liver enzymes. We will follow on clinical condition and cultures to further adjust medication if needed Thank you for this consultation we will follow the patient along with you Dictation was produced using [employer] dictation software. please excuse any grammatical, word or spelling errors. Time with Patient: Greater than 30
[2024-10-26] MEDS: metroNIDAZOLE 500 MG TAB PO SCH (08:37)
--- NOTE | 2024-10-26 10:24 | US ---
EXAMINATION TYPE: US abdomen limited DATE OF EXAM: 10/26/2024 COMPARISON: Abdominal ultrasound 10/15/2023 CLINICAL INDICATION: Female, 88 years old with history of Elevated liver enzymes; LFTs TECHNIQUE: Grayscale and color Doppler imaging of the right upper quadrant was performed. FINDINGS: EXAM MEASUREMENTS: Liver Length: 14.9 cm Gallbladder Wall: Surgically absent CBD: 0.6 cm Right Kidney: 8.9x3.9x3.9 cm WINDOW INSTALLATION SUBCONTRACTOR NOTES: Pancreas: cyst at head: 2.0x1.8x2.0cm. Tail obscured by overlying bowel gas Liver: wnl as best visualized Gallbladder: Surgically absent CBD: wnl Right Kidney: cortical thinning very limited exam due to bowel gas, limited patient movement/cooperation There is a stable 2.0 cm cyst within the pancreatic head. The liver appears unremarkable. Gallbladder is surgically absent. Common bile duct is within normal limits. Cortical thinning of the right kidne y without evidence for solid mass, shadowing calculus or hydronephrosis. Corticomedullary differentia tion is maintained. IMPRESSION: Limited examination as described above. 1. No ultrasound evidence for acute process. 2. Stable pancreatic head 2.0 cm cyst. May represent a pseudocyst versus side branch intraductal sabino llary mucinous neoplasm versus other etiologies. Consider further evaluation with MR abdomen with IV contrast (pancreatic mass protocol). 3. Post cholecystectomy changes. 4. Findings suggesting medical renal disease involving the right kidney. [facility], , 10/26/2024 10:21 AM
--- NOTE | 2024-10-26 10:33 | P.NPCON ---
History of Present Illness - Reason for Consult acute renal failure, chronic renal failure - History of Present Illness Reason for consultation: Acute kidney injury on chronic kidney disease History of present illness: Patient is a 88-year-old female seen in renal consultation for acute kidney injury on chronic kidney disease. Patient has chronic kidney disease stage IIIa with baseline creatinine 1-1.1. Creatinine this admission has been stable near 1.4. Patient came to the hospital after she sustained a fall. Patient states she slipped from a bed and fell. She denies losing consciousness. Patient is not a very reliable historian. CK level was elevated at 4522 on admission and is down to 1136 today. Hemodynamically stable. Kidney ultrasound showed atrophic right kidney with no hydronephrosis. She was taking Lasix as well as spironolactone at home. Currently she is receiving IV fluids. Denies gross hematuria. She also sustained left arm fracture and is being followed by orthopedic surgery. Oral intake is poor. States she has history of borderline diabetes. Vital signs are stable. General: No acute distress. HEENT: Head exam is unremarkable. LUNGS: No audible rhonchi or wheezes. HEART: Rate and Rhythm are regular. ABDOMEN: Nontender. EXTREMITITES: No edema. Past Medical History Past Medical History: Atrial Fibrillation, Cancer, Diabetes Mellitus, Hyperlipidemia, Hypertension, Mitral Valve Prolapse (MVP), Osteoarthritis (OA) Additional Past Medical History / Comment(s): GOUT, HX RT BREAST CA , NEURO PRITI LEGS and FEET. USES WALKER or cance, UNSTEADY ON FEET. leaky heart valve, umbilical hernia, on rx post op from sinus surgery. History of Any Multi-Drug Resistant Organisms: MRSA Date of last positivie culture/infection: 05/04/24 MDRO Source:: rt foot Past Surgical History: Breast Surgery, Cholecystectomy, Hysterectomy Additional Past Surgical History / Comment(s): MASTECTOMY RT BREAST W/ AXILLA LYMPH NODE, don cataracts, sinus surgery 10/01/16 Past Anesthesia/Blood Transfusion Reactions: Motion Sickness Additional Past Anesthesia/Blood Transfusion Reaction / Comment(s): . Past Psychological History: Anxiety Smoking Status: Never smoker Past Alcohol Use History: None Reported Past Drug Use History: None Reported - Past Family History Mother Family Medical History: Cancer Brother(s) Family Medical History: Cancer Medications and Allergies Home Medications Medication Instructions Recorded Confirmed Type Furosemide [Lasix] 40 mg PO DAILY 01/16/16 10/24/24 History Letrozole [Femara] 2.5 mg PO DAILY 01/16/16 10/24/24 History Montelukast [Singulair] 10 mg PO HS 01/16/16 10/24/24 History Pravastatin Sodium 20 mg PO HS 01/16/16 10/24/24 History allopurinoL [Allopurinol] 100 mg PO DAILY 01/16/16 10/24/24 History traZODone HCL [Desyrel] 100 mg PO HS 01/16/16 10/24/24 History Rivaroxaban [Xarelto] 20 mg PO DAILY 11/04/16 10/24/24 History atenoloL [Tenormin] 25 mg PO HS #90 tab 10/14/23 10/24/24 Rx Gabapentin [Neurontin] 300 mg PO DAILY@1500 3 Days #3 cap 10/18/23 10/24/24 Rx Gabapentin [Neurontin] 600 mg PO BID 3 Days #6 cap 10/18/23 10/24/24 Rx Spironolactone 25 mg PO DAILY 10/24/24 10/24/24 History prednisoLONE ACETATE 1% OPHTH 1 drop BOTH EYES BID 10/24/24 10/24/24 History [Pred Forte 1%] Allergies Allergy/AdvReac Type Severity Reaction Status Date / Time naproxen Allergy Mild Itching Verified 10/24/24 18:07 Penicillins Allergy Rash/Hives Verified 10/24/24 18:07 Physical Exam Vitals: Vital Signs Temp Pulse Pulse Resp BP BP Pulse Ox 10/26/24 09:00 68 10/26/24 08:49 64 98 10/26/24 08:10 98.1 F 73 15 117/71 96 10/26/24 02:00 97.9 F 72 16 125/82 98 10/25/24 21:02 71 18 10/25/24 20:56 74 18 10/25/24 19:20 98 F 80 16 145/77 86 L 10/25/24 16:28 68 10/25/24 16:18 68 10/25/24 15:40 98.2 F 65 19 142/77 97 10/25/24 15:14 98.7 F 75 22 122/85 96 10/25/24 12:15 75 20 126/78 96 10/25/24 12:14 70 10/25/24 12:11 95 10/25/24 12:05 68 10/25/24 11:11 79 120/77 96 Intake and Output 10/25/24 10/26/24 10/26/24 22:59 06:59 14:59 Output Total 600 Balance -600 Output: Urine 600 Other: Voiding Method External Catheter # Bowel Movements 1 Results - Lab Results Most recent lab results Calcium 8.9 mg/dL (8.4-10.2) 10/25/24 05:40 Magnesium 1.8 mg/dL (1.6-2.3) 10/25/24 09:39 10/25/24 05:39 10/25/24 05:40 Assessment and Plan Plan: Assessment: 1. Acute kidney injury secondary to ATN secondary to rhabdomyolysis and hypovolemia. Creatinine stable at 1.48 yesterday. UA shows large blood with no RBCs suggestive of myoglobinuria. No hydronephrosis noted on ultrasound. 2. Chronic kidney disease stage IIIa with baseline creatinine 1-1.1 secondary to nephrosclerosis. 3. Rhabdomyolysis secondary to fall and immobility. CK levels trending down. 4. Left radius fracture being followed by orthopedic surgery. 5. Lower extremity wounds on antibiotics. ID following. Plan: Maintain IV fluids. Avoid nephrotoxins. Continue to monitor renal function and urine output. Thank you for the consultation. I will continue to follow the patient with you during her hospital stay.
[2024-10-26 11:24] VITALS: BMI 25.0
[2024-10-26 11:32] LABS: Glucose,Whole Blood 174 mg/dL (70-110)
--- NOTE | 2024-10-26 12:16 | P.PN ---
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 Orthopedic and nephrology consults in place. IV fluids initiated with improvement in lactic acid down to 2.2 as well as CK from 4522 down to 2352. Bicarb 24 BUN 57, creatinine 1.48 (baseline 1.1). Afebrile, WBC 23.51. elevated LFTs. right foot with ulceration, foul odor, right lateral knee skin abrasion, left foot darkened scab. Prealbumin ordered.prior wound culture in April 2024,MRSA. 10/26/2024 wound and blood cultures pending. Evaluated by infectious disease with antibiotics adjusted to daptomycin and Flagyl. Afebrile, labs pending.bedside debridement of right lateral foot, tolerated well. Refer to procedure note. Prealbumin 8.7. maintained on IV fluids,creatinine kinase decreased to 1136, lactic acid normalized,1.8. Blood sugars controlled. Abdominal ultrasound currently being performed at bedside. Objective - Vital Signs Vital signs: Vital Signs Temp 98.1 F 10/26/24 08:10 Pulse 68 10/26/24 09:00 Resp 15 10/26/24 08:10 BP 117/71 10/26/24 08:10 Pulse Ox 98 10/26/24 08:49 FiO2 Intake & Output 10/25/24 10/26/24 10/26/24 18:59 06:59 18:59 Intake Total 675 Output Total 600 Balance 675 -600 Weight 68.039 kg Intake: Intake, IV Titration 425 Amount Sodium Chloride 0.9% 1, 375 000 ml @ 75 mls/hr IV . [id number] [facility] Rx#:[id number] ceFAZolin 2 gm In Sodium 50 Chloride 0.9% 50 ml @ 100 mls/hr IVPB Q12HR [facility] Rx #:[id number] Oral 250 Output: Urine 600 Other: Voiding Method External Catheter # Bowel Movements 1 - Exam VITAL SIGNS: [As above] GENERAL: alert and oriented x 2-3, fatigued,NAD HEENT: Normocephalic, right facial maxillary abrasion, conjunctivae normal. eyes normal. Sclera anicteric .MMM. NECK: Supple, no JVD. CARDIOVASCULAR: S1, S2. Irregular. RESPIRATION: Breath sounds diminished in the bases. ABDOMEN: Soft,distended, diffuse tenderness . No guarding. +BS EXTREMITIES: Multiple abrasions, ecchymosis, right lateral foot with chronic nonpressure ulceration, right great toe with ingrown toenail ,peripheral pulses intact. Ecchymotic, tender, edematous left shoulder, left arm and wrist with splint,limited range of motion, positive radial pulses. NERVOUS SYSTEM: Cranial N 2-12 grossly normal. No focal deficits. Skin: Warm and dry, multiple areas of ecchymosis - Labs CBC & Chem 7: 10/25/24 05:39 10/25/24 05:40 Labs: Abnormal Lab Results - Last 24 Hours (Table) 10/25/24 10/25/24 10/25/24 Range/Units 05:04 09:38 12:38 POC Glucose (mg/dL) (70-110) mg/dL Plasma Lactic Acid Ben 2.1 H* 2.2 H* (0.7-2.0) mmol/L Creatine Kinase 2352 H* (30-135) U/L Prealbumin (18.0-42.0) mg/dL 10/25/24 10/25/24 10/25/24 Range/Units 15:40 18:00 18:00 POC Glucose (mg/dL) (70-110) mg/dL Plasma Lactic Acid Ben 2.3 H* 2.4 H* (0.7-2.0) mmol/L Creatine Kinase (30-135) U/L Prealbumin 8.7 L (18.0-42.0) mg/dL 10/25/24 10/26/24 10/26/24 Range/Units 20:21 03:58 05:55 POC Glucose (mg/dL) 136 H 156 H (70-110) mg/dL Plasma Lactic Acid Ben (0.7-2.0) mmol/L Creatine Kinase 1136 H (30-135) U/L Prealbumin (18.0-42.0) mg/dL Assessment and Plan Assessment: Acute left distal radius fracture reported per imaging, orthopedics following Severe osteoarthritic changes left shoulder and AC joint Advanced calcific tendinosis left shoulder Acute rhabdomyolysis secondary to fall, CK trending down Acute kidney injury secondary to ATN related to the above. Ultrasound reported no hydronephrosis Lactic acidosis Acute hypoxic respiratory failure secondary to all the above and fluid resuscitation Leukocytosis,secondary to all the above and wounds, in a patient with history of MRSA in April 2024, Corynebacterium, Enterobacter, viridians. Possible Sepsis secondary to infection, work-up in progress. Elevated LFTs History of falls, bilateral foot drop Chronic persistent atrial fibrillation with slow ventricular response, anticoagulated on Xarelto Diabetes mellitus II, hemoglobin A1c 4.3 Diabetic neuropathy bilateral lower extremities Chronic kidney disease stage IIIa, baseline creatinine 1.2-1.4. Chronic nonpressure ulcer of right foot secondary to chronic venous insufficiency, status post bedside debridement 10/26/2024 DDD Osteoarthritis Gait dysfunction, uses a walker History of mitral insufficiency, status post clipping 2016 Moderate to severe pulmonary hypertension Hypertension Hyperlipidemia History of right breast cancer status postmastectomy Prior nicotine dependence Moderate protein calorie malnutrition, requires assistance with all meals and snacks. Plan: Continue on current medication regime ,monitoring and symptomatic treatment. CBC/BMP pending .wound and blood cultures pending. IV antibiotics as per infectious disease. Abdominal ultrasound results pending. IV fluid hydration.pain management. X-ray of right foot pending .local wound care with Opticell as well as zinc/barrier cream to the right great toe.offloading boots ordered .conservative management recommended per orthopedic surgery. Close monitoring of renal function, CK , with repeat labs ordered for a.m. PT/OT with subacute rehab at discharge. Patient requires assistance with all meals and snacks. Dietitian consulted. The impression and plan of care has been dictated as directed. : I performed a history and examination of this patient, discussed the same with the dictator. I agree with the dictator's note ,documented as a scribe. Any additional findings or plans will be noted.
[2024-10-26] MEDS ORDERED: DEXTROSE 50% SYRINGE 50 ML IVP PRN ×2 (12:23)
--- NOTE | 2024-10-26 14:19 | XR ---
EXAMINATION TYPE: XR foot complete RT DATE OF EXAM: 10/26/2024 COMPARISON: Right foot radiograph 02/21/2024 HISTORY: Right lateral border wound TECHNIQUE: Frontal, lateral and oblique images of the right foot are obtained. FINDINGS: Diffuse bone demineralization which limits evaluation. Diffuse soft tissue swelling. Lateral foot 1.4 cm soft tissue wound near the shaft of the fifth metatarsal. Abnormal appearance of the fifth metata rsal shaft with increased sclerosis and irregular osseous erosive changes involving the head of the f ifth metatarsal. No acute fracture or dislocation. Calcaneal plantar spurring is again present. Calca dung Achilles enthesophyte. Atherosclerosis of the arterial vasculature. IMPRESSION: 1. No acute fracture or dislocation. 2. Increased sclerotic appearance of the fifth metatarsal shaft with erosive changes involving the h ead of the fifth metatarsal. This is raises concern for possible acute and/or chronic osteomyelitis v ersus remote trauma. Consider further evaluation with MRI. 3. Diffuse soft tissue swelling with lateral foot soft tissue wound. [facility], , 10/26/2024 2:17 PM
--- NOTE | 2024-10-26 15:43 | P.PN ---
Subjective Progress Note Date: 10/26/24 Principal diagnosis: Reason for follow-up is right foot nonhealing wound and leukocytosis Patient is a 88-year-old female with a past medical history significant for Atrial Fibrillation, Cancer, Diabetes Mellitus, Hyperlipidemia, Hypertension, Mitral Valve Prolapse (MVP), Osteoarthritis (OA) was brought into the hospital after primary patient did have a fall patient also have a chronic nonhealing wound to the right lateral foot area elevated white count prompting t his consultation. On today's evaluation that is 10/26/2024,the patient remains to be afebrile, patient is on 2 L nasal cannula supplemental oxygen and denies any shortness of breath no chest pain or cough.Patient denies having any nausea or vomiting, no abdominal pain and no diarrhea has been reported, pain to the right foot is currently controlled. No CBC was done today cultures are currently pending abdominal ultrasound no evidence for acute process stable pancreatic head cyst foot x-ray did show fifth metatarsal start with erosive changes involving the head of the fifth metatarsal concerning for osteomyelitis Objective - Vital Signs Vital signs: Vital Signs Temp 98.1 F 10/26/24 08:10 Pulse 64 10/26/24 12:34 Resp 15 10/26/24 08:10 BP 117/71 10/26/24 08:10 Pulse Ox 98 10/26/24 08:49 FiO2 Intake & Output 10/25/24 10/26/24 10/26/24 18:59 06:59 18:59 Intake Total 675 300 Output Total 600 Balance 675 -600 300 Weight 68.039 kg 68.039 kg Intake: Intake, IV Titration 425 50 Amount DAPTOmycin 300 mg In 50 Sodium Chloride 0.9% 50 ml @ 100 mls/hr IVPB Q24HR [facility] Rx#:[id number] Sodium Chloride 0.9% 1, 375 000 ml @ 100 mls/hr IV . Q10H [facility] Rx#:[id number] ceFAZolin 2 gm In Sodium 50 Chloride 0.9% 50 ml @ 100 mls/hr IVPB Q12HR [facility] Rx #:[id number] Oral 250 250 Output: Urine 600 Other: Voiding Method External Catheter External Catheter # Bowel Movements 1 - Exam GENERAL DESCRIPTION: An elderly female lying in bed in no distress RESPIRATORY SYSTEM: Unlabored breathing , decreased breath sounds at bases HEART: S1 S2 regular rate and rhythm , ABDOMEN: Soft , no tenderness EXTREMITIES: Right foot lateral border wound post debridement no slough tissue - Labs CBC & Chem 7: 10/25/24 05:39 10/25/24 05:40 Labs: Abnormal Lab Results - Last 24 Hours (Table) 10/25/24 10/25/24 10/25/24 Range/Units 15:40 18:00 18:00 POC Glucose (mg/dL) (70-110) mg/dL Plasma Lactic Acid Ben 2.3 H* 2.4 H* (0.7-2.0) mmol/L Creatine Kinase (26-186) U/L Prealbumin 8.7 L (18.0-42.0) mg/dL 10/25/24 10/26/24 10/26/24 Range/Units 20:21 03:58 05:55 POC Glucose (mg/dL) 136 H 156 H (70-110) mg/dL Plasma Lactic Acid Ben (0.7-2.0) mmol/L Creatine Kinase 1136 H (26-186) U/L Prealbumin (18.0-42.0) mg/dL 10/26/24 Range/Units 11:30 POC Glucose (mg/dL) 174 H (70-110) mg/dL Plasma Lactic Acid Ben (0.7-2.0) mmol/L Creatine Kinase (26-186) U/L Prealbumin (18.0-42.0) mg/dL Assessment and Plan (1) Leukocytosis Current Visit: Yes Status: Acute Code(s): D72.829 - ELEVATED WHITE BLOOD CELL COUNT, UNSPECIFIED SNOMED Code(s): 077858820 (2) Wound of right foot Current Visit: Yes Status: Acute Code(s): S91.301A - UNSPECIFIED OPEN WOUND, RIGHT FOOT, INITIAL ENCOUNTER SNOMED Code(s): 516737747 (3) Elevated liver enzymes Current Visit: Yes Status: Acute Code(s): R74.8 - ABNORMAL LEVELS OF OTHER SERUM ENZYMES SNOMED Code(s): 955210442 Plan: 1patient presenting to the hospital with weakness and did have a fall has been on the ground in this patient noticed to have a elevated white count also have elevated lactic acid that may be the cardiovascular/sepsis source could be the right foot lateral border wound with secondary infection in this patient previous culture positive for MRSA and anaerobic gram-positive cocci patient also have elevated liver enzymes and abdominal source needs to be rule out, patient did have a abdominal ultrasound did not mention acute process pancreatic head cyst. 2patient did have penicillin allergy that would limit the number of antibiotic safe to use 3x-ray of the right foot concerning for right fifth metatarsal osteomyelitis. 4we will obtain bone scan to make sure no evidence of osteomyelitis for now we will treat patient on daptomycin and Flagyl pending workup completion. Family at the bedside question answered Dictation was produced using [employer] dictation software. please excuse any grammatical, word or spelling errors.
[2024-10-26 15:51] LABS: HCT 38.3 % (37.2-46.3); HGB 12.4 g/dL (12.0-15.0); MCH 29.1 pg (27.0-32.0); MCHC 32.4 g/dL (32.0-37.0); MCV 89.9 FL (80.0-97.0); NRBC Per 100 WBC 0 X 10*3/uL (0.00-0.01); Platelet Count 115 X 10*3/uL (140-440); RBC 4.26 X 10*6/uL (4.10-5.20); RDW 15.3 % (11.5-14.5); WBC 16.55 X 10*3/uL (4.50-10.00)
[2024-10-26] MEDS ORDERED: ZINC OXIDE PASTE (Z-GUARD) 1 APPLIC TOPICAL PRN (16:07)
[2024-10-26 17:01] LABS: Glucose,Whole Blood 202 mg/dL (70-110)
[2024-10-26] MEDS: INSULIN LISPRO (HumaLOG) 100 UNIT/ML 10 mL VL SQ SCH (17:42)
[2024-10-26 19:41] LABS: Anion Gap 14.50 mmol/L (4.00-12.00); BUN/Creat Ratio 46.64 Ratio (12.00-20.00); Blood Urea Nitrogen 65.3 mg/dL (9.0-27.0); Calcium 8.1 mg/dL (8.7-10.3); Carbon Dioxide 22.5 mmol/L (21.6-31.8); Chloride 106 mmol/L (96-109); Glucose 159 mg/dL (70-110); Potassium 3.6 mmol/L (3.5-5.5); Sodium 143 mmol/L (135-145)
[2024-10-26 20:04] LABS: Glucose,Whole Blood 180 mg/dL (70-110)
[2024-10-27 06:28] LABS: Glucose,Whole Blood 150 mg/dL (70-110)
--- NOTE | 2024-10-27 08:43 | P.PN ---
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 Orthopedic and nephrology consults in place. IV fluids initiated with improvement in lactic acid down to 2.2 as well as CK from 4522 down to 2352. Bicarb 24 BUN 57, creatinine 1.48 (baseline 1.1). Afebrile, WBC 23.51. elevated LFTs. right foot with ulceration, foul odor, right lateral knee skin abrasion, left foot darkened scab. Prealbumin ordered.prior wound culture in April 2024,MRSA. 10/26/2024 wound and blood cultures pending. Evaluated by infectious disease with antibiotics adjusted to daptomycin and Flagyl. Afebrile, labs pending.bedside debridement of right lateral foot, tolerated well. Refer to procedure note. Prealbumin 8.7. maintained on IV fluids,creatinine kinase decreased to 1136, lactic acid normalized,1.8. Blood sugars controlled. Abdominal ultrasound currently being performed at bedside. 10/27/2024 preliminary aerobic wound culture reporting Proteus Mirabilis, Strept dysagalactiae spp equis, preliminary blood culture reporting no growth after 24- hours.abdominal ultrasound reported nonacute stable pancreatic head 2.0 cm may represent a pseudocyst versus branch intraductal papillary mucinous neoplasm versus other etiologies, liver appears unremarkable ,cortical thinning of the r ight kidney without evidence for solid mass, shadowing calculus or hydronephrosis corticomedullary differentiation maintained .right foot x-ray reports no acute fracture or dislocation, increased sclerotic appearance of the fifth metatarsal shaft with erosive changes involving the head of the fifth metatarsal raises concern for acute and/or chronic osteomyelitis versus remote trauma, diffuse soft tissue swelling with lateral foot soft tissue wound .bone scan ordered.Maintained on daptomycin and Flagyl.Afebrile, WBC yesterday decreased to 16.55, bicarb 22.5, BUN 65.3, creatinine 1.4 a.m. labs pending. Blood sugars ranging from 150 to low 200s, A1c pending. Objective - Vital Signs Vital signs: Vital Signs Temp 98 F 10/27/24 01:22 Pulse 77 10/27/24 01:22 Resp 15 10/26/24 19:28 BP 100/63 10/27/24 01:22 Pulse Ox 98 10/27/24 01:22 FiO2 Intake & Output 10/26/24 10/27/24 10/27/24 18:59 06:59 18:59 Intake Total 300 Output Total 400 900 Balance -100 -900 Weight 68.039 kg Intake: Intake, IV Titration 50 Amount DAPTOmycin 300 mg In 50 Sodium Chloride 0.9% 50 ml @ 100 mls/hr IVPB Q24HR [facility] Rx#:[id number] Oral 250 Output: Urine 400 900 Other: Voiding Method External Catheter External Catheter # Bowel Movements 1 - Exam VITAL SIGNS: [As above] GENERAL: Pleasant, sitting up in bed ,alert and oriented x 3, NAD HEENT: Normocephalic, right maxillary area abrasion, conjunctivae normal. eyes normal. Sclera anicteric .MMM. NECK: Supple, no JVD. CARDIOVASCULAR: S1, S2. Irregular. RESPIRATION: Breath sounds diminished in the bases. ABDOMEN: Soft,distended, diffuse tenderness . No guarding. +BS EXTREMITIES: Multiple abrasions, ecchymosis all extremities, bilateral knee abrasions, right greater than left,right lateral foot with chronic nonpressure ulceration, right great toe with ingrown toenail ,peripheral pulses intact. Ecchymotic, tender, left shoulder, weeping edematous left arm extending down through fingers, ventral forearm abrasion ,limited range of motion, positive radial pulses. NERVOUS SYSTEM: Cranial N 2-12 grossly normal. No focal deficits. Skin: Warm and dry, multiple areas of ecchymosis - Labs CBC & Chem 7: 10/27/24 04:01 10/27/24 04:08 Labs: Abnormal Lab Results - Last 24 Hours (Table) 10/26/24 10/26/24 10/26/24 Range/Units 03:58 03:58 11:30 WBC 16.55 H (4.50-10.00) X 10*3/uL RDW 15.3 H (11.5-14.5) % Plt Count 115 L (140-440) X 10*3/uL Anion Gap 14.50 H (4.00-12.00) mmol/L BUN 65.3 H (9.0-27.0) mg/dL Est GFR (CKD-EPI) 36 L (>=60) BUN/Creatinine Ratio 46.64 H (12.00-20.00) Ratio Glucose 159 H (70-110) mg/dL POC Glucose (mg/dL) 174 H (70-110) mg/dL Calcium 8.1 L (8.7-10.3) mg/dL 10/26/24 10/26/24 10/27/24 Range/Units 16:59 20:04 06:26 WBC (4.50-10.00) X 10*3/uL RDW (11.5-14.5) % Plt Count (140-440) X 10*3/uL Anion Gap (4.00-12.00) mmol/L BUN (9.0-27.0) mg/dL Est GFR (CKD-EPI) (>=60) BUN/Creatinine Ratio (12.00-20.00) Ratio Glucose (70-110) mg/dL POC Glucose (mg/dL) 202 H 180 H 150 H (70-110) mg/dL Calcium (8.7-10.3) mg/dL Microbiology - Last 24 Hours (Table) 10/25/24 23:10 Gram Stain - Preliminary Foot - Right Wound Culture - Preliminary Proteus mirabilis Strep dysgalactiae spp equis. 10/25/24 18:00 Blood Culture - Preliminary Blood Assessment and Plan Assessment: Acute left distal radius fracture reported per imaging, orthopedics recommending conservative management. Severe osteoarthritic changes left shoulder and AC joint Advanced calcific tendinosis left shoulder Acute rhabdomyolysis secondary to fall, CK trending down Acute kidney injury secondary to ATN related to the above. 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 Right foot x-ray suggesting potential osteomyelitis right fifth metatarsal, bone scan pending. Possible Sepsis secondary to infection, work-up in progress. Elevated LFTs History of falls, bilateral foot drop Chronic persistent atrial fibrillation with slow ventricular response, antic oagulated on Xarelto Diabetes mellitus II, hemoglobin A1c 4.3 Diabetic neuropathy bilateral lower extremities Chronic kidney disease stage IIIa, baseline creatinine 1.2-1.4. Chronic nonpressure ulcer of right foot secondary to chronic venous insufficiency, status post bedside debridement 10/26/2024. X-ray suggesting potential osteomyelitis right fifth metatarsal DDD Osteoarthritis Gait dysfunction, uses a walker History of mitral insufficiency, status post clipping 2016 Moderate to severe pulmonary hypertension Hypertension Hyperlipidemia History of right breast cancer status postmastectomy Prior nicotine dependence Moderate protein calorie malnutrition, requires assistance with all meals and snacks. Plan: Continue on current medication regime ,monitoring and symptomatic treatment. Labs pending .wound and blood cultures finalizing. Bone scan ordered. Triad cream not available -use zinc barrier cream to abrasions on left arm, bilateral knees .Karthikeyan wrap left arm from antecubital fossa to fingers. Maintain local wound care as ordered with Opticell to right foot. Offloading boots. IV antibiotics as per infectious disease. IV fluids.Pain management. Close monitoring of renal function, CK , with repeat labs ordered for a.m. PT/OT. Assistance with all meals and snacks/feeding assistance. Tight glycemic control, low-dose Lantus added to med regimen, close monitoring of Accu-Cheks. Complaining of constipation, MiraLAX ordered. The impression and plan of care has been dictated as directed. : I performed a history and examination of this patient, discussed the same with the dictator. I agree with the dictator's note ,documented as a scribe. Any additional findings or plans will be noted.
[2024-10-27 09:32] LABS: Anion Gap 10.30 mmol/L (4.00-12.00); BUN/Creat Ratio 54.55 Ratio (12.00-20.00); Blood Urea Nitrogen 60.0 mg/dL (9.0-27.0); Calcium 7.9 mg/dL (8.7-10.3); Carbon Dioxide 22.7 mmol/L (21.6-31.8); Chloride 106 mmol/L (96-109); Glucose 145 mg/dL (70-110); Magnesium 1.8 mg/dL (1.5-2.4); Potassium 3.3 mmol/L (3.5-5.5); Sodium 139 mmol/L (135-145)
[2024-10-27 09:37] LABS: HCT 33.9 % (37.2-46.3); HGB 11.3 g/dL (12.0-15.0); MCH 29.4 pg (27.0-32.0); MCHC 33.3 g/dL (32.0-37.0); MCV 88.3 FL (80.0-97.0); NRBC Per 100 WBC 0 X 10*3/uL (0.00-0.01); Platelet Count 102 X 10*3/uL (140-440); RBC 3.84 X 10*6/uL (4.10-5.20); RDW 14.6 % (11.5-14.5); WBC 12.68 X 10*3/uL (4.50-10.00)
[2024-10-27] MEDS: INSULIN GLARGINE (LANTUS) 100 UNIT/ML SYR SQ SCH (09:44)
[2024-10-27 09:47] LABS: Creatine Kinase 534 U/L (26-186)
--- NOTE | 2024-10-27 10:02 | P.PN ---
Subjective Patient is seen in follow-up for acute kidney injury on chronic kidney disease. Renal function better. Resting in bed. Oral intake fair. Nonoliguric. Vital signs are stable. General: No acute distress. HEENT: Head exam is unremarkable. LUNGS: No audible rhonchi or wheezes. HEART: Rate and Rhythm are regular. ABDOMEN: Nontender. EXTREMITITES: No edema. Objective - Vital Signs Vital signs: Vital Signs Temp 97.9 F 10/27/24 07:28 Pulse 73 10/27/24 07:28 Resp 18 10/27/24 07:28 BP 116/64 10/27/24 07:28 Pulse Ox 98 10/27/24 01:22 FiO2 Intake & Output 10/26/24 10/27/24 10/27/24 18:59 06:59 18:59 Intake Total 300 Output Total 400 900 Balance -100 -900 Weight 68.039 kg Intake: Intake, IV Titration 50 Amount DAPTOmycin 300 mg In 50 Sodium Chloride 0.9% 50 ml @ 100 mls/hr IVPB Q24HR [facility] Rx#:[id number] Oral 250 Output: Urine 400 900 Other: Voiding Method External Catheter External Catheter # Bowel Movements 1 - Labs CBC & Chem 7: 10/27/24 04:01 10/27/24 04:08 Labs: Abnormal Lab Results - Last 24 Hours (Table) 10/26/24 10/26/24 10/26/24 Range/Units 03:58 03:58 11:30 WBC 16.55 H (4.50-10.00) X 10*3/uL RBC (4.10-5.20) X 10*6/uL Hgb (12.0-15.0) g/dL Hct (37.2-46.3) % RDW 15.3 H (11.5-14.5) % Plt Count 115 L (140-440) X 10*3/uL Potassium (3.5-5.5) mmol/L Anion Gap 14.50 H (4.00-12.00) mmol/L BUN 65.3 H (9.0-27.0) mg/dL Est GFR (CKD-EPI) 36 L (>=60) BUN/Creatinine Ratio 46.64 H (12.00-20.00) Ratio Glucose 159 H (70-110) mg/dL POC Glucose (mg/dL) 174 H (70-110) mg/dL Calcium 8.1 L (8.7-10.3) mg/dL Creatine Kinase (26-186) U/L 10/26/24 10/26/24 10/27/24 Range/Units 16:59 20:04 04:01 WBC 12.68 H (4.50-10.00) X 10*3/uL RBC 3.84 L (4.10-5.20) X 10*6/uL Hgb 11.3 L (12.0-15.0) g/dL Hct 33.9 L (37.2-46.3) % RDW 14.6 H (11.5-14.5) % Plt Count 102 L (140-440) X 10*3/uL Potassium (3.5-5.5) mmol/L Anion Gap (4.00-12.00) mmol/L BUN (9.0-27.0) mg/dL Est GFR (CKD-EPI) (>=60) BUN/Creatinine Ratio (12.00-20.00) Ratio Glucose (70-110) mg/dL POC Glucose (mg/dL) 202 H 180 H (70-110) mg/dL Calcium (8.7-10.3) mg/dL Creatine Kinase (26-186) U/L 10/27/24 10/27/24 Range/Units 04:08 06:26 WBC (4.50-10.00) X 10*3/uL RBC (4.10-5.20) X 10*6/uL Hgb (12.0-15.0) g/dL Hct (37.2-46.3) % RDW (11.5-14.5) % Plt Count (140-440) X 10*3/uL Potassium 3.3 L (3.5-5.5) mmol/L Anion Gap (4.00-12.00) mmol/L BUN 60.0 H (9.0-27.0) mg/dL Est GFR (CKD-EPI) 48 L (>=60) BUN/Creatinine Ratio 54.55 H (12.00-20.00) Ratio Glucose 145 H (70-110) mg/dL POC Glucose (mg/dL) 150 H (70-110) mg/dL Calcium 7.9 L (8.7-10.3) mg/dL Creatine Kinase 534 H (26-186) U/L Microbiology - Last 24 Hours (Table) 10/25/24 23:10 Gram Stain - Preliminary Foot - Right Wound Culture - Preliminary Proteus mirabilis Strep dysgalactiae spp equis. 10/25/24 18:00 Blood Culture - Preliminary Blood Assessment and Plan Plan: Assessment: 1. Acute kidney injury secondary to ATN secondary to rhabdomyolysis and hypovolemia. Renal function better. Creatinine 1.1 today. UA shows large blood with no RBCs suggestive of myoglobinuria. No hydronephrosis noted on ultrasound. 2. Chronic kidney disease stage IIIa with baseline creatinine 1-1.1 secondary to nephrosclerosis. 3. Rhabdomyolysis secondary to fall and immobility. CK levels trending down. 4. Left radius fracture being followed by orthopedic surgery. 5. Lower extremity wounds on antibiotics. ID following. 6. Hypokalemia from poor intake. Plan: Maintain IV fluids. Decrease rate to 60 cc an hour. Replace potassium. Encouraged oral intake. Avoid nephrotoxins. Continue to monitor renal function and urine output.
[2024-10-27] MEDS: POTASSIUM CHLORIDE ER 20 MEQ TAB.ER PO STA (10:13)
--- NOTE | 2024-10-27 10:57 | PCM.SQDEBR ---
Subcutaneous Debridement - Subcutaneous Debridement Date of Service: 10/26/24 Subcutaneous Debridement: PREOPERATIVE DIAGNOSES: Stage III pressure ulcer right lateral foot POSTOPERATIVE DIAGNOSES: [same] PROCEDURE: Excisional surgical debridement into subcutaneous tissues DESCRIPTION: The full-thickness ulcer, measuring, pre-debridement: 2.5 x 6.1 x 0.5 cm was debrided into the subcutaneous tissues today to remove yellow fibrinous slough and devitalized tissue from the wound. Post debridement measurements: 2.7 x 6.3 x 0.6 cm .There are [no] obvious signs of infection today. There are [no] other materials in the wound that he would inhibit healing or promote adjacent tissue breakdown. EXTENT OF NECROTIC TISSUE: Small DEGREE OF EPITHELIALIZATION: Large CHARACTER OF WOUND AFTER DEBRIDEMINT: [bloody and granular] INSTRUMENTATION: [Sharp curette] BLEEDING: [Minimal and controlled with pressure] ANESTHESIA: None DRESSING: Opticell Ag and Curlex with paper tape Patient tolerated today's procedure well. The patient will be reevaluated on a regular basis during her hospital stay
--- NOTE | 2024-10-27 15:11 | P.PN ---
Subjective Progress Note Date: 10/27/24 Principal diagnosis: Reason for follow-up is right foot nonhealing wound and leukocytosis Patient is a 88-year-old female with a past medical history significant for Atrial Fibrillation, Cancer, Diabetes Mellitus, Hyperlipidemia, Hypertension, Mitral Valve Prolapse (MVP), Osteoarthritis (OA) was brought into the hospital after primary patient did have a fall patient also have a chronic nonhealing wound to the right lateral foot area elevated white count prompting t his consultation. On today's evaluation that is 10/27/2024, the patient continues to be afebrile, the patient is on 2 L nasal oxygen and breathing comfortably, the Pt denies having any chest pain or cough, the patient denies having any abdominal pain no vomiting or any diarrhea has been reported by the nursing staff. Patient white count is down to 12.68, creatinine is 1.1 culture currently growing Proteus and Streptococcus Objective - Vital Signs Vital signs: Vital Signs Temp 97.9 F 10/27/24 07:28 Pulse 74 10/27/24 10:23 Resp 18 10/27/24 07:28 BP 116/64 10/27/24 07:28 Pulse Ox 100 10/27/24 10:10 FiO2 Intake & Output 10/26/24 10/27/24 10/27/24 18:59 06:59 18:59 Intake Total 300 Output Total 400 900 Balance -100 -900 Weight 68.039 kg Intake: Intake, IV Titration 50 Amount DAPTOmycin 300 mg In 50 Sodium Chloride 0.9% 50 ml @ 100 mls/hr IVPB Q24HR [facility] Rx#:[id number] Oral 250 Output: Urine 400 900 Other: Voiding Method External Catheter External Catheter External Catheter # Bowel Movements 1 - Exam GENERAL DESCRIPTION: An elderly female lying in bed in no distress RESPIRATORY SYSTEM: Unlabored breathing , decreased breath sounds at bases HEART: S1 S2 regular rate and rhythm , ABDOMEN: Soft , no tenderness EXTREMITIES: Right foot lateral border wound post debridement no slough tissue - Labs CBC & Chem 7: 10/27/24 04:01 10/27/24 04:08 Labs: Abnormal Lab Results - Last 24 Hours (Table) 10/26/24 10/26/24 10/26/24 Range/Units 03:58 03:58 16:59 WBC 16.55 H (4.50-10.00) X 10*3/uL RBC (4.10-5.20) X 10*6/uL Hgb (12.0-15.0) g/dL Hct (37.2-46.3) % RDW 15.3 H (11.5-14.5) % Plt Count 115 L (140-440) X 10*3/uL Potassium (3.5-5.5) mmol/L Anion Gap 14.50 H (4.00-12.00) mmol/L BUN 65.3 H (9.0-27.0) mg/dL Est GFR (CKD-EPI) 36 L (>=60) BUN/Creatinine Ratio 46.64 H (12.00-20.00) Ratio Glucose 159 H (70-110) mg/dL POC Glucose (mg/dL) 202 H (70-110) mg/dL Calcium 8.1 L (8.7-10.3) mg/dL Creatine Kinase (26-186) U/L 10/26/24 10/27/24 10/27/24 Range/Units 20:04 04:01 04:08 WBC 12.68 H (4.50-10.00) X 10*3/uL RBC 3.84 L (4.10-5.20) X 10*6/uL Hgb 11.3 L (12.0-15.0) g/dL Hct 33.9 L (37.2-46.3) % RDW 14.6 H (11.5-14.5) % Plt Count 102 L (140-440) X 10*3/uL Potassium 3.3 L (3.5-5.5) mmol/L Anion Gap (4.00-12.00) mmol/L BUN 60.0 H (9.0-27.0) mg/dL Est GFR (CKD-EPI) 48 L (>=60) BUN/Creatinine Ratio 54.55 H (12.00-20.00) Ratio Glucose 145 H (70-110) mg/dL POC Glucose (mg/dL) 180 H (70-110) mg/dL Calcium 7.9 L (8.7-10.3) mg/dL Creatine Kinase 534 H (26-186) U/L 10/27/24 Range/Units 06:26 WBC (4.50-10.00) X 10*3/uL RBC (4.10-5.20) X 10*6/uL Hgb (12.0-15.0) g/dL Hct (37.2-46.3) % RDW (11.5-14.5) % Plt Count (140-440) X 10*3/uL Potassium (3.5-5.5) mmol/L Anion Gap (4.00-12.00) mmol/L BUN (9.0-27.0) mg/dL Est GFR (CKD-EPI) (>=60) BUN/Creatinine Ratio (12.00-20.00) Ratio Glucose (70-110) mg/dL POC Glucose (mg/dL) 150 H (70-110) mg/dL Calcium (8.7-10.3) mg/dL Creatine Kinase (26-186) U/L Microbiology - Last 24 Hours (Table) 10/25/24 23:10 Gram Stain - Preliminary Foot - Right Wound Culture - Preliminary Proteus mirabilis Strep dysgalactiae spp equis. 10/25/24 18:00 Blood Culture - Preliminary Blood Assessment and Plan (1) Leukocytosis Current Visit: Yes Status: Acute Code(s): D72.829 - ELEVATED WHITE BLOOD CELL COUNT, UNSPECIFIED SNOMED Code(s): 565908394 (2) Wound of right foot Current Visit: Yes Status: Acute Code(s): S91.301A - UNSPECIFIED OPEN WOUND, RIGHT FOOT, INITIAL ENCOUNTER SNOMED Code(s): 291744991 (3) Elevated liver enzymes Current Visit: Yes Status: Acute Code(s): R74.8 - ABNORMAL LEVELS OF OTHER SERUM ENZYMES SNOMED Code(s): 402743570 Plan: 1patient presenting to the hospital with weakness and did have a fall has been on the ground in this patient noticed to have a elevated white count also have elevated lactic acid that may be the cardiovascular/sepsis source could be the right foot lateral border wound with secondary infection in this patient previous culture positive for MRSA and anaerobic gram-positive cocci patient also have elevated liver enzymes and abdominal source needs to be rule out, patient did have a abdominal ultrasound did not mention acute process pancreatic head cyst. 2patient did have penicillin allergy that would limit the number of antibiotic safe to use 3x-ray of the right foot concerning for right fifth metatarsal osteomyelitis. 4currently waiting for bone scan to make sure no evidence of osteomyelitis 5local culture growing Proteus and Streptococcus we will add Rocephin 2 g daily if no MRSA to discontinue daptomycin Family at the bedside question answered Dictation was produced using [employer] dictation software. please excuse any grammatical, word or spelling errors. Time with Patient: Less than 30
[2024-10-27 17:37] LABS: Glucose,Whole Blood 173 mg/dL (70-110)
[2024-10-28 06:58] LABS: Glucose,Whole Blood 113 mg/dL (70-110)
[2024-10-28 09:25] LABS: Basophils # (A) 0.02 X 10*3/uL (0.00-0.10); Basophils % (A) 0.2 %; Eosinophils # (A) 0 X 10*3/uL (0.04-0.35); Eosinophils % (A) 0 %; HCT 33.0 % (37.2-46.3); HGB 11.0 g/dL (12.0-15.0); Immature Grans, Automated 1.20 %; Lymphocytes # (A) 1.38 X 10*3/uL (0.90-5.00); Lymphocytes % (A) 13.3 %; MCH 29.6 pg (27.0-32.0); MCHC 33.3 g/dL (32.0-37.0); MCV 88.9 FL (80.0-97.0); Monocytes # (A) 1.15 X 10*3/uL (0.20-1.00); Monocytes % (A) 11.0 %; NRBC Per 100 WBC 0 X 10*3/uL (0.00-0.01); Neutrophils # (A) 7.74 X 10*3/uL (1.80-7.70); Neutrophils % (A) 74.3 %; Platelet Count 116 X 10*3/uL (140-440); RBC 3.71 X 10*6/uL (4.10-5.20); RDW 14.5 % (11.5-14.5); WBC 10.41 X 10*3/uL (4.50-10.00)
--- NOTE | 2024-10-28 09:54 | P.PN ---
Subjective Patient is seen in follow-up for acute kidney injury on chronic kidney disease. Renal function better. Creatinine 1.1 yesterday. Resting in bed. Oral intake fair. Nonoliguric. Vital signs are stable. General: No acute distress. HEENT: Head exam is unremarkable. LUNGS: No audible rhonchi or wheezes. HEART: Rate and Rhythm are regular. ABDOMEN: Nontender. EXTREMITITES: No edema. Objective - Vital Signs Vital signs: Vital Signs Temp 99.8 F H 10/28/24 07:50 Pulse 78 10/28/24 07:50 Resp 18 10/28/24 07:50 BP 114/51 10/28/24 07:50 Pulse Ox 96 10/28/24 07:50 FiO2 Intake & Output 10/27/24 10/28/24 10/28/24 18:59 06:59 18:59 Intake Total 1220 Output Total 250 500 Balance -250 720 Intake: Intake, IV Titration 720 Amount Sodium Chloride 0.9% 1, 720 000 ml @ 60 mls/hr IV . [id number] [facility] Rx#:[id number] Oral 500 Output: Urine 250 500 Other: Voiding Method External Catheter External Catheter External Catheter # Bowel Movements 1 - Labs CBC & Chem 7: 10/28/24 04:20 10/27/24 04:08 Labs: Abnormal Lab Results - Last 24 Hours (Table) 10/27/24 10/28/24 10/28/24 Range/Units 17:36 04:20 06:54 WBC 10.41 H (4.50-10.00) X 10*3/uL RBC 3.71 L (4.10-5.20) X 10*6/uL Hgb 11.0 L (12.0-15.0) g/dL Hct 33.0 L (37.2-46.3) % Plt Count 116 L (140-440) X 10*3/uL Immature Gran # 0.12 H (0.00-0.04) X 10*3/uL Neutrophils # 7.74 H (1.80-7.70) X 10*3/uL Monocytes # 1.15 H (0.20-1.00) X 10*3/uL Eosinophils # 0 L (0.04-0.35) X 10*3/uL POC Glucose (mg/dL) 173 H 113 H (70-110) mg/dL Microbiology - Last 24 Hours (Table) 10/25/24 23:10 Anaerobic Culture - Preliminary Foot - Right 10/25/24 18:00 Blood Culture - Preliminary Blood 10/25/24 23:10 Gram Stain - Preliminary Foot - Right Wound Culture - Preliminary Proteus mirabilis Strep dysgalactiae spp equis. Assessment and Plan Plan: Assessment: 1. Acute kidney injury secondary to ATN secondary to rhabdomyolysis and hypovolemia. Renal function better. Creatinine 1.1 yesterday. UA shows large blood with no RBCs suggestive of myoglobinuria. No hydronephrosis noted on ultrasound. 2. Chronic kidney disease stage IIIa with baseline creatinine 1-1.1 secondary to nephrosclerosis. 3. Rhabdomyolysis secondary to fall and immobility. CK levels trending down. 4. Left radius fracture being followed by orthopedic surgery. 5. Lower extremity wounds on antibiotics. ID following. 6. Hypokalemia from poor intake. Replaced. Plan: Maintain IV fluids. Replace potassium as needed. Encouraged oral intake. Avoid nephrotoxins. Continue to monitor renal function and urine output.
[2024-10-28 10:10] LABS: Anion Gap 11.10 mmol/L (4.00-12.00); BUN/Creat Ratio 52.56 Ratio (12.00-20.00); Blood Urea Nitrogen 47.3 mg/dL (9.0-27.0); Calcium 8.3 mg/dL (8.7-10.3); Carbon Dioxide 21.9 mmol/L (21.6-31.8); Chloride 108 mmol/L (96-109); Creatine Kinase 358 U/L (26-186); Glucose 133 mg/dL (70-110); Magnesium 1.7 mg/dL (1.5-2.4); Potassium 4.0 mmol/L (3.5-5.5); Sodium 141 mmol/L (135-145)
--- NOTE | 2024-10-28 11:36 | P.PN ---
Subjective 10/28/2024: Patient seen evaluated today. She is overall improved from her rhabdomyolysis due to fall and being down an unspecified amount of time. She has a left radial fracture. She had significant edema to that area Karthikeyan wrap's in place today. Vitals below. Febrile however this morning she had a Tmax of 99 point on 2 L O2 via nasal cannula pulse oximetry is 96% 11.0 left shift neutrophils 7.74 point chemistries are improved GFR is now 61 the CPK is 358. She is being followed by infectious disease and nephrology. Has a stage III pressure ulcer of the right lateral heel along with multiple contusions from her fall. She has a left distal radius fracture and significant osteoarthritis on the left side. Orthopedics has seen her and they have made recommendations. Objective - Vital Signs Vital signs: Vital Signs Temp 99.8 F H 10/28/24 07:50 Pulse 78 10/28/24 07:50 Resp 18 10/28/24 07:50 BP 114/51 10/28/24 07:50 Pulse Ox 96 10/28/24 07:50 FiO2 Intake & Output 10/27/24 10/28/24 10/28/24 18:59 06:59 18:59 Intake Total 1220 Output Total 250 500 Balance -250 720 Intake: Intake, IV Titration 720 Amount Sodium Chloride 0.9% 1, 720 000 ml @ 60 mls/hr IV . [id number] [facility] Rx#:[id number] Oral 500 Output: Urine 250 500 Other: Voiding Method External Catheter External Catheter External Catheter # Bowel Movements 1 - Exam general: Elderly female in no acute distress at this time rest comfortably in bed. She is on oxygen in place wick is in place Neck: The neck is supple, there is no thyromegaly, lymphadenopathy, tenderness or JVD. Cardiovascular: S1S2 is normal, There is a regular rate and rhythm. No, rub or gallop is appreciated./6 systolic ejection murmur noted Respiratory: Lungs are clear to auscultation bilaterally, respirations are non-labored, breath sounds are equal. Gastrointestinal: Soft, non-tender abdomen without masses or organomegaly noted. There is no rebound or guarding present. Bowel sounds are unremarkable. Abdominal distention noted most likely from constipation. She Musculoskeletal: Overall weakness. There is Karthikeyan wrap on her left antecubital fossa extending the fingers due to her fracture and significant edema. There is healed boots on her feet. She has the wound to her right lateral foot dressings clean dry and intact Neurological: CN II-XII intact, there are no obvious motor or sensory deficits. Coordination appears grossly intact. Speech is normal. Skin: Skin is warm and dry and no rashes - Labs CBC & Chem 7: 10/28/24 04:20 10/28/24 04:20 Labs: Abnormal Lab Results - Last 24 Hours (Table) 10/27/24 10/28/24 10/28/24 Range/Units 17:36 04:20 04:20 WBC 10.41 H (4.50-10.00) X 10*3/uL RBC 3.71 L (4.10-5.20) X 10*6/uL Hgb 11.0 L (12.0-15.0) g/dL Hct 33.0 L (37.2-46.3) % Plt Count 116 L (140-440) X 10*3/uL Immature Gran # 0.12 H (0.00-0.04) X 10*3/uL Neutrophils # 7.74 H (1.80-7.70) X 10*3/uL Monocytes # 1.15 H (0.20-1.00) X 10*3/uL Eosinophils # 0 L (0.04-0.35) X 10*3/uL BUN 47.3 H (9.0-27.0) mg/dL BUN/Creatinine Ratio 52.56 H (12.00-20.00) Ratio Glucose 133 H (70-110) mg/dL POC Glucose (mg/dL) 173 H (70-110) mg/dL Calcium 8.3 L (8.7-10.3) mg/dL Creatine Kinase 358 H (26-186) U/L 10/28/24 Range/Units 06:54 WBC (4.50-10.00) X 10*3/uL RBC (4.10-5.20) X 10*6/uL Hgb (12.0-15.0) g/dL Hct (37.2-46.3) % Plt Count (140-440) X 10*3/uL Immature Gran # (0.00-0.04) X 10*3/uL Neutrophils # (1.80-7.70) X 10*3/uL Monocytes # (0.20-1.00) X 10*3/uL Eosinophils # (0.04-0.35) X 10*3/uL BUN (9.0-27.0) mg/dL BUN/Creatinine Ratio (12.00-20.00) Ratio Glucose (70-110) mg/dL POC Glucose (mg/dL) 113 H (70-110) mg/dL Calcium (8.7-10.3) mg/dL Creatine Kinase (26-186) U/L Microbiology - Last 24 Hours (Table) 10/25/24 23:10 Anaerobic Culture - Preliminary Foot - Right 10/25/24 18:00 Blood Culture - Preliminary Blood Assessment and Plan Plan: Acute rhabdomyolysis secondary to fall, CK is improving is on normal saline IV fluid at 60 cc an hour. Acute renal failure on chronic stage IIIa renal failure most likely due to the rhabdomyolysis, improving, nephrology on consult osteomyelitis suspect x-ray was abnormal, bone scan is pending she remains on ceftriaxone and daptomycin Stage 3 pressure ulcer right lateral foot: This has been present for several months, she has been followed by [facility] for wound and I have seen this several times myself. Acute left distal radius fracture: Orthopedics on consult Areas osteoarthritis: Will monitor Elevated LFTs: Will recheck laboratory studies History of falls, bilateral foot drop Chronic persistent atrial fibrillation with slow ventricular response, a nticoagulated on Xarelto Diabetes mellitus II, hemoglobin A1c 4.[address] Diabetic neuropathy bilateral lower extremities Gait dysfunction, uses a walker need rehabilitation after discharge History of mitral insufficiency, status post clipping 2016 Moderate to severe pulmonary hypertension stable at this time Hypertension will monitor Hyperlipidemia pravastatin History of right breast cancer status postmastectomy Prior nicotine dependence Moderate protein calorie malnutrition, requires assistance with all meals and snacks. At this point I will discontinue her tramadol for pain and just order the Tylenol at this time, repeat liver function test as they were minimally elevated expected from her downtime. She will continue on daptomycin and ceftriaxone per infectious disease, she will continue to have immobilized her left wrist due to her fracture, she will continue utilizing gabapentin for her diabetic neuropathy, will repeat labs in a.m. and she will be reevaluated next 24 hours, will wait on library sales consultant recommendation
[2024-10-28 11:56] LABS: Glucose,Whole Blood 134 mg/dL (70-110)
--- NOTE | 2024-10-28 15:09 | P.PN ---
Subjective Progress Note Date: 10/28/24 Principal diagnosis: Reason for follow-up is right foot nonhealing wound and leukocytosis Patient is a 88-year-old female with a past medical history significant for Atrial Fibrillation, Cancer, Diabetes Mellitus, Hyperlipidemia, Hypertension, Mitral Valve Prolapse (MVP), Osteoarthritis (OA) was brought into the hospital after primary patient did have a fall patient also have a chronic nonhealing wound to the right lateral foot area elevated white count prompting t his consultation. On today's evaluation that is 10/29/2023, patient did have a temperature of 99.8 F this morning and denies having any chills, patient is on 2 L nasal cannula oxygen and breathing comfortably no chest pain or cough, the patient did not have any nausea vomiting abdominal pain or any diarrhea, pain to the right foot is currently controlled. Patient white count is 10.41, creatinine 0.9 Objective - Vital Signs Vital signs: Vital Signs Temp 99.8 F H 10/28/24 07:50 Pulse 78 10/28/24 07:50 Resp 18 10/28/24 07:50 BP 114/51 10/28/24 07:50 Pulse Ox 96 10/28/24 07:50 FiO2 Intake & Output 10/27/24 10/28/24 10/28/24 18:59 06:59 18:59 Intake Total 1220 Output Total 250 500 Balance -250 720 Intake: Intake, IV Titration 720 Amount Sodium Chloride 0.9% 1, 720 000 ml @ 60 mls/hr IV . [id number] [facility] Rx#:[id number] Oral 500 Output: Urine 250 500 Other: Voiding Method External Catheter External Catheter External Catheter # Bowel Movements 1 - Exam GENERAL DESCRIPTION: An elderly female lying in bed in no distress RESPIRATORY SYSTEM: Unlabored breathing , decreased breath sounds at bases HEART: S1 S2 regular rate and rhythm , ABDOMEN: Soft , no tenderness EXTREMITIES: Right foot lateral border wound post debridement no slough tissue - Labs CBC & Chem 7: 10/28/24 04:20 10/28/24 04:20 Labs: Abnormal Lab Results - Last 24 Hours (Table) 10/27/24 10/28/24 10/28/24 Range/Units 17:36 04:20 04:20 WBC 10.41 H (4.50-10.00) X 10*3/uL RBC 3.71 L (4.10-5.20) X 10*6/uL Hgb 11.0 L (12.0-15.0) g/dL Hct 33.0 L (37.2-46.3) % Plt Count 116 L (140-440) X 10*3/uL Immature Gran # 0.12 H (0.00-0.04) X 10*3/uL Neutrophils # 7.74 H (1.80-7.70) X 10*3/uL Monocytes # 1.15 H (0.20-1.00) X 10*3/uL Eosinophils # 0 L (0.04-0.35) X 10*3/uL BUN 47.3 H (9.0-27.0) mg/dL BUN/Creatinine Ratio 52.56 H (12.00-20.00) Ratio Glucose 133 H (70-110) mg/dL POC Glucose (mg/dL) 173 H (70-110) mg/dL Calcium 8.3 L (8.7-10.3) mg/dL Creatine Kinase 358 H (26-186) U/L 10/28/24 10/28/24 Range/Units 06:54 11:55 WBC (4.50-10.00) X 10*3/uL RBC (4.10-5.20) X 10*6/uL Hgb (12.0-15.0) g/dL Hct (37.2-46.3) % Plt Count (140-440) X 10*3/uL Immature Gran # (0.00-0.04) X 10*3/uL Neutrophils # (1.80-7.70) X 10*3/uL Monocytes # (0.20-1.00) X 10*3/uL Eosinophils # (0.04-0.35) X 10*3/uL BUN (9.0-27.0) mg/dL BUN/Creatinine Ratio (12.00-20.00) Ratio Glucose (70-110) mg/dL POC Glucose (mg/dL) 113 H 134 H (70-110) mg/dL Calcium (8.7-10.3) mg/dL Creatine Kinase (26-186) U/L Microbiology - Last 24 Hours (Table) 10/25/24 23:10 Anaerobic Culture - Preliminary Foot - Right 10/25/24 18:00 Blood Culture - Preliminary Blood Assessment and Plan (1) Leukocytosis Current Visit: Yes Status: Acute Code(s): D72.829 - ELEVATED WHITE BLOOD CELL COUNT, UNSPECIFIED SNOMED Code(s): 171982559 (2) Wound of right foot Current Visit: Yes Status: Acute Code(s): S91.301A - UNSPECIFIED OPEN WOUND, RIGHT FOOT, INITIAL ENCOUNTER SNOMED Code(s): 235082836 (3) Elevated liver enzymes Current Visit: Yes Status: Acute Code(s): R74.8 - ABNORMAL LEVELS OF OTHER SERUM ENZYMES SNOMED Code(s): 882748414 Plan: 1patient presenting to the hospital with weakness and did have a fall has been on the ground in this patient noticed to have a elevated white count also have elevated lactic acid that may be the cardiovascular/sepsis source could be the right foot lateral border wound with secondary infection in this patient previous culture positive for MRSA and anaerobic gram-positive cocci patient also have elevated liver enzymes and abdominal source needs to be rule out, patient did have a abdominal ultrasound did not mention acute process pancreatic head cyst. 2patient did have penicillin allergy that would limit the number of antibiotic safe to use 3x-ray of the right foot concerning for right fifth metatarsal osteomyelitis. 4currently waiting for bone scan to make sure no evidence of osteomyelitis which is currently pending 5local culture growing Proteus and Streptococcus patient is currently being treated with Rocephin 2 g daily and Flagyl , will discontinue daptomycin Family at the bedside question answered Dictation was produced using [employer] dictation software. please excuse any grammatical, word or spelling errors.
[2024-10-28 16:40] LABS: Glucose,Whole Blood 112 mg/dL (70-110)
[2024-10-28 20:21] LABS: Glucose,Whole Blood 117 mg/dL (70-110)
[2024-10-29 06:11] LABS: Glucose,Whole Blood 121 mg/dL (70-110)
[2024-10-29 09:03] LABS: ALT 30 U/L (8-44); AST 54 U/L (13-35); Albumin 2.4 g/dL (3.8-4.9); Albumin/Globulin Ratio 1.26 Ratio (1.60-3.17); Alkaline Phosphatase 93 U/L (41-126); Anion Gap 9.90 mmol/L (4.00-12.00); BUN/Creat Ratio 45.56 Ratio (12.00-20.00); Blood Urea Nitrogen 41.0 mg/dL (9.0-27.0); Calcium 8.5 mg/dL (8.7-10.3); Carbon Dioxide 22.1 mmol/L (21.6-31.8); Chloride 110 mmol/L (96-109); Globulin 1.9 g/dL (1.6-3.3); Glucose 126 mg/dL (70-110); Potassium 4.2 mmol/L (3.5-5.5); Sodium 142 mmol/L (135-145); Total Protein 4.3 g/dL (6.2-8.2)
--- NOTE | 2024-10-29 10:45 | P.PN ---
Subjective Patient is seen in follow-up for acute kidney injury on chronic kidney disease. Renal function back to baseline. Creatinine 0.9. Resting in bed. Oral intake fair. Nonoliguric. Vital signs are stable. General: No acute distress. HEENT: Head exam is unremarkable. LUNGS: No audible rhonchi or wheezes. HEART: Rate and Rhythm are regular. ABDOMEN: Nontender. EXTREMITITES: No edema. Objective - Vital Signs Vital signs: Vital Signs Temp 97.3 F L 10/29/24 07:09 Pulse 72 10/29/24 09:21 Resp 18 10/29/24 07:09 BP 132/56 10/29/24 07:09 Pulse Ox 94 L 10/29/24 07:09 FiO2 Intake & Output 10/28/24 10/29/24 10/29/24 18:59 06:59 18:59 Output Total 550 850 Balance -550 -850 Output: Urine 550 850 Other: Voiding Method External Catheter External Catheter External Catheter # Voids 1 # Bowel Movements 1 1 - Labs CBC & Chem 7: 10/28/24 04:20 10/29/24 03:33 Labs: Abnormal Lab Results - Last 24 Hours (Table) 10/28/24 10/28/24 10/28/24 Range/Units 11:55 16:38 20:19 Chloride (96-109) mmol/L BUN (9.0-27.0) mg/dL BUN/Creatinine Ratio (12.00-20.00) Ratio Glucose (70-110) mg/dL POC Glucose (mg/dL) 134 H 112 H 117 H (70-110) mg/dL Calcium (8.7-10.3) mg/dL AST (13-35) U/L Total Protein (6.2-8.2) g/dL Albumin (3.8-4.9) g/dL Albumin/Globulin Ratio (1.60-3.17) Ratio 10/29/24 10/29/24 Range/Units 03:33 06:10 Chloride 110 H (96-109) mmol/L BUN 41.0 H (9.0-27.0) mg/dL BUN/Creatinine Ratio 45.56 H (12.00-20.00) Ratio Glucose 126 H (70-110) mg/dL POC Glucose (mg/dL) 121 H (70-110) mg/dL Calcium 8.5 L (8.7-10.3) mg/dL AST 54 H (13-35) U/L Total Protein 4.3 L (6.2-8.2) g/dL Albumin 2.4 L (3.8-4.9) g/dL Albumin/Globulin Ratio 1.26 L (1.60-3.17) Ratio Microbiology - Last 24 Hours (Table) 10/25/24 18:00 Blood Culture - Preliminary Blood 10/25/24 23:10 Gram Stain - Final Foot - Right Wound Culture - Final Proteus mirabilis Strep dysgalactiae spp equis. 10/25/24 23:10 Anaerobic Culture - Preliminary Foot - Right Assessment and Plan Plan: Assessment: 1. Acute kidney injury secondary to ATN secondary to rhabdomyolysis and hypovolemia. Renal function improved. Creatinine 0.9. UA shows large blood with no RBCs suggestive of myoglobinuria. No hydronephrosis noted on ultrasoun d. 2. Chronic kidney disease stage IIIa with baseline creatinine 1-1.1 secondary to nephrosclerosis. 3. Rhabdomyolysis secondary to fall and immobility. CK levels trending down. 4. Left radius fracture being followed by orthopedic surgery. 5. Lower extremity wounds on antibiotics. ID following. 6. Hypokalemia from poor intake. Replaced. Better. Plan: Maintain gentle IV hydration. Encouraged oral intake. Avoid nephrotoxins. Continue to monitor renal function and urine output.
--- NOTE | 2024-10-29 11:04 | P.PN ---
Subjective 10/28/2024: Patient seen evaluated today. She is overall improved from her rhabdomyolysis due to fall and being down an unspecified amount of time. She has a left radial fracture. She had significant edema to that area Karthikeyan wrap's in place today. Vitals below. Febrile however this morning she had a Tmax of 99 point on 2 L O2 via nasal cannula pulse oximetry is 96% 11.0 left shift neutrophils 7.74 point chemistries are improved GFR is now 61 the CPK is 358. She is being followed by infectious disease and nephrology. Has a stage III pressure ulcer of the right lateral heel along with multiple contusions from her fall. She has a left distal radius fracture and significant osteoarthritis on the left side. Orthopedics has seen her and they have made recommendations. October 29, 2024: Patient reevaluated today. She continues to be in bed. He has been treated for her rhabdomyolysis due to fall. Overall she is improved. Vital signs are stable. She is afebrile. Laboratory studies showing improvement and return to baseline of her GFR. Her AST ALT have also improved considerably. She has low total protein and albumin consistent with some mild to moderate protein calorie malnutrition. Sugars remain stable. Wound cultures are finalized showing Proteus mirabilis and strep species. Susceptibilities are on the chart. Infectious diseases following. CPK is pending nephrology indicates she is at her baseline kidney function. She denies any significant complaints today. Objective - Vital Signs Vital signs: Vital Signs Temp 97.3 F L 10/29/24 07:09 Pulse 72 10/29/24 09:21 Resp 18 10/29/24 07:09 BP 132/56 10/29/24 07:09 Pulse Ox 94 L 10/29/24 07:09 FiO2 Intake & Output 10/28/24 10/29/24 10/29/24 18:59 06:59 18:59 Output Total 550 850 Balance -550 -850 Output: Urine 550 850 Other: Voiding Method External Catheter External Catheter External Catheter # Voids 1 # Bowel Movements 1 1 - Exam general: Elderly female in no acute distress at this time rest comfortably in bed. She is on oxygen in place, 2 L/min, wick is in place minimal in catch baseline Neck: The neck is supple, there is no thyromegaly, lymphadenopathy, tenderness or JVD. Cardiovascular: S1S2 is normal, There is a regular rate and rhythm. No, rub or gallop is appreciated./6 systolic ejection murmur noted Respiratory: Lungs are clear to auscultation bilaterally, respirations are non-labored, breath sounds are equal. Gastrointestinal: Soft, non-tender abdomen without masses or organomegaly noted. There is no rebound or guarding present. Bowel sounds are unremarkable. Abdominal distention noted most likely from constipation. She Musculoskeletal: Overall weakness. She is not currently able to sit up. There is Karthikeyan wrap on her left antecubital fossa extending the fingers due to her fracture and significant edema. There is healed boots on her feet. She has the wound to her right lateral foot dressings clean dry and intact Neurological: CN II-XII intact, there are no obvious motor or sensory deficits. Coordination appears grossly intact. Speech is normal. Skin: Skin is warm and dry and no rashes - Labs CBC & Chem 7: 10/28/24 04:20 10/29/24 03:33 Labs: Abnormal Lab Results - Last 24 Hours (Table) 10/28/24 10/28/24 10/28/24 Range/Units 11:55 16:38 20:19 Chloride (96-109) mmol/L BUN (9.0-27.0) mg/dL BUN/Creatinine Ratio (12.00-20.00) Ratio Glucose (70-110) mg/dL POC Glucose (mg/dL) 134 H 112 H 117 H (70-110) mg/dL Calcium (8.7-10.3) mg/dL AST (13-35) U/L Total Protein (6.2-8.2) g/dL Albumin (3.8-4.9) g/dL Albumin/Globulin Ratio (1.60-3.17) Ratio 10/29/24 10/29/24 Range/Units 03:33 06:10 Chloride 110 H (96-109) mmol/L BUN 41.0 H (9.0-27.0) mg/dL BUN/Creatinine Ratio 45.56 H (12.00-20.00) Ratio Glucose 126 H (70-110) mg/dL POC Glucose (mg/dL) 121 H (70-110) mg/dL Calcium 8.5 L (8.7-10.3) mg/dL AST 54 H (13-35) U/L Total Protein 4.3 L (6.2-8.2) g/dL Albumin 2.4 L (3.8-4.9) g/dL Albumin/Globulin Ratio 1.26 L (1.60-3.17) Ratio Microbiology - Last 24 Hours (Table) 10/25/24 18:00 Blood Culture - Preliminary Blood 10/25/24 23:10 Gram Stain - Final Foot - Right Wound Culture - Final Proteus mirabilis Strep dysgalactiae spp equis. 10/25/24 23:10 Anaerobic Culture - Preliminary Foot - Right Assessment and Plan Plan: Acute rhabdomyolysis secondary to fall, CK is improving is on normal saline IV fluid at 60 cc an hour. Acute renal failure on chronic stage IIIa renal failure most likely due to the rhabdomyolysis, improving, nephrology on consult, she is currently at baseline osteomyelitis suspect x-ray was abnormal, bone scan is pending she remains on ceftriaxone and daptomycin Stage 3 pressure ulcer right lateral foot: This has been present for several months, she has been followed by [facility] for wound and I have seen this several times myself. 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, defer any further workup at this time due to her advanced age History of falls, bilateral foot drop: Will participate in physical therapy as able Chronic persistent atrial fibrillation with slow ventricular response, anticoagulated on Xarelto Diabetes mellitus II, hemoglobin A1c 4.[address] Diabetic neuropathy bilateral lower extremities Gait dysfunction, uses a walker need rehabilitation after discharge, still very weak History of mitral insufficiency, status post clipping 2016 Moderate to severe pulmonary hypertension stable at this time Hypertension will monitor Hyperlipidemia pravastatin History of right breast cancer status postmastectomy, on letrozole Prior nicotine dependence Moderate protein calorie malnutrition, requires assistance with all meals and snacks. Continue to monitor total protein She remains on ceftriaxone and metronidazole. Infectious ease on consult. Continue localized wound care with Optic[employer] silver 3 times a week, continue IV fluids at 60 cc/h until her oral intake improves, plan ECF, continue diabetic tr eatments with gabapentin for neuropathy and bolus insulin as needed. Continue basal insulin, continue pantoprazole for GI prophylaxis, polyethylene glycol for constipation, pravastatin for hyperlipidemia, trazodone for insomnia, wait on further recommendations consultants, wait on ECF plan, she will be reevaluated by family medicine in the next 24 hours
[2024-10-29 11:53] LABS: Glucose,Whole Blood 178 mg/dL (70-110)
[2024-10-29 16:39] LABS: Glucose,Whole Blood 155 mg/dL (70-110)
--- NOTE | 2024-10-29 17:19 | P.PN ---
Subjective Progress Note Date: 10/29/24 Principal diagnosis: Reason for follow-up is right foot nonhealing wound and leukocytosis Patient is a 88-year-old female with a past medical history significant for Atrial Fibrillation, Cancer, Diabetes Mellitus, Hyperlipidemia, Hypertension, Mitral Valve Prolapse (MVP), Osteoarthritis (OA) was brought into the hospital after primary patient did have a fall patient also have a chronic nonhealing wound to the right lateral foot area elevated white count prompting t his consultation. On today's evaluation that is 10/29/2024, Patient is afebrile patient is currently on 2 L of oxygen and the patient is breathing comfortably patient was sleepy at the time my evaluation however overall was doing better per the nursing staff no vomiting or diarrhea has been reported. Patient did have a creatinine 0.9 no CBC was done today Objective - Vital Signs Vital signs: Vital Signs Temp 99 F 10/29/24 14:42 Pulse 76 10/29/24 17:03 Resp 18 10/29/24 14:42 BP 132/77 10/29/24 14:42 Pulse Ox 100 10/29/24 14:42 FiO2 Intake & Output 10/28/24 10/29/24 10/29/24 18:59 06:59 18:59 Output Total 550 850 Balance -550 -850 Output: Urine 550 850 Other: Voiding Method External Catheter External Catheter External Catheter # Voids 1 # Bowel Movements 1 1 - Labs CBC & Chem 7: 10/28/24 04:20 10/29/24 03:33 Labs: Abnormal Lab Results - Last 24 Hours (Table) 10/28/24 10/29/24 10/29/24 Range/Units 20:19 03:33 06:10 Chloride 110 H (96-109) mmol/L BUN 41.0 H (9.0-27.0) mg/dL BUN/Creatinine Ratio 45.56 H (12.00-20.00) Ratio Glucose 126 H (70-110) mg/dL POC Glucose (mg/dL) 117 H 121 H (70-110) mg/dL Calcium 8.5 L (8.7-10.3) mg/dL AST 54 H (13-35) U/L Total Protein 4.3 L (6.2-8.2) g/dL Albumin 2.4 L (3.8-4.9) g/dL Albumin/Globulin Ratio 1.26 L (1.60-3.17) Ratio 10/29/24 10/29/24 Range/Units 11:51 16:35 Chloride (96-109) mmol/L BUN (9.0-27.0) mg/dL BUN/Creatinine Ratio (12.00-20.00) Ratio Glucose (70-110) mg/dL POC Glucose (mg/dL) 178 H 155 H (70-110) mg/dL Calcium (8.7-10.3) mg/dL AST (13-35) U/L Total Protein (6.2-8.2) g/dL Albumin (3.8-4.9) g/dL Albumin/Globulin Ratio (1.60-3.17) Ratio Microbiology - Last 24 Hours (Table) 10/25/24 18:00 Blood Culture - Preliminary Blood 10/25/24 23:10 Gram Stain - Final Foot - Right Wound Culture - Final Proteus mirabilis Strep dysgalactiae spp equis. Assessment and Plan (1) Leukocytosis Current Visit: Yes Status: Acute Code(s): D72.829 - ELEVATED WHITE BLOOD CELL COUNT, UNSPECIFIED SNOMED Code(s): 201788618 (2) Wound of right foot Current Visit: Yes Status: Acute Code(s): S91.301A - UNSPECIFIED OPEN WOUND, RIGHT FOOT, INITIAL ENCOUNTER SNOMED Code(s): 527480469 (3) Elevated liver enzymes Current Visit: Yes Status: Acute Code(s): R74.8 - ABNORMAL LEVELS OF OTHER SERUM ENZYMES SNOMED Code(s): 315671457 Plan: 1patient presenting to the hospital with weakness and did have a fall has been on the ground in this patient noticed to have a elevated white count also have elevated lactic acid that may be the cardiovascular/sepsis source could be the right foot lateral border wound with secondary infection in this patient previous culture positive for MRSA and anaerobic gram-positive cocci patient al so have elevated liver enzymes and abdominal source needs to be rule out, patient did have a abdominal ultrasound did not mention acute process pancreatic head cyst. 2patient did have penicillin allergy that would limit the number of antibiotic safe to use 3x-ray of the right foot concerning for right fifth metatarsal osteomyelitis. 4currently waiting for bone scan to make sure no evidence of osteomyelitis which is currently pending 5local culture growing Proteus and Streptococcus patient is currently being treated with Rocephin 2 g daily and Flagyl , awaiting bone scan to determine duration of antibiotics Dictation was produced using [employer] dictation software. please excuse any gramma tical, word or spelling errors. Time with Patient: Less than 30
[2024-10-29 20:12] LABS: Glucose,Whole Blood 171 mg/dL (70-110)
[2024-10-30 03:00] VITALS: RESP 18
[2024-10-30 06:20] LABS: Glucose,Whole Blood 123 mg/dL (70-110)
[2024-10-30 08:27] LABS: Basophils # (A) 0.05 X 10*3/uL (0.00-0.10); Basophils % (A) 0.4 %; Eosinophils # (A) 0 X 10*3/uL (0.04-0.35); Eosinophils % (A) 0 %; HCT 34.3 % (37.2-46.3); HGB 10.7 g/dL (12.0-15.0); Immature Grans, Automated 1.20 %; Lymphocytes # (A) 1.60 X 10*3/uL (0.90-5.00); Lymphocytes % (A) 13.1 %; MCH 29.3 pg (27.0-32.0); MCHC 31.2 g/dL (32.0-37.0); MCV 94.0 FL (80.0-97.0); Monocytes # (A) 0.93 X 10*3/uL (0.20-1.00); Monocytes % (A) 7.6 %; NRBC Per 100 WBC 0 X 10*3/uL (0.00-0.01); Neutrophils # (A) 9.52 X 10*3/uL (1.80-7.70); Neutrophils % (A) 77.7 %; Platelet Count 124 X 10*3/uL (140-440); RBC 3.65 X 10*6/uL (4.10-5.20); RDW 14.6 % (11.5-14.5); WBC 12.25 X 10*3/uL (4.50-10.00)
[2024-10-30 10:01] LABS: Anion Gap 11.20 mmol/L (4.00-12.00); BUN/Creat Ratio 42.22 Ratio (12.00-20.00); Blood Urea Nitrogen 38.0 mg/dL (9.0-27.0); Calcium 8.4 mg/dL (8.7-10.3); Carbon Dioxide 17.8 mmol/L (21.6-31.8); Chloride 111 mmol/L (96-109); Glucose 138 mg/dL (70-110); Magnesium 1.5 mg/dL (1.5-2.4); Potassium 4.5 mmol/L (3.5-5.5); Sodium 140 mmol/L (135-145)
[2024-10-30 10:49] LABS: Creatine Kinase 95 U/L (26-186)
[2024-10-30 11:25] LABS: Glucose,Whole Blood 187 mg/dL (70-110)
--- NOTE | 2024-10-30 11:29 | P.PN ---
Subjective Patient is seen for follow-up for acute kidney injury. Renal function has improved. Serum creatinine down to 0.9 mg/dL. Objective - Vital Signs Vital signs: Vital Signs Temp 99.9 F H 10/30/24 06:57 Pulse 84 10/30/24 09:49 Resp 18 10/30/24 06:57 BP 113/66 10/30/24 06:57 Pulse Ox 97 10/30/24 06:57 FiO2 Intake & Output 10/29/24 10/30/24 10/30/24 18:59 06:59 18:59 Output Total 350 900 Balance -350 -900 Output: Urine 350 900 Other: Voiding Method External Catheter External Catheter # Voids 1 2 # Bowel Movements 2 2 - Exam Patient is awake, comfortable, no acute distress Examination of the heart S1 and S2 Examination of the lungs bilateral breath sounds are heard Abdomen is soft nontender Examination of lower extremity shows no significant edema COREMAKER BENCH exam grossly intact - Labs CBC & Chem 7: 10/30/24 03:10 10/30/24 03:10 Labs: Abnormal Lab Results - Last 24 Hours (Table) 10/29/24 10/29/24 10/29/24 Range/Units 11:51 16:35 20:10 WBC (4.50-10.00) X 10*3/uL RBC (4.10-5.20) X 10*6/uL Hgb (12.0-15.0) g/dL Hct (37.2-46.3) % MCHC (32.0-37.0) g/dL RDW (11.5-14.5) % Plt Count (140-440) X 10*3/uL Immature Gran # (0.00-0.04) X 10*3/uL Neutrophils # (1.80-7.70) X 10*3/uL Eosinophils # (0.04-0.35) X 10*3/uL Chloride (96-109) mmol/L Carbon Dioxide (21.6-31.8) mmol/L BUN (9.0-27.0) mg/dL BUN/Creatinine Ratio (12.00-20.00) Ratio Glucose (70-110) mg/dL POC Glucose (mg/dL) 178 H 155 H 171 H (70-110) mg/dL Calcium (8.7-10.3) mg/dL C-Reactive Protein (0.00-0.80) mg/dL 10/30/24 10/30/24 10/30/24 Range/Units 03:10 03:10 06:16 WBC 12.25 H (4.50-10.00) X 10*3/uL RBC 3.65 L (4.10-5.20) X 10*6/uL Hgb 10.7 L (12.0-15.0) g/dL Hct 34.3 L (37.2-46.3) % MCHC 31.2 L (32.0-37.0) g/dL RDW 14.6 H (11.5-14.5) % Plt Count 124 L (140-440) X 10*3/uL Immature Gran # 0.15 H (0.00-0.04) X 10*3/uL Neutrophils # 9.52 H (1.80-7.70) X 10*3/uL Eosinophils # 0 L (0.04-0.35) X 10*3/uL Chloride 111 H (96-109) mmol/L Carbon Dioxide 17.8 L (21.6-31.8) mmol/L BUN 38.0 H (9.0-27.0) mg/dL BUN/Creatinine Ratio 42.22 H (12.00-20.00) Ratio Glucose 138 H (70-110) mg/dL POC Glucose (mg/dL) 123 H (70-110) mg/dL Calcium 8.4 L (8.7-10.3) mg/dL C-Reactive Protein 6.90 H (0.00-0.80) mg/dL 10/30/24 Range/Units 11:24 WBC (4.50-10.00) X 10*3/uL RBC (4.10-5.20) X 10*6/uL Hgb (12.0-15.0) g/dL Hct (37.2-46.3) % MCHC (32.0-37.0) g/dL RDW (11.5-14.5) % Plt Count (140-440) X 10*3/uL Immature Gran # (0.00-0.04) X 10*3/uL Neutrophils # (1.80-7.70) X 10*3/uL Eosinophils # (0.04-0.35) X 10*3/uL Chloride (96-109) mmol/L Carbon Dioxide (21.6-31.8) mmol/L BUN (9.0-27.0) mg/dL BUN/Creatinine Ratio (12.00-20.00) Ratio Glucose (70-110) mg/dL POC Glucose (mg/dL) 187 H (70-110) mg/dL Calcium (8.7-10.3) mg/dL C-Reactive Protein (0.00-0.80) mg/dL Microbiology - Last 24 Hours (Table) 10/25/24 23:10 Anaerobic Culture - Final Foot - Right Assessment and Plan Assessment: 1. Acute kidney injury secondary to ATN secondary to rhabdomyolysis and hypovolemia. Renal function improved. Creatinine 0.9. UA shows large blood with no RBCs suggestive of myoglobinuria. No hydronephrosis noted on ultraso und. 2. Chronic kidney disease stage IIIa with baseline creatinine 1-1.1 secondary to nephrosclerosis. 3. Rhabdomyolysis secondary to fall and immobility. CK levels trending down. 4. Left radius fracture being followed by orthopedic surgery. 5. Lower extremity wounds on antibiotics. ID following. 6. Hypokalemia from poor intake. Replaced. Better. Plan: Continue to encourage increased oral intake Avoid nephrotoxic agents May continue with IV fluids
--- NOTE | 2024-10-30 14:05 | P.PN ---
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 Orthopedic and nephrology consults in place. IV fluids initiated with improvement in lactic acid down to 2.2 as well as CK from 4522 down to 2352. Bicarb 24 BUN 57, creatinine 1.48 (baseline 1.1). Afebrile, WBC 23.51. elevated LFTs. right foot with ulceration, foul odor, right lateral knee skin abrasion, left foot darkened scab. Prealbumin ordered.prior wound culture in April 2024,MRSA. 10/26/2024 wound and blood cultures pending. Evaluated by infectious disease with antibiotics adjusted to daptomycin and Flagyl. Afebrile, labs pending.bedside debridement of right lateral foot, tolerated well. Refer to procedure note. Prealbumin 8.7. maintained on IV fluids,creatinine kinase decreased to 1136, lactic acid normalized,1.8. Blood sugars controlled. Abdominal ultrasound currently being performed at bedside. 10/27/2024 preliminary aerobic wound culture reporting Proteus Mirabilis, Strept dysagalactiae spp equis, preliminary blood culture reporting no growth after 24- hours.abdominal ultrasound reported nonacute stable pancreatic head 2.0 cm may represent a pseudocyst versus branch intraductal papillary mucinous neoplasm versus other etiologies, liver appears unremarkable ,cortical thinning of the r ight kidney without evidence for solid mass, shadowing calculus or hydronephrosis corticomedullary differentiation maintained .right foot x-ray reports no acute fracture or dislocation, increased sclerotic appearance of the fifth metatarsal shaft with erosive changes involving the head of the fifth metatarsal raises concern for acute and/or chronic osteomyelitis versus remote trauma, diffuse soft tissue swelling with lateral foot soft tissue wound .bone scan ordered.Maintained on daptomycin and Flagyl.Afebrile, WBC yesterday decreased to 16.55, bicarb 22.5, BUN 65.3, creatinine 1.4 a.m. labs pending. Blood sugars ranging from 150 to low 200s, A1c pending. 10/28/2024: Patient seen evaluated today. She is overall improved from her rhabdomyolysis due to fall and being down an unspecified amount of time. She has a left radial fracture. She had significant edema to that area Karthikeyan wrap's in place today. Vitals below. Febrile however this morning she had a Tmax of 99 point on 2 L O2 via nasal cannula pulse oximetry is 96% 11.0 left shift neutrophils 7.74 point chemistries are improved GFR is now 61 the CPK is 358. She is being followed by infectious disease and nephrology. Has a stage III pressure ulcer of the right lateral heel along with multiple contusions from her fall. She has a left distal radius fracture and significant osteoarthritis on the left side. Orthopedics has seen her and they have made recommendations. October 29, 2024: Patient reevaluated today. She continues to be in bed. He has been treated for her rhabdomyolysis due to fall. Overall she is improved. Vital signs are stable. She is afebrile. Laboratory studies showing improvement and return to baseline of her GFR. Her AST ALT have also improved considerably. She has low total protein and albumin consistent with some mild to moderate protein calorie malnutrition. Sugars remain stable. Wound cultures are finalized showing Proteus mirabilis and strep species. Susceptibilities are on the chart. Infectious diseases following. CPK is pending nephrology indicates she is at her baseline kidney function. She denies any significant complaints today. 10/30/2024 bone scan ordered, pending. Maintain on Flagyl and ceftriaxone. WBC increased to 12.25, CRP elevated 6.9. continues on IV fluid hydration, CK has normalized, renal function has returned to baseline. Reports small bowel movements. Objective - Vital Signs Vital signs: Vital Signs Temp 99.9 F H 10/30/24 06:57 Pulse 82 10/30/24 12:55 Resp 18 10/30/24 06:57 BP 113/66 10/30/24 06:57 Pulse Ox 97 10/30/24 06:57 FiO2 Intake & Output 10/29/24 10/30/24 10/30/24 18:59 06:59 18:59 Output Total 350 900 Balance -350 -900 Output: Urine 350 900 Other: Voiding Method External Catheter External Catheter # Voids 1 2 # Bowel Movements 2 2 - Exam general: Elderly female , no acute distress at this time, resting comfortably in bed. Neck: The neck is supple, there is no thyromegaly, lymphadenopathy, tenderness or JVD. Cardiovascular: S1S2 is normal, regular rate and rhythm. No, rub or gallop is appreciated.systolic ejection murmur noted Respiratory: Unlabored, equal air entry, lungs clear to auscultation. Gastrointestinal: Soft, mildly distended ,non-tender abdomen without masses or organomegaly noted. No guarding present. +BS. Musculoskeletal/Extremities: Generalized weakness. PT previously reported maximum 2 person assist, requiring assistance to sit up. Karthikeyan wrap on her left antecubital fossa extending the fingers due to her fracture and significant edema.Offloading boots on her feet. Wound to her right lateral foot dressings clean dry and intact Neurological: CN II-XII intact, there are no obvious motor or sensory deficits. Coordination appears grossly intact. Speech is normal. Skin: Skin is warm and dry and no rashes Microbiology 10/25/24 23:10 Foot - Right Anaerobic Culture - Final 10/25/24 18:00 Blood Blood Culture - Preliminary 10/25/24 23:10 Foot - Right Gram Stain - Final 10/25/24 23:10 Foot - Right Wound Culture - Final Proteus mirabilis Strep dysgalactiae spp equis. - Labs CBC & Chem 7: 10/30/24 03:10 10/30/24 03:10 Labs: Abnormal Lab Results - Last 24 Hours (Table) 10/29/24 10/29/24 10/30/24 Range/Units 16:35 20:10 03:10 WBC (4.50-10.00) X 10*3/uL RBC (4.10-5.20) X 10*6/uL Hgb (12.0-15.0) g/dL Hct (37.2-46.3) % MCHC (32.0-37.0) g/dL RDW (11.5-14.5) % Plt Count (140-440) X 10*3/uL Immature Gran # (0.00-0.04) X 10*3/uL Neutrophils # (1.80-7.70) X 10*3/uL Eosinophils # (0.04-0.35) X 10*3/uL Chloride 111 H (96-109) mmol/L Carbon Dioxide 17.8 L (21.6-31.8) mmol/L BUN 38.0 H (9.0-27.0) mg/dL BUN/Creatinine Ratio 42.22 H (12.00-20.00) Ratio Glucose 138 H (70-110) mg/dL POC Glucose (mg/dL) 155 H 171 H (70-110) mg/dL Calcium 8.4 L (8.7-10.3) mg/dL C-Reactive Protein 6.90 H (0.00-0.80) mg/dL 10/30/24 10/30/24 10/30/24 Range/Units 03:10 06:16 11:24 WBC 12.25 H (4.50-10.00) X 10*3/uL RBC 3.65 L (4.10-5.20) X 10*6/uL Hgb 10.7 L (12.0-15.0) g/dL Hct 34.3 L (37.2-46.3) % MCHC 31.2 L (32.0-37.0) g/dL RDW 14.6 H (11.5-14.5) % Plt Count 124 L (140-440) X 10*3/uL Immature Gran # 0.15 H (0.00-0.04) X 10*3/uL Neutrophils # 9.52 H (1.80-7.70) X 10*3/uL Eosinophils # 0 L (0.04-0.35) X 10*3/uL Chloride (96-109) mmol/L Carbon Dioxide (21.6-31.8) mmol/L BUN (9.0-27.0) mg/dL BUN/Creatinine Ratio (12.00-20.00) Ratio Glucose (70-110) mg/dL POC Glucose (mg/dL) 123 H 187 H (70-110) mg/dL Calcium (8.7-10.3) mg/dL C-Reactive Protein (0.00-0.80) mg/dL Microbiology - Last 24 Hours (Table) 10/25/24 23:10 Anaerobic Culture - Final Foot - Right Assessment and Plan Assessment: Acute left distal radius fracture reported per imaging, orthopedics recommending conservative management. Severe osteoarthritic changes left shoulder and AC joint Advanced calcific tendinosis left shoulder Acute rhabdomyolysis secondary to fall, CK trending down Acute kidney injury secondary to ATN related to the above. 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 Chronic right lateral foot stage III pressure ulcer, status postdebridement 10/26/2024, x-ray suggesting potential osteomyelitis right fifth metatarsal, bone scan pending. Sepsis secondary to infection, ruled out. Elevated LFTs History of falls, bilateral foot drop Chronic persistent atrial fibrillation with slow ventricular response, anticoagulated on Xarelto Diabetes mellitus II, hemoglobin A1c 4.3 Diabetic neuropathy bilateral lower extremities Chronic kidney disease stage IIIa, baseline creatinine 1.2-1.4. DDD Osteoarthritis Gait dysfunction, uses a walker History of mitral insufficiency, status post clipping 2017 Moderate to severe pulmonary hypertension Hypertension Hyperlipidemia History of right breast cancer status postmastectomy Prior nicotine dependence Moderate protein calorie malnutrition, requires assistance with all meals and snacks. Plan: Continue on current medication regime ,monitoring and symptomatic treatment. Bone scan pending. Continue IV fluid hydration. Magnesium 1.5, supplemented. maintain ceftriaxone and Flagyl, as per ID.Pain management. maintain local wound care, Offloading boots as previously ordered. PT/OT to reevaluate. Up in chair 3 times a day. Requires assistance with all meals and snacks/feeding assistance. Continue on both MiraLAX and Senokot for consti pation. Discharge planning in progress for subacute rehab.pending bone scan. The impression and plan of care has been dictated as directed. : I performed a history and examination of this patient, discussed the same with the dictator. I agree with the dictator's note ,documented as a scribe. Any additional findings or plans will be noted.
[2024-10-30] MEDS: MAGNESIUM SULFATE-D5W PMX 1 GM in DEXTROSE/WATER 1 100ML.BAG IVPB SCH (14:10)
--- NOTE | 2024-10-30 14:26 | NM ---
INDICATION: Patient age:Female; 88 years old; Reason for study: Right foot lateral border wound abnormal x-ray; [facility]. COMPARISON: Right foot radiograph 10/26/2024. PROCEDURE: A 3 phase bone scan limited to the both feet were obtained following the IV administration of 23.1 mCi of [id number]. FINDINGS: Limited examination due to poor foot positioning. No focal increased radiotracer activity on blood flow phase. There is increased radiotracer activity identified within the bilateral mid foot and left forefoot on angiographic blood pool phase. There is corresponding increased radiotracer activity in these regions on delayed phase. IMPRESSION: No definitive evidence for infection. Increased radiotracer activity on blood pool and delayed phase suggests degenerative change. [facility], , 10/30/2024 2:23 PM
[2024-10-30 16:24] LABS: Glucose,Whole Blood 210 mg/dL (70-110)
[2024-10-30 20:55] LABS: Glucose,Whole Blood 191 mg/dL (70-110)
[2024-10-31 06:09] LABS: Glucose,Whole Blood 146 mg/dL (70-110)
--- NOTE | 2024-10-31 10:12 | P.DS ---
Providers Date of admission: 10/24/24 17:13 Expected date of discharge: 10/31/24 Attending physician: Vini White Consults: 10/24/24 16:54 Consult Physician Urgent Consulting Provider: Sandro Phillips Consult Reason/Comments: distal radius fracture Do you want consulting provider notified?: Yes 10/25/24 16:18 Consult Physician Routine Consulting Provider: Melinda White Consult Reason/Comments: Rhabdomyolysis Do you want consulting provider notified?: Yes 10/25/24 16:49 Consult Physician Routine Consulting Provider: Jeffery Faustin Consult Reason/Comments: leukocytosis,wounds-foul, hx of mrsa, corny, enterbac,viridians Do you want consulting provider notified?: Yes Primary care physician: Vini White Hospital Course: Final Diagnoses: Acute left distal radius fracture reported per imaging, orthopedics recommending conservative management. Severe osteoarthritic changes left shoulder and AC joint Advanced calcific tendinosis left shoulder Acute rhabdomyolysis secondary to fall, resolved. Acute kidney injury secondary to ATN related to the above. 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 Chronic right lateral foot stage III pressure ulcer, status postdebridement 10/26/2024, x-ray suggesting potential osteomyelitis right fifth metatarsal, bone scan pending. Sepsis secondary to infection, ruled out. Elevated LFTs History of falls, bilateral foot drop Chronic persistent atrial fibrillation with slow ventricular response, antico agulated on Xarelto Diabetes mellitus II, hemoglobin A1c 4.3 Diabetic neuropathy bilateral lower extremities Chronic kidney disease stage IIIa, baseline creatinine 1.2-1.4. DDD Osteoarthritis Gait dysfunction, uses a walker History of mitral insufficiency, status post clipping 2017 Moderate to severe pulmonary hypertension Hypertension Hyperlipidemia History of right breast cancer status postmastectomy Prior nicotine dependence Moderate protein calorie malnutrition, requires assistance with all meals and snacks. Hospital course:This is a pleasant 88-year-old female, with past medical history significant for diabetes mellitus II, bilateral lower extremity neuropathy , gait dysfunction -uses walker, atrial fibrillation-anticoagulated on Xarelto, hypertension, hyperlipidemia, mitral insufficiency status post clip, moderate to severe pulm pulmonary hypertension, chronic kidney disease stage III ,osteoarthritis, gout, history of right breast cancer with mastectomy, anxiety, prior nicotine dependence and multiple other medical issues presented to the ER status post recent fall, down for a couple days, sustaining a distal left radius fracture , multiple abrasions/skin breakdown in addition to rhabdomyolysis and lactic acid. Orthopedic and nephrology consults in place. IV fluids initiated with improvement in lactic acid down to 2.2 as well as CK from 4522 down to 2352. Bicarb 24 BUN 57, creatinine 1.48 (baseline 1.1). Afebrile, WBC 23.51. elevated LFTs. right foot with ulceration, foul odor, right lateral knee skin abrasion, left foot darkened scab. Prealbumin ordered.prior wound culture in April 2024,MRSA. 10/26/2024 wound and blood cultures pending. Evaluated by infectious disease with antibiotics adjusted to daptomycin and Flagyl. Afebrile, labs pending.bedside debridement of right lateral foot, tolerated well. Refer to procedure note. Prealbumin 8.7. maintained on IV fluids,creatinine kinase decreased to 1136, lactic acid normalized,1.8. Blood sugars controlled. Abdominal ultrasound currently being performed at bedside. 10/27/2024 preliminary aerobic wound culture reporting Proteus Mirabilis, Strept dysagalactiae spp equis, preliminary blood culture reporting no growth after 24- hours.abdominal ultrasound reported nonacute stable pancreatic head 2.0 cm may represent a pseudocyst versus branch intraductal papillary mucinous neoplasm versus other etiologies, liver appears unremarkable ,cortical thinning of the right kidney without evidence for solid mass, shadowing calculus or hydronephrosis corticomedullary differentiation maintained .right foot x-ray reports no acute fracture or dislocation, increased sclerotic appearance of the fifth metatarsal shaft with erosive changes involving the head of the fifth metatarsal raises concern for acute and/or chronic osteomyelitis versus remote trauma, diffuse soft tissue swelling with lateral foot soft tissue wound .bone scan ordered.Maintained on daptomycin and Flagyl.Afebrile, WBC yesterday decreased to 16.55, bicarb 22.5, BUN 65.3, creatinine 1.4 a.m. labs pending. Blood sugars ranging from 150 to low 200s, A1c pending. 10/28/2024: Patient seen evaluated today. She is overall improved from her rhabdomyolysis due to fall and being down an unspecified amount of time. She has a left radial fracture. She had significant edema to that area Karthikeyan wrap's in place today. Vitals below. Febrile however this morning she had a Tmax of 99 point on 2 L O2 via nasal cannula pulse oximetry is 96% 11.0 left shift neutrophils 7.74 point chemistries are improved GFR is now 61 the CPK is 358. She is being followed by infectious disease and nephrology. Has a stage III pressure ulcer of the right lateral heel along with multiple contusions from her fall. She has a left distal radius fracture and significant osteoarthritis on the left side. Orthopedics has seen her and they have made recommendations. October 29, 2024: Patient reevaluated today. She continues to be in bed. He has been treated for her rhabdomyolysis due to fall. Overall she is improved. Vital signs are stable. She is afebrile. Laboratory studies showing improvement and return to baseline of her GFR. Her AST ALT have also improved considerably. She has low total protein and albumin consistent with some mild to moderate protein calorie malnutrition. Sugars remain stable. Wound cultures are finalized showing Proteus mirabilis and strep species. Susceptibilities are on the chart. Infectious diseases following. CPK is pending nephrology indicates she is at her baseline kidney function. She denies any significant complaints today. 10/30/2024 bone scan ordered, pending. Maintain on Flagyl and ceftriaxone. WBC increased to 12.25, CRP elevated 6.9. continues on IV fluid hydration, CK has normalized, renal function has returned to baseline. Reports small bowel movements. Bone scan pending. Continue IV fluid hydration. Magnesium 1.5, supplemented. maintain ceftriaxone and Flagyl, as per ID.Pain management. maintain local wound care, Offloading boots as previously ordered. PT/OT to reevaluate. Up in chair 3 times a day. Requires assistance with all meals and snacks/feeding assistance. Continue on both MiraLAX and Senokot for constipation. Discharge planning in progress for subacute rehab.pending bone scan. 10/31/2024 bone scan reported no definitive evidence for infection. Increased radiotracer activity on blood pool and delayed phase suggest degenerative change. Patient maintained on MiraLAX and Senokot, had a large bowel movement last night with following loose stools after. This morning MiraLAX and Senokot held. K afebrile. Patient will be discharged to [facility] subacute rehab. In a stable condition with guarded prognosis, pending authorization, final DC recommendations and clearance as per ID and nephrology. The impression and plan of care has been dictated as directed. : I performed a history and examination of this patient, discussed the same with the dictator. I agree with the dictator's note ,documented as a scribe. Any additional findings or plans will be noted. Patient Condition at Discharge: Stable Plan - Discharge Summary Discharge Rx Participant: Yes New Discharge Prescriptions: New polyethylene glycoL 3350 [Miralax] 17 gm PO DAILY packet Acetaminophen Tab [Tylenol] 650 mg PO Q6HR PRN tab PRN Reason: Mild Pain Or Fever > 100.5 cefuroxime axetiL [Ceftin] 500 mg PO BID #28 tab metroNIDAZOLE [Flagyl] 500 mg PO TID #42 tab Ipratropium-Albuterol Nebulize [Duoneb 0.5 mg-3 mg/3 ml Soln] 3 ml INHALATION RT-QID each Ipratropium-Albuterol Nebulize [Duoneb 0.5 mg-3 mg/3 ml Soln] 3 ml INHALATION Q4H PRN each PRN Reason: Shortness Of Breath Or Wheezing Sennosides-Docusate Sodium [Senokot-S] 2 each PO BID tab Budesonide/Formoterol Fumarate [Symbicort 80-4.5 Mcg Inhaler] 2 puff INHALATION BID #10.2 gm Sodium Bicarbonate Tab 650 mg PO DAILY 7 Days #7 tablet Continue Montelukast [Singulair] 10 mg PO HS Furosemide [Lasix] 40 mg PO DAILY allopurinoL [Allopurinol] 100 mg PO DAILY Pravastatin Sodium 20 mg PO HS Letrozole [Femara] 2.5 mg PO DAILY traZODone HCL [Desyrel] 100 mg PO HS Rivaroxaban [Xarelto] 20 mg PO DAILY atenoloL [Tenormin] 25 mg PO HS #90 tab Gabapentin [Neurontin] 300 mg PO DAILY@1500 3 Days #3 cap Gabapentin [Neurontin] 600 mg PO BID 3 Days #6 cap prednisoLONE ACETATE 1% OPHTH [Pred Forte 1%] 1 drop BOTH EYES BID Spironolactone 25 mg PO DAILY Discharge Medication List Furosemide [Lasix] 40 mg PO DAILY 01/16/16 [History] Letrozole [Femara] 2.5 mg PO DAILY 01/16/16 [History] Montelukast [Singulair] 10 mg PO HS 01/16/16 [History] Pravastatin Sodium 20 mg PO HS 01/16/16 [History] allopurinoL [Allopurinol] 100 mg PO DAILY 01/16/16 [History] traZODone HCL [Desyrel] 100 mg PO HS 01/16/16 [History] Rivaroxaban [Xarelto] 20 mg PO DAILY 11/04/16 [History] atenoloL [Tenormin] 25 mg PO HS #90 tab 10/14/23 [Rx] Gabapentin [Neurontin] 300 mg PO DAILY@1500 3 Days #3 cap 10/18/23 [Rx] Gabapentin [Neurontin] 600 mg PO BID 3 Days #6 cap 10/18/23 [Rx] Spironolactone 25 mg PO DAILY 10/24/24 [History] prednisoLONE ACETATE 1% OPHTH [Pred Forte 1%] 1 drop BOTH EYES BID 10/24/24 [History] Acetaminophen Tab [Tylenol] 650 mg PO Q6HR PRN tab 10/31/24 [Rx] Budesonide/Formoterol Fumarate [Symbicort 80-4.5 Mcg Inhaler] 2 puff INHALATION BID #10.2 gm 10/31/24 [Rx] Ipratropium-Albuterol Nebulize [Duoneb 0.5 mg-3 mg/3 ml Soln] 3 ml INHALATION Q4H PRN each 10/31/24 [Rx] Ipratropium-Albuterol Nebulize [Duoneb 0.5 mg-3 mg/3 ml Soln] 3 ml INHALATION RT-QID each 10/31/24 [Rx] Sennosides-Docusate Sodium [Senokot-S] 2 each PO BID tab 10/31/24 [Rx] Sodium Bicarbonate Tab 650 mg PO DAILY 7 Days #7 tablet 10/31/24 [Rx] cefuroxime axetiL [Ceftin] 500 mg PO BID #28 tab 10/31/24 [Rx] metroNIDAZOLE [Flagyl] 500 mg PO TID #42 tab 10/31/24 [Rx] polyethylene glycoL 3350 [Miralax] 17 gm PO DAILY packet 10/31/24 [Rx] Follow up Appointment(s)/Referral(s): Vini White MD [Primary Care Provider] - 1-2 days Sandro Phillips MD [STAFF PHYSICIAN] - 1 Week Activity/Diet/Wound Care/Special Instructions: [place] CBC,BMP, Magnesium in 3 days Hold MiraLAX if loose stools Patient to wear Volar splint until follow up with Dr. Phillips in 1 week. NWB of the left wrist. Local wound care as ordered: Right foot ulcer/wound Opticell dressing followed by gauze dressing 3 times a week. Apply zinc barrier cream to right great toe followed by gauze dressing. Discharge/Stand Alone Forms: Adult Foster Shelter List, Assisted Living Facilities Discharge Disposition: TRANSFER TO SNF/ECF
[2024-10-31] MEDS: LACTATED RINGERS 1,000 ML IV SCH (11:12)
[2024-10-31 11:15] LABS: Glucose,Whole Blood 141 mg/dL (70-110)
--- NOTE | 2024-10-31 13:31 | P.PN ---
Subjective Patient is seen for follow-up for acute kidney injury. Renal function has improved. Serum creatinine down to 0.9 mg/dL. Plans for possible discharge today. No complaints. Objective - Vital Signs Vital signs: Vital Signs Temp 99.6 F 10/31/24 07:18 Pulse 84 10/31/24 11:58 Resp 18 10/31/24 07:18 BP 138/77 10/31/24 07:18 Pulse Ox 97 10/31/24 08:07 FiO2 Intake & Output 10/30/24 10/31/24 10/31/24 18:59 06:59 18:59 Weight 68.039 kg Other: Voiding Method Incontinent Incontinent # Voids 3 2 # Bowel Movements 1 2 - Exam Patient is awake, comfortable, no acute distress Examination of the heart S1 and S2 Examination of the lungs bilateral breath sounds are heard Abdomen is soft nontender Examination of lower extremity shows 1+ edema SIGNAL CONSTRUCTOR exam grossly intact - Labs CBC & Chem 7: 10/30/24 03:10 10/30/24 03:10 Labs: Abnormal Lab Results - Last 24 Hours (Table) 10/30/24 10/30/24 10/31/24 Range/Units 16:22 20:53 06:07 POC Glucose (mg/dL) 210 H 191 H 146 H (70-110) mg/dL 10/31/24 Range/Units 11:14 POC Glucose (mg/dL) 141 H (70-110) mg/dL Microbiology - Last 24 Hours (Table) 10/25/24 18:00 Blood Culture - Final Blood Assessment and Plan Assessment: 1. Acute kidney injury secondary to ATN secondary to rhabdomyolysis and hypovolemia. Renal function improved. Creatinine 0.9. UA shows large blood with no RBCs suggestive of myoglobinuria. No hydronephrosis noted on ultrasound. 2. Chronic kidney disease stage IIIa with baseline creatinine 1-1.1 secondary to nephrosclerosis. 3. Rhabdomyolysis secondary to fall and immobility. CK levels trending down. 4. Left radius fracture being followed by orthopedic surgery. 5. Lower extremity wounds on antibiotics. ID following. 6. Hypokalemia from poor intake. Replaced. Better. 7. Mild metabolic acidosis Plan: DC IV fluids IV Lasix x 1 Sodium bicarb 650 mg daily for 1 week post discharge. Repeat labs as outpatient in about 1 week's time
[2024-10-31] MEDS: FUROSEMIDE 10 MG/ML 2 ML VIAL IV ONE (13:42)
[2024-10-31 14:23] VITALS: BP 131/68; PULSE 80; TEMP 99.1
[2024-10-31] MEDS: FUROSEMIDE 40 MG TAB PO STA (14:52)
--- NOTE | 2024-10-31 15:29 | P.PN ---
Subjective Progress Note Date: 10/30/24 Principal diagnosis: Reason for follow-up is right foot nonhealing wound and leukocytosis Patient is a 88-year-old female with a past medical history significant for Atrial Fibrillation, Cancer, Diabetes Mellitus, Hyperlipidemia, Hypertension, Mitral Valve Prolapse (MVP), Osteoarthritis (OA) was brought into the hospital after primary patient did have a fall patient also have a chronic nonhealing wound to the right lateral foot area elevated white count prompting t his consultation. On today's evaluation that is 10/30/2024, patient did have LOC for 99.9 this morning however has been afebrile since then, patient is breathing comfortably and is currently on 2 L nasal oxygen, patient denies having any chest pain and cough, patient denies nausea vomiting or diarrhea and no abdominal pain. Patient white count is 12.25, creatinine 0.9 Objective - Vital Signs Vital signs: Vital Signs Temp 99.9 F H 10/30/24 06:57 Pulse 84 10/30/24 09:49 Resp 18 10/30/24 06:57 BP 113/66 10/30/24 06:57 Pulse Ox 97 10/30/24 06:57 FiO2 Intake & Output 10/29/24 10/30/24 10/30/24 18:59 06:59 18:59 Output Total 350 900 Balance -350 -900 Output: Urine 350 900 Other: Voiding Method External Catheter External Catheter # Voids 1 2 # Bowel Movements 2 2 - Exam GENERAL DESCRIPTION: An elderly female lying in bed in no distress RESPIRATORY SYSTEM: Unlabored breathing , decreased breath sounds at bases HEART: S1 S2 regular rate and rhythm , ABDOMEN: Soft , no tenderness EXTREMITIES: Right foot lateral border wound post debridement no slough tissue - Labs CBC & Chem 7: 10/30/24 03:10 10/30/24 03:10 Labs: Abnormal Lab Results - Last 24 Hours (Table) 10/29/24 10/29/24 10/30/24 Range/Units 16:35 20:10 03:10 WBC (4.50-10.00) X 10*3/uL RBC (4.10-5.20) X 10*6/uL Hgb (12.0-15.0) g/dL Hct (37.2-46.3) % MCHC (32.0-37.0) g/dL RDW (11.5-14.5) % Plt Count (140-440) X 10*3/uL Immature Gran # (0.00-0.04) X 10*3/uL Neutrophils # (1.80-7.70) X 10*3/uL Eosinophils # (0.04-0.35) X 10*3/uL Chloride 111 H (96-109) mmol/L Carbon Dioxide 17.8 L (21.6-31.8) mmol/L BUN 38.0 H (9.0-27.0) mg/dL BUN/Creatinine Ratio 42.22 H (12.00-20.00) Ratio Glucose 138 H (70-110) mg/dL POC Glucose (mg/dL) 155 H 171 H (70-110) mg/dL Calcium 8.4 L (8.7-10.3) mg/dL C-Reactive Protein 6.90 H (0.00-0.80) mg/dL 10/30/24 10/30/24 10/30/24 Range/Units 03:10 06:16 11:24 WBC 12.25 H (4.50-10.00) X 10*3/uL RBC 3.65 L (4.10-5.20) X 10*6/uL Hgb 10.7 L (12.0-15.0) g/dL Hct 34.3 L (37.2-46.3) % MCHC 31.2 L (32.0-37.0) g/dL RDW 14.6 H (11.5-14.5) % Plt Count 124 L (140-440) X 10*3/uL Immature Gran # 0.15 H (0.00-0.04) X 10*3/uL Neutrophils # 9.52 H (1.80-7.70) X 10*3/uL Eosinophils # 0 L (0.04-0.35) X 10*3/uL Chloride (96-109) mmol/L Carbon Dioxide (21.6-31.8) mmol/L BUN (9.0-27.0) mg/dL BUN/Creatinine Ratio (12.00-20.00) Ratio Glucose (70-110) mg/dL POC Glucose (mg/dL) 123 H 187 H (70-110) mg/dL Calcium (8.7-10.3) mg/dL C-Reactive Protein (0.00-0.80) mg/dL Microbiology - Last 24 Hours (Table) 10/25/24 23:10 Anaerobic Culture - Final Foot - Right Assessment and Plan (1) Leukocytosis Current Visit: Yes Status: Acute Code(s): D72.829 - ELEVATED WHITE BLOOD CELL COUNT, UNSPECIFIED SNOMED Code(s): 792576666 (2) Wound of right foot Current Visit: Yes Status: Acute Code(s): S91.301A - UNSPECIFIED OPEN WOUND, RIGHT FOOT, INITIAL ENCOUNTER SNOMED Code(s): 178314409 (3) Elevated liver enzymes Current Visit: Yes Status: Acute Code(s): R74.8 - ABNORMAL LEVELS OF OTHER SERUM ENZYMES SNOMED Code(s): 730267388 Plan: 1patient presenting to the hospital with weakness and did have a fall has been on the ground in this patient noticed to have a elevated white count also have elevated lactic acid that may be the cardiovascular/sepsis source could be the right foot lateral border wound with secondary infection in this patient previous culture positive for MRSA and anaerobic gram-positive cocci patient also have elevated liver enzymes and abdominal source needs to be rule out, patient did have a abdominal ultrasound did not mention acute process pancreatic head cyst. 2patient did have penicillin allergy that would limit the number of antibiotic safe to use 3x-ray of the right foot concerning for right fifth metatarsal osteomyelitis. 4currently waiting for bone scan to make sure no evidence of osteomyelitis which is currently in progress 5local culture growing Proteus and Streptococcus 6patient is currently being treated with Rocephin 2 g daily and Flagyl , awaiting bone scan to determine duration and type of antibiotics on discharge Dictation was produced using [employer] dictation software. please excuse any grammatical, word or spelling errors. Time with Patient: Less than 30
--- NOTE | 2024-10-31 15:30 | P.PN ---
Subjective Progress Note Date: 10/31/24 Principal diagnosis: Reason for follow-up is right foot nonhealing wound and leukocytosis Patient is a 88-year-old female with a past medical history significant for Atrial Fibrillation, Cancer, Diabetes Mellitus, Hyperlipidemia, Hypertension, Mitral Valve Prolapse (MVP), Osteoarthritis (OA) was brought into the hospital after primary patient did have a fall patient also have a chronic nonhealing wound to the right lateral foot area elevated white count prompting t his consultation. On today's evaluation that is 10/31/2024, Patient is afebrile this morning patient denies having any chest pain shortness of breath or cough, the patient is currently on room air, patient denies any abdominal pain no diarrhea no nausea no vomiting. No new lab has been repeated today bone scan was negative for osteomyelitis Objective - Vital Signs Vital signs: Vital Signs Temp 99.6 F 10/31/24 07:18 Pulse 84 10/31/24 11:46 Resp 18 10/31/24 07:18 BP 138/77 10/31/24 07:18 Pulse Ox 97 10/31/24 08:07 FiO2 Intake & Output 10/30/24 10/31/24 10/31/24 18:59 06:59 18:59 Weight 68.039 kg Other: Voiding Method Incontinent Incontinent # Voids 3 2 # Bowel Movements 1 2 - Exam GENERAL DESCRIPTION: An elderly female lying in bed in no distress RESPIRATORY SYSTEM: Unlabored breathing , decreased breath sounds at bases HEART: S1 S2 regular rate and rhythm , ABDOMEN: Soft , no tenderness EXTREMITIES: Right foot lateral border wound post debridement no slough tissue - Labs CBC & Chem 7: 10/30/24 03:10 10/30/24 03:10 Labs: Abnormal Lab Results - Last 24 Hours (Table) 10/30/24 10/30/24 10/31/24 Range/Units 16:22 20:53 06:07 POC Glucose (mg/dL) 210 H 191 H 146 H (70-110) mg/dL 10/31/24 Range/Units 11:14 POC Glucose (mg/dL) 141 H (70-110) mg/dL Microbiology - Last 24 Hours (Table) 10/25/24 18:00 Blood Culture - Final Blood Assessment and Plan (1) Leukocytosis Current Visit: Yes Status: Acute Code(s): D72.829 - ELEVATED WHITE BLOOD CELL COUNT, UNSPECIFIED SNOMED Code(s): 131436151 (2) Wound of right foot Current Visit: Yes Status: Acute Code(s): S91.301A - UNSPECIFIED OPEN WOUND, RIGHT FOOT, INITIAL ENCOUNTER SNOMED Code(s): 637281882 (3) Elevated liver enzymes Current Visit: Yes Status: Acute Code(s): R74.8 - ABNORMAL LEVELS OF OTHER SERUM ENZYMES SNOMED Code(s): 918324506 Plan: 1patient presenting to the hospital with weakness and did have a fall has been on the ground in this patient noticed to have a elevated white count also have elevated lactic acid that may be the cardiovascular/sepsis source could be the right foot lateral border wound with secondary infection in this patient previous culture positive for MRSA and anaerobic gram-positive cocci patient also have elevated liver enzymes and abdominal source needs to be rule out, patient did have a abdominal ultrasound did not mention acute process pancreatic head cyst. 2patient did have penicillin allergy that would limit the number of antibiotic safe to use 3x-ray of the right foot concerning for right fifth metatarsal osteomyelitis. 4currently waiting for bone scan to make sure no evidence of osteomyelitis was reported negative for osteomyelitis 5local culture growing Proteus and Streptococcus 6patient will finish therapy with a 2-day course of oral Ceftin and Flagyl di scharge medication entered into her discharge instruction and care was discussed with the [id number] at the bedside Dictation was produced using [employer] dictation software. please excuse any gramm atical, word or spelling errors. Time with Patient: Less than 30
== END 2024-10-31 17:48 | DRG 463 ==
LOC: EC 12:28 → 3SCARD 17:13 → 4SSUR 10-25 13:41
PROVIDERS: ADMIT Family Medicine; ATTEND Family Medicine
PROC: 0JBQ0ZZ Excision of Right Foot Subcutaneous Tissue and Fascia, Open Approach (ICD-10-PCS; principal; 2024-10-26)
DX: S52.572A Other intraarticular fracture of lower end of left radius, initial encounter for closed fracture (principal); J96.01 Acute respiratory failure with hypoxia; L89.613 Pressure ulcer of right heel, stage 3; N17.0 Acute kidney failure with tubular necrosis; E44.0 Moderate protein-calorie malnutrition; L89.890 Pressure ulcer of other site, unstageable; E86.1 Hypovolemia; I27.20 Pulmonary hypertension, unspecified; E11.22 Type 2 diabetes mellitus with diabetic chronic kidney disease; N18.31 Chronic kidney disease, stage 3a; I12.9 Hypertensive chronic kidney disease with stage 1 through stage 4 chronic kidney disease, or unspecified chronic kidney disease; I48.19 Other persistent atrial fibrillation; E87.29 Other acidosis; E11.42 Type 2 diabetes mellitus with diabetic polyneuropathy; T79.6XXA Traumatic ischemia of muscle, initial encounter; B95.2 Enterococcus as the cause of diseases classified elsewhere; B96.4 Proteus (mirabilis) (morganii) as the cause of diseases classified elsewhere; E78.5 Hyperlipidemia, unspecified; F41.9 Anxiety disorder, unspecified; I87.2 Venous insufficiency (chronic) (peripheral); E87.6 Hypokalemia; K59.00 Constipation, unspecified; M19.012 Primary osteoarthritis, left shoulder; S00.81XA Abrasion of other part of head, initial encounter; S80.212A Abrasion, left knee, initial encounter; S80.211A Abrasion, right knee, initial encounter; W06.XXXA Fall from bed, initial encounter; Y92.003 Bedroom of unspecified non-institutional (private) residence as the place of occurrence of the external cause; Z79.01 Long term (current) use of anticoagulants; Z79.811 Long term (current) use of aromatase inhibitors; Z79.899 Other long term (current) drug therapy; Z85.3 Personal history of malignant neoplasm of breast; Z86.14 Personal history of Methicillin resistant Staphylococcus aureus infection; Z87.891 Personal history of nicotine dependence; Z86.79 Personal history of other diseases of the circulatory system; Z95.818 Presence of other cardiac implants and grafts; Z68.25 Body mass index [BMI] 25.0-25.9, adult
CPT/HCPCS: 36415; 70450; 71045; 72125; 72170; 76705; 78315; 80048; 80053; 81001; 82550; 83036; 83605; 83735; 84134; 84484; 85025; 85027; 85610; 85652; 85730; 86140; 87040; 87070; 87075; 87077; 87186; 87205; 90471; 90715; 93005; 94640; 94760; 96361; 96365; 96375; 99285